=== PATIENT | female | born 1960 | race African-American/Black ===

== ENCOUNTER → 2017-02-21 | Outpatient (CLI) | payer MEDICARE, OTHER ==
[~2017-02-21] MED LIST: AMITRIPTYLINE H75 MG ORAL; AMLODIPINE BESY10 MG ORAL; ATORVASTATIN CA20 MG ORAL; CARVEDILOL3.125 MG ORAL; CREON DR 36,001 EACH PO; DEXILANT60 MG ORAL; DIGOXIN125 MCG ORAL; HYDROCHLOROTHIA25 MG ORAL; LEVOFLOXACIN500 MG ORAL; LISINOPRIL40 MG ORAL; METOPROLOL SUCC50 MG ORAL; OMEPRAZOLE20 M3 ORAL; OXYCODONE HCL15 M1 ORAL; POTASSIUM CHLO20 ME2 ORAL; PROAIR HFA8.5 GM INH
--- NOTE | 2017-02-21 11:44 | Diagnostic Imaging Report ---
Indications: Osteoporosis Technique: Utilizing a Siemens sensation [address] scanner, axial images were generated through the L1-L3 vertebral bodies and bone mineral density measured at each level via CT algorithm. Mean bone mineral density was calculated and mathematically compared to published standards for various age cohorts. CTDI volume(s): 4x2, 5 mGy Total DLP: 34 mGy-cm Findings: Comparison: None The patient's mean bone mineral density measures 119.1 mg calcium hydroxy apatite per milliliter bone. This generates a T score of -1.46, indicating that the patient's bone mineral density is deviation below the mean for an average healthy 20-year-old female. This generates a Z score of 0.48, indicating that the patient's bone mineral density is possibly one half of one standard deviation above the mean for his/her age cohort. IMPRESSION: Decreased bone mineral density compatible with osteopenia. This portends moderate risk of continued bone mineral loss and development of insufficiency fracture. Recommend institution of bone mineral replacement therapy if not are ready begun and followup exam in one to 2 years to assess rate of bone turnover
== END | disposition home or self-care (01) ==
LOC: CAT 10:37
DX: M81.0 Age-related osteoporosis without current pathological fracture (principal)
CPT/HCPCS: 77078

== ENCOUNTER 2017-02-22 12:49 | Outpatient (CLI) | payer MEDICARE, OTHER ==
--- NOTE | 2017-02-22 15:53 | Diagnostic Imaging Report ---
Indication: SCREEN Technique: Bilateral Craniocaudal and mediolateral oblique views, both conventional and implant displaced, were obtained. Comparison: 01/01/2015 screening mammogram, 01/20/2015 diagnostic mammogram and ultrasound Findings: There are bilateral breast implants which appear intact. The breasts demonstrate scattered fibroglandular densities. No parenchymal asymmetry nor architectural distortion. There are benign calcifications on the left. Again demonstrated is a 78 mm mass in the left breast 3:00 position, which appears unchanged, previously worked up and found to be an apocrine cyst. In the medial right breast, seen only on the craniocaudal implant displaced view, there is a 3 mm asymmetry, not evident previously. No skin thickening nor nipple retraction. No axillary adenopathy. . Impression: 3 mm medial right breast asymmetry, not evident previously, seen only on the implant displaced craniocaudal view. Further evaluation with spot compression mammography and ultrasound Stable benign left breast 3:00 nodule, previously worked up and thought to represent a benign apocrine cyst. BI-RADS category zero-needs additional imaging evaluation. Breast density BI-RADS type B.
== END 2017-02-22 14:49 | disposition home or self-care (01) ==
LOC: MAMMO 12:49
DX: Z12.31 Encounter for screening mammogram for malignant neoplasm of breast (principal); N64.89 Other specified disorders of breast; N63 Unspecified lump in breast
CPT/HCPCS: 77067

== ENCOUNTER 2017-03-17 10:46 | Outpatient (CLI) | payer MEDICARE, OTHER ==
--- NOTE | 2017-03-17 15:42 | Diagnostic Imaging Report ---
Indication: Abnormal screening mammogram. Nodule demonstrated in the right breast. Technique: Right breast mammography performed with implant displaced craniocaudal, true lateral and mediolateral oblique projections of the left impression. Ultrasound right breast also performed Prior examinations: 02/22/17 Findings: Breast composition type B: There are scattered areas of fibroglandular density. Small, fairly well-defined nodular focus is confirmed within the medial aspect of the right breast seen on the craniocaudal view in several projections. The nodule is about 4 mm in size. Ultrasound performed in this region does not show corresponding cyst or mass. There is no interval change. Impression: Small mammographically benign-appearing nodule, sonographically occult confirmed within the medial right breast. BI-RADS 3. Recommend 6 month followup ultrasound and diagnostic mammogram
--- NOTE | 2017-03-17 15:42 | Diagnostic Imaging Report ---
Refer to the diagnostic mammogram report 03/17/70
== END 2017-03-17 12:46 | disposition home or self-care (01) ==
LOC: MAMMO 10:46
DX: N63 Unspecified lump in breast (principal)
CPT/HCPCS: 76641; G0206

== ENCOUNTER 2019-04-09 12:43 | Emergency (ER) | payer MEDICARE, OTHER ==
[~2019-04-09] VITALS: Ht 167.6 cm; Wt 98.4 kg
--- NOTE | 2019-04-09 12:50 | NUR ---
ED Nurse Note: pt walked in to ED due to headache for 4-5 days. no recent injury. pt ambulatory with steady gait using walker. AAO x4. respirations even and non-labored noted. will wait for the further order.
[2019-04-09 13:02] VITALS: BP 128/76
--- NOTE | 2019-04-09 13:46 | Emergency Room Report ---
History of Present Illness General Chief Complaint: Headache Source: Patient (Monika Rene) Present Illness HPI 59 YO Female presents to the ED c/o SOB x 2 days. Reports exposure to mold in her house and when she stayed at motel last night had complete resolution of her symptoms until returning home again today. Pt. 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 Pt. denies fevers, chills or night sweats. Pt. with hx of tummy tuck. Pt. reports GRIGSBY, fatigue and productive cough. Denies recent travel or ill contacts. denies CP, Dizziness or palpitations. Denies sudden onset of her GRIGSBY. Denies imbalance, N/V, visual changes, neck pain/stiffness. She reports some sinus congestion, denies facial pain/sinus pain. Pt. reports sneezing. Denies having environmental allergies. pt. on Oxycodone for chronic pain. Recently at [facility] for UTI where she left AMA. (Monika Rene) Allergies: Coded Allergies: METRONIDAZOLE (Verified Allergy, Mild, 02/25/15) PENICILLIN G (Verified Allergy, Mild, 02/25/15) Patient History Past Medical History: see triage record Past Surgical History: none Pertinent Family History: none Now: No Reviewed Nursing Documentation: PMH: Agreed; PSxH: Agreed (Monika Rene) Nursing Documentation-PMH Past Medical History: No History, Except For Hx Cardiac Problems: Yes - Right shoulder rotator cuff, Arthritis Hx Hypertension: Yes Hx COPD: Yes Hx Diabetes: Yes Hx Cancer: No Hx Gastrointestinal Problems: Yes Hx Neurological Problems: No Hx Seizures: No - GERD (Monika Rene) Review of Systems All Other Systems: negative except mentioned in HPI (Monika Rene) Physical Exam Vital Signs Date Time Temp Pulse Resp B/P (MAP) Pulse Ox O2 Delivery O2 Flow Rate FiO2 04/09/19 12:54 98.2 82 15 128/76 (93) 92 Room Air Sp02 EP Interpretation: reviewed, normal General Appearance: no apparent distress, alert, GCS 15, non-toxic Head: normocephalic, atraumatic Eyes: bilateral eye normal inspection, bilateral eye PERRL ENT: hearing grossly normal, normal voice Neck: full range of motion Respiratory: chest non-tender, lungs clear, normal breath sounds, no rhonchi, no respiratory distress, no accessory muscle use, no wheezing, speaking full sentences Cardiovascular #1: regular rate, rhythm, no edema, normal capillary refill Gastrointestinal: normal bowel sounds, non tender, soft Genitourinary: normal inspection, no CVA tenderness Musculoskeletal: back normal, gait/station normal - with walker assistance, normal range of motion, non-tender Neurologic: alert, oriented x3, responsive, motor strength/tone normal, sensory intact, normal gait, speech normal, grossly normal Psychiatric: judgement/insight normal Lymphatic: no adenopathy (Monika Rene) Medical Decision Making PA Attestation Dr. Arriaga Is my supervising Physician whom patient management has been discussed with. (Monika Rene) Diagnostic Impression: Primary Impression: UTI (urinary tract infection) Qualified Codes: N30.01 - Acute cystitis with hematuria Additional Impressions: Cough Allergic rhinitis Qualified Codes: J30.9 - Allergic rhinitis, unspecified Atypical pneumonia ER Course 59 YO Female presents to the ED c/o SOB x 2 days. Reports exposure to mold in her house and when she stayed at motel last night had complete resolution of her symptoms until returning home again today. Pt. 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 Pt. denies fevers, chills or night sweats. Pt. with hx of tummy tuck. Pt. reports GRIGSBY, fatigue and productive cough. Denies recent travel or ill contacts. denies CP, Dizziness or palpitations. Denies sudden onset of her GRIGSBY. Denies imbalance, N/V, visual changes, neck pain/stiffness. She reports some sinus congestion, denies facial pain/sinus pain. Pt. reports sneezing. Denies having environmental allergies. pt. on Oxycodone for chronic pain. Recently at [facility] for UTI where she left AMA. Ddx considered but are not limited to FL, PE, atelectasis, CHF, asthma, anxiety , hyper-ventilation syndrome, pneumonia, costochondritis, chest wall pain, -- No acute pulmonary or cardiac causes at this time. The patient is NAD, her oxygen saturation is within normal limits, patient is not in respiratory distress at this time. Vital signs: are WNL, pt. is afebrile H&PE are most consistent with-- Bronchitis ORDERS: -EKG: NSR 89 beats per minute, no acute ST changes -CBC & CMP: unremarkable/ WNL -Troponin: WNL -BNP: WNL -UA: Nitrite positive, leuks, wbc's ---infection -CXR: cardiomegaly ED INTERVENTIONS: -1G Rocephin IV -I do not identify an emergent condition at this time. With current presentation , pt. is stable for close outpatient follow up and conservative treatment. D/ w pt. to return promptly to ED with worsening or new symptoms.- Pt. verbalizes' understanding and agreement with proposed treatment plan.proposed treatment plan. Official radiology report cites atelectasis -basilar which could represent an PNA if pt. correlates clinically. Due to pt. being here for c/o cough, and URI symptoms will treat with Levaquin abx. as pt. with hx. of COPD. Rx sent to [facility] and pt. was contacted by phone who wants her pharmacy updated from [place] to [facility] pharmacy. DISCHARGE: At this time pt. is stable for d/c to home. s. Will provide printed patient care instructions, and any necessary prescriptions. Care plan and follow up instructions have been discussed with the patient prior to discharge. Labs Test 04/09/19 14:10 White Blood Count 7.4 K/UL (4.8-10.8) Red Blood Count 5.28 M/UL (4.20-5.40) Hemoglobin 14.6 G/DL (12.0-16.0) Hematocrit 45.4 % (37.0-47.0) Mean Corpuscular Volume 86 FL (80-99) Mean Corpuscular Hemoglobin 27.6 PG (27.0-31.0) Mean Corpuscular Hemoglobin Concent 32.0 G/DL (32.0-36.0) Red Cell Distribution Width 12.8 % (11.6-14.8) Platelet Count 291 K/UL (150-450) Mean Platelet Volume 6.8 FL (6.5-10.1) Neutrophils (%) (Auto) 57.8 % (45.0-75.0) Lymphocytes (%) (Auto) 31.4 % (20.0-45.0) Monocytes (%) (Auto) 7.3 % (1.0-10.0) Eosinophils (%) (Auto) 2.4 % (0.0-3.0) Basophils (%) (Auto) 1.1 % (0.0-2.0) Urine Color Brown Urine Appearance Slightly cloudy Urine pH 5 (4.5-8.0) Urine Specific [place] 1.020 (1.005-1.035) Urine Protein 2+ (NEGATIVE) Urine Glucose (UA) Negative (NEGATIVE) Urine Ketones 2+ (NEGATIVE) Urine Blood 4+ (NEGATIVE) Urine Nitrite Positive (NEGATIVE) Urine Bilirubin Negative (NEGATIVE) Urine Urobilinogen 1 MG/DL (0.0-1.0) Urine Leukocyte Esterase 2+ (NEGATIVE) Urine RBC 5-10 /HPF (0 - 2) Urine WBC 20-30 /HPF (0 - 2) Urine Squamous Epithelial Cells Moderate /LPF (NONE/OCC) Urine Bacteria Many /HPF (NONE) Sodium Level 139 MMOL/L (136-145) Potassium Level 3.7 MMOL/L (3.5-5.1) Chloride Level 100 MMOL/L (98-107) Carbon Dioxide Level 34 MMOL/L (21-32) Anion Gap 5 mmol/L (5-15) Blood Urea Nitrogen 11 mg/dL (7-18) Creatinine 1.0 MG/DL (0.55-1.30) Estimat Glomerular Filtration Rate > 60 mL/min (>60) Glucose Level 94 MG/DL (74-106) Calcium Level 9.5 MG/DL (8.5-10.1) Total Bilirubin 0.5 MG/DL (0.2-1.0) Aspartate Amino Transf (AST/SGOT) 16 U/L (15-37) Alanine Aminotransferase (ALT/SGPT) 20 U/L (12-78) Alkaline Phosphatase 152 U/L (46-116) Troponin I 0.000 ng/mL (0.000-0.056) Pro-B-Type Natriuretic Peptide 32 pg/mL (0-125) Total Protein 8.7 G/DL (6.4-8.2) Albumin 3.9 G/DL (3.4-5.0) Globulin 4.8 g/dL Albumin/Globulin Ratio 0.8 (1.0-2.7) (Monika Rene) EKG Diagnostic Results EP Interpretation: Dr. Arriaga Rate: normal - 89 Rhythm: NSR ST Segments: no acute changes ASA given to the pt in ED: No PA Scribe Text This Interpretation was scribed by MARLY Rene. (Monika Rene) Chest X-Ray Diagnostic Results Chest X-Ray Diagnostic Results : Chest X-Ray Ordered: Yes # of Views/Limited/Complete: 1 View Indication: Shortness of Breath EP Interpretation: Yes PA Xray: Interpretation reviewed, by supervising MD - Dr. Michael, and agrees with findings. Interpretation: no consolidation, no effusion, no pneumothorax, no acute cardiopulmonary disease, other - Cardiomegaly Impression: No acute disease Electronically Signed by: Monkia Rene PA-C (Monika Rene) Chest X-Ray Diagnostic Results : Electronically Signed by: MARLY xray documentation reviewed by me and is accurate, Matthew Arriaga MD. (Matthew Arriaga MD) Last Vital Signs Date Time Temp Pulse Resp B/P (MAP) Pulse Ox O2 Delivery O2 Flow Rate FiO2 04/09/19 13:02 98.2 82 15 128/76 92 Room Air Status: improved (Monika Rene) Disposition: HOME, SELF-CARE Condition: Stable Scripts Levofloxacin* (LEVAQUIN*) 750 Mg Tablet 750 MG ORAL DAILY for 5 Days, #5 TAB Prov: Monika Rene 04/11/19 Cetirizine Hcl* (ZYRTEC*) 10 Mg Tablet 10 MG ORAL DAILY, #30 TAB 0 Refills Prov: Monika Rene 04/09/19 Nitrofurantoin Monohyd/M-Cryst* (MACROBID 100 MG*) 100 Mg Capsule 100 MG ORAL EVERY 12 HOURS for 5 Days, #10 CAP Prov: Monika Rene 04/09/19 Patient Instructions: Allergic Rhinitis, Urinary Tract Infection, [id number] Additional Instructions: Take medications as directed. Follow up with a Primary Care Provider in 3-5 days, even if your symptoms have resolved. -- DRAWBENCH OPERATOR HELPER EVALUATION REFERRAL --- please obtain from your PCP Dr. Alexander Return sooner to ED if new symptoms occur, or current symptoms become worse. - Please note that this Emergency Department Report was dictated using Dragon electrical prospecting operator technology software, occasionally this can lead to erroneous entry secondary to interpretation by the dictation equipment. Monika Rene Apr 09, 2019 13:46 Matthew Arriaga MD Apr 12, 2019 00:49
[2019-04-09 14:16] LABS: APPEARANCE,URINE SLIGHTLY CLOUDY; BILIRUBIN, URINE NEGATIVE (NEGATIVE); COLOR,URINE BROWN; GLUCOSE, URINE (UA) NEGATIVE (NEGATIVE); KETONES,URINE 2+ (NEGATIVE); LEUKOCYTE ESTERASE ,URINE 2+ (NEGATIVE); NITRITE,URINE POSITIVE (NEGATIVE); PH,URINE 5 (4.5-8.0); PROTEIN,URINE 2+ (NEGATIVE); UROBILINOGEN,URINE 1 MG/DL (0.0-1.0)
[2019-04-09 14:17] LABS: BASOPHILS % (AUTO) 1.1 % (0.0-2.0); EOSINOPHILS % (AUTO) 2.4 % (0.0-3.0); HEMATOCRIT 45.4 % (37.0-47.0); HEMOGLOBIN 14.6 G/DL (12.0-16.0); LYMPHOCYTES % (AUTO) 31.4 % (20.0-45.0); MEAN CORPUSCULAR VOLUME 86 FL (80-99); MONOCYTES % (AUTO) 7.3 % (1.0-10.0); NEUTROPHILS % (AUTO) 57.8 % (45.0-75.0); PLATELET COUNT 291 K/UL (150-450); RED BLOOD COUNT 5.28 M/UL (4.20-5.40); RED CELL DISTRIBUTION WIDTH 12.8 % (11.6-14.8); WHITE BLOOD COUNT 7.4 K/UL (4.8-10.8)
[2019-04-09 14:46] LABS: ANION GAP 5 mmol/L (5-15); BLOOD UREA NITROGEN 11 mg/dL (7-18); CALCIUM 9.5 MG/DL (8.5-10.1); CARBON DIOXIDE 34 MMOL/L (21-32); CHLORIDE 100 MMOL/L (98-107); POTASSIUM 3.7 MMOL/L (3.5-5.1); SODIUM 139 MMOL/L (136-145)
[2019-04-09 14:59] LABS: ALANINE AMINOTRANSFERASE 20 U/L (12-78); ALBUMIN 3.9 G/DL (3.4-5.0); ALBUMIN/GLOBULIN RATIO 0.8 (1.0-2.7); ALKALINE PHOSPHATASE 152 U/L (46-116); ASPARTATE AMINO TRANSFERASE 16 U/L (15-37); BILIRUBIN,TOTAL 0.5 MG/DL (0.2-1.0)
[2019-04-09] MEDS ORDERED: cefTRIAXone 1 GM in NS 55 ML IVPB ONE (15:15)
[2019-04-09] MEDS ORDERED: NITROFURANTOIN100 M2 ORAL (15:42)
[2019-04-09] MEDS ORDERED: ZYRTEC10 MG ORAL (15:42)
[2019-04-09] MEDS ORDERED: Phenazopyridine 200mg tab ORAL ONE (16:00)
[2019-04-09 16:18] VITALS: BP 122/71
--- NOTE | 2019-04-09 16:19 | NUR ---
ER DISCHARGE NOTE: Patient is cleared to be discharged per ERMD, pt is aox4, on room air, with stable vital signs. pt was given dc and prescription instructions, pt was able to verbalize understanding, pt id band and iv site removed without complications. pt is able to ambulate with steady gait. pt took all belongings.
--- NOTE | 2019-04-09 16:35 | Diagnostic Imaging Report ---
Indication: Reason For Exam: PAIN Technique: Single AP view of the chest. Comparison: Chest radiograph dated 06/20/2015 Findings: The cardiomediastinal silhouette is unchanged, with persistent cardiomegaly. Streaky right basilar subsegmental atelectasis. Left basilar/retrocardiac airspace opacity. No pneumothorax. Question trace left pleural effusion. No acute osseous and amounted. IMPRESSION: 1. Retrocardiac/left basilar airspace opacity which may be combination of atelectasis and cardiac shadow, however pneumonia should be excluded clinically. 2. Cardiomegaly.
[2019-04-11] MEDS ORDERED: LEVAQUIN750 MG ORAL ×2 (12:30→12:37)
== END 2019-04-09 16:19 | disposition home or self-care (01) ==
LOC: EMR 15:02
DX: N30.01 Acute cystitis with hematuria (principal); R05 Cough; J30.9 Allergic rhinitis, unspecified; I10 Essential (primary) hypertension; Z86.711 Personal history of pulmonary embolism; Z88.0 Allergy status to penicillin; Z88.8 Allergy status to other drugs, medicaments and biological substances; J44.9 Chronic obstructive pulmonary disease, unspecified; K21.9 Gastro-esophageal reflux disease without esophagitis; E11.9 Type 2 diabetes mellitus without complications; I51.7 Cardiomegaly
CPT/HCPCS: 36415; 71045; 80053; 81003; 83880; 84484; 85025; 87086; 87181; 93005; 96365; 99284; J0696

== ENCOUNTER 2019-07-10 15:19 | Inpatient (IN) | payer MEDICARE, OTHER ==
[~2019-07-10] VITALS: Ht 167.6 cm; Wt 102.3 kg
[~2019-07-10 15:19] MED LIST changes: +CALAN SR180 MG ORAL; +COZAAR50 MG ORAL; +FUROSEMIDE20 M1 ORAL; +LEVAQUIN750 MG ORAL; +NITROFURANTOIN100 M2 ORAL; +ZYRTEC10 MG ORAL
[2019-07-10 15:40] VITALS: BP 153/94
--- NOTE | 2019-07-10 15:40 | NUR ---
ED Nurse Note: Patient walked in to ER due to lower back pain x2 weeks. As per patient she is taking prescribed [place] for pain but doesnt alleviate the symptoms. Has history of lumbar spinal stenosis. No SOB. VSS.
--- NOTE | 2019-07-10 16:16 | NUR ---
ED Nurse Note: Per SHAUNA Frank, Hold NS 500. Noted and carried out.
--- NOTE | 2019-07-10 16:35 | Emergency Room Report ---
History of Present Illness General Chief Complaint: Back Pain-No Injury Source: Patient (Monika Rene) Present Illness HPI 59-year-old female presents to the emergency department complaining of multiple symptoms such as wheezing, sore throat, orthostatic dizziness, 8/10 in severity low back pain x2 weeks. Patient reports history of chronic right-sided low back pain however over the course of 2 weeks her pain has progressed across her back. Patient with history of spinal stenosis and L3-4 and 5. Patient denies trauma or fall. Patient denies chest pain she does report abdominal burning sensation and metallic taste in her mouth. Reports hx of COPD with nebulizer at home. Patient reports history of GERD and takes omeprazole. Patient is also stating that her voice is frequently hoarse. Patient states that she is being seen by infectious disease regarding mold exposure and is currently awaiting for microorganism identification. She denies fevers but reports chills. She denies nausea, vomiting, constipation or diarrhea. She denies saddle anesthesia , motor weakness, or urinary incontinence or retention. She denies sciatica symptoms. She denies recent spinal procedures/injections or hx of cancer. (Monika Rene) Allergies: Coded Allergies: METRONIDAZOLE (Verified Allergy, Mild, 02/25/15) PENICILLIN G (Verified Allergy, Mild, 02/25/15) Patient History Past Medical History: see triage record Past Surgical History: none Pertinent Family History: none Now: No Reviewed Nursing Documentation: PMH: Agreed; PSxH: Agreed (Monika Rene) Nursing Documentation-PMH Past Medical History Deferred: Pt Cognitively Impaired Hx Cardiac Problems: Yes - Right shoulder rotator cuff, Arthritis Hx Hypertension: Yes Hx COPD: Yes Hx Diabetes: Yes Hx Cancer: No Hx Gastrointestinal Problems: Yes Hx Neurological Problems: No - SPINAL STENOSIS Hx Seizures: No - GERD (Monika Rene) Review of Systems All Other Systems: negative except mentioned in HPI (Monika Rene) Physical Exam Vital Signs Date Time Temp Pulse Resp B/P (MAP) Pulse Ox O2 Delivery O2 Flow Rate FiO2 07/10/19 15:36 98.1 100 16 153/94 (113) 96 Room Air Sp02 EP Interpretation: reviewed, normal General Appearance: no apparent distress, alert, GCS 15, non-toxic Head: normocephalic, atraumatic Eyes: bilateral eye normal inspection, bilateral eye PERRL ENT: hearing grossly normal, normal voice Neck: full range of motion Respiratory: chest non-tender, lungs clear, normal breath sounds, no respiratory distress, no accessory muscle use, speaking full sentences, wheezing - expiratory, other - hoarsness of voice Cardiovascular #1: regular rate, rhythm, no edema, normal capillary refill Gastrointestinal: normal bowel sounds, non tender, soft Genitourinary: normal inspection, no CVA tenderness Musculoskeletal: gait/station normal, normal range of motion, tender - TTP across the low back. no specific midline spinous process tenderness to palpation or step-off. Patient primarily has tenderness in the paraspinal musculature. Neurologic: alert, oriented x3, responsive, motor strength/tone normal, sensory intact, speech normal, grossly normal Psychiatric: judgement/insight normal Skin: normal color Lymphatic: no adenopathy (Monika Rene) Medical Decision Making PA Attestation Dr. Geronimo Is my supervising Physician whom patient management has been discussed with. (Monika Rene) Medicare Attestation The history of Anibal Kaur has been reviewed and management options for her have been examined and discussed by Ne Geronimo. I have personally examined and interviewed the patient. (Ne Geronimo DO) Diagnostic Impression: Primary Impression: COPD exacerbation Additional Impression: Dyspnea Qualified Codes: R06.00 - Dyspnea, unspecified ER Course 59-year-old female presents to the emergency department complaining of multiple symptoms such as wheezing, sore throat, orthostatic dizziness, 8/10 in severity low back pain x2 weeks. Patient reports history of chronic right-sided low back pain however over the course of 2 weeks her pain has progressed across her back. Patient with history of spinal stenosis and L3-4 and 5. Patient denies trauma or fall. Patient denies chest pain she does report abdominal burning sensation and metallic taste in her mouth. Reports hx of COPD with nebulizer at home. Patient reports history of GERD and takes omeprazole. Patient is also stating that her voice is frequently hoarse. Patient states that she is being seen by infectious disease regarding mold exposure and is currently awaiting for microorganism identification. She denies fevers but reports chills. She denies nausea, vomiting, constipation or diarrhea. She denies saddle anesthesia , motor weakness, or urinary incontinence or retention. She denies sciatica symptoms. She denies recent spinal procedures/injections or hx of cancer. Ddx considered but are not limited to IA, pneumonia, contusion, costochondritis , PE, ACS, Shoulder strain, Chest wall contusion. aortic dissection. Vital signs: are WNL, pt. is afebrile H&PE are most consistent with COPD exacerbation vs. GERD/ PNA. ORDERS: - EK bpm -CBC: wbc's 13.4 -CMP: WNL -BNP:40 -Troponin:0.014 -Lipase: WNL -CXR: -Orthostatic VS: WNL ED INTERVENTIONS: -Albuterol HHN - PT. placed on cardiac monitoring. DISPOSITION: at this time pt. will be admitted to Dr. Ibarra for COPD exacerbation/ persistent dyspnea. agreed to admit the pt. and to continue pt. care management. Labs Test 07/10/19 16:14 White Blood Count 13.8 K/UL (4.8-10.8) Red Blood Count 4.79 M/UL (4.20-5.40) Hemoglobin 13.5 G/DL (12.0-16.0) Hematocrit 39.1 % (37.0-47.0) Mean Corpuscular Volume 81 FL (80-99) Mean Corpuscular Hemoglobin 28.1 PG (27.0-31.0) Mean Corpuscular Hemoglobin Concent 34.5 G/DL (32.0-36.0) Red Cell Distribution Width 11.2 % (11.6-14.8) Platelet Count 261 K/UL (150-450) Mean Platelet Volume 7.4 FL (6.5-10.1) Neutrophils (%) (Auto) 63.8 % (45.0-75.0) Lymphocytes (%) (Auto) 26.7 % (20.0-45.0) Monocytes (%) (Auto) 7.4 % (1.0-10.0) Eosinophils (%) (Auto) 1.1 % (0.0-3.0) Basophils (%) (Auto) 1.0 % (0.0-2.0) Sodium Level 138 MMOL/L (136-145) Potassium Level 3.3 MMOL/L (3.5-5.1) Chloride Level 99 MMOL/L (98-107) Carbon Dioxide Level 32 MMOL/L (21-32) Anion Gap 7 mmol/L (5-15) Blood Urea Nitrogen 11 mg/dL (7-18) Creatinine 1.0 MG/DL (0.55-1.30) Estimat Glomerular Filtration Rate > 60 mL/min (>60) Glucose Level 125 MG/DL (74-106) Calcium Level 8.4 MG/DL (8.5-10.1) Total Bilirubin 0.2 MG/DL (0.2-1.0) Aspartate Amino Transf (AST/SGOT) 13 U/L (15-37) Alanine Aminotransferase (ALT/SGPT) 21 U/L (12-78) Alkaline Phosphatase 118 U/L (46-116) Troponin I 0.014 ng/mL (0.000-0.056) Pro-B-Type Natriuretic Peptide 40 pg/mL (0-125) Total Protein 7.9 G/DL (6.4-8.2) Albumin 3.8 G/DL (3.4-5.0) Globulin 4.1 g/dL Albumin/Globulin Ratio 0.9 (1.0-2.7) Lipase 105 U/L (73-393) (Monika Rene) EKG Diagnostic Results EP Interpretation: Dr. Geronimo Rate: normal - [address] Segments: no acute changes ASA given to the pt in ED: No PA Scribe Text This Interpretation was scribed by MARLY Rene. (Monika Rene) Chest X-Ray Diagnostic Results Chest X-Ray Diagnostic Results : Chest X-Ray Ordered: Yes # of Views/Limited/Complete: 1 View Indication: Shortness of Breath EP Interpretation: Yes MARLY Xray: Interpretation reviewed, by supervising MD, and agrees with findings. Interpretation: no consolidation, no effusion, no pneumothorax, other - Cardiomegaly Impression: Other - abnormal Electronically Signed by: Monika Rene PA-C (Monika Rene) Last Vital Signs Date Time Temp Pulse Resp B/P (MAP) Pulse Ox O2 Delivery O2 Flow Rate FiO2 07/10/19 15:40 98.1 100 16 153/94 96 Room Air (Monika Rene) Disposition: ADMITTED INPATIENT Condition: Serious Monika Rene Jul 10, 2019 16:35 Ne Geronimo 13, 2019 17:53
--- NOTE | 2019-07-10 16:39 | NUR ---
ED Nurse Note: Xray at bedside.
[2019-07-10 16:50] VITALS: BP_SYST 130; BP_SYST 138; BP_SYST 140; BP_DIAS 51; BP_DIAS 79; BP_DIAS 89
[2019-07-10 17:05] LABS: EOSINOPHILS % (AUTO) 1.1 % (0.0-3.0); HEMATOCRIT 39.1 % (37.0-47.0); HEMOGLOBIN 13.5 G/DL (12.0-16.0); LYMPHOCYTES % (AUTO) 26.7 % (20.0-45.0); MEAN CORPUSCULAR VOLUME 81 FL (80-99); MONOCYTES % (AUTO) 7.4 % (1.0-10.0); NEUTROPHILS % (AUTO) 63.8 % (45.0-75.0); PLATELET COUNT 261 K/UL (150-450); RED BLOOD COUNT 4.79 M/UL (4.20-5.40); RED CELL DISTRIBUTION WIDTH 11.2 % (11.6-14.8); WHITE BLOOD COUNT 13.8 K/UL (4.8-10.8)
[2019-07-10 17:10] LABS: ANION GAP 7 mmol/L (5-15); BLOOD UREA NITROGEN 11 mg/dL (7-18); CALCIUM 8.4 MG/DL (8.5-10.1); CARBON DIOXIDE 32 MMOL/L (21-32); CHLORIDE 99 MMOL/L (98-107); POTASSIUM 3.3 MMOL/L (3.5-5.1); SODIUM 138 MMOL/L (136-145)
--- NOTE | 2019-07-10 17:11 | Diagnostic Imaging Report ---
Indication: Chest pain Comparison: 05/06/2019 A single view chest radiograph was obtained. Findings: Cardiomegaly is present. The lungs are clear. Pulmonary vascularity is appropriate. The diaphragmatic contour is smooth and costophrenic angles are sharp. No pleural effusions are identified. The bones are unremarkable. Impression: No acute findings
[2019-07-10 17:14] LABS: ALANINE AMINOTRANSFERASE 21 U/L (12-78); ALBUMIN 3.8 G/DL (3.4-5.0); ALBUMIN/GLOBULIN RATIO 0.9 (1.0-2.7); ALKALINE PHOSPHATASE 118 U/L (46-116); ASPARTATE AMINO TRANSFERASE 13 U/L (15-37); BILIRUBIN,TOTAL 0.2 MG/DL (0.2-1.0)
[2019-07-10] MEDS ORDERED: Albuterol ud Inhalation HHN ONE (17:45)
--- NOTE | 2019-07-10 17:58 | NUR ---
ED Nurse Note: RT at bedside for breathing tx.
[2019-07-10] MEDS ORDERED: Lidocaine 2% Visc 15ml soln ORAL ONE (18:00)
[2019-07-10 19:46] VITALS: BP 105/73
--- NOTE | 2019-07-10 20:00 | NUR ---
ED Nurse Note: RECEIVING PATIENT FROM KARLENE RN. PATIENT RESTING INBED COMFORTABLY WITH NO ACUTE DISTRESS. DENIES PAIN AT THIS TIME. IV FLUSHED AND PATENT. ATTACHED TO MONITOR; VSS. PT AWARE OF PENDING ADMISSION
[2019-07-10 21:00] VITALS: BP 118/73
--- NOTE | 2019-07-10 21:45 | NUR ---
TRANSFER TO FLOOR: Patient transferred to [facility] 220-2 as ordered, per ROMAIN MOJICA. Report given to MAKEDA WAGONER. PATIENT IN STABLE CONDITION. TRANSFERRED TO UNIT VIA [facility]. PT AMBULATED FROM [facility] TO HOSPITAL BED WITH SUPERVISION. BELONGINGS SENT WITH PATIENT. BELONGINGS LIST COMPLETED WITH RECEIVING RN.
--- NOTE | 2019-07-10 21:51 | NUR ---
NURSE NOTES: Received report from Harry Cristobal LABORATORY ENGINEER. Patient was transferred to Telemetry unit from ER via [facility] without incident. No signs of acute distress noted; complains of pain. AOx4; able to make needs known. Ambulates with cane. Checked IV site; patent and flushed. No erythema, bleeding, or infiltration noted. Belongings list checked with patient and transferring RN. 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 Patient put on Tele box; sinus rhythm on the monitor (90s). Bed at lowest position, brakes on, siderails up x2. Call light within reach. Will continue to monitor.
[2019-07-10] MEDS ORDERED: COREG CR80 MG ORAL (23:20)
[2019-07-10] MEDS ORDERED: FLUCONAZOLE100 MG ORAL (23:20)
[2019-07-10] MEDS ORDERED: COLCHICINE0.6 M1 PO (23:20)
[2019-07-10] MEDS ORDERED: SPIRONOLACTONE25 MG ORAL (23:20)
[2019-07-10] MEDS ORDERED: BENICAR HCT 201 EACH ORAL (23:20)
[2019-07-10] MEDS ORDERED: AMITRIPTYLINE100 MG ORAL (23:20)
[2019-07-10] MEDS ORDERED: VENTOLIN HFA18 GM INH (23:20)
[2019-07-10] MEDS ORDERED: OMEPRAZOLE40 M1 ORAL (23:20)
[2019-07-10] MEDS ORDERED: MELOXICAM15 MG PO (23:20)
[2019-07-10] MEDS ORDERED: CYCLOBENZAPRINE5 MG ORAL (23:20)
[2019-07-10] MEDS ORDERED: ZITHROMAX250 MG ORAL (23:20)
[2019-07-10] MEDS ORDERED: MECLIZINE HCL25 MG ORAL (23:20)
[2019-07-10] MEDS ORDERED: VERAPAMIL ER120 M1 PO (23:20)
[2019-07-10] MEDS ORDERED: FUROSEMIDE20 M1 ORAL (23:20)
[2019-07-10] MEDS ORDERED: BREO ELLIPTA 21 EACH IH (23:20)
[2019-07-10] MEDS ORDERED: PREDNISONE10 MG ORAL (23:20)
[2019-07-10] MEDS ORDERED: TUDORZA PRESS400 MCG IH (23:20)
[2019-07-10] MEDS ORDERED: Cyclobenzaprine 10mg Tab ORAL PRN (23:45)
[2019-07-10] MEDS ORDERED: oxyCODONE 15mg IR tab ORAL PRN (23:45)
[2019-07-10] MEDS ORDERED: Breo Ellipta 200/25mcg-14 dose INH PRN (23:45)
[2019-07-11] VITALS: BP 110/59
[2019-07-11] MEDS ORDERED: oxyCODONE 15mg IR tab ORAL PRN (00:15)
[2019-07-11] MEDS: Morphine Sulfate 2mg/ml Inj(IV/IM USE ONLY) IVP PRN (03:29)
[2019-07-11 04:00] VITALS: BP 140/92
[2019-07-11] MEDS: Albuterol/Ipratropium 3ml neb HHN PRN ×2 (06:04→09:34)
[2019-07-11 06:40] LABS: BASOPHILS % (AUTO) 0.8 % (0.0-2.0); EOSINOPHILS % (AUTO) 2.4 % (0.0-3.0); HEMATOCRIT 39.4 % (37.0-47.0); HEMOGLOBIN 13.1 G/DL (12.0-16.0); LYMPHOCYTES % (AUTO) 37.8 % (20.0-45.0); MEAN CORPUSCULAR VOLUME 84 FL (80-99); MONOCYTES % (AUTO) 7.2 % (1.0-10.0); NEUTROPHILS % (AUTO) 51.8 % (45.0-75.0); PLATELET COUNT 270 K/UL (150-450); RED BLOOD COUNT 4.69 M/UL (4.20-5.40); RED CELL DISTRIBUTION WIDTH 12.8 % (11.6-14.8); WHITE BLOOD COUNT 10.7 K/UL (4.8-10.8)
[2019-07-11] MEDS ORDERED: Albuterol 90mcg Inhaler 8gm INH SCH ×2 (07:00)
[2019-07-11 07:16] LABS: ALANINE AMINOTRANSFERASE 25 U/L (12-78); ALBUMIN 3.7 G/DL (3.4-5.0); ALBUMIN/GLOBULIN RATIO 0.9 (1.0-2.7); ALKALINE PHOSPHATASE 120 U/L (46-116); ANION GAP 8 mmol/L (5-15); ASPARTATE AMINO TRANSFERASE 13 U/L (15-37); BILIRUBIN,TOTAL 0.3 MG/DL (0.2-1.0); BLOOD UREA NITROGEN 13 mg/dL (7-18); CALCIUM 8.4 MG/DL (8.5-10.1); CARBON DIOXIDE 32 MMOL/L (21-32); CHLORIDE 102 MMOL/L (98-107); CHOLESTEROL 164 MG/DL (< 200); HDL CHOLESTEROL 65 MG/DL (40-60); POTASSIUM 3.4 MMOL/L (3.5-5.1); SODIUM 142 MMOL/L (136-145); TRIGLYCERIDES 89 MG/DL (30-150)
--- NOTE | 2019-07-11 07:31 | NUR ---
HAND-OFF: Report given to RIZWANA Alcantara. Patient is awake sitting on the edge of the bed; resting comfortably. In stable condition.
--- NOTE | 2019-07-11 07:35 | NUR ---
NURSE NOTES: Received report from RIZWANA Mas. Patient is awake and responsive sitting at the edge of the bed, A/O x4. Breathing regular and unlabored at this time. Patient denies any pain or discomfort at this time. IV is intact and saline locked. Bed is in lowest position, breaks engaged for safety. Call light within reach at all times. Will continue with the plan of care.
[2019-07-11 08:00] VITALS: BP 131/85
[2019-07-11] MEDS: Irbesartan 150mg tablet ORAL SCH (09:19)
[2019-07-11] MEDS: hydroCHLOROthiazide 12.5mg TAB ORAL SCH (09:19)
[2019-07-11] MEDS: Spironolactone 25mg tab ORAL SCH (09:20)
[2019-07-11] MEDS: Enoxaparin 40mg Inj SUBQ SCH (09:21)
[2019-07-11] MEDS: Breo Ellipta 200/25mcg-14 dose INH SCH (09:32)
[2019-07-11] MEDS: Meclizine 25mg tab ORAL SCH (09:42)
--- NOTE | 2019-07-11 09:43 | NUR ---
NURSE NOTES: Verapamil not available in the pyxis. Pharmacy aware.
[2019-07-11 12:00] VITALS: BP 143/90
[2019-07-11] MEDS: Albuterol 90mcg Inhaler 8gm INH SCH ×2 (13:10→19:29)
--- NOTE | 2019-07-11 14:26 | General Progress Note ---
Assessment/Plan Assessment/Plan: seen and examined. Full dictation in progress A/P 1- Acute Exertional SOB 2- B/L lower paresis Plan: Rehab, Cardio and pulmonary are consulted Subjective Allergies: Coded Allergies: METRONIDAZOLE (Verified Allergy, Mild, 02/25/15) PENICILLIN G (Verified Allergy, Mild, 02/25/15) Objective Last 24 Hour Vital Signs Date Time Temp Pulse Resp B/P (MAP) Pulse Ox O2 Delivery O2 Flow Rate FiO2 07/11/19 12:00 98.6 86 19 143/90 (107) 95 07/11/19 12:00 86 07/11/19 11:39 84 131/80 07/11/19 09:34 84 20 99 Nasal Cannula 2.0 28 07/11/19 09:19 131/80 07/11/19 09:00 Nasal Cannula 2.0 07/11/19 08:00 97.0 78 19 131/85 (100) 95 07/11/19 08:00 78 07/11/19 06:05 80 18 98 Nasal Cannula 2.0 28 76 18 95 07/11/19 04:00 82 07/11/19 04:00 98.6 87 18 140/92 (108) 95 07/11/19 01:11 Room Air 07/11/19 00:00 98.5 88 18 110/59 (76) 96 07/11/19 00:00 101 07/10/19 21:58 100 07/10/19 21:45 98.1 88 22 118/73 98 Room Air 21 07/10/19 21:00 98.1 88 22 118/73 98 Room Air 21 07/10/19 19:46 98.1 87 22 105/73 98 Room Air 21 07/10/19 18:04 88 22 98 Room Air 21 85 20 97 07/10/19 16:50 98.1 99 19 140/51 100 Room Air 86 130/79 98 138/89 07/10/19 15:40 98.1 100 16 153/94 96 Room Air 07/10/19 15:36 98.1 100 16 153/94 (113) 96 Room Air Intake and Output 07/10/19 07/11/19 19:00 07:00 Intake Total 240 ml Balance 240 ml Intake Oral 240 ml # Voids 1 1 Laboratory Tests 07/10/19 16:14: White Blood Count 13.8H, Red Blood Count 4.79, Hemoglobin 13.5, Hematocrit 39.1 , Mean Corpuscular Volume 81, Mean Corpuscular Hemoglobin 28.1, Mean Corpuscular Hemoglobin Concent 34.5, Red Cell Distribution Width 11.2L, Platelet Count 261, Mean Platelet Volume 7.4, Neutrophils (%) (Auto) 63.8, Lymphocytes (%) (Auto) 26.7, Monocytes (%) (Auto) 7.4, Eosinophils (%) (Auto) 1.1, Basophils (%) (Auto) 1.0, Sodium Level 138, Potassium Level 3.3L, Chloride Level 99, Carbon Dioxide Level 32, Anion Gap 7, Blood Urea Nitrogen 11, Creatinine 1.0, Estimat Glomerular Filtration Rate > 60, Glucose Level 125H, Calcium Level 8.4L, Total Bilirubin 0.2, Aspartate Amino Transf (AST/SGOT) 13L, Alanine Aminotransferase (ALT/SGPT) 21, Alkaline Phosphatase 118H, Troponin I 0.014, Pro-B-Type Natriuretic Peptide 40, Total Protein 7.9, Albumin 3.8, Globulin 4.1, Albumin/Globulin Ratio 0.9L, Lipase 105 07/11/19 05:25: White Blood Count 10.7, Red Blood Count 4.69, Hemoglobin 13.1, Hematocrit 39.4, Mean Corpuscular Volume 84, Mean Corpuscular Hemoglobin 28.0, Mean Corpuscular Hemoglobin Concent 33.3, Red Cell Distribution Width 12.8, Platelet Count 270, Mean Platelet Volume 6.6, Neutrophils (%) (Auto) 51.8, Lymphocytes (%) (Auto) 37.8, Monocytes (%) (Auto) 7.2, Eosinophils (%) (Auto) 2.4, Basophils (%) (Auto ) 0.8, Sodium Level 142, Potassium Level 3.4L, Chloride Level 102, Carbon Dioxide Level 32, Anion Gap 8, Blood Urea Nitrogen 13, Creatinine 1.0, Estimat Glomerular Filtration Rate > 60, Glucose Level 127H, Calcium Level 8.4L, Total Bilirubin 0.3, Aspartate Amino Transf (AST/SGOT) 13L, Alanine Aminotransferase ( ALT/SGPT) 25, Alkaline Phosphatase 120H, Troponin I 0.003, Total Protein 7.7, Albumin 3.7, Globulin 4.0, Albumin/Globulin Ratio 0.9L, Hemoglobin A1c 6.2H, Triglycerides Level 89, Cholesterol Level 164, LDL Cholesterol 82, HDL Cholesterol 65H, Cholesterol/HDL Ratio 2.5L, Thyroid Stimulating Hormone (TSH) 6.589H Height (Feet): 5 Height (Inches): 6.00 Weight (Pounds): 226 Yue Ibarra MD Jul 11, 2019 14:26
--- NOTE | 2019-07-11 14:31 | History & Physical ---
History and Physical History & Physicial HISTORY OF PRESENT ILLNESS: The patient is a 59-year-old female with the history of nonspecific heart disease. The patient presented with worsening of shortness of breath and chest pain for the last one week. The patient also complain of worsening of pain and weakness in lower extremities. The patient denies nausea or vomiting. Denies any productive cough. Denies any hematemesis or hemoptysis. REVIEW OF SYSTEMS: All 14 elements of review of systems reviewed. Pertinent positive and negative as above. PAST MEDICAL HISTORY: Including psychiatric disorder, hyperlipidemia, hypertension, chronic pain, lumbar spondylosis PAST SURGICAL HISTORY: Cholecystectomy. CURRENT HOSPITAL MEDICATIONS: Including, but not limited to Lasix, clonidine, amlodipine, ALLERGIES: To metronidazole and penicillin. FAMILY HISTORY: Reviewed and noncontributory. SOCIAL HISTORY: The patient reported that she lives alone and has regular visits by caregiver. PHYSICAL EXAMINATION: VITAL SIGNS: Blood pressure 170/80, temperature 98.2, pulse oximetry 98% on room air, pulse rate 100, respiratory rate 18. HEAD AND NECK: Atraumatic and normocephalic. CHEST: Bronchial breathing sounds. HEART: S1, S2. Regular rate and rhythm. ABDOMEN: Morbidly obese, soft. MUSCULOSKELETAL: No gross lateralized motor deficits. IMAGING: Chest x-ray dated 07/09/2019 shows cardiomegaly, otherwise unremarkable. LABORATORY DATA: Labs dated 07/09/2019 shows WBC 13 ASSESSMENT AND PLAN: 1. Acute exertional sob, secondary to likely upper respiratory tract infection/ ACS 2. Leukocytosis, likely reactive to steroids. 3. Sub acute weakness of lower extremities 4. Dysmetabolic syndrome. 5. Morbid obesity. 6. Hyperlipidemia. 7. Hypertensive emergency. 8. GI and DVT prophylaxis. PLAN OF CARE: I will obtain CT of lumbar spine PT-OT eval Cardio, Pulmonary consulted Yue Ibarra MD Jul 11, 2019 14:31
[2019-07-11 16:00] VITALS: BP 129/82
--- NOTE | 2019-07-11 16:30 | Consultation ---
DATE OF CONSULTATION: 07/11/2019 PULMONARY CONSULTATION CONSULTING PHYSICIAN: Axel Mcfarlane M.D. REASON FOR CONSULTATION: Shortness of breath, respiratory insufficiency. HISTORY OF PRESENT ILLNESS: This is a 59-year-old female who was recently seen in my office. The patient presents with wheezing, shortness of breath, sore throat, dizziness. The patient reports burning sensation. The patient has a reported history of COPD. The patient has had what she describes mold exposure and need for antifungal. The patient had testing done recently with negative Aspergillus IgE, but definitely with significant allergic predisposition. The patient also had a CT of the chest recently done, which was fairly negative. Denies any nausea, vomiting. The patient presents for evaluation and intervention. The patient's care was discussed and reviewed. PAST MEDICAL HISTORY: Notable for the above-noted complaints. The patient has right shoulder cuff tear, questionable history of COPD, hypertension, diabetes, history of spinal stenosis, chronic low back pain. MEDICATIONS: Reviewed. ALLERGIES: Reviewed. SOCIAL HISTORY: The patient is currently a nonsmoker, nondrinker. The patient's living condition is noted. The patient is disabled. PHYSICAL EXAMINATION: GENERAL: A well-developed female, comfortable at present. No significant distress. VITAL SIGNS: Blood pressure 140/92, heart rate 82, respirations 18, sats 95% on 2 liters, temperature 98.6. HEENT: Negative. Extraocular movements are grossly intact. NECK: Supple. LUNGS: With scattered wheezes, moderate air entry. CARDIAC: S1, S2. Regular rhythm without murmurs, rubs, or gallops. ABDOMEN: Overall soft, nontender, nondistended. EXTREMITIES: No cyanosis or clubbing. There is trace edema. NEUROLOGIC: Grossly nonfocal. LABORATORY DATA: Reviewed. Chest x-ray essentially negative. The patient's potassium is 3.4, the glucose is 127. The albumins are normal. TSH 6.58. CBC essentially negative. The patient has minimal eosinophilia. IMPRESSION: 1. Questionable COPD. 2. Respiratory insufficiency. 3. Wheezing. 4. Possible mold exposure. 5. Shortness of breath. 6. Respiratory distress. 7. Chronic back pain. 8. Possible congestive heart failure. RECOMMENDATIONS: Supportive care. Nebulized therapy as outlined. The patient is on diuretics. DVT prophylaxis as outlined. The patient is on an inhaler Breo to continue for now. Pain control and monitor need for aggressive steroid prescription. We will follow up clinically and await further outpatient results as to mold concerns and infection. Axel Mcfarlane M.D. DR: RONNIE JOB#: [id number] CC: TIARRA
--- NOTE | 2019-07-11 16:46 | Diagnostic Imaging Report ---
Indication: Back pain and bilateral lower extremity weakness Technique: Continuous helical transaxial imaging of the lumbar spine was obtained. Coronal 2-D reformats were also obtained. Study obtained in a Siemens sensation [address] Total Dose length Product (DLP): [address] Dose Index Volume (CTDIvol): 30 7. mGy Comparison: None Findings: There may be some congenital narrowing of the central canal which appears diffusely hypoplastic within the lumbar spine. In addition at L4-5 there is suggestion of a concentric disc bulge resulting in narrowing of the central canal even further. There is narrowing of the neural foramen bilaterally. Facet arthropathy also demonstrated with hypertrophied facets present at this level as well as multiple levels. Findings may be further and better evaluated with MRI which is suggested for evaluation. L5-S1 probably shows bilateral foraminal stenosis as well due to facet arthropathy. There is no fracture or malalignment identified. The aorta is moderately calcified. Cholecystectomy noted. Within the visualized part of the pelvis there is a fat-containing mass measuring at least 6 cm. The mass is only partially visualized and may be an ovarian dermoid. 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 Suggestion of the L4-5 disc bulge. Stenosis of the central canal, lateral recesses and neural foramen suspected. Further evaluation with MRI is recommended. Multilevel degenerative disease mainly involving the facet joints with hypertrophy vacuum phenomena. Atherosclerotic vascular disease. Status post cholecystectomy. Partially imaged fat-containing mass within the pelvis possibly dermoid tumor. Further evaluation recommended with CT of the pelvis which should be confirmatory. The CT scanner at [facility] is accredited by the [employer] and the scans are performed using dose optimization techniques as appropriate to a performed exam including Automatic Exposure control.
[2019-07-11] MEDS: Carvedilol 25mg Tab ORAL SCH ×2 (16:55→20:21)
--- NOTE | 2019-07-11 18:46 | Cardiology Progress Note ---
Assessment/Plan Assessment/Plan The patient is seen and examined, full consult note will be dictated shortly. Objective Last 24 Hour Vital Signs Date Time Temp Pulse Resp B/P (MAP) Pulse Ox O2 Delivery O2 Flow Rate FiO2 07/11/19 16:55 81 129/82 07/11/19 16:00 81 07/11/19 16:00 97.9 81 18 129/82 (98) 95 07/11/19 12:00 98.6 86 19 143/90 (107) 95 07/11/19 12:00 86 07/11/19 11:39 84 131/80 07/11/19 09:34 84 20 99 Nasal Cannula 2.0 28 07/11/19 09:19 131/80 07/11/19 09:00 Nasal Cannula 2.0 07/11/19 08:00 97.0 78 19 131/85 (100) 95 07/11/19 08:00 78 07/11/19 06:05 80 18 98 Nasal Cannula 2.0 28 76 18 95 07/11/19 04:00 82 07/11/19 04:00 98.6 87 18 140/92 (108) 95 07/11/19 01:11 Room Air 07/11/19 00:00 98.5 88 18 110/59 (76) 96 07/11/19 00:00 101 07/10/19 21:58 100 07/10/19 21:45 98.1 88 22 118/73 98 Room Air 21 07/10/19 21:00 98.1 88 22 118/73 98 Room Air 21 07/10/19 19:46 98.1 87 22 105/73 98 Room Air 21 Intake and Output 07/10/19 07/11/19 19:00 07:00 Intake Total 240 ml Balance 240 ml Intake Oral 240 ml # Voids 1 1 Laboratory Tests Test 07/11/19 05:25 White Blood Count 10.7 K/UL (4.8-10.8) Red Blood Count 4.69 M/UL (4.20-5.40) Hemoglobin 13.1 G/DL (12.0-16.0) Hematocrit 39.4 % (37.0-47.0) Mean Corpuscular Volume 84 FL (80-99) Mean Corpuscular Hemoglobin 28.0 PG (27.0-31.0) Mean Corpuscular Hemoglobin Concent 33.3 G/DL (32.0-36.0) Red Cell Distribution Width 12.8 % (11.6-14.8) Platelet Count 270 K/UL (150-450) Mean Platelet Volume 6.6 FL (6.5-10.1) Neutrophils (%) (Auto) 51.8 % (45.0-75.0) Lymphocytes (%) (Auto) 37.8 % (20.0-45.0) Monocytes (%) (Auto) 7.2 % (1.0-10.0) Eosinophils (%) (Auto) 2.4 % (0.0-3.0) Basophils (%) (Auto) 0.8 % (0.0-2.0) Sodium Level 142 MMOL/L (136-145) Potassium Level 3.4 MMOL/L (3.5-5.1) L Chloride Level 102 MMOL/L (98-107) Carbon Dioxide Level 32 MMOL/L (21-32) Anion Gap 8 mmol/L (5-15) Blood Urea Nitrogen 13 mg/dL (7-18) Creatinine 1.0 MG/DL (0.55-1.30) Estimat Glomerular Filtration Rate > 60 mL/min (>60) Glucose Level 127 MG/DL (74-106) H Hemoglobin A1c 6.2 % (4.3-6.0) H Calcium Level 8.4 MG/DL (8.5-10.1) L Total Bilirubin 0.3 MG/DL (0.2-1.0) Aspartate Amino Transf (AST/SGOT) 13 U/L (15-37) L Alanine Aminotransferase (ALT/SGPT) 25 U/L (12-78) Alkaline Phosphatase 120 U/L (46-116) H Troponin I 0.003 ng/mL (0.000-0.056) Total Protein 7.7 G/DL (6.4-8.2) Albumin 3.7 G/DL (3.4-5.0) Globulin 4.0 g/dL Albumin/Globulin Ratio 0.9 (1.0-2.7) L Triglycerides Level 89 MG/DL (30-150) Cholesterol Level 164 MG/DL (< 200) LDL Cholesterol 82 mg/dL (<100) HDL Cholesterol 65 MG/DL (40-60) H Cholesterol/HDL Ratio 2.5 (3.3-4.4) L Thyroid Stimulating Hormone (TSH) 6.589 uiU/mL (0.358-3.740) Bc Daniels MD Jul 11, 2019 18:46
--- NOTE | 2019-07-11 19:47 | NUR ---
HAND-OFF: Report given to RIZWANA Langston. Patient is in stable condition.
[2019-07-11 20:00] VITALS: BP 124/78
--- NOTE | 2019-07-11 20:10 | NUR ---
NURSE NOTES: Received patient from RIZWANA Alcantara, in stable condition, AOx4, denies pain at this time, resting in bed, IV site on L FA g22, asymptomatic, patent, intact, bed low&locked, side rails upx3, call light within reach, will continue to monitor and reassess
[2019-07-11] MEDS: Atorvastatin 20mg tab ORAL SCH (20:21)
--- NOTE | 2019-07-11 23:15 | Consultation ---
DATE OF CONSULTATION: 07/11/2019 PHYSICAL MEDICINE AND REHABILITATION CONSULTATION CONSULTING PHYSICIAN: Jose Alejandro Millard M.D. REQUESTING PHYSICIAN: Yue Ibarra M.D. GOLF CLUB MANAGER: Axel Mcfarlane M.D. IRRIGATION FLUME LAYER: Bc Daniels M.D. CHIEF COMPLAINT: Difficulty with ambulation, activities of daily living in a patient with acute exacerbation of chronic obstructive pulmonary disease and low back pain with spinal stenosis. Acute on chronic low back pain. HISTORY OF PRESENT ILLNESS: The patient is a 59-year-old female with history of chronic pain disease under the care of Dr. Phillips, chronic pain management on narcotic medication and history of smoking, which she quit about 2017. Apparently was brought to the emergency room at [facility] with shortness of breath and chest pain, which lasted about few days, however, got severely worse with difficulty with her functionality and respiratory status. The patient was admitted to the hospital and underwent further workup, seen by rn ed and manager orange. Chest x-ray reported with no acute disease. CT scan of the spine showed lumbar spinal stenosis of the L4-L5 disc bulge, multilevel degenerative disease. The patient had elevated TSH level of 6.59 and elevated glucose level running over 120 with hemoglobin A1c of 6.2. The patient had leukocytosis of over 13,000 on admission. The patient was given diuretic and steroid. I was asked today to evaluate the patient for rehabilitation. She has back pain, bilateral lower limb pain, numbness, tingling chronically. She has shortness of breath and has significant difficulty with gait and activities of daily living. She has a body mass index over 36 with obesity. PAST MEDICAL AND SURGICAL HISTORY: 1. History of psychiatric disorder. 2. Hyperlipidemia. 3. Hypertension. 4. Chronic pain syndrome. 5. Lumbar spinal stenosis and chronic pain syndrome, narcotic dependency under care of care film painter, Dr. Phillips. 6. Cholecystectomy. ALLERGIES: Metronidazole and penicillin. MEDICATIONS: Elavil 50 mg at bedtime, Lipitor 20 mg at bedtime, Coreg 25 mg b.i.d., albuterol inhaler every 6 hours, Lasix 20 mg daily, Antivert 25 mg daily, prednisone 10 mg daily, spironolactone 25 mg daily, Calan SR 120 mg daily, Lovenox 40 mg subcutaneous daily, Avapro 150 mg daily, hydrochlorothiazide 12.5 mg daily, fluticasone one puff daily inhaler, Protonix 40 mg daily, Zofran IV q. 4 hours p.r.n., oxycodone 30 mg q.6 hours p.r.n., albuterol and Flexeril p.r.n., morphine p.r.n, and Tylenol p.r.n. SOCIAL HISTORY: The patient is single. She is mother of two. She has a twin son, She has history of tobacco, which she quit in 2018. She was heavy smoker, but no history of alcohol or illicit drugs. 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 She usually ambulates either with a quad cane or walker in a modified independent level of function. Currently not being evaluated by physical therapy yet. However, she does have generalized weakness and difficulty with gait and activities of daily living. FAMILY HISTORY: Positive for hypertension. She rents a room and has caregiver basically all to 24 hours whenever she needs a caregiver is available. REVIEW OF SYSTEMS: CONSTITUTIONAL: No chills and fever. EYES: Denies diplopia. ENT: Denies dysphagia. She has hoarseness. CARDIOVASCULAR: No chest pain. PULMONARY: Shortness of breath with activities. GASTROINTESTINAL: No abdominal pain. GENITOURINARY: No dysuria. MUSCULOSKELETAL: Chronic pain syndrome, chronic low back pain, lumbar spinal stenosis. INTEGUMENTARY: No cancerous lesion. NEUROLOGIC: The patient has chronic numbness of the lower limb and tingling and evidence of radiculopathy. PHYSICAL EXAMINATION: VITAL SIGNS: Blood pressure 120/80, respiratory rate 18 per minute, heart rate 81 per minute, temperature 98 degrees Fahrenheit, O2 saturation 95%. Height is 167 cm, weight is 102 kg, body mass index 36.5. GENERAL: No acute distress. HEENT: Extraocular movement intact. No facial droop. NECK: Supple with no lymphadenopathy. PULSE: Bilateral carotid, femoral, and dorsalis pedis palpable. HEART: Regular rhythm and rate. LUNGS: Diminished breath sounds of bilateral lung wharton. ABDOMEN: Obese, soft, nontender, nondistended. Normal bowel sounds with no palpable abnormal mass. EXTREMITIES: No pitting edema. No calf tenderness. No clubbing or cyanosis. SKIN: No rashes. MUSCULOSKELETAL: Tender spots over the bilateral lumbar paraspinals. Straight leg raising is negative bilaterally. NEUROLOGIC: Alert, awake, and oriented. Movement of bilateral upper and lower limb antigravity. Sensation subjective numbness, tingling of both legs chronically. Deep tendon reflexes +1 bilateral biceps and patella. LABORATORY DATA: WBC 10.7, hemoglobin 13.1, platelet 270. Sodium 142, potassium 3.4, BUN 13, creatinine 1, glucose 127. ASSESSMENT: A 59-year-old female with, 1. Acute exacerbation of chronic obstructive pulmonary disease. 2. Debility and functional decline. 3. Gait abnormality. 4. Low back pain, chronic. 5. Acute on chronic low back pain. 6. Multilevel lumbar spinal stenosis and congenital spinal stenosis and degenerative disc disease and disc herniation. 7. Morbid obesity. Body mass index over 36. 8. Hyperglycemia with hemoglobin A1c of 6.2. 9. Elevated TSH level. 10. Hypertension. 11. Hypercholesterolemia. 12. Psychiatric disorder and depression. 13. Chronic pain syndrome. 14. Acute on chronic pain syndrome. RECOMMENDATION: 1. Continue medical management per Medicine. 2. Cardiology and Pulmonology workup and management per specialist. 3. Rehabilitation with physical therapy, occupational therapy, and 24 hours nursing care. 4. Physical therapy for range of motion, transfer training, endurance, balance, and ambulation training, fall prevention with appropriate assistive device. 5. Occupational therapy for activities of daily living, equipment, function and transfer evaluation and training, and upper extremity range of motion and strengthening exercise. 6. Nursing for evaluation of her bowel and bladder, medication regimen, skin care, prevention of pressure ulcer, and the patient and family education. 7. Fall precaution, pressure ulcer precaution, cardiac precaution. 8. Pain management. The patient is on oxycodone to be followed by her primary film painter as an outpatient. 9. Consider ARU her functional levels meet the criteria. Thank you for your consultation. Jose Alejandro Millard M.D. DR: MADISON JOB#: [id number] CC: TIARRA
[2019-07-12] VITALS: BP 126/69
[2019-07-12] MEDS: Albuterol 90mcg Inhaler 8gm INH SCH ×4 (01:43→18:45)
--- NOTE | 2019-07-12 06:56 | NUR ---
HAND-OFF: Report given to RIZWANA Parekh, patient in stable condition, plan of care endorsed.
--- NOTE | 2019-07-12 07:10 | NUR ---
NURSE NOTES: Received report from Moraima/RN, Patient is asleep, lying semi-hernandez's, resting comfortably. On 2L nasal canula, no acute distress/SOB noted. Denies pain at this time. Able to make needs known. IV on left FA patent, no bleeding or infiltration noted. Bed in low position and locked, Bed alarm engaged, Side-rails up x3. Encouraged to use call light when needed. Call light within reach. will continue plan of care.
[2019-07-12 08:00] VITALS: BP 139/87
[2019-07-12] MEDS: Breo Ellipta 200/25mcg-14 dose INH SCH (08:40)
[2019-07-12] MEDS: Irbesartan 150mg tablet ORAL SCH (08:40)
[2019-07-12] MEDS: Carvedilol 25mg Tab ORAL SCH ×2 (08:41→20:39)
[2019-07-12] MEDS: hydroCHLOROthiazide 12.5mg TAB ORAL SCH (08:41)
[2019-07-12] MEDS: Meclizine 25mg tab ORAL SCH (08:41)
[2019-07-12] MEDS: Spironolactone 25mg tab ORAL SCH (08:41)
[2019-07-12] MEDS: Enoxaparin 40mg Inj SUBQ SCH (08:55)
--- NOTE | 2019-07-12 09:00 | NUR ---
PT INITIAL EVALUATION Patient seen for initial evaluation, see complete evaluation for details. Patient presents with generalized weakness and low back pain which impairs patient's ability to perform mobility tasks safely. Patient requires supervision for transfers and ambulation with FWW. Antalgic gait with ambulation and distance limited to 70 ft with FWW due to c/o increased LBP, LLE weakness and fatigue. Patient will benefit from skilled inpatient PT intervention to address overall strength, endurance, balance and safety for improved level of functional mobility and to decrease fall risk. Stair training to be included as patient has 3-4 stairs to negotiate to access her home. Recommend discharge to ARU/SNF for further rehab vs home with home PT once medically cleared by MD. Addendum: 07/12/19 at 1238 by MARISA VARGAS PT Amended: Links added.
--- NOTE | 2019-07-12 10:17 | NUR ---
CASE MANAGEMENT: INITIAL REVIEW 59YR OLD FEMALE FROM HOME CC: BACK PAIN- NO INJURY PMH: POSSIBLE MOLD EXPOSURE SI: ACUTE EXACERBATION OF COPD COPD/ CHF EXACERBATION/ DYSPNEA 98.1 100 16 153/94 96% ON RA WBC 13.8 IS: IVF NS BOLUS X1 ALBUTEROL HHN X1 PLAN: CT [id number] MRI- L-SPINE PT/OT EVAL- PENDING CARDIO/PULMO CONSULTS GI and DVT prophylaxis. ALLERGIES: To metronidazole and penicillin
--- NOTE | 2019-07-12 10:52 | General Progress Note ---
Assessment/Plan Assessment/Plan: S: My lower back hurts O: complainig of weakness in both legs, causing sign limitation in her movements. PHYSICAL EXAMINATION:HEAD AND NECK: Atraumatic and normocephalic. CHEST: Bronchial breathing sounds.HEART: S1, S2. Regular rate and rhythm. ABDOMEN: Morbidly obese, soft.MUSCULOSKELETAL: No gross lateralized motor deficits. IMAGING: L/s CT from 07/11, reviewed. Chest x-ray dated 07/09/2019 shows cardiomegaly, otherwise unremarkable. LABORATORY DATA: Labs dated 07/11/2019 shows WBC 13 ASSESSMENT AND PLAN: 1. Acute exertional sob, secondary to likely upper respiratory tract infection/ ACS 2. Leukocytosis, likely reactive to steroids. 3. Sub acute weakness of lower extremities, likely Lumbar spondylosis with myelopathy 4. Dysmetabolic syndrome. 5. Morbid obesity. 6. Hyperlipidemia. 7. Hypertensive emergency. 8. GI and DVT prophylaxis. PLAN OF CARE: Notes from Rehab reviewed Pending PT eval Will proceed with L/S MRI Subjective Allergies: Coded Allergies: METRONIDAZOLE (Verified Allergy, Mild, 02/25/15) PENICILLIN G (Verified Allergy, Mild, 02/25/15) Objective Last 24 Hour Vital Signs Date Time Temp Pulse Resp B/P (MAP) Pulse Ox O2 Delivery O2 Flow Rate FiO2 07/12/19 08:54 89 139/87 07/12/19 08:41 89 139/87 07/12/19 08:40 139/87 07/12/19 08:00 97.5 89 18 139/87 (104) 97 07/12/19 06:50 90 16 97 Room Air 21 07/12/19 06:49 89 16 97 Room Air 21 07/12/19 04:00 77 07/12/19 00:00 97.3 73 19 126/69 (88) 96 07/12/19 00:00 71 07/11/19 21:00 Nasal Cannula 2.0 07/11/19 20:21 79 124/78 07/11/19 20:00 90 07/11/19 20:00 97.0 79 19 124/78 (93) 96 07/11/19 16:55 81 129/82 07/11/19 16:00 81 07/11/19 16:00 97.9 81 18 129/82 (98) 95 07/11/19 12:00 98.6 86 19 143/90 (107) 95 07/11/19 12:00 86 07/11/19 11:39 84 131/80 Intake and Output 07/11/19 07/12/19 19:00 07:00 Intake Total 500 ml 250 ml Balance 500 ml 250 ml Other 500 ml 250 ml # Voids 1 # Bowel Movements 2 2 Laboratory Tests 07/11/19 20:00: Troponin I 0.000 Height (Feet): 5 Height (Inches): 6.00 Weight (Pounds): 225 Yue Ibarra MD Jul 12, 2019 10:52
--- NOTE | 2019-07-12 11:06 | NUR ---
CASE MANAGEMENT: REVIEW 07/11/19 PMH: POSSIBLE MOLD EXPOSURE SI: ACUTE EXACERBATION OF COPD COPD/ CHF EXACERBATION/ DYSPNEA 97.5 89 18 139/87 97% ON RA K+ 3.4 BG 127 CA+ 8.4 IS: PROVENTIL MDI HHN Q6HR ALBUTEROL HHN Q4/PRN LASIX PO QD MECLIZINE PO QD PREDNISONE PO QD ALDACTONE PO QD LOVENOX SQ QD HYDRODIURIL PO QD PROTONIX PO QD CALAN PO QD PLAN: CT [id number] MRI- L-SPINE PT/OT EVAL- PENDING CARDIO/PULMO CONSULTS GI and DVT prophylaxis. ALLERGIES: To metronidazole and penicillin Addendum: 07/12/19 at 1123 by CHAPARRO BALBUENA LVN CASE MANAGEMENT: REVIEW 07/12/19 PMH: POSSIBLE MOLD EXPOSURE SI: ACUTE EXACERBATION OF COPD COPD/ CHF EXACERBATION/ DYSPNEA 97.5 89 18 139/87 97% ON RA K+ 3.4 BG 127 CA+ 8.4 IS: PROVENTIL MDI HHN Q6HR ALBUTEROL HHN Q4/PRN LASIX PO QD MECLIZINE PO QD PREDNISONE PO QD ALDACTONE PO QD LOVENOX SQ QD HYDRODIURIL PO QD PROTONIX PO QD CALAN PO QD PLAN: CT [id number] MRI- L-SPINE PT/OT EVAL- PENDING CARDIO/PULMO CONSULTS GI and DVT prophylaxis. ALLERGIES: To metronidazole and penicillin
[2019-07-12 12:00] VITALS: BP 108/60
[2019-07-12] MEDS ORDERED: LORazepam Inj 2mg/ml 1ml IV SCH (12:45)
--- NOTE | 2019-07-12 12:49 | Cardiology Report ---
APPROVED REPORT EXAM: Two-dimensional and M-mode echocardiogram with Doppler and color Doppler. INDICATION Congestive Heart Failure M-Mode DIMENSIONS IVSd0.9 (0.7-1.1cm)Left Atrium (MM)5.5 (1.6-4.0cm) LVDd5.1 (3.5-5.6cm)Aortic Root1.7 (2.0-3.7cm) PWd0.8 (0.7-1.1cm)Aortic Cusp Exc.1.9 (1.5-2.0cm) IVSs1.3 cm LVDs3.4 (2.5-4.0cm) PWs0.9 cm Technically difficult study due to poor acoustical windows. Study quality precludes accurate assessment of regional wall motion. Normal left ventricular chamber size,. Mild septal hypokinesis. Left ventricular ejection fraction estimated to be 50%. No evidence of left ventricular hypertrophy. Small to moderate circumferential pericardial effusion . All other cardiac chamber sizes are within normal limits. Focal aortic valve sclerosis with adequate cusp excursion. Thickened mitral valve leaflets with normal excursion. Mitral annulus and aortic root calcification. Normal pulmonic valve structure. Normal tricuspid valve structure. IVC at 1.9 cm without physiologic collapse. A color flow and spectral Doppler study was performed and revealed: Mild to moderate aortic insufficiency. Mild to moderate mitral regurgitation. Mitral diastolic velocities suggest reduced left ventricular relaxation c/w mild LV diastolic dysfunction (Grade I ) Mild tricuspid regurgitation. Tricuspid systolic velocities suggests peak right ventricular systolic pressure of 39 mmHg,consistent with mild pulmonary hypertension.
--- NOTE | 2019-07-12 14:20 | Pulmonology Progress Note ---
Assessment/Plan Assessment/Plan Pulmonary Progress Note A HPI: Patient is a 59-year-old female admitted with wheezing, shortness of breath, sore throat, dizziness. The patient has a history of COPD. She has had what she describes mold exposure and need for antifungal therapy. The patient had testing done recently with negative Aspergillus IgE, significant allergic predisposition. CT of the chest recently done, which was fairly negative. Denies any nausea, vomiting. The patient presents for evaluation and intervention. The patient's care was discussed and reviewed. PMH: Notable for the above-noted complaints. The patient has right shoulder cuff tear, questionable history of COPD, hypertension, diabetes, history of spinal stenosis, chronic low back pain. MEDICATIONS: Reviewed. PHYSICAL EXAMINATION: GENERAL: A well-developed female, comfortable at present. No significant distress. VITAL SIGNS NOTED: HEENT: Negative. Extraocular movements are grossly intact. NECK: Supple. LUNGS: With occasional wheezes, moderate air entry. CARDIAC: S1, S2. Regular rhythm without murmurs, rubs, or gallops. ABDOMEN: Overall soft, nontender, nondistended. EXTREMITIES: No cyanosis or clubbing. There is trace edema. NEUROLOGIC: Grossly nonfocal. LABORATORY DATA: Reviewed. Chest x-ray essentially negative. The patient's potassium is 3.4, the glucose is 127. The albumins are normal. TSH 6.58. CBC essentially negative. The patient has minimal eosinophilia. IMPRESSION: 1. Questionable COPD. 2. Respiratory insufficiency. 3. Wheezing. 4. Possible mold exposure. 5. Shortness of breath. 6. Respiratory distress. 7. Chronic back pain. 8. Possible congestive heart failure. PLAN: Supportive care. Nebulized therapy. Continue Breo PRN diuretics. DVT prophylaxis as outlined. Pain control Monitor need for aggressive steroid prescription. We will follow up clinically and await further outpatient results as to mold concerns and infection. Subjective ROS Limited/Unobtainable: No Allergies: Coded Allergies: METRONIDAZOLE (Verified Allergy, Mild, 02/25/15) PENICILLIN G (Verified Allergy, Mild, 02/25/15) Objective Last 24 Hour Vital Signs Date Time Temp Pulse Resp B/P (MAP) Pulse Ox O2 Delivery O2 Flow Rate FiO2 07/12/19 12:39 87 17 98 Room Air 21 07/12/19 12:38 86 18 97 Room Air 21 07/12/19 12:00 75 07/12/19 12:00 97.9 71 18 108/60 (76) 96 07/12/19 09:00 Nasal Cannula 2.0 07/12/19 08:54 89 139/87 07/12/19 08:41 89 139/87 07/12/19 08:40 139/87 07/12/19 08:00 98 07/12/19 08:00 97.5 89 18 139/87 (104) 97 07/12/19 06:50 90 16 97 Room Air 21 07/12/19 06:49 89 16 97 Room Air 21 07/12/19 04:00 77 07/12/19 00:00 97.3 73 19 126/69 (88) 96 07/12/19 00:00 71 07/11/19 21:00 Nasal Cannula 2.0 07/11/19 20:21 79 124/78 07/11/19 20:00 90 07/11/19 20:00 97.0 79 19 124/78 (93) 96 07/11/19 16:55 81 129/82 07/11/19 16:00 81 07/11/19 16:00 97.9 81 18 129/82 (98) 95 Intake and Output 07/11/19 07/12/19 19:00 07:00 Intake Total 500 ml 250 ml Balance 500 ml 250 ml Other 500 ml 250 ml # Voids 1 # Bowel Movements 2 2 Laboratory Tests 07/11/19 20:00: Troponin I 0.000 Current Medications Medications (Trade) Dose Ordered Sig/Alethea Route PRN Reason Start Time Stop Time Status Last Admin Dose Admin Acetaminophen (Tylenol) 650 mg Q4H PRN ORAL Mild Pain/Temp > 100.5 07/10/19 23:45 08/09/19 23:44 Albuterol Sulfate (Proventil MDI) 1 puff Q6HRT INH 07/11/19 13:00 08/10/19 12:59 07/12/19 12:38 Albuterol/ Ipratropium (Albuterol/ Ipratropium) 3 ml Q4H PRN HHN Shortness of Breath 07/10/19 23:45 07/15/19 23:44 07/11/19 09:34 Amitriptyline HCl (Elavil) 50 mg BEDTIME ORAL 07/11/19 21:00 08/10/19 20:59 07/11/19 20:20 Atorvastatin Calcium (Lipitor) 20 mg BEDTIME ORAL 07/11/19 21:00 08/10/19 20:59 07/11/19 20:21 Carvedilol (Coreg) 25 mg EVERY 12 HOURS ORAL 07/11/19 16:00 08/10/19 15:59 07/12/19 08:41 Cyclobenzaprine HCl (Flexeril) 15 mg THREE TIMES A DAY PRN ORAL Muscle Spasm 07/10/19 23:45 08/09/19 23:44 Enoxaparin Sodium (Lovenox) 40 mg DAILY SUBQ 07/11/19 09:00 08/10/19 08:59 07/11/19 09:21 Fluticasone/ Vilanterol (Breo Ellipta 200/25) 1 puffs DAILY INH 07/11/19 09:00 08/10/19 08:59 07/12/19 08:40 Furosemide (Lasix) 20 mg DAILY ORAL 07/11/19 09:00 08/10/19 08:59 07/12/19 08:41 Hydrochlorothiazide (Hydrodiuril) 12.5 mg DAILY ORAL 07/11/19 09:00 08/10/19 08:59 07/12/19 08:41 Irbesartan (Avapro) 150 mg DAILY ORAL 07/11/19 09:00 08/10/19 08:59 07/12/19 08:40 Meclizine HCl (Antivert) 25 mg DAILY ORAL 07/11/19 09:00 08/10/19 08:59 07/12/19 08:41 Morphine Sulfate (Morphine Sulfate) 2 mg Q6H PRN IVP Severe Pain (Pain Scale 7-10) 07/10/19 23:45 07/17/19 23:44 07/11/19 03:29 Ondansetron HCl (Zofran) 4 mg Q4H PRN IVP Nausea & Vomiting 07/11/19 03:15 08/10/19 03:14 07/11/19 03:23 Oxycodone HCl (Roxicodone) 30 mg Q6H PRN ORAL Severe Pain (Pain Scale 7-10) 07/11/19 00:15 07/18/19 00:14 07/11/19 00:30 Pantoprazole (Protonix) 40 mg DAILY ORAL 07/12/19 09:00 08/11/19 08:59 07/12/19 08:54 Prednisone (predniSONE) 10 mg DAILY ORAL 07/11/19 09:00 08/10/19 08:59 07/12/19 08:41 Spironolactone (Aldactone) 25 mg DAILY ORAL 07/11/19 09:00 08/10/19 08:59 07/12/19 08:41 Verapamil HCl (Calan ER) 120 mg DAILY ORAL 07/12/19 09:00 08/11/19 08:59 07/12/19 08:54 Matthew Joyner MD Jul 12, 2019 14:20
--- NOTE | 2019-07-12 14:31 | Diagnostic Imaging Report ---
Indication: Back pain Technique: MRI examination of the lumbar spine was performed in a 1.5 Kate magnet. Sequences obtained include sagittal and axial T1 and T2 fast spin echo, and sagittal STIR. Comparison: none Findings: Alignment and bone marrow signal are normal. Conus medullaris in the visualized part of the distal spinal cord appears normal with the conus seen at about T12. No paravertebral or paraspinous edema, abnormal fluid collections or mass identified. T12-L1: Hypertrophied facets demonstrated. There is no narrowing of the central canal or neural foramen. The disc is unremarkable. L1-2: The disc is unremarkable. There is no evidence of disc herniation, central canal stenosis or foraminal stenosis. Hypertrophied facets noted. L2-3: The disc height is normal. Mild concentric disc bulge is present. There is moderate hypertrophy of the facets and ligamentum flavum. There is evidence of mild to moderate bilateral foraminal stenosis and mild central stenosis. L3-4: There is a mild concentric disc bulge. There is no disc herniation. Moderate facet arthropathy noted. Mild to moderate bilateral foraminal stenosis is present. There is no definite central stenosis. L4-5: There is a minimal concentric disc bulge with normal height of the disc. There is mild narrowing of the central canal. There is some mild to moderate foraminal stenosis in part due to hypertrophied facets. L5-S1: The disc demonstrates a mild concentric disc bulge. There is slight abutting of the right traversing S1 nerve root. Hypertrophied facets demonstrated. There is mild to moderate neural foraminal stenosis. There is no narrowing of the central canal. . IMPRESSION: Mild central stenosis L2-3. Mild concentric disc bulge. Facet arthropathy. Mild to moderate bilateral foraminal stenosis. L3-4: Facet arthropathy. Mild concentric disc bulge. Mild to moderate foraminal stenosis. L4-5: Mild concentric disc bulge. Mild central stenosis. Mild to moderate foraminal stenosis. Facet arthropathy. L5-S1: Mild concentric disc bulge. Slight abutting of the right S1 nerve root. Facet arthropathy. Mild to moderate foraminal stenosis.
[2019-07-12 16:00] VITALS: BP 132/67
[2019-07-12] MEDS: Morphine Sulfate 2mg/ml Inj(IV/IM USE ONLY) IVP PRN (16:10)
--- NOTE | 2019-07-12 17:37 | General Progress Note ---
Progress Note Progress Note REHAB F/U PROGRESS NOTE: SITTING UP ON BED GOOD PO INTAKE LBP +BM VOIDING VOLITIONAL PER PT >> Sit to Stand * Stand By Assistance * Supervision Transfer assistive devices * Front wheel walker Therapeutic Activities Comment * Sit to stand with supervision/SBA and FWW, verbal cues for proper hand placement to increase ease of mobility and for proper body mechanics. Patient complains of pain * Yes Pain Comment (Include location & description) * low back Distance * 70 ft CHART AND MEDS REVIEWED. REVIEW OF SYSTEMS: EYES: Denies Diplopia. ENT: Denies dysphagia. CARDIOVASCULAR: No chest pain. PULMONARY: Shortness of breath with activities. GASTROINTESTINAL: No abdominal pain. GENITOURINARY: No dysuria. MUSCULOSKELETAL: Chronic pain syndrome, chronic low back pain, lumbar spinal stenosis. NEUROLOGIC: The patient has chronic numbness of the lower limb and tingling and evidence of radiculopathy. PHYSICAL EXAMINATION: VITAL SIGNS: PER CHART, NOTED. HEENT: No facial droop. NECK: Supple HEART: Regular rhythm and rate. LUNGS: Diminished breath sounds of bilateral lung wharton. ABDOMEN: Obese, soft, nontender, nondistended. Normal bowel sounds EXTREMITIES: No pitting edema. No calf tenderness. No clubbing or cyanosis. MUSCULOSKELETAL: Tender spots over the bilateral lumbar paraspinals. Straight leg raising is negative bilaterally. NEUROLOGIC: Alert, awake, and oriented. Movement of bilateral upper and lower limb antigravity. Sensation subjective numbness, tingling of both legs chronically. LABORATORY DATA: PER CHART, NOTED. MRI L SPINE >>> IMPRESSION: Mild central stenosis L2-3. Mild concentric disc bulge. Facet arthropathy. Mild to moderate bilateral foraminal stenosis. L3-4: Facet arthropathy. Mild concentric disc bulge. Mild to moderate foraminal stenosis. L4-5: Mild concentric disc bulge. Mild central stenosis. Mild to moderate foraminal stenosis. Facet arthropathy. L5-S1: Mild concentric disc bulge. Slight abutting of the right S1 nerve root. Facet arthropathy. Mild to moderate foraminal stenosis. ASSESSMENT: A 59-year-old female with, 1. Acute exacerbation of chronic obstructive pulmonary disease. 2. Debility and functional decline. 3. Gait abnormality. 4. Low back pain, chronic. 5. Acute on chronic low back pain. 6. Multilevel lumbar spinal stenosis and congenital spinal stenosis and degenerative disc disease and disc herniation. 7. Morbid obesity. Body mass index over 36. 8. Hyperglycemia with hemoglobin A1c of 6.2. 9. Elevated TSH level. 10. Hypertension. 11. Hypercholesterolemia. 12. Psychiatric disorder and depression. 13. Chronic pain syndrome. 14. Acute on chronic pain syndrome. RECOMMENDATION: 1. Continue medical management per Medicine. 2. Cardiology and Pulmonology workup and management >> F/U 3. 24 hours nursing care. 4. Physical therapy for range of motion, transfer training, endurance, balance, and ambulation training, fall prevention with appropriate assistive device. 5. Occupational therapy for activities of daily living, equipment, function and transfer training, and upper extremity range of motion and strengthening exercise. 6. Nursing for her bowel and bladder, medication regimen, skin care, prevention of pressure ulcer, and the patient and family education. 7. Fall precaution, pressure ulcer precaution, cardiac precaution. 8. Pain management. on oxycodone. PATIENT AMBULATING SUP-SBA WITH FWW, SHE PREFERS GOING HOME WITH HOME HEALTH. D/C PLAN PER CM. Jose Alejandro Millard MD Jul 12, 2019 17:37
--- NOTE | 2019-07-12 19:52 | NUR ---
HAND-OFF: Report given to Moraima/RIZWANA, Patient in stable condition. Endorsed plan of care.
[2019-07-12 20:00] VITALS: BP 136/75
[2019-07-12] MEDS: Atorvastatin 20mg tab ORAL SCH (20:38)
[2019-07-13] VITALS: BP 132/67
[2019-07-13] MEDS: Albuterol 90mcg Inhaler 8gm INH SCH ×3 (01:01→13:52)
[2019-07-13 04:00] VITALS: BP 139/73
--- NOTE | 2019-07-13 07:17 | NUR ---
NURSE NOTES: I received the patient awake and resting in bed. Patient alert and oriented x4. Bed in the lowest position and call light within reach. Patient does not display any signs of distress or SOB. I will continue to monitor the patient and implement care.
--- NOTE | 2019-07-13 07:18 | NUR ---
HAND-OFF: Report given to RIZWANA Fields, patient in stable condition, plan of care endorsed.
[2019-07-13 08:00] VITALS: BP 156/78
[2019-07-13] MEDS: Carvedilol 25mg Tab ORAL SCH (08:52)
[2019-07-13] MEDS: Spironolactone 25mg tab ORAL SCH (08:52)
[2019-07-13] MEDS: hydroCHLOROthiazide 12.5mg TAB ORAL SCH (08:52)
[2019-07-13] MEDS: Meclizine 25mg tab ORAL SCH (08:52)
[2019-07-13] MEDS: Irbesartan 150mg tablet ORAL SCH (08:53)
[2019-07-13] MEDS: Breo Ellipta 200/25mcg-14 dose INH SCH (08:55)
[2019-07-13] MEDS: Enoxaparin 40mg Inj SUBQ SCH (08:59)
[2019-07-13] MEDS: Morphine Sulfate 2mg/ml Inj(IV/IM USE ONLY) IVP PRN (09:42)
[2019-07-13 12:00] VITALS: BP 149/68
--- NOTE | 2019-07-13 14:16 | General Progress Note ---
Progress Note Progress Note REHAB F/U PROGRESS NOTE: RESTING COMFORTABLE AT BED GOOD PO INTAKE LBP +BM VOIDING VOLITIONAL WALKING TO BATHROOM WITH SPC MOD I CHART AND MEDS REVIEWED. REVIEW OF SYSTEMS: EYES: Denies Diplopia. ENT: Denies dysphagia. CARDIOVASCULAR: No chest pain. PULMONARY: Shortness of breath with activities. GASTROINTESTINAL: No abdominal pain. GENITOURINARY: No dysuria. MUSCULOSKELETAL: Chronic pain syndrome, chronic low back pain, lumbar spinal stenosis. NEUROLOGIC: The patient has chronic numbness of the lower limb and tingling and evidence of radiculopathy. PHYSICAL EXAMINATION: VITAL SIGNS: PER CHART, NOTED. HEENT: No facial droop. NECK: Supple HEART: Regular rhythm and rate. LUNGS: Diminished breath sounds of bilateral lung wharton. ABDOMEN: Obese, soft, nontender, nondistended. Normal bowel sounds EXTREMITIES: No pitting edema. No calf tenderness. No clubbing or cyanosis. MUSCULOSKELETAL: Tender spots over the bilateral lumbar paraspinals. Straight leg raising is negative bilaterally. NEUROLOGIC: Alert, awake, and oriented. Movement of bilateral upper and lower limb antigravity. Sensation subjective numbness, tingling of both legs chronically. LABORATORY DATA: PER CHART, NOTED. NO NEW LABS MRI L SPINE >>> IMPRESSION: Mild central stenosis L2-3. Mild concentric disc bulge. Facet arthropathy. Mild to moderate bilateral foraminal stenosis. L3-4: Facet arthropathy. Mild concentric disc bulge. Mild to moderate foraminal stenosis. L4-5: Mild concentric disc bulge. Mild central stenosis. Mild to moderate foraminal stenosis. Facet arthropathy. L5-S1: Mild concentric disc bulge. Slight abutting of the right S1 nerve root. Facet arthropathy. Mild to moderate foraminal stenosis. ASSESSMENT: A 59-year-old female with, 1. Acute exacerbation of chronic obstructive pulmonary disease. 2. Debility and functional decline. 3. Gait abnormality. 4. Low back pain, chronic. 5. Acute on chronic low back pain. 6. Multilevel lumbar spinal stenosis and congenital spinal stenosis and degenerative disc disease and disc herniation. 7. Morbid obesity. Body mass index over 36. 8. Hyperglycemia with hemoglobin A1c of 6.2. 9. Elevated TSH level. 10. Hypertension. 11. Hypercholesterolemia. 12. Psychiatric disorder and depression. 13. Chronic pain syndrome. 14. Acute on chronic pain syndrome. RECOMMENDATION: 1. Continue medical management per Medicine. 2. Cardiology and Pulmonology workup and management >> F/U 3. 24 hours nursing care. 4. Physical therapy for range of motion, transfer training, endurance, balance, and ambulation training, fall prevention with appropriate assistive device. 5. Occupational therapy for activities of daily living, equipment, function and transfer training, and upper extremity range of motion and strengthening exercise. 6. Nursing for her bowel and bladder, medication regimen, skin care, prevention of pressure ulcer, and the patient and family education. 7. Fall precaution, pressure ulcer precaution, cardiac precaution. 8. Pain management. on oxycodone. PATIENT AMBULATING SUP-SBA WITH FWW, SHE PREFERS GOING HOME WITH HOME HEALTH. D/C PLAN PER CM. SHOWER CHAIR, FWW (IF D/C HOME) Jose Alejandro Millard MD Jul 13, 2019 14:16
--- NOTE | 2019-07-13 14:58 | Cardiology Report ---
APPROVED REPORT EKG Measurement Heart [id number] Normal sinus rhythm Right atrial enlargement Low voltage QRS Borderline ECG
--- NOTE | 2019-07-13 15:17 | Pulmonology Progress Note ---
Assessment/Plan Assessment/Plan Pulmonary Progress Note HPI: Patient is a 59-year-old female admitted with wheezing, shortness of breath, sore throat, dizziness. The patient has a history of COPD. She has had what she describes mold exposure and need for antifungal therapy. The patient had testing done recently with negative Aspergillus IgE, significant allergic predisposition. CT of the chest recently done, which was fairly negative. Denies any nausea, vomiting. No new complaints PMH: Notable for the above-noted complaints. The patient has right shoulder cuff tear, questionable history of COPD, hypertension, diabetes, history of spinal stenosis, chronic low back pain. MEDICATIONS: Reviewed. PHYSICAL EXAMINATION: GENERAL: A well-developed female, comfortable at present. No significant distress. VITAL SIGNS NOTED: HEENT: Negative. Extraocular movements are grossly intact. NECK: Supple. LUNGS: With occasional wheezes, moderate air entry. CARDIAC: S1, S2. Regular rhythm without murmurs, rubs, or gallops. ABDOMEN: Overall soft, nontender, nondistended. EXTREMITIES: No cyanosis or clubbing. There is trace edema. NEUROLOGIC: Grossly nonfocal. LABORATORY DATA: Reviewed. Chest x-ray essentially negative. The patient's potassium is 3.4, the glucose is 127. The albumins are normal. TSH 6.58. CBC essentially negative. The patient has minimal eosinophilia. IMPRESSION: 1. Questionable COPD. 2. Respiratory insufficiency. 3. Wheezing. 4. Possible mold exposure. 5. Shortness of breath. 6. Respiratory distress. 7. Chronic back pain. 8. Possible congestive heart failure. PLAN: Supportive care. Nebulized therapy. Continue Breo PRN diuretics. DVT prophylaxis as outlined. Pain control Monitor need for aggressive steroid prescription. We will follow up clinically and await further outpatient results as to mold concerns and infection. Subjective ROS Limited/Unobtainable: No Allergies: Coded Allergies: METRONIDAZOLE (Verified Allergy, Mild, 02/25/15) PENICILLIN G (Verified Allergy, Mild, 02/25/15) Objective Last 24 Hour Vital Signs Date Time Temp Pulse Resp B/P (MAP) Pulse Ox O2 Delivery O2 Flow Rate FiO2 07/13/19 13:49 78 20 97 Room Air 21 07/13/19 13:48 78 20 96 Room Air 21 07/13/19 12:00 98.4 85 20 149/68 (95) 97 07/13/19 11:34 87 07/13/19 10:12 97.2 07/13/19 09:00 Nasal Cannula 2.0 07/13/19 08:53 75 156/78 07/13/19 08:53 156/78 07/13/19 08:52 75 20 98 Room Air 21 07/13/19 08:52 88 156/78 07/13/19 08:50 75 20 97 Room Air 21 07/13/19 08:00 97.2 88 18 156/78 (104) 95 07/13/19 07:34 84 07/13/19 04:00 76 07/13/19 04:00 96.9 80 19 139/73 (95) 99 07/13/19 01:01 70 16 98 Room Air 21 07/13/19 01:01 70 16 98 Room Air 21 07/13/19 00:00 87 07/13/19 00:00 97.7 87 19 132/67 (88) 98 07/12/19 21:00 Nasal Cannula 2.0 07/12/19 20:39 86 136/75 07/12/19 20:00 97.7 86 19 136/75 (95) 99 07/12/19 20:00 84 07/12/19 18:46 80 18 99 Room Air 21 07/12/19 18:46 80 18 98 Room Air 21 07/12/19 16:00 84 07/12/19 16:00 97.9 78 16 132/67 (88) 97 Intake and Output 07/12/19 07/13/19 19:00 07:00 Intake Total 350 ml 100 ml Balance 350 ml 100 ml Intake Oral 350 ml 100 ml # Voids 4 1 # Bowel Movements 1 Current Medications Medications (Trade) Dose Ordered Sig/Alethea Route PRN Reason Start Time Stop Time Status Last Admin Dose Admin Acetaminophen (Tylenol) 650 mg Q4H PRN ORAL Mild Pain/Temp > 100.5 07/10/19 23:45 08/09/19 23:44 Albuterol Sulfate (Proventil MDI) 1 puff Q6HRT INH 07/11/19 13:00 08/10/19 12:59 07/13/19 13:52 Albuterol/ Ipratropium (Albuterol/ Ipratropium) 3 ml Q4H PRN HHN Shortness of Breath 07/10/19 23:45 07/15/19 23:44 07/11/19 09:34 Amitriptyline HCl (Elavil) 50 mg BEDTIME ORAL 07/11/19 21:00 08/10/19 20:59 07/12/19 20:38 Atorvastatin Calcium (Lipitor) 20 mg BEDTIME ORAL 07/11/19 21:00 08/10/19 20:59 07/12/19 20:38 Carvedilol (Coreg) 25 mg EVERY 12 HOURS ORAL 07/11/19 16:00 08/10/19 15:59 07/13/19 08:52 Cyclobenzaprine HCl (Flexeril) 15 mg THREE TIMES A DAY PRN ORAL Muscle Spasm 07/10/19 23:45 08/09/19 23:44 Enoxaparin Sodium (Lovenox) 40 mg DAILY SUBQ 07/11/19 09:00 08/10/19 08:59 07/11/19 09:21 Fluticasone/ Vilanterol (Breo Ellipta 200/25) 1 puffs DAILY INH 07/11/19 09:00 08/10/19 08:59 07/13/19 08:55 Furosemide (Lasix) 20 mg DAILY ORAL 07/11/19 09:00 08/10/19 08:59 07/13/19 08:52 Hydrochlorothiazide (Hydrodiuril) 12.5 mg DAILY ORAL 07/11/19 09:00 08/10/19 08:59 07/13/19 08:52 Irbesartan (Avapro) 150 mg DAILY ORAL 07/11/19 09:00 08/10/19 08:59 07/13/19 08:53 Meclizine HCl (Antivert) 25 mg DAILY ORAL 07/11/19 09:00 08/10/19 08:59 07/13/19 08:52 Morphine Sulfate (Morphine Sulfate) 2 mg Q6H PRN IVP Severe Pain (Pain Scale 7-10) 07/10/19 23:45 07/17/19 23:44 07/13/19 09:42 Ondansetron HCl (Zofran) 4 mg Q4H PRN IVP Nausea & Vomiting 07/11/19 03:15 08/10/19 03:14 07/11/19 03:23 Oxycodone HCl (Roxicodone) 30 mg Q6H PRN ORAL Severe Pain (Pain Scale 7-10) 07/11/19 00:15 07/18/19 00:14 07/11/19 00:30 Pantoprazole (Protonix) 40 mg DAILY ORAL 07/12/19 09:00 08/11/19 08:59 07/13/19 08:53 Prednisone (predniSONE) 10 mg DAILY ORAL 07/11/19 09:00 08/10/19 08:59 07/13/19 08:53 Spironolactone (Aldactone) 25 mg DAILY ORAL 07/11/19 09:00 08/10/19 08:59 07/13/19 08:52 Verapamil HCl (Calan SR) 120 mg DAILY ORAL 07/12/19 09:00 08/11/19 08:59 07/13/19 08:53 Matthew Joyner MD Jul 13, 2019 15:17
[2019-07-13 16:00] VITALS: BP 124/74
--- NOTE | 2019-07-13 18:22 | NUR ---
NURSE NOTES: Patient discharged in stable condition. Patient confirmed she was in possession of all her belongings. Patient's IV was removed and the IV site did not display any signs of bleeding or swelling. Patient's telemetry box was removed. Patient was provided with discharge education and she verbalized understanding that her front wheel walker and shower chair will be delivered to her home on 07/14. Patient confirmed the address and phone number listed on her face sheet is correct for the DME company to deliver her DME items. Patient was transported to the [facility] via wheelchair and was transported home by a friend in a private vehicle. Patient did not display any signs of distress or SOB on discharge.
--- NOTE | 2019-07-13 23:53 | Cardiology Progress Note ---
Assessment/Plan Assessment/Plan 1. Shortness of breath likely secondary to acute exacerbation of COPD and ? mold exposure, normal BNP essentially rules out CHF. 2. Medium sized pericardial effusion with no signs of pericardial tamponade. 3. Hypertension, stage II, might be caused by steroid too, increase ARB, carvedilol and verapamil. 4. History of diabetes mellitus, continue aspirin and atorvastatin. Subjective Subjective Sinus rhythm at rate of 77. Objective Last 24 Hour Vital Signs Date Time Temp Pulse Resp B/P (MAP) Pulse Ox O2 Delivery O2 Flow Rate FiO2 07/13/19 16:00 98.4 77 18 124/74 (91) 98 07/13/19 15:08 82 07/13/19 13:49 78 20 97 Room Air 21 07/13/19 13:48 78 20 96 Room Air 21 07/13/19 12:00 98.4 85 20 149/68 (95) 97 07/13/19 11:34 87 07/13/19 10:12 97.2 07/13/19 09:00 Nasal Cannula 2.0 07/13/19 08:53 75 156/78 07/13/19 08:53 156/78 07/13/19 08:52 75 20 98 Room Air 21 07/13/19 08:52 88 156/78 07/13/19 08:50 75 20 97 Room Air 21 07/13/19 08:00 97.2 88 18 156/78 (104) 95 07/13/19 07:34 84 07/13/19 04:00 76 07/13/19 04:00 96.9 80 19 139/73 (95) 99 07/13/19 01:01 70 16 98 Room Air 21 07/13/19 01:01 70 16 98 Room Air 21 07/13/19 00:00 87 07/13/19 00:00 97.7 87 19 132/67 (88) 98 Intake and Output 07/12/19 07/13/19 19:00 07:00 Intake Total 350 ml 100 ml Balance 350 ml 100 ml Intake Oral 350 ml 100 ml # Voids 4 1 # Bowel Movements 1 2D Echo: EF 50%,Septal wall HK,Mild AR/MR, RVSP 39,Med.Peric.eff.RAP 10,Grade I LVDD Objective HEENT: Atraumatic and normocephalic. Anicteric. Pupils are equal, round, and reactive to light and accommodation. Extraocular muscles intact. NECK: JVP less than 5 cm. No carotid bruit. Carotid upstrokes 2+ bilaterally. CARDIOVASCULAR: Normal S1, S2. Regular rate and rhythm. No murmurs, gallops, or rubs. No pulsus paradoxus. LUNGS: Diminished bilaterally with expiratory rhonchi. ABDOMEN: Soft, nontender, and nondistended. No hepatosplenomegaly. Positive bowel sounds. EXTREMITIES: No evidence of edema, clubbing, or cyanosis. Bc Daniels MD Jul 13, 2019 23:53
--- NOTE | 2019-07-14 02:45 | Consultation ---
DATE OF CONSULTATION: 07/11/2019 CARDIOLOGY CONSULTATION CONSULTING PHYSICIAN: Bc Daniels M.D. REFERRING PHYSICIAN: Yue Ibarra M.D. REASON FOR CONSULTATION: Management of shortness of breath and pericardial effusion. HISTORY OF PRESENT ILLNESS: The patient is a very pleasant 59-year-old female, known to me who presented to the emergency department with complaints of dizziness, wheezing, shortness of breath, and sore throat. The patient also has been complaining of lower back pain for the past two weeks. She has a history of chronic obstructive pulmonary disease and using nebulizer at home. Her cardiovascular history is significant for history of medium-sized pericardial effusion, which is chronic and hemodynamically tolerable. She recently had an admission to [facility] with shortness of breath and she was found to have acute exacerbation of chronic obstructive pulmonary disease. In that facility, 2D echocardiography was done, which revealed small- to medium-sized pericardial effusion with no evidence of pericardial tamponade. She also has mild LV systolic dysfunction with LVEF approximately 40% to 45%. In the past, she has had normal coronary arteries per invasive cardiac catheterization. At the time of arrival to this facility, blood pressure was 153/94 mmHg and heart rate was 100. Initial white blood cell count was 13.8, potassium 3.3, troponin I level 0.014, and proBNP of 40. A 12-lead electrocardiogram was significant for sinus rhythm at a rate of 76 with right atrial enlargement and low voltage QRS. The patient was admitted to telemetry for further evaluation and management. Cardiology consultation was made at the request of Dr. Ibarra. PAST MEDICAL HISTORY: 1. COPD. 2. Medium-sized pericardial effusion with no tamponade. 3. Nonischemic cardiomyopathy with LVEF approximately 45%. 4. History of hypertension. 5. History of diabetes mellitus. 6. History of GERD. 7. History of right shoulder rotator cuff tear/tendinitis. 8. History of arthritis. 9. History of lumbar spine stenosis. 10. History of mold exposure. PAST SURGICAL HISTORY: Bariatric surgery and lumbar spine surgery. REVIEW OF SYSTEMS: HEENT: Denies any headache, diplopia, or blurred vision. CONSTITUTIONAL: Denies any fever, chills, night sweats, or weight loss. CARDIOVASCULAR: Complains of shortness of breath, but denies any chest pain, PND, or orthopnea. She also complains of bilateral lower extremity swelling. Denies any syncope or palpitation. PULMONARY: Complains of shortness of breath, cough, and wheezing. GASTROINTESTINAL: Denies any nausea, vomiting, diarrhea, constipation, abdominal pain, or GI bleed. GENITOURINARY: Denies any hematuria, dysuria, or incontinence. NEUROLOGY: Denies any motor dysfunction, sensory deficit, or altered speech. ALLERGIES: Metronidazole and penicillin G. FAMILY HISTORY: No premature coronary artery disease in first-degree relatives. MEDICATIONS: List of medications at home includes: 1. Tudorza Pressair inhaler. 2. Ventolin one puff inhaler every six hours. 3. Amitriptyline 50 mg at bedtime. 4. Atorvastatin 20 mg at bedtime. 5. Coreg CR 80 mg daily. 6. Cyclobenzaprine 15 mg three times a day. 7. Breo inhaler daily. 8. Lasix 20 mg daily. 9. Meclizine 25 mg daily. 10. Benicar hydrochlorothiazide 20/12.5 one tablet daily. 11. Omeprazole 40 mg daily. 12. Oxycodone 30 mg q.6 h. p.r.n. pain. 13. Prednisone 10 mg p.o. daily. 14. Spironolactone 25 mg daily. 15. Verapamil 120 mg daily. HABITS: Denies any tobacco, alcohol, or illicit drug use. PHYSICAL EXAMINATION: VITAL SIGNS: Blood pressure at the time of arrival to the hospital 153/94 mmHg, pulse was 100 respirations 16, temperature 98.1 degrees Fahrenheit, and saturation 96% on room air. GENERAL: The patient is a very unfortunate 59-year-old female, in no apparent respiratory distress. Alert and oriented x4. HEENT: Atraumatic and normocephalic. Anicteric. Pupils are equal, round, and reactive to light and accommodation. Extraocular muscles intact. NECK: JVP less than 5 cm. No carotid bruit. Carotid upstroke is 2+ bilaterally. CARDIOVASCULAR: Normal S1 and S2. Tachycardic. No murmurs, gallops, or rubs. PMI is at fourth intercostal space in the midclavicular line. LUNGS: With some expiratory rhonchi, scattered in both lungs. ABDOMEN: Soft, nontender, and nondistended. No hepatosplenomegaly. Positive bowel sounds. EXTREMITIES: No evidence of edema, clubbing, or cyanosis. LABORATORY AND DIAGNOSTIC FINDINGS: WBC was 13.8, hemoglobin of 13.5, hematocrit of 39.1, and platelet count is 261,000. Chemistry shows sodium of 138, potassium of 3.3, chloride of 99, bicarbonate of 32, BUN of 11, creatinine 1.0, glucose 125, and calcium is 8.4. Troponin I was 0.014. ProBNP was 40. Hemoglobin A1c 6.2. Triglycerides 89, LDL is 82, and HDL is 65. TSH was 6.58. A chest x-ray showed no acute cardiopulmonary disease. A 2D echocardiography showed mild septal hypokinesia with LVEF approximately 50%. Small- to medium-sized pericardial effusion with no signs of tamponade. Dilated IVC at 1.9 with no physiologic collapse suggestive of left atrial pressure approximately 10 mmHg. There is mild to moderate aortic regurgitation as well as mitral regurgitation with grade 1 LV diastolic dysfunction and RVSP of 339 mmHg consistent with mild pulmonary hypertension. ASSESSMENT AND PLAN: The patient is a very unfortunate 59-year-old female who is seen in Cardiology consultation. 1. Dyspnea, most likely due to acute exacerbation of COPD. Pulmonary examination shows diminished breath sounds presence of expiratory rhonchi. The patient requires to be on nebulizer steroids. A 2D echocardiography shows borderline left ventricular systolic function with LVEF of approximately 50 and no evidence of elevated intracardiac filling pressures. In fact, normal brain natriuretic peptide essentially rules out congestive heart failure. 2. Medium-sized pericardial effusion. No signs of pericardial tamponade, chronic. No change in the past four to five years. We will continue to monitor pericardial effusion. 2.1. We will continue with Lasix 20 mg p.o. daily 3. History of hypertension. Continue with the current ARBs as well as carvedilol. 4. History of COPD. Long history of tobacco use in the past. Questionable mold exposure. 5. Lumbar spine stenosis. 6. Morbid obesity, status post bariatric surgery. 7. Hypokalemia. Potassium supplements to be given. 8. History of diabetes mellitus with hemoglobin A1c of 6.2. 9. History of GERD. I would like to thank, Dr. Ibarra, for allowing me to participate in care of this patient. Bc Daniels M.D. DR: RUBEN JOB#: [id number] CC:
--- NOTE | 2019-07-14 11:55 | Discharge Summary ---
Discharge Summary Discharge Summary _ DATE OF ADMISSION: 07/10/2019 DATE OF DISCHARGE: 07/13/2019 DISCHARGED BY: Dr. Ibarra REASON FOR ADMISSION: 59 years old female with past medical history of COPD, diabetes mellitus, spinal stenosis, hypertension, GERD, presented to emergency department complaining of multiply symptoms , including wheezing, sore throat, dizziness , low back pain , 8 out of 10 for the past two weeks. Patient reported history of chronic right-sided low back pain , however over the last 2 weeks the pain progressed across her back. Patient reported history of spinal stenosis. Patient denied any recent trauma or fall. Patient denies chest pain. Patient reported abdominal burning sensation and metallic taste in her mouth. Patient was using nebulizer at home. Patietn reported history of possible mold exposure. Patient reported hoarse voice. Upon evaluation vital signs were stable. Patient was afebrile. Laboratory work-up revealed mild leukocytosis WBC 13.4. Stable hemoglobin and hematocrit. Stable electrolytes and renal parameters. Troponin 0.014. Pro BNP 40. EKG revealed sinus rhythm, no acute ischemic changes. LFT and lipase within normal limits. Chest x-ray revealed no acute cardiopulmonary pathology. Patient received nebulizing treatment with albuterol and admitted for further management. CONSULTANTS: funding coordinator Dr. Daniels pulmonary Dr. Joyner physical medicine [facility] rehabilitation [facility]: Patient admitted to telemetry floor. Contact Agent closely followed. Echocardiogram demonstrated ejection fraction of 50% with mild septal hypokinesia. Small to moderate circumferential pericardial effusion . Mild to moderate mitral regurgitation, mild to moderate aortic insufficiency. Right ventricular systolic pressure of 39 consistent with a mild pulmonary hypertension. Serial troponin were negative. EKG revealed no acute ischemic changes. Patient was ruled out for acute myocardial infarction. General Production Worker., shortness of breath was most likely due to COPD exacerbation. Medium sized pericardial effusion was not of hemodynamic significance. Blood pressure was managed with angiotensin receptor maria luz, carvedilol and verapamil. Contact Agent recommended to continue aspirin and statin given history of diabetes. General Production Worker followed. Supplemental oxygen was on board as needed. Pulse oximetry was stable on room air. Bronchodilator therapy via handheld nebulizer provided. Patient was continued on Breo. DVT prophylaxis provided. Patient clinically stabilized. No need for aggressive steroid prescription at this time as per dress designer. Pain management was addressed. GI prophylaxis provided. Potassium was replaced. Blood sugar was closely monitored, remained stable Hemoglobin A1c 6.2. Diabetic diet provided CT of the lumbar spine with no contrast revealed multilevel degenerative disease , mainly involving the facet joints with hypertrophy vacuum phenomena. Suspected congenital spinal stenosis and diffuse hypoplasia or narrowing of the central canal. Suggestion of the L4-L5 disc bulge. Stenosis of the central canal, lateral recess and neural foramen suspected. Patient subsequently undergone lumbar spine MRI which revealed mild central stenosis L2-3. Mild concentric disc bulge. Facet arthropathy. Mild to moderate bilateral foraminal stenosis. L3-4: Facet arthropathy. Mild concentric disc bulge. Mild to moderate foraminal stenosis. L4-5: Mild concentric disc bulge. Mild central stenosis. Mild to moderate foraminal stenosis. Facet arthropathy. L5-S1: Mild concentric disc bulge. Slight abutting of the right S1 nerve root. Facet arthropathy. Mild to moderate foraminal stenosis. Patient was working with physical therapist. Fall precaution maintained. Pain management was addressed as needed. DVT and GI prophylaxis provided. Leukocytosis initially was likely reactive , secondary to steroid ; leukocytosis resolv Physical medicine and ingredient specialist seen and evaluated patient, and closely followed. Patient was proffered to go home instead of the acute rehabilitation center. Front wheel walker was arranged along with a shower chair for delivery at home the next day. Patient clinically stabilized and was ready for discharge. 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 Medium sized pericardial effusion DISCHARGE MEDICATIONS: See Medication Reconciliation list. DISCHARGE INSTRUCTIONS: Patient was discharged home. Shower chair and front wheeled walker will be delivered on 07/14 by [employer]. I have been assigned to dictate discharge summary for this account. I was not involved in the patient's management. Odalys Landon NP Jul 14, 2019 11:55
== END 2019-07-13 18:27 | disposition home or self-care (01) | DRG 191 ==
LOC: EMR 15:56 → 2E 18:08 → EDBEDREQ 20:30 → 2E 07-11 04:00
DX: J44.1 Chronic obstructive pulmonary disease with (acute) exacerbation (principal); I16.1 Hypertensive emergency; I31.3 Pericardial effusion (noninflammatory); F99 Mental disorder, not otherwise specified; E78.5 Hyperlipidemia, unspecified; Z88.0 Allergy status to penicillin; Z88.8 Allergy status to other drugs, medicaments and biological substances; M47.896 Other spondylosis, lumbar region; E11.9 Type 2 diabetes mellitus without complications; M48.061 Spinal stenosis, lumbar region without neurogenic claudication; E66.01 Morbid (severe) obesity due to excess calories; Z68.36 Body mass index [BMI] 36.0-36.9, adult; E88.81 Metabolic syndrome and other insulin resistance; Z77.120 Contact with and (suspected) exposure to mold (toxic); G89.4 Chronic pain syndrome; I34.0 Nonrheumatic mitral (valve) insufficiency; I35.1 Nonrheumatic aortic (valve) insufficiency; Z98.84 Bariatric surgery status; D72.829 Elevated white blood cell count, unspecified; T38.0X5A Adverse effect of glucocorticoids and synthetic analogues, initial encounter; I11.0 Hypertensive heart disease with heart failure; I50.9 Heart failure, unspecified
CPT/HCPCS: 36415; 71045; 72131; 72148; 80053; 80061; 83036; 83690; 83880; 84443; 84484; 85025; 93005; 93306; 94640; 99285; J2405; J7620; J8499

== ENCOUNTER 2019-07-20 11:13 | Inpatient (IN) | payer MEDICARE, OTHER ==
[~2019-07-20] VITALS: Ht 167.6 cm; Wt 107.5 kg
[~2019-07-20 11:13] MED LIST changes: +AMITRIPTYLINE100 MG ORAL; +BENICAR HCT 201 EACH ORAL; +BREO ELLIPTA 21 EACH INH; +COLCHICINE0.6 M1 PO; +COREG CR80 MG ORAL; +CYCLOBENZAPRINE5 MG ORAL; +FLUCONAZOLE100 MG ORAL; +MECLIZINE HCL25 MG ORAL; +MELOXICAM15 MG PO; +OMEPRAZOLE40 M1 ORAL; +PREDNISONE10 MG ORAL; +SPIRONOLACTONE25 MG ORAL; +TUDORZA PRESS400 MCG IH; +VENTOLIN HFA18 GM INH; +VERAPAMIL ER120 M1 PO; +ZITHROMAX250 MG ORAL
[2019-07-20] MEDS ORDERED: Albuterol/Ipratropium 3ml neb HHN ONE (11:45)
--- NOTE | 2019-07-20 11:49 | Emergency Room Report ---
History of Present Illness General Chief Complaint: Flu Like Symptoms Source: Patient Present Illness HPI Patient is a 59-year-old female who presented after increased cough sore throat and nasal congestion. She reports having increased epigastric abdominal discomfort. She describes as a burning sensation. She had recently been having increased cough with bloody sputum. She states that she been having nasal bleeding last night started from the left side of her nose. This had resolved. She had some episodes of bleeding in the past. She denies any anticoagulant use. She had previous hospitalization at this facility where she was noted to have a pericardial effusion in the past. She previous history of thyroid disease. Allergies: Coded Allergies: METRONIDAZOLE (Verified Allergy, Mild, 02/25/15) PENICILLIN G (Verified Allergy, Mild, 02/25/15) Patient History Past Medical History: see triage record Last Menstrual Period: no period Reviewed Nursing Documentation: PMH: Agreed; PSxH: Agreed Nursing Documentation-PMH Past Medical History: No History, Except For Hx Cardiac Problems: Yes Hx Hypertension: Yes Hx COPD: Yes Hx Diabetes: Yes Hx Cancer: No Hx Gastrointestinal Problems: Yes Hx Neurological Problems: No Hx Seizures: No - GERD Review of Systems All Other Systems: negative except mentioned in HPI Physical Exam Vital Signs Date Time Temp Pulse Resp B/P (MAP) Pulse Ox O2 Delivery O2 Flow Rate FiO2 07/20/19 11:18 98.8 87 17 169/103 (125) 100 Room Air Sp02 EP Interpretation: reviewed, normal General Appearance: normal inspection, alert, GCS 15, Chronically Ill Head: atraumatic Eyes: bilateral eye PERRL ENT: normal ENT inspection, hearing grossly normal, normal voice Neck: normal inspection, full range of motion, supple, no bony tend Respiratory: no respiratory distress, no retraction, decreased breath sounds, wheezing Cardiovascular #1: regular rate, rhythm, no edema Gastrointestinal: normal inspection, normal bowel sounds, non tender, soft, no guarding, no hernia Genitourinary: no CVA tenderness Musculoskeletal: normal inspection, back normal, normal range of motion Neurologic: alert, motor strength/tone normal, log marker III-XII nml as tested, responsive, speech normal, normal inspection Psychiatric: normal inspection, judgement/insight normal, mood/affect normal Skin: no rash Medical Decision Making Diagnostic Impression: Primary Impression: Congestive cardiac failure Additional Impressions: Pericardial effusion COPD exacerbation ER Course Patient presented for shortness of breath. Differential diagnosis include was not limited to pericardial effusion, myocardial infarction, COPD exacerbation, CHF among others. Because of complexity of patient's case laboratory tests and imaging studies were ordered. Patient was noted to have increased difficulty breathing worse with supine position. Patient was noted to have multiple imaging studies performed recently. 2D echo was ordered due to patient's recent visit with significant pericardial effusion. Echocardiogram showed continued effusion without evidence of tamponade. Patient was given breathing treatments. Laboratory testing did not show any evidence of acute myocardial injury. Dr. Ibarra was contacted for inpatient management due to need for inpatient monitoring and treatment. Labs Test 07/20/19 12:00 White Blood Count 8.0 K/UL (4.8-10.8) Red Blood Count 4.85 M/UL (4.20-5.40) Hemoglobin 13.5 G/DL (12.0-16.0) Hematocrit 40.8 % (37.0-47.0) Mean Corpuscular Volume 84 FL (80-99) Mean Corpuscular Hemoglobin 27.8 PG (27.0-31.0) Mean Corpuscular Hemoglobin Concent 33.0 G/DL (32.0-36.0) Red Cell Distribution Width 12.5 % (11.6-14.8) Platelet Count 293 K/UL (150-450) Mean Platelet Volume 6.8 FL (6.5-10.1) Neutrophils (%) (Auto) 52.2 % (45.0-75.0) Lymphocytes (%) (Auto) 34.2 % (20.0-45.0) Monocytes (%) (Auto) 8.7 % (1.0-10.0) Eosinophils (%) (Auto) 3.8 % (0.0-3.0) Basophils (%) (Auto) 1.2 % (0.0-2.0) Erythrocyte Sedimentation Rate 18 MM/HR (0-30) Prothrombin Time 9.8 SEC (9.30-11.50) Prothromb Time International Ratio 0.9 (0.9-1.1) Activated Partial Thromboplast Time 24 SEC (23-33) Troponin I 0.012 ng/mL (0.000-0.056) Free Thyroxine 0.87 NG/DL (0.76-1.46) Urine Color Pale yellow Urine Appearance Clear Urine pH 7 (4.5-8.0) Urine Specific [place] 1.010 (1.005-1.035) Urine Protein Negative (NEGATIVE) Urine Glucose (UA) Negative (NEGATIVE) Urine Ketones Negative (NEGATIVE) Urine Blood Negative (NEGATIVE) Urine Nitrite Negative (NEGATIVE) Urine Bilirubin Negative (NEGATIVE) Urine Urobilinogen Normal MG/DL (0.0-1.0) Urine Leukocyte Esterase Negative (NEGATIVE) Urine Opiates Screen Negative (NEGATIVE) Urine Barbiturates Screen Negative (NEGATIVE) Phencyclidine (PCP) Screen Negative (NEGATIVE) Urine Amphetamines Screen Negative (NEGATIVE) Urine Benzodiazepines Screen Negative (NEGATIVE) Urine Cocaine Screen Negative (NEGATIVE) Urine Marijuana (THC) Screen Negative (NEGATIVE) Sodium Level Potassium Level Chloride Level Carbon Dioxide Level Anion Gap Blood Urea Nitrogen Creatinine Estimat Glomerular Filtration Rate Glucose Level Calcium Level Total Bilirubin Aspartate Amino Transf (AST/SGOT) Alanine Aminotransferase (ALT/SGPT) Alkaline Phosphatase Pro-B-Type Natriuretic Peptide Total Protein Albumin Globulin Albumin/Globulin Ratio Thyroid Stimulating Hormone (TSH) Test 07/21/19 06:05 White Blood Count 6.5 K/UL (4.8-10.8) Red Blood Count 4.38 M/UL (4.20-5.40) Hemoglobin 12.4 G/DL (12.0-16.0) Hematocrit 36.6 % (37.0-47.0) Mean Corpuscular Volume 83 FL (80-99) Mean Corpuscular Hemoglobin 28.3 PG (27.0-31.0) Mean Corpuscular Hemoglobin Concent 33.9 G/DL (32.0-36.0) Red Cell Distribution Width 12.6 % (11.6-14.8) Platelet Count 282 K/UL (150-450) Mean Platelet Volume 7.0 FL (6.5-10.1) Neutrophils (%) (Auto) 47.6 % (45.0-75.0) Lymphocytes (%) (Auto) 36.4 % (20.0-45.0) Monocytes (%) (Auto) 10.8 % (1.0-10.0) Eosinophils (%) (Auto) 4.2 % (0.0-3.0) Basophils (%) (Auto) 1.1 % (0.0-2.0) Sodium Level 143 MMOL/L (136-145) Potassium Level 4.2 MMOL/L (3.5-5.1) Chloride Level 104 MMOL/L (98-107) Carbon Dioxide Level 32 MMOL/L (21-32) Anion Gap 8 mmol/L (5-15) Blood Urea Nitrogen 12 mg/dL (7-18) Creatinine 1.0 MG/DL (0.55-1.30) Estimat Glomerular Filtration Rate > 60 mL/min (>60) Glucose Level 93 MG/DL (74-106) Calcium Level 8.4 MG/DL (8.5-10.1) Total Bilirubin 0.2 MG/DL (0.2-1.0) Aspartate Amino Transf (AST/SGOT) 13 U/L (15-37) Alanine Aminotransferase (ALT/SGPT) 23 U/L (12-78) Alkaline Phosphatase 112 U/L (46-116) Troponin I 0.015 ng/mL (0.000-0.056) Total Protein 6.6 G/DL (6.4-8.2) Albumin 3.4 G/DL (3.4-5.0) Globulin 3.2 g/dL Albumin/Globulin Ratio 1.1 (1.0-2.7) EKG Diagnostic Results Rate: normal Rhythm: NSR ST Segments: no acute changes Last Vital Signs Date Time Temp Pulse Resp B/P (MAP) Pulse Ox O2 Delivery O2 Flow Rate FiO2 07/20/19 11:18 98.8 87 17 169/103 (125) 100 Room Air Status: unchanged Disposition: ADMITTED INPATIENT Condition: Stable Referrals: NON PHYSICIAN (PCP) Darrel Skinner MD Jul 20, 2019 11:49
[2019-07-20 12:00] VITALS: BP 159/88
[2019-07-20] MEDS ORDERED: Omnipaue 350mg/ml 100ml vial INJ PRN (12:00)
[2019-07-20 12:38] LABS: BASOPHILS % (AUTO) 1.2 % (0.0-2.0); EOSINOPHILS % (AUTO) 3.8 % (0.0-3.0); HEMATOCRIT 40.8 % (37.0-47.0); HEMOGLOBIN 13.5 G/DL (12.0-16.0); LYMPHOCYTES % (AUTO) 34.2 % (20.0-45.0); MEAN CORPUSCULAR VOLUME 84 FL (80-99); MONOCYTES % (AUTO) 8.7 % (1.0-10.0); NEUTROPHILS % (AUTO) 52.2 % (45.0-75.0); PLATELET COUNT 293 K/UL (150-450); RED BLOOD COUNT 4.85 M/UL (4.20-5.40); RED CELL DISTRIBUTION WIDTH 12.5 % (11.6-14.8)
[2019-07-20 12:47] LABS: INR 0.9 (0.9-1.1)
[2019-07-20] MEDS ORDERED: Morphine Sulfate 2mg/ml Inj(IV/IM USE ONLY) IVP ONE (13:30)
[2019-07-20 14:11] LABS: APPEARANCE,URINE CLEAR; BILIRUBIN, URINE NEGATIVE (NEGATIVE); COLOR,URINE PALE YELLOW; GLUCOSE, URINE (UA) NEGATIVE (NEGATIVE); KETONES,URINE NEGATIVE (NEGATIVE); LEUKOCYTE ESTERASE ,URINE NEGATIVE (NEGATIVE); NITRITE,URINE NEGATIVE (NEGATIVE); PH,URINE 7 (4.5-8.0); PROTEIN,URINE NEGATIVE (NEGATIVE); UROBILINOGEN,URINE NORMAL MG/DL (0.0-1.0)
[2019-07-20 14:27] LABS: ANION GAP 3 mmol/L (5-15); BLOOD UREA NITROGEN 12 mg/dL (7-18); CALCIUM 8.4 MG/DL (8.5-10.1); CARBON DIOXIDE 33 MMOL/L (21-32); CHLORIDE 103 MMOL/L (98-107); CREATININE 1.1 MG/DL (0.55-1.30); POTASSIUM 3.7 MMOL/L (3.5-5.1); SODIUM 139 MMOL/L (136-145)
[2019-07-20 14:41] LABS: ALANINE AMINOTRANSFERASE 23 U/L (12-78); ALBUMIN 3.6 G/DL (3.4-5.0); ALBUMIN/GLOBULIN RATIO 0.9 (1.0-2.7); ALKALINE PHOSPHATASE 115 U/L (46-116); ASPARTATE AMINO TRANSFERASE 14 U/L (15-37); BILIRUBIN,TOTAL 0.3 MG/DL (0.2-1.0)
[2019-07-20 16:00] VITALS: BP 153/84
--- NOTE | 2019-07-20 16:24 | Diagnostic Imaging Report ---
EXAM: CT Chest With Intravenous Contrast CLINICAL HISTORY: SOB TECHNIQUE: Axial computed tomography images of the chest with intravenous contrast. CTDI is 83.9 mGy and DLP is 892.2 mGy-cm. One or more of the following dose reduction techniques were used: automated exposure control, adjustment of the mA and/or kV according to patient size, use of iterative reconstruction technique. MIP reconstructed images were created and reviewed. COMPARISON: No relevant prior studies available. FINDINGS: Lungs: No pulmonary embolus. Mild atelectatic changes at the lung bases. Pleural space: Unremarkable. No pneumothorax. No effusion. Heart: Cardiomegaly. Pericardial effusion, measures approximately 2- 2.4 cm along the right heart border and inferiorly. Bones/joints: No acute fracture. Soft tissues: Bilateral breast implants. Vasculature: Unremarkable. No thoracic aortic aneurysm. Lymph nodes: No enlarged lymph nodes. Liver: Mild fatty liver. Gallbladder and bile ducts: Cholecystectomy. IMPRESSION: 1. Cardiomegaly. Pericardial effusion, measures approximately 2- 2.4 cm along the right heart border and inferiorly. 2. No pulmonary embolus.
--- NOTE | 2019-07-20 16:29 | Diagnostic Imaging Report ---
EXAM: US Abdomen Complete CLINICAL HISTORY: ABD PAIN TECHNIQUE: Real-time ultrasound of the abdomen (complete) with image documentation. COMPARISON: No relevant prior studies available. FINDINGS: Liver: Liver measures 16.6 cm. Gallbladder: Cholecystectomy. No biliary ductal dilatation. Common bile duct: Unremarkable as visualized. Pancreas: Limited visualization of the pancreas and aorta. Kidneys: No hydronephrosis. Spleen: No splenomegaly. Aorta: See above. Inferior vena cava: Unremarkable. IMPRESSION: Cholecystectomy. No biliary ductal dilatation.
[2019-07-20] MEDS ORDERED: Albuterol 90mcg Inhaler 8gm INH SCH (18:00)
--- NOTE | 2019-07-20 18:43 | History & Physical ---
History and Physical History & Physicial seen and examined. Dictation completed. Yue Ibarra MD Jul 20, 2019 18:43
[2019-07-20] MEDS ORDERED: Breo Ellipta 200/25mcg-14 dose INH SCH (19:00)
[2019-07-20] MEDS: Cyclobenzaprine 10mg Tab ORAL SCH (19:01)
[2019-07-20 20:00] VITALS: BP 155/83
[2019-07-20] MEDS: Atorvastatin 20mg tab ORAL SCH (20:43)
[2019-07-20] MEDS ORDERED: Albuterol 90mcg Inhaler 8gm INH PRN (21:20)
--- NOTE | 2019-07-20 22:45 | History and Physical Report ---
DATE OF ADMISSION: 07/20/2019 SOURCE OF INFORMATION: The patient and EMR. HISTORY OF PRESENT ILLNESS: The patient is a pleasant 59-year-old female with a history of COPD and CHF, who presented with the soreness of the upper respiratory tract, soreness of the upper abdomen. Denies nausea. Positive for the hemoptysis one or two episodes (questionable). At the time of evaluation, the patient denies any chest pain or shortness of breath. No nausea. No vomitus. No diarrhea. ALLERGIES: Metronidazole, penicillin. PAST SURGICAL AND MEDICAL HISTORY: Cholecystitis, CHF, COPD, hyperlipidemia, hypertension, and chronic low back pain. FAMILY HISTORY: Reviewed and noncontributory. MEDICATIONS: Current hospital medications including, but not limited to amitriptyline, Lovenox subcutaneous, Lasix, and prednisone. SOCIAL HISTORY: The patient denies history of illicit drug abuse, smoking, or alcohol abuse. The patient lives at home. Dependent for the ADLs. PHYSICAL EXAMINATION: VITAL SIGNS: Blood pressure 170/100, respiratory rate 17, temperature 98.2. HEAD AND NECK: Atraumatic and normocephalic. CHEST: Diffuse bronchial breathing sounds. HEART: S1, S2. Regular rate and rhythm. ABDOMEN: Soft. No organomegaly. Morbidly obese. MUSCULOSKELETAL: Decreased range of motion in the lower extremity at baseline. No gross lateralized asymmetric motor deficit. NEUROLOGIC: The patient is awake, alert, and oriented x3. LABORATORY AND DIAGNOSTIC DATA: Dated July 20, 2019, WBC 8, hemoglobin 13.5, platelets 293. Sodium 139, potassium of 3.7, BUN of 12, creatinine 1.1. TSH normal. ALT and AST are normal. BNP 235. The 2D echo, dated July 11, 2019 reviewed shows medium size pericardial effusion with no signs of tamponade. ASSESSMENT AND PLAN: 1. Hemoptysis. 2. Atypical chest pain. 3. GERD, chronic. 4. Hypertension. 5. Prediabetes. 6. Chronic lumbar spondylosis and stenosis. PLAN OF CARE: I will continue with the home medications. I will recheck remeasure troponin levels. I will do the 2D echo. I agree with telemetry admission and tele monitoring. I will consider GI, Cardiology, and Pulmonary. Kerryammaclement Ibarra M.D. DR: ERI JOB#: [id number] CC:
[2019-07-21] VITALS: BP 133/76
[2019-07-21] MEDS: Morphine Sulfate 2mg/ml Inj(IV/IM USE ONLY) IVP PRN ×3 (00:39→19:54)
[2019-07-21] MEDS ORDERED: Albuterol 90mcg Inhaler 8gm INH SCH (01:00)
[2019-07-21 04:00] VITALS: BP 148/92
[2019-07-21 07:18] LABS: BASOPHILS % (AUTO) 1.1 % (0.0-2.0); EOSINOPHILS % (AUTO) 4.2 % (0.0-3.0); HEMATOCRIT 36.6 % (37.0-47.0); HEMOGLOBIN 12.4 G/DL (12.0-16.0); LYMPHOCYTES % (AUTO) 36.4 % (20.0-45.0); MEAN CORPUSCULAR VOLUME 83 FL (80-99); MONOCYTES % (AUTO) 10.8 % (1.0-10.0); NEUTROPHILS % (AUTO) 47.6 % (45.0-75.0); PLATELET COUNT 282 K/UL (150-450); RED BLOOD COUNT 4.38 M/UL (4.20-5.40); RED CELL DISTRIBUTION WIDTH 12.6 % (11.6-14.8); WHITE BLOOD COUNT 6.5 K/UL (4.8-10.8)
[2019-07-21] MEDS: Breo Ellipta 200/25mcg-14 dose INH SCH (07:45)
[2019-07-21 08:00] VITALS: BP 152/92
[2019-07-21 08:02] LABS: ALANINE AMINOTRANSFERASE 23 U/L (12-78); ALBUMIN 3.4 G/DL (3.4-5.0); ALBUMIN/GLOBULIN RATIO 1.1 (1.0-2.7); ALKALINE PHOSPHATASE 112 U/L (46-116); ANION GAP 8 mmol/L (5-15); ASPARTATE AMINO TRANSFERASE 13 U/L (15-37); BILIRUBIN,TOTAL 0.2 MG/DL (0.2-1.0); BLOOD UREA NITROGEN 12 mg/dL (7-18); CALCIUM 8.4 MG/DL (8.5-10.1); CARBON DIOXIDE 32 MMOL/L (21-32); CHLORIDE 104 MMOL/L (98-107); POTASSIUM 4.2 MMOL/L (3.5-5.1); SODIUM 143 MMOL/L (136-145)
[2019-07-21] MEDS: Spironolactone 25mg tab ORAL SCH (08:30)
[2019-07-21] MEDS: Cyclobenzaprine 10mg Tab ORAL SCH ×3 (08:30→18:05)
[2019-07-21] MEDS: Meclizine 25mg tab ORAL SCH (08:31)
[2019-07-21] MEDS: Enoxaparin 40mg Inj SUBQ SCH (08:43)
[2019-07-21] MEDS ORDERED: Breo Ellipta 200/25mcg-14 dose INH SCH (09:00)
--- NOTE | 2019-07-21 10:06 | Pulmonology Progress Note ---
Assessment/Plan Assessment/Plan COPD CHF pericardial effusion hemoptysis ho mold exposure shortness of breath obesity PLAN care as is steroids respiratory care oxygen therapy cardiac management keep negative defer echo to cards impression, plan, and exam edited and reviewed in detail care discussed with RN Subjective Allergies: Coded Allergies: METRONIDAZOLE (Verified Allergy, Mild, 02/25/15) PENICILLIN G (Verified Allergy, Mild, 02/25/15) Subjective care noted CT chest reviewed pericardial effusion and atelectasis only some sob Objective Last 24 Hour Vital Signs Date Time Temp Pulse Resp B/P (MAP) Pulse Ox O2 Delivery O2 Flow Rate FiO2 07/21/19 08:30 96 152/92 07/21/19 08:12 96 18 97 Room Air 21 07/21/19 08:12 92 18 97 Room Air 21 07/21/19 08:00 98.1 97 15 152/92 (112) 97 07/21/19 04:00 97 07/21/19 04:00 97.7 97 20 148/92 (110) 94 07/21/19 01:09 98.4 07/21/19 00:00 98.4 87 20 133/76 (95) 96 07/21/19 00:00 87 07/20/19 21:19 Room Air 07/20/19 21:15 108 07/20/19 20:00 98.7 108 20 155/83 (107) 98 07/20/19 19:24 98.3 65 18 123/76 97 Room Air 07/20/19 16:03 Room Air 07/20/19 16:00 97.2 90 19 153/84 (107) 97 07/20/19 14:06 98.7 07/20/19 12:12 90 18 100 Room Air 21 88 14 100 07/20/19 12:10 134 15 Room Air 100 07/20/19 12:01 88 14 100 Room Air 21 07/20/19 12:00 98.7 134 15 159/88 07/20/19 11:18 98.8 87 17 169/103 (125) 100 Room Air Intake and Output 07/20/19 07/21/19 18:59 06:59 Intake Total 480 ml 480 ml Balance 480 ml 480 ml Intake Oral 480 ml 480 ml # Voids 1 2 # Bowel Movements 1 Objective WDWN NAD clear breath sounds bilaterally with some wheeze [id number] without MRG NABS nontender no HSM no CC mild edema nonfocal Microbiology Date/Time Source Procedure Growth Status 07/20/19 00:00 Nasal Nares - Final Complete 07/20/19 00:00 Nasal Nares - Final Complete 07/20/19 14:00 Rectum Received Laboratory Tests 07/20/19 12:00: White Blood Count 8.0, Red Blood Count 4.85, Hemoglobin 13.5, Hematocrit 40.8, Mean Corpuscular Volume 84, Mean Corpuscular Hemoglobin 27.8, Mean Corpuscular Hemoglobin Concent 33.0, Red Cell Distribution Width 12.5, Platelet Count 293, Mean Platelet Volume 6.8, Neutrophils (%) (Auto) 52.2, Lymphocytes (%) (Auto) 34.2, Monocytes (%) (Auto) 8.7, Eosinophils (%) (Auto) 3.8H, Basophils (%) (Auto ) 1.2, Erythrocyte Sedimentation Rate 18, Prothrombin Time 9.8, Prothromb Time International Ratio 0.9, Activated Partial Thromboplast Time 24, Troponin I 0.012, Free Thyroxine 0.87 07/20/19 13:35: Urine Color Pale yellow, Urine Appearance Clear, Urine pH 7, Urine Specific [place] 1.010, Urine Protein Negative, Urine Glucose (UA) Negative, Urine Ketones Negative, Urine Blood Negative, Urine Nitrite Negative, Urine Bilirubin Negative, Urine Urobilinogen Normal, Urine Leukocyte Esterase Negative, Urine Opiates Screen Negative, Urine Barbiturates Screen Negative, Phencyclidine (PCP ) Screen Negative, Urine Amphetamines Screen Negative, Urine Benzodiazepines Screen Negative, Urine Cocaine Screen Negative, Urine Marijuana (THC) Screen Negative 07/20/19 13:50: Sodium Level 139, Potassium Level 3.7, Chloride Level 103, Carbon Dioxide Level 33H, Anion Gap 3L, Blood Urea Nitrogen 12, Creatinine 1.1, Estimat Glomerular Filtration Rate > 60, Glucose Level 94, Calcium Level 8.4L, Total Bilirubin 0.3 , Aspartate Amino Transf (AST/SGOT) 14L, Alanine Aminotransferase (ALT/SGPT) 23 , Alkaline Phosphatase 115, Pro-B-Type Natriuretic Peptide 235H, Total Protein 7.5, Albumin 3.6, Globulin 3.9, Albumin/Globulin Ratio 0.9L, Thyroid Stimulating Hormone (TSH) 0.583 07/20/19 19:50: Troponin I 0.004 07/21/19 06:05: White Blood Count 6.5, Red Blood Count 4.38, Hemoglobin 12.4, Hematocrit 36.6L, Mean Corpuscular Volume 83, Mean Corpuscular Hemoglobin 28.3, Mean Corpuscular Hemoglobin Concent 33.9, Red Cell Distribution Width 12.6, Platelet Count 282, Mean Platelet Volume 7.0, Neutrophils (%) (Auto) 47.6, Lymphocytes (%) (Auto) 36.4, Monocytes (%) (Auto) 10.8H, Eosinophils (%) (Auto) 4.2H, Basophils (%) ( Auto) 1.1, Sodium Level 143, Potassium Level 4.2, Chloride Level 104, Carbon Dioxide Level 32, Anion Gap 8, Blood Urea Nitrogen 12, Creatinine 1.0, Estimat Glomerular Filtration Rate > 60, Glucose Level 93, Calcium Level 8.4L, Total Bilirubin 0.2, Aspartate Amino Transf (AST/SGOT) 13L, Alanine Aminotransferase ( ALT/SGPT) 23, Alkaline Phosphatase 112, Troponin I 0.015, Total Protein 6.6, Albumin 3.4, Globulin 3.2, Albumin/Globulin Ratio 1.1 Current Medications Medications (Trade) Dose Ordered Sig/Alethea Route PRN Reason Start Time Stop Time Status Last Admin Dose Admin Acetaminophen (Tylenol) 650 mg Q6H PRN ORAL Mild Pain/Temp > 100.5 07/20/19 17:45 08/19/19 17:44 Al Hydroxide/Mg Hydroxide (Mylanta) 30 ml Q6H PRN ORAL GI DISCOMFORT 07/21/19 00:15 08/20/19 00:14 Albuterol Sulfate (Proventil MDI) 1 puff Q4H PRN INH Shortness of Breath 07/20/19 21:20 08/19/19 21:19 Amitriptyline HCl (Elavil) 50 mg BEDTIME ORAL 07/20/19 21:00 08/19/19 20:59 07/20/19 20:43 Atorvastatin Calcium (Lipitor) 20 mg BEDTIME ORAL 07/20/19 21:00 08/19/19 20:59 07/20/19 20:43 Baclofen (Lioresal) 10 mg BEDTIME ORAL 07/21/19 21:00 08/20/19 20:59 UNV Cetylpyridinium Chloride (Cepacol) 1 lozg Q6H PRN DEYA SORE THROAT 07/21/19 00:15 08/20/19 00:14 07/21/19 08:29 Cyclobenzaprine HCl (Flexeril) 15 mg THREE TIMES A DAY ORAL 07/20/19 18:00 08/19/19 17:59 07/21/19 08:30 Enoxaparin Sodium (Lovenox) 40 mg DAILY SUBQ 07/21/19 09:00 08/20/19 08:59 Fluticasone/ Vilanterol (Breo Ellipta 200/25) 1 puffs DAILY INH 07/21/19 09:00 08/19/19 18:59 07/21/19 07:45 Furosemide (Lasix) 20 mg DAILY ORAL 07/21/19 09:00 08/20/19 08:59 07/21/19 08:30 Meclizine HCl (Antivert) 25 mg DAILY ORAL 07/21/19 09:00 08/20/19 08:59 07/21/19 08:31 Morphine Sulfate (Morphine Sulfate) 2 mg Q4H PRN IVP For Pain 07/20/19 17:45 07/27/19 17:44 07/21/19 08:33 Ondansetron HCl (Zofran) 4 mg Q6H PRN IVP Nausea & Vomiting 07/20/19 17:45 08/19/19 17:44 07/21/19 00:39 Pantoprazole (Protonix) 40 mg BID ORAL 07/21/19 18:00 08/20/19 08:59 UNV Prednisone (predniSONE) 10 mg DAILY ORAL 07/21/19 09:00 08/20/19 08:59 07/21/19 08:30 Spironolactone (Aldactone) 25 mg DAILY ORAL 07/21/19 09:00 08/20/19 08:59 07/21/19 08:30 Verapamil HCl (Calan SR) 120 mg DAILY ORAL 07/21/19 09:00 08/19/19 17:59 07/21/19 08:30 Axel Mcfarlane MD Jul 21, 2019 10:06
[2019-07-21 12:00] VITALS: BP 133/75
--- NOTE | 2019-07-21 14:30 | Consultation ---
DATE OF CONSULTATION: 07/21/2019 CHIEF COMPLAINT: Abdominal pain. HISTORY OF PRESENT ILLNESS: This is a very pleasant 59-year-old patient admitted to hospital with complaint of chest pain plus also complaining of abdominal pain. GI consult requested for evaluation of abdominal pain. According to the patient, the patient has severe reflux symptoms, burning sensation. She thinks that she has increased abdominal distention. She has had a cholecystectomy few years ago and she was doing fine but recently she was still having symptoms again. Denies any constipation. Denies any melena. Denies hematochezia, dysphagia. No odynophagia. PAST MEDICAL HISTORY: 1. COPD. 2. CHF. 3. Gallstones status post cholecystectomy. 4. Hypertension. 5. Hyperlipidemia. 6. Chronic back pain. ALLERGIES: To metronidazole and penicillin. MEDICATIONS: Please see medication reconciliation list. PAST SURGICAL HISTORY: Cholecystectomy. SOCIAL HISTORY: The patient denies any alcohol or IV drug abuse. FAMILY HISTORY: Noncontributory. REVIEW OF SYSTEMS: A 10-point review of systems was performed and pertinent positives in HPI. PHYSICAL EXAMINATION: VITAL SIGNS: Temperature is 98.1, pulse is 96, respirations 18, blood pressure is 152/92. HEENT: Normocephalic and atraumatic. Sclerae . NECK: Supple. No evidence of obvious lymphadenopathy. CARDIOVASCULAR: Regular rate and rhythm. Plus S1 and S2. No obvious murmur. LUNGS: Clear to auscultation bilaterally. ABDOMEN: Positive bowel sounds. Soft and nontender. No rebound. No guarding. No peritoneal sign. EXTREMITIES: No cyanosis. No clubbing. No edema. LABORATORY AND DIAGNOSTIC DATA: White count 6.5, hemoglobin 12, hematocrit 36, platelet count is 282. Chem-7 grossly normal. Liver function grossly normal. Abdominal ultrasound shows cholecystectomy otherwise normal. CT angio showed no evidence of any obvious pulmonary embolism but the patient had evidence of pericardial effusion about 2.4 centimeter. ASSESSMENT AND PLAN: The patient is a 59-year-old female with a nonspecific abdominal pain, GERD symptoms, also pericardial effusion seen on the CT. RECOMMENDATIONS: Hold off GI procedures given the pericardial infusion, follow Cardiology for that. We are going to increase her Protonix to twice a day. Add baclofen at bedtime for better reflux symptoms management. Abdominal ultrasound reviewed with the patient. No evidence of any fluid to be tapped. We will follow on daily basis and make further recommendation as we go along. I want to thank, Dr. Ibarra, for this kind referral. Niranjan Good M.D. DR: Hayde JOB#: [id number] CC: Yue Ibarra M.D.; Fax#: [phone]
[2019-07-21 16:00] VITALS: BP 138/71
--- NOTE | 2019-07-21 19:50 | General Progress Note ---
Assessment/Plan Assessment/Plan: S : My stomach hurts O; Denies any diahrrea, or sever abd pain PHYSICAL EXAMINATION:HEAD AND NECK: Atraumatic and normocephalic. CHEST: Diffuse bronchial breathing sounds.HEART: S1, S2. Regular rate and rhythm. ABDOMEN: Soft. No organomegaly. Morbidly obese. MUSCULOSKELETAL: Decreased range of motion in the lower extremity at baseline. No gross lateralized asymmetric motor deficit. NEUROLOGIC: The patient is awake, alert, and oriented x3. LABORATORY AND DIAGNOSTIC DATA: Dated July 21, reveiwed The 2D echo, dated July 11, 2019 reviewed shows medium size pericardial effusion with no signs of tamponade. ASSESSMENT AND PLAN: 1. Hemoptysis. 2. Atypical chest pain. 3. GERD, chronic. 4. Hypertension. 5. Prediabetes. 6. Chronic lumbar spondylosis and stenosis. PLAN OF CARE: Pending cardiology eval and 2D echo. Notes from pulmonary reviewed Subjective Allergies: Coded Allergies: METRONIDAZOLE (Verified Allergy, Mild, 02/25/15) PENICILLIN G (Verified Allergy, Mild, 02/25/15) Objective Last 24 Hour Vital Signs Date Time Temp Pulse Resp B/P (MAP) Pulse Ox O2 Delivery O2 Flow Rate FiO2 07/21/19 16:00 85 07/21/19 16:00 98.0 95 16 138/71 (93) 98 07/21/19 12:00 97 07/21/19 12:00 98.7 93 16 133/75 (94) 98 07/21/19 09:00 Room Air 07/21/19 08:30 96 152/92 07/21/19 08:12 96 18 97 Room Air 21 07/21/19 08:12 92 18 97 Room Air 21 07/21/19 08:00 97 07/21/19 08:00 98.1 97 15 152/92 (112) 97 07/21/19 04:00 97 07/21/19 04:00 97.7 97 20 148/92 (110) 94 07/21/19 01:09 98.4 07/21/19 00:00 98.4 87 20 133/76 (95) 96 07/21/19 00:00 87 07/20/19 21:19 Room Air 07/20/19 21:15 108 07/20/19 20:00 98.7 108 20 155/83 (107) 98 Intake and Output 07/20/19 07/21/19 19:00 07:00 Intake Total 480 ml 480 ml Balance 480 ml 480 ml Intake Oral 480 ml 480 ml # Voids 1 2 # Bowel Movements 1 Laboratory Tests 07/20/19 19:50: Troponin I 0.004 07/21/19 06:05: Troponin I 0.015, White Blood Count 6.5, Red Blood Count 4.38, Hemoglobin 12.4, Hematocrit 36.6L, Mean Corpuscular Volume 83, Mean Corpuscular Hemoglobin 28.3, Mean Corpuscular Hemoglobin Concent 33.9, Red Cell Distribution Width 12.6, Platelet Count 282, Mean Platelet Volume 7.0, Neutrophils (%) (Auto) 47.6, Lymphocytes (%) (Auto) 36.4, Monocytes (%) (Auto) 10.8H, Eosinophils (%) (Auto) 4.2H, Basophils (%) (Auto) 1.1, Sodium Level 143, Potassium Level 4.2, Chloride Level 104, Carbon Dioxide Level 32, Anion Gap 8, Blood Urea Nitrogen 12, Creatinine 1.0, Estimat Glomerular Filtration Rate > 60, Glucose Level 93, Calcium Level 8.4L, Total Bilirubin 0.2, Aspartate Amino Transf (AST/SGOT) 13L, Alanine Aminotransferase (ALT/SGPT) 23, Alkaline Phosphatase 112, Total Protein 6.6, Albumin 3.4, Globulin 3.2, Albumin/Globulin Ratio 1.1 Height (Feet): 5 Height (Inches): 6.00 Weight (Pounds): 237 Yue Ibarra MD Jul 21, 2019 19:50
[2019-07-21 20:00] VITALS: BP 131/72
[2019-07-21] MEDS: Atorvastatin 20mg tab ORAL SCH (20:11)
[2019-07-22] VITALS: BP 109/69
[2019-07-22] MEDS: Morphine Sulfate 2mg/ml Inj(IV/IM USE ONLY) IVP PRN ×4 (03:29→21:45)
[2019-07-22 04:00] VITALS: BP_SYST 140; BP_SYST 146; BP_DIAS 89; BP_DIAS 97
[2019-07-22] MEDS: Breo Ellipta 200/25mcg-14 dose INH SCH (06:48)
[2019-07-22 08:00] VITALS: BP 153/95
[2019-07-22] MEDS: Cyclobenzaprine 10mg Tab ORAL SCH ×3 (08:40→17:19)
[2019-07-22] MEDS: Spironolactone 25mg tab ORAL SCH (08:41)
[2019-07-22] MEDS: Meclizine 25mg tab ORAL SCH (08:41)
--- NOTE | 2019-07-22 08:50 | General Progress Note ---
Assessment/Plan Assessment/Plan: S : I am short of breath O; Denies any chest pain , or sever abd pain PHYSICAL EXAMINATION:HEAD AND NECK: Atraumatic and normocephalic. CHEST: Diffuse bronchial breathing sounds.HEART: S1, S2. Regular rate and rhythm. ABDOMEN: Soft. No organomegaly. Morbidly obese. MUSCULOSKELETAL: Decreased range of motion in the lower extremity at baseline. No gross lateralized asymmetric motor deficit. NEUROLOGIC: The patient is awake, alert, and oriented x3. LABORATORY AND DIAGNOSTIC DATA: Dated July 21, reveiwed The 2D echo, dated July 11, 2019 reviewed shows medium size pericardial effusion with no signs of tamponade. ASSESSMENT AND PLAN: 1. Hemoptysis. 2. Atypical chest pain secondary to COPD exacerbation 3. COPD exacerbation 3. GERD, chronic. 4. Hypertension. 5. Prediabetes. 6. Small Pericardial effusion 0- history of 6. Chronic lumbar spondylosis and stenosis. PLAN OF CARE: Pending cardiology eval and 2D echo. Notes from GI reviewed Subjective Allergies: Coded Allergies: METRONIDAZOLE (Verified Allergy, Mild, 02/25/15) PENICILLIN G (Verified Allergy, Mild, 02/25/15) Objective Last 24 Hour Vital Signs Date Time Temp Pulse Resp B/P (MAP) Pulse Ox O2 Delivery O2 Flow Rate FiO2 07/22/19 08:39 99 153/95 07/22/19 08:00 97.7 99 20 153/95 (114) 99 07/22/19 06:49 68 16 96 Room Air 21 07/22/19 06:49 72 16 97 Room Air 21 07/22/19 04:00 103 07/22/19 04:00 97.9 103 18 140/97 (111) 98 07/22/19 00:00 97.5 94 18 109/69 (82) 96 07/22/19 00:00 94 07/21/19 21:00 Room Air 07/21/19 20:24 97.4 07/21/19 20:00 93 07/21/19 20:00 97.4 93 18 131/72 (91) 97 07/21/19 16:00 85 07/21/19 16:00 98.0 95 16 138/71 (93) 98 07/21/19 12:00 97 07/21/19 12:00 98.7 93 16 133/75 (94) 98 07/21/19 09:00 Room Air Intake and Output 07/21/19 07/22/19 19:00 07:00 Intake Total 800 ml 720 ml Balance 800 ml 720 ml Intake Oral 800 ml 720 ml # Voids 2 Height (Feet): 5 Height (Inches): 6.00 Weight (Pounds): 237 Yue Ibarra MD Jul 22, 2019 08:50
[2019-07-22] MEDS: Enoxaparin 40mg Inj SUBQ SCH (08:54)
--- NOTE | 2019-07-22 09:35 | General Progress Note ---
Assessment/Plan Assessment/Plan: 1. COPD. 2. CHF. 3. Gallstones status post cholecystectomy. 4. Hypertension. 5. Hyperlipidemia. 6. Chronic back pain. 7. GERD 8. Abd pain 9. pericardial effusion ppi baclofen may benefit from EGD but needs cardiology clearance given above Subjective ROS Limited/Unobtainable: Yes Allergies: Coded Allergies: METRONIDAZOLE (Verified Allergy, Mild, 02/25/15) PENICILLIN G (Verified Allergy, Mild, 02/25/15) Objective Last 24 Hour Vital Signs Date Time Temp Pulse Resp B/P (MAP) Pulse Ox O2 Delivery O2 Flow Rate FiO2 07/22/19 08:39 99 153/95 07/22/19 08:00 97.7 99 20 153/95 (114) 99 07/22/19 06:49 68 16 96 Room Air 21 07/22/19 06:49 72 16 97 Room Air 21 07/22/19 04:00 103 07/22/19 04:00 97.9 103 18 140/97 (111) 98 07/22/19 00:00 97.5 94 18 109/69 (82) 96 07/22/19 00:00 94 07/21/19 21:00 Room Air 07/21/19 20:24 97.4 07/21/19 20:00 93 07/21/19 20:00 97.4 93 18 131/72 (91) 97 07/21/19 16:00 85 07/21/19 16:00 98.0 95 16 138/71 (93) 98 07/21/19 12:00 97 07/21/19 12:00 98.7 93 16 133/75 (94) 98 Intake and Output 07/21/19 07/22/19 18:59 06:59 Intake Total 800 ml 720 ml Balance 800 ml 720 ml Intake Oral 800 ml 720 ml # Voids 2 Height (Feet): 5 Height (Inches): 6.00 Weight (Pounds): 237 General Appearance: alert EENT: normal ENT inspection Neck: supple Cardiovascular: normal rate Respiratory/Chest: decreased breath sounds Abdomen: normal bowel sounds, non tender, soft Extremities: non-tender Niranjan Good MD Jul 22, 2019 09:35
[2019-07-22 12:00] VITALS: BP 158/97
--- NOTE | 2019-07-22 12:29 | Pulmonology Progress Note ---
Assessment/Plan Assessment/Plan COPD CHF pericardial effusion hemoptysis ho mold exposure shortness of breath obesity PLAN care as is steroids respiratory care oxygen therapy cardiac management keep negative defer echo to cards recommend video swallow impression, plan, and exam edited and reviewed in detail care discussed with RN Subjective Allergies: Coded Allergies: METRONIDAZOLE (Verified Allergy, Mild, 02/25/15) PENICILLIN G (Verified Allergy, Mild, 02/25/15) Subjective care noted CT chest reviewed notes she has ongoing edema Objective Last 24 Hour Vital Signs Date Time Temp Pulse Resp B/P (MAP) Pulse Ox O2 Delivery O2 Flow Rate FiO2 07/22/19 12:00 97.9 98 20 158/97 (117) 97 07/22/19 09:23 97.7 07/22/19 09:00 Room Air 07/22/19 09:00 98 07/22/19 08:39 99 153/95 07/22/19 08:00 97.7 99 20 153/95 (114) 99 07/22/19 06:49 68 16 96 Room Air 21 07/22/19 06:49 72 16 97 Room Air 21 07/22/19 04:00 103 07/22/19 04:00 97.9 103 18 140/97 (111) 98 07/22/19 00:00 97.5 94 18 109/69 (82) 96 07/22/19 00:00 94 07/21/19 21:00 Room Air 07/21/19 20:00 93 07/21/19 20:00 97.4 93 18 131/72 (91) 97 07/21/19 16:00 85 07/21/19 16:00 98.0 95 16 138/71 (93) 98 Intake and Output 07/21/19 07/22/19 18:59 06:59 Intake Total 800 ml 720 ml Balance 800 ml 720 ml Intake Oral 800 ml 720 ml # Voids 2 Objective WDWN NAD clear breath sounds bilaterally with some wheeze [id number] without MRG NABS nontender no HSM no CC mild edema nonfocal Microbiology Date/Time Source Procedure Growth Status 07/20/19 14:00 Nasal Nares Left MRSA Culture - Final NO METHICILLIN RESISTANT STAPH AUREUS... Complete 07/20/19 00:00 Nasal Nares - Final Complete 07/20/19 00:00 Nasal Nares - Final Complete 07/20/19 14:00 Rectum VRE Culture - Final NO VANCOMYCIN RESISTANT ENTEROCOCCUS ... Complete 07/20/19 14:00 Rectum - Final NO CARBAPENEM-RESISTANT ENTEROBACTERI... Complete Current Medications Medications (Trade) Dose Ordered Sig/Alethea Route PRN Reason Start Time Stop Time Status Last Admin Dose Admin Acetaminophen (Tylenol) 650 mg Q6H PRN ORAL Mild Pain/Temp > 100.5 07/20/19 17:45 08/19/19 17:44 Al Hydroxide/Mg Hydroxide (Mylanta) 30 ml Q6H PRN ORAL GI DISCOMFORT 07/21/19 00:15 08/20/19 00:14 Albuterol Sulfate (Proventil MDI) 1 puff Q4H PRN INH Shortness of Breath 07/20/19 21:20 08/19/19 21:19 Amitriptyline HCl (Elavil) 50 mg BEDTIME ORAL 07/20/19 21:00 08/19/19 20:59 07/21/19 20:11 Atorvastatin Calcium (Lipitor) 20 mg BEDTIME ORAL 07/20/19 21:00 08/19/19 20:59 07/21/19 20:11 Baclofen (Lioresal) 10 mg BEDTIME ORAL 07/21/19 21:00 08/20/19 20:59 07/21/19 20:11 Cetylpyridinium Chloride (Cepacol) 1 lozg Q6H PRN DEYA SORE THROAT 07/21/19 00:15 08/20/19 00:14 07/21/19 08:29 Cyclobenzaprine HCl (Flexeril) 15 mg THREE TIMES A DAY ORAL 07/20/19 18:00 08/19/19 17:59 07/22/19 08:40 Enoxaparin Sodium (Lovenox) 40 mg DAILY SUBQ 07/21/19 09:00 08/20/19 08:59 Fluticasone/ Vilanterol (Breo Ellipta 200/25) 1 puffs DAILY INH 07/21/19 09:00 08/19/19 18:59 07/22/19 06:48 Furosemide (Lasix) 20 mg DAILY ORAL 07/21/19 09:00 08/20/19 08:59 07/22/19 08:40 Meclizine HCl (Antivert) 25 mg DAILY ORAL 07/21/19 09:00 08/20/19 08:59 07/22/19 08:41 Morphine Sulfate (Morphine Sulfate) 2 mg Q4H PRN IVP For Pain 07/20/19 17:45 07/27/19 17:44 07/22/19 08:53 Ondansetron HCl (Zofran) 4 mg Q6H PRN IVP Nausea & Vomiting 07/20/19 17:45 08/19/19 17:44 07/22/19 03:59 Pantoprazole (Protonix) 40 mg BID ORAL 07/21/19 18:00 08/20/19 08:59 07/22/19 08:39 Prednisone (predniSONE) 10 mg DAILY ORAL 07/21/19 09:00 08/20/19 08:59 07/22/19 08:40 Spironolactone (Aldactone) 25 mg DAILY ORAL 07/21/19 09:00 08/20/19 08:59 07/22/19 08:41 Verapamil HCl (Calan SR) 120 mg DAILY ORAL 07/21/19 09:00 08/19/19 17:59 07/22/19 08:39 Axel Mcfarlane MD Jul 22, 2019 12:28
[2019-07-22] MEDS ORDERED: 1/2 NS 1000ml IV ONE (14:53)
[2019-07-22 16:00] VITALS: BP 151/90
--- NOTE | 2019-07-22 18:36 | Cardiology Progress Note ---
Assessment/Plan Assessment/Plan The patient is seen and examined, Full consult note will be dictated shortly. Objective Last 24 Hour Vital Signs Date Time Temp Pulse Resp B/P (MAP) Pulse Ox O2 Delivery O2 Flow Rate FiO2 07/22/19 16:15 97.9 07/22/19 16:00 97 07/22/19 16:00 97.7 93 20 151/90 (110) 97 07/22/19 12:00 97.9 98 20 158/97 (117) 97 07/22/19 12:00 98 07/22/19 09:00 Room Air 07/22/19 09:00 98 07/22/19 08:39 99 153/95 07/22/19 08:00 97.7 99 20 153/95 (114) 99 07/22/19 06:49 68 16 96 Room Air 21 07/22/19 06:49 72 16 97 Room Air 21 07/22/19 04:00 103 07/22/19 04:00 97.9 103 18 140/97 (111) 98 07/22/19 00:00 97.5 94 18 109/69 (82) 96 07/22/19 00:00 94 07/21/19 21:00 Room Air 07/21/19 20:00 93 07/21/19 20:00 97.4 93 18 131/72 (91) 97 Intake and Output 07/21/19 07/22/19 19:00 07:00 Intake Total 800 ml 720 ml Balance 800 ml 720 ml Intake Oral 800 ml 720 ml # Voids 2 Microbiology Date/Time Source Procedure Growth Status 07/20/19 14:00 Nasal Nares Left MRSA Culture - Final NO METHICILLIN RESISTANT STAPH AUREUS... Complete 07/20/19 00:00 Nasal Nares - Final Complete 07/20/19 00:00 Nasal Nares - Final Complete 07/20/19 14:00 Rectum VRE Culture - Final NO VANCOMYCIN RESISTANT ENTEROCOCCUS ... Complete 07/20/19 14:00 Rectum - Final NO CARBAPENEM-RESISTANT ENTEROBACTERI... Complete Bc Daniels MD Jul 22, 2019 18:36
[2019-07-22] MEDS ORDERED: AMITRIPTYLINE H50 MG ORAL (20:28)
[2019-07-22] MEDS ORDERED: AMLODIPINE BESY10 MG ORAL (20:33)
[2019-07-22] MEDS ORDERED: HYDROCHLOROTH12.5 MG ORAL (20:33)
[2019-07-22] MEDS ORDERED: CYCLOBENZAPRINE15 M1 PO (20:33)
[2019-07-22] MEDS ORDERED: COLCHICINE0.6 M1 PO (20:33)
[2019-07-22] MEDS ORDERED: KLOR-CON M2020 MEQ ORAL (20:33)
[2019-07-22] MEDS ORDERED: LEXAPRO20 MG ORAL (20:33)
[2019-07-22] MEDS ORDERED: MELOXICAM15 MG PO (20:33)
[2019-07-22] MEDS: Atorvastatin 20mg tab ORAL SCH (21:34)
--- NOTE | 2019-07-22 23:45 | Consultation ---
DATE OF CONSULTATION: 07/22/2019 CARDIOLOGY CONSULTATION CONSULTING PHYSICIAN: Bc Daniels M.D. REFERRING PHYSICIAN: Yue Ibarra M.D. REASON FOR CONSULTATION: Management of hypertension crisis and pericardial effusion. HISTORY OF PRESENT ILLNESS: The patient is a very delightful 59-year-old black [place] lady known to me, who presents to the hospital with epistaxis as well as spitting bloody sputum with increased cough and sore throat and nasal congestion. The patient also had some epigastric discomfort. All the above symptoms have been recently worse. At the time of arrival to the hospital, blood pressure was 169/103 mmHg and heart rate was 87. She claims that she has been compliant with her blood pressure medication at home. Her cardiovascular history is significant for history of nonischemic cardiomyopathy with left ventricular ejection fraction approximately 40 to 45%, history of small to medium size pericardial effusion that has been going on for the past approximately 5 years. Currently, initial workup in the emergency department included CT of chest with contrast, which ruled out pulmonary embolism and confirmed localized pericardial effusion. Chemistry was significant for normal troponin I level and proBNP level of 235. Cardiology consultation was made at request of Dr. Ibarra to manage hypertension emergency as well as continuation of recommendation regarding pericardial effusion. PAST MEDICAL HISTORY: 1. Small to medium-sized pericardial effusion, unchanged with multiple 2D echocardiographies done in the past 5 years. 2. History of hypertension. 3. Nonischemic cardiomyopathy with LVEF approximately 40 to 45%. 4. History of COPD due to long-standing tobacco use. 5. History of diabetes mellitus. 6. GERD. 7. Right shoulder rotator cuff tear tendinitis. 8. Arthritis. 9. Lumbar spine stenosis. 10. History of mold exposure. PAST SURGICAL HISTORY: Bariatric surgery, bilateral breast reconstruction surgery, and lumbar spine surgery. ALLERGIES: Metronidazole and penicillin G. FAMILY HISTORY: No premature coronary artery disease in first-degree relatives. REVIEW OF SYSTEMS: HEENT: Had epistaxis from the left nostril leading to spitting blood from mouth. No hematemesis. No headache, diplopia, or blurred vision. CONSTITUTIONAL: Denies any fever, chills, night sweats, or weight loss. CARDIOVASCULAR: Denies any chest pain. No new-onset shortness of breath. Denies any PND, orthopnea, leg swelling, or syncope. PULMONARY: Some cough and nasal congestion. Spitting blood that appeared to be from the left nostril. GASTROINTESTINAL: Abdominal and epigastric pain, but no nausea, vomiting, diarrhea, or constipation. GENITOURINARY: Denies any hematuria, dysuria, or incontinence. NEUROLOGY: Denies any motor dysfunction, sensory deficit, or altered speech. LIST OF MEDICATIONS: 1. Tudorza Pressair 400 mcg inhaler daily. 2. Ventolin HFA 1 puff every 6 hours. 3. Amitriptyline 50 mg at bedtime. 4. Atorvastatin 20 mg p.o. at bedtime. 5. Carvedilol 80 mg p.o. daily. 6. Cyclobenzaprine 15 mg 2 times a day. 7. Breo 200/25 inhaler 1 inhaler daily. 8. Lasix 20 mg p.o. daily. 9. Meclizine 25 mg p.o. daily. 10. Benicar HCT 20/12.5 mg 1 tablet daily. 11. Omeprazole 40 mg p.o. daily. 12. Oxycodone 30 mL q.6 hours p.r.n. pain. 13. Prednisone 10 mg p.o. daily. 14. Spironolactone 25 mg daily. 15. Verapamil ER 120 mg daily. SOCIAL HISTORY: Ex-smoker. Currently not using tobacco, alcohol, or illicit drug use. PHYSICAL EXAMINATION: VITAL SIGNS: Blood pressure at time of arrival to the hospital was 169/103, heart rate of 87, respirations 17, temperature 98.8 degrees Fahrenheit, and O2 saturation 100% on room air. GENERAL: This is a very unfortunate 59-year-old female, in no apparent respiratory distress. Alert and oriented x4. HEENT: Atraumatic, normocephalic. Anicteric. Pupils are equal, round, and reactive to light and accommodation. Extraocular muscles intact. NECK: JVP is less than 5 cm. No carotid bruit. Carotid upstrokes 2+ bilaterally. CARDIOVASCULAR: Normal S1, S2. Regular rate and rhythm. No murmurs, gallops, or rubs. PMI is at fourth intercostal space in the midclavicular line. LUNGS: Diminished breath sounds with no rhonchi or rales. ABDOMEN: Soft, nontender, and nondistended. No hepatosplenomegaly. Positive bowel sounds. EXTREMITIES: Trace bilateral lower extremity edema. LABORATORY FINDINGS: WBC 8.0, hemoglobin 13.5, hematocrit of 40.8, and platelet count is 293. Sodium is 139, potassium is 3.7, chloride 103, bicarbonate 33, BUN 12, creatinine 1.1, glucose is 94, calcium is 8.4. TSH is 0.58. ProBNP is 235. INR is 0.9. Toxicology was negative. ASSESSMENT AND PLAN: The patient is a very unfortunate 59-year-old lady seen in Cardiology consultation. 1. Hypertension crisis. I would like to continue the patient on verapamil and spironolactone. This could be somewhat due to her prednisone therapy. The patient will be also continued on furosemide and I would consider continuation of angiotensin receptor maria luz. In the outpatient setting, the patient was on olmesartan/hydrochlorothiazide. Last 2D echocardiography on 07/10/2019 on her previous admission was significant for normal LV systolic function with LVEF approximately 45% to 50%. 2. Small to medium size localized pericardial effusion mostly in the inferior aspect of the myocardium with no evidence of pericardial tamponade, unchanged from previous 2D echocardiography done in the past 5 years. No intervention is necessary at this time. 3. Mild to moderate aortic regurgitation. Clinically well tolerated. 4. Chronic diastolic congestive heart failure. Continue Lasix. 5. COPD. 6. Epistaxis. I would like to thank Dr. Ibarra for allowing me to participate in the care of this patient. Bc Daniels M.D. DR: [place] JOB#: [id number] CC:
[2019-07-23] VITALS: BP_SYST 124; BP_SYST 133; BP_DIAS 73; BP_DIAS 75
[2019-07-23] MEDS: Morphine Sulfate 2mg/ml Inj(IV/IM USE ONLY) IVP PRN (01:50)
[2019-07-23 04:00] VITALS: BP 169/104
[2019-07-23] MEDS ORDERED: Oxymetazoline 0.05% Na Spray 30ml NASAL ONE (07:45)
[2019-07-23] MEDS ORDERED: Lidocaine 4% Top Soln 50ml TOPIC ONE (07:45)
[2019-07-23 08:00] VITALS: BP 141/75
--- NOTE | 2019-07-23 08:20 | Pulmonology Progress Note ---
Assessment/Plan Assessment/Plan COPD CHF pericardial effusion hemoptysis ho mold exposure shortness of breath obesity PLAN care as is steroids without change respiratory care oxygen therapy cardiac management keep negative ENT follow up recommend video swallow impression, plan, and exam edited and reviewed in detail care discussed with RN Subjective Allergies: Coded Allergies: METRONIDAZOLE (Verified Allergy, Mild, 02/25/15) PENICILLIN G (Verified Allergy, Mild, 02/25/15) Subjective care noted swallow eval reviewed notes she has ongoing edema Objective Last 24 Hour Vital Signs Date Time Temp Pulse Resp B/P (MAP) Pulse Ox O2 Delivery O2 Flow Rate FiO2 07/23/19 07:34 84 21 98 Room Air 21 07/23/19 07:32 82 20 96 Room Air 21 07/23/19 04:00 97.3 95 20 169/104 (125) 98 07/23/19 04:00 95 07/23/19 00:00 90 07/23/19 00:00 97.5 90 20 133/75 (94) 98 07/22/19 23:57 88 20 98 Room Air 21 07/22/19 21:00 Room Air 07/22/19 20:00 94 07/22/19 20:00 94 07/22/19 16:15 97.9 07/22/19 16:00 97 07/22/19 16:00 97.7 93 20 151/90 (110) 97 07/22/19 12:00 97.9 98 20 158/97 (117) 97 07/22/19 12:00 98 07/22/19 09:00 Room Air 07/22/19 09:00 98 07/22/19 08:39 99 153/95 Intake and Output 07/22/19 07/23/19 19:00 07:00 Intake Total 1200 ml 360 ml Output Total 1 ml Balance 1200 ml 359 ml Intake Oral 1200 ml 360 ml Output Stool Total 1 ml # Voids 5 6 Objective WDWN NAD clear breath sounds bilaterally with some wheeze [id number] without MRG NABS nontender no HSM no CC mild edema nonfocal Microbiology Date/Time Source Procedure Growth Status 07/20/19 14:00 Nasal Nares Left MRSA Culture - Final NO METHICILLIN RESISTANT STAPH AUREUS... Complete 07/20/19 14:00 Rectum VRE Culture - Final NO VANCOMYCIN RESISTANT ENTEROCOCCUS ... Complete 07/20/19 14:00 Rectum - Final NO CARBAPENEM-RESISTANT ENTEROBACTERI... Complete Current Medications Medications (Trade) Dose Ordered Sig/Alethea Route PRN Reason Start Time Stop Time Status Last Admin Dose Admin Acetaminophen (Tylenol) 650 mg Q6H PRN ORAL Mild Pain/Temp > 100.5 07/20/19 17:45 08/19/19 17:44 Al Hydroxide/Mg Hydroxide (Mylanta) 30 ml Q6H PRN ORAL GI DISCOMFORT 07/21/19 00:15 08/20/19 00:14 Albuterol Sulfate (Proventil MDI) 1 puff Q4H PRN INH Shortness of Breath 07/20/19 21:20 08/19/19 21:19 07/23/19 07:32 Amitriptyline HCl (Elavil) 50 mg BEDTIME ORAL 07/20/19 21:00 08/19/19 20:59 07/22/19 21:34 Atorvastatin Calcium (Lipitor) 20 mg BEDTIME ORAL 07/20/19 21:00 08/19/19 20:59 07/22/19 21:34 Baclofen (Lioresal) 10 mg BEDTIME ORAL 07/21/19 21:00 08/20/19 20:59 07/22/19 21:34 Cetylpyridinium Chloride (Cepacol) 1 lozg Q6H PRN DEYA SORE THROAT 07/21/19 00:15 08/20/19 00:14 07/21/19 08:29 Cyclobenzaprine HCl (Flexeril) 15 mg THREE TIMES A DAY ORAL 07/20/19 18:00 08/19/19 17:59 07/22/19 17:19 Enoxaparin Sodium (Lovenox) 40 mg DAILY SUBQ 07/21/19 09:00 08/20/19 08:59 Fluticasone/ Vilanterol (Breo Ellipta 200/25) 1 puffs DAILY INH 07/21/19 09:00 08/19/19 18:59 07/22/19 06:48 Furosemide (Lasix) 20 mg DAILY ORAL 07/21/19 09:00 08/20/19 08:59 07/22/19 08:40 Meclizine HCl (Antivert) 25 mg DAILY ORAL 07/21/19 09:00 08/20/19 08:59 07/22/19 08:41 Morphine Sulfate (Morphine Sulfate) 2 mg Q4H PRN IVP For Pain 07/20/19 17:45 07/27/19 17:44 07/23/19 01:50 Ondansetron HCl (Zofran) 4 mg Q6H PRN IVP Nausea & Vomiting 07/20/19 17:45 08/19/19 17:44 07/23/19 05:14 Pantoprazole (Protonix) 40 mg BID ORAL 07/21/19 18:00 08/20/19 08:59 07/22/19 17:19 Prednisone (predniSONE) 10 mg DAILY ORAL 07/21/19 09:00 08/20/19 08:59 07/22/19 08:40 Spironolactone (Aldactone) 25 mg DAILY ORAL 07/21/19 09:00 08/20/19 08:59 07/22/19 08:41 Verapamil HCl (Calan SR) 120 mg DAILY ORAL 07/21/19 09:00 08/19/19 17:59 07/22/19 08:39 Axel Mcfarlane MD Jul 23, 2019 08:20
[2019-07-23] MEDS: Breo Ellipta 200/25mcg-14 dose INH SCH (08:42)
--- NOTE | 2019-07-23 09:23 | General Progress Note ---
Assessment/Plan Assessment/Plan: S : I am feeling better O; Denies any chest pain , or sever abd pain PHYSICAL EXAMINATION:HEAD AND NECK: Atraumatic and normocephalic. CHEST: Diffuse bronchial breathing sounds.HEART: S1, S2. Regular rate and rhythm. ABDOMEN: Soft. No organomegaly. Morbidly obese. MUSCULOSKELETAL: Decreased range of motion in the lower extremity at baseline. No gross lateralized asymmetric motor deficit. NEUROLOGIC: The patient is awake, alert, and oriented x3. LABORATORY AND DIAGNOSTIC DATA: Dated July 23, reveiwed The 2D echo, dated July 11, 2019 reviewed shows medium size pericardial effusion with no signs of tamponade. ASSESSMENT AND PLAN: 1. Hemoptysis. 2. Atypical chest pain secondary to COPD exacerbation 3. COPD exacerbation 3. GERD, chronic. 4. Hypertension. 5. Prediabetes. 6. Small Pericardial effusion 0- history of 6. Chronic lumbar spondylosis and stenosis. 7. Dysphagia with abn ST eval PLAN OF CARE: Pending cardiology eval and 2D echo. Notes from pulmonary reviewed ENT, Dr Velazco, consulted proceed with Video Swallow Subjective Allergies: Coded Allergies: METRONIDAZOLE (Verified Allergy, Mild, 02/25/15) PENICILLIN G (Verified Allergy, Mild, 02/25/15) Objective Last 24 Hour Vital Signs Date Time Temp Pulse Resp B/P (MAP) Pulse Ox O2 Delivery O2 Flow Rate FiO2 07/23/19 08:43 Room Air 07/23/19 08:43 100 20 97 Room Air 07/23/19 08:42 101 20 97 Room Air 07/23/19 08:00 97.9 93 18 141/75 (97) 100 07/23/19 07:34 84 21 98 Room Air 07/23/19 07:32 82 20 96 Room Air 07/23/19 04:00 97.3 95 20 169/104 (125) 98 07/23/19 04:00 95 07/23/19 00:00 90 07/23/19 00:00 97.5 90 20 133/75 (94) 98 07/22/19 23:57 88 20 98 Room Air 21 07/22/19 21:00 Room Air 07/22/19 20:00 94 07/22/19 20:00 94 07/22/19 16:15 97.9 07/22/19 16:00 97 07/22/19 16:00 97.7 93 20 151/90 (110) 97 07/22/19 12:00 97.9 98 20 158/97 (117) 97 07/22/19 12:00 98 Intake and Output 07/22/19 07/23/19 19:00 07:00 Intake Total 1200 ml 360 ml Output Total 1 ml Balance 1200 ml 359 ml Intake Oral 1200 ml 360 ml Output Stool Total 1 ml # Voids 5 6 Height (Feet): 5 Height (Inches): 6.00 Weight (Pounds): 237 Yue Ibarra MD Jul 23, 2019 09:23
[2019-07-23] MEDS: Enoxaparin 40mg Inj SUBQ SCH (09:55)
[2019-07-23] MEDS: Spironolactone 25mg tab ORAL SCH (09:57)
[2019-07-23] MEDS: Cyclobenzaprine 10mg Tab ORAL SCH ×3 (09:57→18:22)
[2019-07-23] MEDS: Meclizine 25mg tab ORAL SCH (09:58)
--- NOTE | 2019-07-23 10:27 | GI Progress Note ---
Assessment/Plan Problems: (1) GERD (gastroesophageal reflux disease) ICD Codes: K21.9 - Gastro-esophageal reflux disease without esophagitis SNOMED: 546715022 Status: unchanged Status Narrative Discussed with Dr. Good. Assessment/Plan 1. COPD. 2. CHF. 3. Gallstones status post cholecystectomy. 4. Hypertension. 5. Hyperlipidemia. 6. Chronic back pain. 7. GERD 8. Abd pain 9. pericardial effusion s/p laryngoscopy today EGD tomorrow to evaluate abdominal pain and symptomatic GERD NPO @ [facility]. ppi baclofen pain management will follow with additional recommendations post procedure The patient was seen and examined at bedside and all new and available data was reviewed in the patients chart. I agree with the above findings, impression and plan. (Patient seen earlier today. Signature stamp does not reflect patient encounter time.). - Niranjan Good MD Subjective Subjective stomach pain symptomatic GERD Objective Last 24 Hour Vital Signs Date Time Temp Pulse Resp B/P (MAP) Pulse Ox O2 Delivery O2 Flow Rate FiO2 07/23/19 09:58 100 141/75 07/23/19 08:43 Room Air 07/23/19 08:43 100 20 97 Room Air 21 07/23/19 08:42 101 20 97 Room Air 21 07/23/19 08:00 97.9 93 18 141/75 (97) 100 07/23/19 07:34 84 21 98 Room Air 21 07/23/19 07:32 82 20 96 Room Air 21 07/23/19 04:00 97.3 95 20 169/104 (125) 98 07/23/19 04:00 95 07/23/19 00:00 90 07/23/19 00:00 97.5 90 20 133/75 (94) 98 07/22/19 23:57 88 20 98 Room Air 21 07/22/19 21:00 Room Air 07/22/19 20:00 94 07/22/19 20:00 94 07/22/19 16:15 97.9 07/22/19 16:00 97 07/22/19 16:00 97.7 93 20 151/90 (110) 97 07/22/19 12:00 97.9 98 20 158/97 (117) 97 07/22/19 12:00 98 Intake and Output 07/22/19 07/23/19 19:00 07:00 Intake Total 1200 ml 360 ml Output Total 1 ml Balance 1200 ml 359 ml Intake Oral 1200 ml 360 ml Output Stool Total 1 ml # Voids 5 6 Height (Feet): 5 Height (Inches): 6.00 Weight (Pounds): 237 General Appearance: WD/WN, no apparent distress, alert Cardiovascular: normal rate Respiratory/Chest: normal breath sounds, no respiratory distress Abdominal Exam: normal bowel sounds, non tender, soft Extremities: normal range of motion, non-tender Noe Davila NP Jul 23, 2019 10:27
--- NOTE | 2019-07-23 10:43 | Consultation ---
History of Present Illness General Date patient seen: Jul 23, 2019 Time patient seen: 09:30 Chief Complaint: Hoarseness Reason for Consultation: dysphonia Present Illness HPI Patient is a 59 year old female who presents witha 3 week history of haorseness. She states she has some pain with swallowing and dysphagia to liquids. She has a h/o CHF and mod COPD but is only on nebulizers. 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 She is a long time former smoker and quit about 1 year ago. She has a recent weigth gain from water retention. She has some baseline dyspnea. She states her hoarseness gets worse throughout the day. She states she has some ear pain. She has some mild hemopytisis. Allergies: Coded Allergies: METRONIDAZOLE (Verified Allergy, Mild, 02/25/15) PENICILLIN G (Verified Allergy, Mild, 02/25/15) Medication History Scheduled Albuterol Sulfate (Ventolin Hfa), 1 PUFF INH EVERY 6 HOURS, (Reported) Amitriptyline Hcl (Amitriptyline Hcl), 50 MG ORAL BEDTIME, (Reported) Amlodipine Besylate* (Amlodipine Besylate*), 10 MG ORAL DAILY, (Reported) Atorvastatin Calcium* (Atorvastatin Calcium*), 20 MG ORAL DAILY AT BEDTIME, ( Reported) Carvedilol Phosphate (Coreg Cr), 80 MG ORAL DAILY, (Reported) Colchicine (Colchicine), 0.6 MG PO DAILY, (Reported) Cyclobenzaprine HCl (Cyclobenzaprine HCl ER), 15 MG PO TID, (Reported) Escitalopram Oxalate* (Lexapro*), 20 MG ORAL DAILY, (Reported) Fluticasone/Vilanterol (Breo Ellipta 200-25 Mcg INH), 1 PUFF INH DAILY, ( Reported) Furosemide* (Lasix*), 20 MG ORAL DAILY, (Reported) Hydrochlorothiazide* (Hydrochlorothiazide*), 12.5 MG ORAL DAILY, (Reported) Meclizine Hcl* (Meclizine*), 25 MG ORAL DAILY, (Reported) Meloxicam* (Meloxicam*), 15 MG PO DAILY, (Reported) Olmesartan/Hydrochlorothiazide 20-12.5 (Benicar Hct 20-12.5 Mg Tablet), 1 TAB ORAL DAILY, (Reported) Omeprazole (Omeprazole), 40 MG ORAL DAILY, (Reported) Potassium Chloride (Klor-Con M20), 20 MEQ ORAL DAILY, (Reported) Prednisone* (Prednisone*), 10 MG ORAL DAILY, (Reported) Spironolactone* (Aldactone*), 25 MG ORAL DAILY, (Reported) Verapamil Hcl (Verapamil Er), 120 MG PO BID, (Reported) Scheduled PRN Oxycodone Hcl* (Oxycodone Hcl*), 30 MG ORAL Q6H PRN for For Pain, (Reported) Miscellaneous Medications Aclidinium [place] (Tudorza Pressair), 400 MCG IH, (Reported) Discontinued Medications Amitriptyline HCl (Amitriptyline HCl), 50 MG ORAL BEDTIME, (Reported) Discontinued Reason: Prescription changed Cyclobenzaprine Hcl (Cyclobenzaprine Hcl), 15 MG ORAL THREE TIMES A DAY, ( Reported) Discontinued Reason: Prescription changed Patient History History Provided By: Patient Healthcare decision maker Resuscitation status Full Code Advanced Directive on File Past Medical/Surgical History Past Medical/Surgical History: (1) Cholecystitis (2) Leukocytosis (3) UTI (urinary tract infection) (4) Hemoptysis (5) Pericardial effusion (6) Congestive cardiac failure (7) COPD exacerbation (8) Cough (9) Allergic rhinitis (10) Atypical pneumonia (11) CHF exacerbation (12) GERD (gastroesophageal reflux disease) Review of Systems All Other Systems: negative except mentioned in HPI Physical Exam General Appearance: WD/WN, no apparent distress, alert Lines, tubes and drains: peripheral HEENT: normocephalic, atraumatic, anicteric, mucous membranes moist, PERRL, EOMI, pharynx normal, supple, no JVD Neck: non-tender, supple, normal inspection Respiratory/Chest: chest wall non-tender Physical Exam Narrative CPT 11975 diagnostic laryngoscopy Dx: hoarseness I attempted to pass the flexible scope through both nares but she could not tolerate it at all despite decongestion with Afrin and anesthetic 4% topical lidocaine. I passed in trnaorally but this was limited by gag. I was able to see severe IA and artenoid edema and moderate VC edema with no sunita mass. I also noted both cords were mobile. ST was with me during scope. Last 24 Hour Vital Signs Date Time Temp Pulse Resp B/P (MAP) Pulse Ox O2 Delivery O2 Flow Rate FiO2 11/26/19 09:58 100 141/75 07/23/19 08:43 Room Air 07/23/19 08:43 100 20 97 Room Air 21 07/23/19 08:42 101 20 97 Room Air 21 07/23/19 08:00 97.9 93 18 141/75 (97) 100 07/23/19 07:34 84 21 98 Room Air 21 07/23/19 07:32 82 20 96 Room Air 21 07/23/19 04:00 97.3 95 20 169/104 (125) 98 07/23/19 04:00 95 07/23/19 00:00 90 07/23/19 00:00 97.5 90 20 133/75 (94) 98 07/22/19 23:57 88 20 98 Room Air 21 07/22/19 21:00 Room Air 07/22/19 20:00 94 07/22/19 20:00 94 07/22/19 16:15 97.9 07/22/19 16:00 97 07/22/19 16:00 97.7 93 20 151/90 (110) 97 07/22/19 12:00 97.9 98 20 158/97 (117) 97 07/22/19 12:00 98 Intake and Output 07/22/19 07/23/19 19:00 07:00 Intake Total 1200 ml 360 ml Output Total 1 ml Balance 1200 ml 359 ml Intake Oral 1200 ml 360 ml Output Stool Total 1 ml # Voids 5 6 Height (Feet): 5 Height (Inches): 6.00 Weight (Pounds): 237 Medications Current Medications Medications (Trade) Dose Ordered Sig/Alethea Route PRN Reason Start Time Stop Time Status Last Admin Dose Admin Acetaminophen (Tylenol) 650 mg Q6H PRN ORAL Mild Pain/Temp > 100.5 07/20/19 17:45 08/19/19 17:44 Al Hydroxide/Mg Hydroxide (Mylanta) 30 ml Q6H PRN ORAL GI DISCOMFORT 07/21/19 00:15 08/20/19 00:14 Albuterol Sulfate (Proventil MDI) 1 puff Q4H PRN INH Shortness of Breath 07/20/19 21:20 08/19/19 21:19 07/23/19 07:32 Amitriptyline HCl (Elavil) 50 mg BEDTIME ORAL 07/20/19 21:00 08/19/19 20:59 07/22/19 21:34 Atorvastatin Calcium (Lipitor) 20 mg BEDTIME ORAL 07/20/19 21:00 08/19/19 20:59 07/22/19 21:34 Baclofen (Lioresal) 10 mg BEDTIME ORAL 07/21/19 21:00 08/20/19 20:59 07/22/19 21:34 Cetylpyridinium Chloride (Cepacol) 1 lozg Q6H PRN DEYA SORE THROAT 07/21/19 00:15 08/20/19 00:14 07/21/19 08:29 Cyclobenzaprine HCl (Flexeril) 15 mg THREE TIMES A DAY ORAL 07/20/19 18:00 08/19/19 17:59 07/23/19 09:57 Enoxaparin Sodium (Lovenox) 40 mg DAILY SUBQ 07/21/19 09:00 08/20/19 08:59 Fluticasone/ Vilanterol (Breo Ellipta 200/25) 1 puffs DAILY INH 07/21/19 09:00 08/19/19 18:59 07/23/19 08:42 Furosemide (Lasix) 20 mg DAILY ORAL 07/21/19 09:00 08/20/19 08:59 07/23/19 09:57 Meclizine HCl (Antivert) 25 mg DAILY ORAL 07/21/19 09:00 08/20/19 08:59 07/23/19 09:58 Morphine Sulfate (Morphine Sulfate) 2 mg Q4H PRN IVP For Pain 07/20/19 17:45 07/27/19 17:44 07/23/19 01:50 Ondansetron HCl (Zofran) 4 mg Q6H PRN IVP Nausea & Vomiting 07/20/19 17:45 08/19/19 17:44 07/23/19 05:14 Pantoprazole (Protonix) 40 mg BID ORAL 07/21/19 18:00 08/20/19 08:59 07/23/19 09:57 Prednisone (predniSONE) 10 mg DAILY ORAL 07/21/19 09:00 08/20/19 08:59 07/23/19 09:57 Spironolactone (Aldactone) 25 mg DAILY ORAL 07/21/19 09:00 08/20/19 08:59 07/23/19 09:57 Verapamil HCl (Calan SR) 120 mg DAILY ORAL 07/21/19 09:00 08/19/19 17:59 07/23/19 09:58 Assessment/Plan Status: doing well Assessment/Plan: Chronic cough Likely related to mold and fungal infection and baseline COPD. Continue management per primary. If using O2 make sure it is humidified. Sleep with humidifier in room GERD On protonix. Can increase to BID and on discharge should get dietary and behavioural mods and be on BID therapy Hoarseness Needs repeat exam in clinic in 3-4 weeks if hoarseness is present. Recc continued outpatient speech therapy. Dysphagia Ok for diet. Will f/u on video swallow. Karin Velazco MD Jul 23, 2019 10:43
[2019-07-23 12:09] VITALS: BP 148/90
[2019-07-23] MEDS ORDERED: Albuterol/Ipratropium 3ml neb HHN PRN (13:30)
[2019-07-23] MEDS ORDERED: Varibar Pudding 230ml MC PRN (13:30)
[2019-07-23] MEDS ORDERED: Varibar Nectar 240ml MC PRN (13:30)
[2019-07-23] MEDS ORDERED: Varibar Honey 250ml MC PRN (13:30)
--- NOTE | 2019-07-23 15:16 | Cardiology Report ---
APPROVED REPORT EXAM: Two-dimensional and M-mode echocardiogram with Doppler and color Doppler. INDICATION Congestive Heart Failure M-Mode DIMENSIONS IVSd1.2 (0.7-1.1cm)Left Atrium (MM)4.1 (1.6-4.0cm) LVDd5.4 (3.5-5.6cm)Aortic Root2.7 (2.0-3.7cm) PWd0.9 (0.7-1.1cm)Aortic Cusp Exc.1.7 (1.5-2.0cm) LVDs4.7 (2.5-4.0cm) PWs1.1 cm Technically difficult study due to poor acoustic windows. Study quality precludes accurate assessment of regional wall motion. Normal left ventricular chamber size. Mid septal hypokinesis. Left ventricular ejection fraction estimated to be 45-50 %. Mild left ventricular hypertrophy. Mild to moderate pericardial effusion. Mild left atrial enlargement. Right cardiac chamber sizes are within normal limits. Focal aortic valve sclerosis with adequate cusp excursion. Mitral valve leaflet are thickened and probabley calcified with some decreased in excursion, likely reverberation artifact but a vegatation cannot be entirely excluded . Mild mitral annulus and aortic root calcification. Pulmonic valve not well visualized. Normal tricuspid valve structure. IVC dilated at 2.4 cm with physiological collapse. A color flow and spectral Doppler study was performed and revealed: Mild aortic regurgitation. Moderate eccentric mitral regurgitation. Peak gradient across the mv 22 mmgh and a mean gradient of 8 mmhg suggestive of moderate mitral stenosis Mitral diastolic velocities suggest mild left ventricular diastolic dysfunction (Grade I). Mild tricuspid regurgitation. Tricuspid systolic velocities suggests peak right ventricular systolic pressure of 28 mmHg.
[2019-07-23 16:00] VITALS: BP 134/74
--- NOTE | 2019-07-23 19:40 | Cardiology Progress Note ---
Assessment/Plan Assessment/Plan 1. Shortness of breath likely secondary to acute exacerbation of COPD, normal BNP essentially rules out CHF. 2. Medium sized localized pericardial effusion with no signs of pericardial tamponade. 3. Hypertension, stage II, might be caused by steroid too, continue aldactone, carvedilol and verapamil. 4. History of diabetes mellitus, continue aspirin and atorvastatin. Subjective Subjective Sinus rhythm at rate of 91. Objective Last 24 Hour Vital Signs Date Time Temp Pulse Resp B/P (MAP) Pulse Ox O2 Delivery O2 Flow Rate FiO2 07/23/19 16:00 98.1 91 20 134/74 (94) 96 07/23/19 12:09 97.2 104 20 148/90 (109) 94 07/23/19 12:00 102 07/23/19 09:58 100 141/75 07/23/19 08:43 Room Air 07/23/19 08:43 100 20 97 Room Air 21 07/23/19 08:42 101 20 97 Room Air 21 07/23/19 08:00 105 07/23/19 08:00 97.9 93 18 141/75 (97) 100 07/23/19 07:34 84 21 98 Room Air 21 07/23/19 07:32 82 20 96 Room Air 21 07/23/19 04:00 97.3 95 20 169/104 (125) 98 07/23/19 04:00 95 07/23/19 00:00 90 07/23/19 00:00 97.5 90 20 133/75 (94) 98 07/22/19 23:57 88 20 98 Room Air 21 07/22/19 21:00 Room Air 07/22/19 20:00 94 07/22/19 20:00 94 Intake and Output 07/22/19 07/23/19 18:59 06:59 Intake Total 1200 ml 360 ml Output Total 1 ml Balance 1200 ml 359 ml Intake Oral 1200 ml 360 ml Output Stool Total 1 ml # Voids 5 6 2D Echo: EF 50%,Septal wall HK,Mild AR/MR, RVSP 39,Med.localized Peric.eff, RAP 10 Objective HEENT: Atraumatic and normocephalic. Anicteric. Pupils are equal, round, and reactive to light and accommodation. Extraocular muscles intact. NECK: JVP less than 5 cm. No carotid bruit. Carotid upstrokes 2+ bilaterally. CARDIOVASCULAR: Normal S1, S2. Regular rate and rhythm. No murmurs, gallops, or rubs. No pulsus paradoxus. LUNGS: Diminished bilaterally. ABDOMEN: Soft, nontender, and nondistended. No hepatosplenomegaly. Positive bowel sounds. EXTREMITIES: No evidence of edema, clubbing, or cyanosis. Bc Daniels MD Jul 23, 2019 19:40
[2019-07-23] MEDS ORDERED: Carvedilol 6.25mg Tab ORAL SCH (21:00)
--- NOTE | 2019-07-24 08:03 | Discharge Summary ---
Discharge Summary Discharge Summary _ DATE OF ADMISSION: 07/20/2019 DATE OF DISCHARGE: 07/23/2019 DISCHARGED BY: Dr. Ibarra REASON FOR ADMISSION: 59 years old female with past medical history of hypertension, COPD, diabetes mellitus, GERD, presented to emergency department wit cough , sore throat and nasal congestion. Patient also reported epigastric abdominal discomfort, described as burning sensation. Patient recently had increased cough with some bloody sputum. She had nasal bleeding the night prior to presentation on the left side of her nose , which resolved. She also reported episode of nasal bleeding in the past. She denied current anticoagulation use. She reported history of mold exposure. Upon evaluation vital signs revealed elevated blood pressure 169/103 , otherwise pulse oximetry was stable on room air. Laboratory work-up revealed no leukocytosis, stable hemoglobin , hematocrit and platelet count. Sedimentation rate 18 . INR 0.9. Troponin 0.012. Pro BNP 235. EKG revealed sinus rhythm, no acute ischemic changes. TSH within normal limits. Urinalysis revealed no evidence of urinary tract infection. Chemistry demonstrated stable electrolytes and renal parameters. Urine toxicology screen was negative. Prior echo showed pericardial effusion. New echo was ordered to evaluate for pericardial effusion . Patient subsequently admitted to telemetry floor for further management CONSULTANTS: cash sales audit clerk Dr. Daniels pulmonary Dr. Mcfarlane ENT specialist Dr. Velazco GI specialist Dr. Good [facility] COURSE: Patient admitted to telemetry floor. Echocardiogram demonstrated ejection fraction of 45 to 50% with mild septal hypokinesis. Normal left ventricular chamber size. Mild to moderate pericardial effusion . Mild aortic regurgitation. Moderate mitral stenosis. Right ventricular systolic pressure of 28. CT angiogram of the chest revealed cardiomegaly. Pericardial effusion measuring approximately 2 to 2.4 cm along the right heart border and inferiorly. No pulmonary emboli. Television Parts Tester closely followed. Serial troponinx3 negative. EKG revealed no acute ischemic changes. Patient was ruled out for acute myocardial infarction. Television Parts Tester reviewed imaging and concluded that patient had moderate medium- sized localized pericardial effusion , with no signs of pericardial tamponade. Blood pressure was managed with Aldactone , carvedilol , verapamil and Lasix. Per cash sales audit clerk patient had hypertension stage II. Shortness of breath was most likely secondary to acute exacerbation of COPD. Normal BNP was essentially ruled out CHF. Court Recording Monitor followed. Supplemental oxygen provided and titrated to keep pulse oximetry above 92%. Patient started on the IV steroids, which tapered to oral. Nebulizing treatment with bronchodilator provided [id number] and as needed. Pulse oximetry was stable on room air prior to discharge. DVT and GI prophylaxis provided. Volumes were closely monitored. Cepacol provided for comfort . Ellipta continued . Patient reported history of mold exposure ENT specialist seen and evaluated patient. Chronic cough , per ENT, was likely related to mold and fungal infection along with baseline COPD. Recommended to use humidified oxygen and sleep with humidifier in the room. ENT recommended continue PPI , dosing was increased to twice daily. Dietary and behavioral modification were explained. Patient will need to repeat ENT exam in the clinic in 3 to 4 weeks , if hoarseness persists. ENT recommended continue outpatient speech therapy. Bedside and video swallow evaluations were done . Patient with a high risk for silent aspiration. Regular texture diet with thin liquids was provided, since patient was unwilling to downgrade to any diet. Strict reflux and aspiration precautions maintained along with bland antireflux diet . Patient clinically stabilized and was ready for discharge. FINAL DIAGNOSES: Atypical chest pain likely secondary to COPD exacerbation COPD exacerbation GERD , chronic Prediabetes Chronic lumbar spondylosis and stenosis CHF History of mold exposure Obesity Shortness of breath, likely secondary to acute COPD exacerbation Medium-sized localized pericardial effusion/no signs of pericardial tamponade Hypertension stage II Diabetes mellitus Hoarseness Dysphagia DISCHARGE MEDICATIONS: See Medication Reconciliation list. DISCHARGE INSTRUCTIONS: Patient was discharged home. Follow-up with a primary care provider in 1 week. I have been assigned to dictate discharge summary for this account. I was not involved in the patient's management. Odalys Landon NP Jul 24, 2019 08:02
--- NOTE | 2019-07-24 16:31 | Diagnostic Imaging Report ---
Indications: Dysphagia Technique: Patient ingested multiple substances under the supervision of speech pathology. Video fluoroscopic recording performed. Total fluoroscopy time 298 seconds. Total dose area product [id number] mGycm2 Total number of images-16 Comparison: none Findings: There is delay in initiation of degradation. No aspiration or penetration. No significant early or delayed pooling demonstrated. There is dilatation of the esophagus Impression: Negative for evidence of aspiration Please refer to speech pathology report for more detailed analysis
== END 2019-07-23 17:30 | disposition home or self-care (01) | DRG 191 ==
LOC: EMR 11:44 → 2E 12:51 → OBSVTOIN 12:51 → EDBEDREQ 13:51
DX: J44.1 Chronic obstructive pulmonary disease with (acute) exacerbation (principal); I31.3 Pericardial effusion (noninflammatory); R04.2 Hemoptysis; I50.32 Chronic diastolic (congestive) heart failure; I16.9 Hypertensive crisis, unspecified; K21.9 Gastro-esophageal reflux disease without esophagitis; I11.0 Hypertensive heart disease with heart failure; I35.1 Nonrheumatic aortic (valve) insufficiency; Z88.0 Allergy status to penicillin; Z88.8 Allergy status to other drugs, medicaments and biological substances; M47.896 Other spondylosis, lumbar region; M48.061 Spinal stenosis, lumbar region without neurogenic claudication; R07.89 Other chest pain; Z77.120 Contact with and (suspected) exposure to mold (toxic); E66.9 Obesity, unspecified; E11.9 Type 2 diabetes mellitus without complications; R13.10 Dysphagia, unspecified; Z90.49 Acquired absence of other specified parts of digestive tract; R49.0 Dysphonia
CPT/HCPCS: 36415; 71275; 74230; 76700; 80053; 80307; 81003; 83880; 84439; 84443; 84484; 85025; 85610; 85651; 85730; 86710; 87081; 93005; 93306; 94640; 94664; J2405; J7620

== ENCOUNTER 2019-08-16 13:06 | Inpatient (IN) | payer MEDICARE, OTHER ==
[~2019-08-16] VITALS: Ht 167.6 cm; Wt 111.7 kg
[~2019-08-16 13:06] MED LIST changes: +AMITRIPTYLINE H50 MG ORAL; +CYCLOBENZAPRINE15 M1 PO; +HYDROCHLOROTH12.5 MG ORAL; +KLOR-CON M2020 MEQ ORAL; +LEXAPRO20 MG ORAL
[2019-08-16] MEDS ORDERED: AMITRIPTYLINE100 MG ORAL (13:11)
--- NOTE | 2019-08-16 13:30 | NUR ---
ED Nurse Note: Pt walked into ED from home. Pt c/o SOB and coughing since last night. Pt als has GRIGSBY 8/10 pain. Pt states she has wheezing. Pt 97% RA. Pt set up on monitor.
--- NOTE | 2019-08-16 13:34 | NUR ---
ED Nurse Note: RT at bedside. Aware of SOB. aware.
--- NOTE | 2019-08-16 13:40 | NUR ---
RESPIRATORY NOTE: Attempted to draw Aterial Blood Gas but unsuccess. Pt is in pain, really tense up, and refuses to try again, stated that we can try later when she is feeling better. RN Savanna and PA aware. Pt is awake, alert and able to follow commands. Noted SOB, expiratory wheezing breath sounds. Will give breathing tx to pt and continue to monitor.
[2019-08-16] MEDS: Albuterol/Ipratropium 3ml neb HHN SCH ×3 (13:44→14:08)
[2019-08-16] MEDS ORDERED: Dexamethasone 4mg/ml vial IVP ONE (13:45)
[2019-08-16 13:47] VITALS: BP 148/97
[2019-08-16 14:38] LABS: BASOPHILS % (AUTO) 1.9 % (0.0-2.0); EOSINOPHILS % (AUTO) 1.5 % (0.0-3.0); HEMOGLOBIN 13.8 G/DL (12.0-16.0); LYMPHOCYTES % (AUTO) 15.4 % (20.0-45.0); MEAN CORPUSCULAR VOLUME 82 FL (80-99); NEUTROPHILS % (AUTO) 72.3 % (45.0-75.0); PLATELET COUNT 263 K/UL (150-450); RED BLOOD COUNT 4.99 M/UL (4.20-5.40); RED CELL DISTRIBUTION WIDTH 11.8 % (11.6-14.8); WHITE BLOOD COUNT 7.9 K/UL (4.8-10.8)
[2019-08-16 14:49] LABS: ANION GAP 9 mmol/L (5-15); BLOOD UREA NITROGEN 9 mg/dL (7-18); CALCIUM 9.2 MG/DL (8.5-10.1); CARBON DIOXIDE 29 MMOL/L (21-32); CHLORIDE 99 MMOL/L (98-107); CREATININE 1.1 MG/DL (0.55-1.30); POTASSIUM 3.1 MMOL/L (3.5-5.1); SODIUM 137 MMOL/L (136-145)
[2019-08-16 15:00] LABS: ALANINE AMINOTRANSFERASE 31 U/L (12-78); ALKALINE PHOSPHATASE 155 U/L (46-116); ASPARTATE AMINO TRANSFERASE 21 U/L (15-37); BILIRUBIN,TOTAL 0.4 MG/DL (0.2-1.0)
[2019-08-16] MEDS ORDERED: Morphine Sulfate 2mg/ml Inj(IV/IM USE ONLY) IVP ONE (15:00)
[2019-08-16] MEDS ORDERED: Adenosine 6mg/2ml Inj ONE (15:05)
[2019-08-16] MEDS ORDERED: dilTIAZem HCl 25mg/5ml Inj IVP ONE (15:15)
[2019-08-16] MEDS ORDERED: Adenosine 6mg/2ml Inj IVP ONE ×3 (15:15→15:45)
[2019-08-16] MEDS ORDERED: dilTIAZem HCl 60mg tab ORAL ONE (15:15)
--- NOTE | 2019-08-16 15:15 | NUR ---
ED Nurse Note: Pt HR at 1510 195. MD Mcpherson notified. ordered Adenosine 6mg. Adenosine given with Emilee WAGONER MD at bedside. Pt HR 130 after 6mg. then ordered 12 mg, then told us not to administer. 12 mg adenosine wasted w Emilee WAGONER.
[2019-08-16 15:17] LABS: APPEARANCE,URINE CLEAR; BILIRUBIN, URINE NEGATIVE (NEGATIVE); GLUCOSE, URINE (UA) NEGATIVE (NEGATIVE); KETONES,URINE 2+ (NEGATIVE); LEUKOCYTE ESTERASE ,URINE NEGATIVE (NEGATIVE); NITRITE,URINE NEGATIVE (NEGATIVE); PH,URINE 6.5 (4.5-8.0); PROTEIN,URINE 1+ (NEGATIVE); UROBILINOGEN,URINE 1 MG/DL (0.0-1.0)
--- NOTE | 2019-08-16 15:17 | Emergency Room Report ---
History of Present Illness General Chief Complaint: Upper Respiratory Illness Source: EMS (Arnel Magana) Present Illness HPI 59-year-old female with history of COPD, CHF, pericardial effusion, diabetes, here brought in by paramedics being picked up from doctor's office due to shortness of breath and chest pain. Patient reports that she believes that her symptoms are secondary to mold exposure. Patient rating her pain 10 out of 10 without radiation. Has been to [facility] multiple times recently for similar complaint and has been admitted as inpatient. Patient had a CTA done in June 2019 and small pericardial effusion was visualized. Denies abdominal pain, nausea vomiting, headache and dizziness at this time. After giving 10 of Decadron and 3 albuterol ipratropium breathing treatments patient reports that still does not feel any better. Bedside echo was done by my supervising physician Dr. Mcpherson, and a small pericardial effusion was confirmed. After being at [facility] today for 1 hour patient started having elevated heart rate of 195, EKG showed SVT, adenosine was administered, patient was then presented with A. fib, IV bolus of Cardizem and 60 mg of Cardizem p.o. was given. Patient heart rate went down from 195 211. It started to fluctuate in the range of 100 1140. Patient appears to be stable at this time. 2 mg of morphine and 4 of Zofran was administered. Unable to do ABGs as patient has hard arterial access. (Arnel Magana) Allergies: Coded Allergies: METRONIDAZOLE (Verified Allergy, Mild, 02/25/15) PENICILLIN G (Verified Allergy, Mild, 02/25/15) Patient History Past Medical History: see triage record Past Surgical History: unable to obtain Pertinent Family History: unable to obtain Social History: Reports: smoking Now: No Immunizations: UTD Reviewed Nursing Documentation: PMH: Agreed; PSxH: Agreed (Arnel Magana) Nursing Documentation-PMH Hx Cardiac Problems: Yes Hx Hypertension: Yes Hx COPD: Yes Hx Diabetes: Yes Hx Cancer: No Hx Gastrointestinal Problems: Yes Hx Neurological Problems: No Hx Seizures: No - GERD (Arnel Magana) Review of Systems All Other Systems: negative except mentioned in HPI (Arnel Magana) Physical Exam Vital Signs Date Time Temp Pulse Resp B/P (MAP) Pulse Ox O2 Delivery O2 Flow Rate FiO2 08/16/19 13:04 98.4 98 19 150/100 (117) 98 Room Air 08/16/19 13:45 21 Sp02 EP Interpretation: reviewed, abnormal - elevated HR General Appearance: no apparent distress, alert, GCS 15, non-toxic Head: normocephalic, atraumatic Eyes: bilateral eye normal inspection, bilateral eye PERRL ENT: hearing grossly normal, normal pharynx, no angioedema, normal voice Neck: full range of motion, supple/symm/no masses Respiratory: chest non-tender, lungs clear, normal breath sounds, no rhonchi, no retraction, no wheezing, speaking full sentences Cardiovascular #1: no edema, no murmur, normal capillary refill, tachycardia, irregularly irregular Cardiovascular #2: 2+ carotid (R), 2+ carotid (L); 3+ radial (R), 3+ radial (L) Gastrointestinal: normal bowel sounds, non tender, soft, non-distended, no guarding, no rebound Rectal: deferred Musculoskeletal: back normal, no calf tenderness Neurologic: alert, motor strength/tone normal, expressive therapist III-XII nml as tested, EOM palsy, oriented, oriented x3, sensory intact, responsive, speech normal Psychiatric: judgement/insight normal, memory normal, mood/affect normal, no suicidal/homicidal ideation Skin: no rash Lymphatic: no adenopathy (PatriciaeligrettahavaArnel durant) Procedures Critical Care Time Critical Care Time Total critical care time: Approximately 31 minutes Due to a high probability of clinically significant, life threatening deterioration, the patient required the highest level of preparedness to intervene emergently and I personally spent this critical care time directly and personally managing the patient. This critical care time included obtaining a history, examining the patient, pulse oximetry, ordering and reviewing studies , ordering treatments, evaluating response to treatment and updating management plan as needed, frequent reassessment and discussion with other providers as well as arranging for ultimate disposition. This critical to care time was performed to assess and manage the high probability of life-threatening deterioration that could result in multiorgan failure. This critical care time is separate from the separately billable procedures and treating other patients. (Juan David Mcpherson MD) Ultrasound Ultrasound : Consent: Verbal Patient Tolerated: Well Complications: None Progress Trace pericardial effusion, not hemodynamically significant, no RV collapse. (Juan David Mcpherson MD) Medical Decision Making PA Attestation All diagnoses and treatment plans were reviewed and discussed with my supervising physician Dr. Mcpherson (Arnel Magana) PA Attestation I supervised and participated in the care of of this patient along with MARLY Saldivar and agree with this treatment plan. Briefly, this is a 59-year-old female with a history of obesity, diabetes, COPD , CHF presenting for cough and shortness of breath from her PMD office. Her last admission showed a pericardial effusion. I performed a bedside ultrasound which did not show any hemodynamically significant effusion though there was trace pericardial fluid. During her emergency department stay the patient went into an episode of SVT with a heart rate in the 190s. Converted to rapid atrial fibrillation after 6 mg of adenosine. Patient was given diltiazem for rate control. Blood pressures remained stable during the entire visit. BN peptide and troponin are within normal limits. No evidence of ischemia at this time. Patient will be admitted to SDU for rapid atrial fibrillation and COPD exacerbation. She was treated with steroids and breathing treatments. (Juan David Mcpherson MD) Diagnostic Impression: Primary Impression: Afib Additional Impressions: SVT (supraventricular tachycardia) CHF exacerbation COPD exacerbation ER Course 59-year-old female with history of COPD, CHF, pericardial effusion, diabetes, here brought in by paramedics being picked up from doctor's office due to shortness of breath and chest pain. Patient reports that she believes that her symptoms are secondary to mold exposure. Patient rating her pain 10 out of 10 without radiation. Has been to [facility] multiple times recently for similar complaint and has been admitted as inpatient. Patient had a CTA done in June 2019 and small pericardial effusion was visualized. Denies abdominal pain, nausea vomiting, headache and dizziness at this time. After giving 10 of Decadron and 3 albuterol ipratropium breathing treatments patient reports that still does not feel any better. Bedside echo was done by my supervising physician Dr. Mcpherson, and a small pericardial effusion was confirmed. After being at [facility] today for 1 hour patient started having elevated heart rate of 195, EKG showed SVT, adenosine was administered, patient was then presented with A. fib, IV bolus of Cardizem and 60 mg of Cardizem p.o. was given. Patient heart rate went down from 195 211. It started to fluctuate in the range of 100 1140. Patient appears to be stable at this time. 2 mg of morphine and 4 of Zofran was administered. Unable to do ABGs as patient has hard arterial access. Ddx considered but are not limited to: TN, Angina, COPD exacerbation, CHF exacerbation, PE, atrial fibrillation, SVT Vital signs: are WNL, pt. is afebrile H&PE are most consistent with atrial fibrillation, SVT, CHF and COPD exacerbation ORDERS: EKG, Chest XR, cardiac labs(troponin, CBC, CMP, BNP), ED INTERVENTIONS: NS bolus, morphine, Zofran, Decadron, albuterol ipratropium, Cardizem, adenosine Patient was admitted with diagnosis of A. fib, SVT, CHF and COPD exacerbation to Dr. Ibarra under supervision of .: Vida pt stable at time of admission (Arnel Magana) EKG Diagnostic Results Rate: tachycardiac ST Segments: other - afib, svt (Arnel Magana) Chest X-Ray Diagnostic Results Chest X-Ray Diagnostic Results : Chest X-Ray Ordered: Yes # of Views/Limited/Complete: 1 View Indication: Chest Pain EP Interpretation: Yes PA Xray: Interpretation reviewed, by supervising MD, and agrees with findings. Interpretation: no consolidation, no effusion, no pneumothorax, other - cardiomegaly Impression: Other - cardiomegaly Electronically Signed by: Arnel Mckeon PA-C (Arnel Magana) Last Vital Signs Date Time Temp Pulse Resp B/P (MAP) Pulse Ox O2 Delivery O2 Flow Rate FiO2 08/16/19 15:14 195 08/16/19 14:18 24 95 Room Air 21 26 95 08/16/19 13:47 98.0 148/97 (Arnel Magana) Disposition: ADMITTED INPATIENT Condition: Serious Referrals: NOT CHOSEN IPA/,REFERRING (PCP) Arnel Magana Aug 16, 2019 15:17 Juan David Mcpherson MD Aug 16, 2019 15:22
[2019-08-16 15:20] LABS: COLOR,URINE YELLOW
[2019-08-16 15:30] VITALS: BP 127/74
--- NOTE | 2019-08-16 15:46 | NUR ---
ED Nurse Note: MD Davis said to give adenosine 12mg when HR goes above 130.
[2019-08-16 16:30] VITALS: BP 118/76
--- NOTE | 2019-08-16 16:44 | Diagnostic Imaging Report ---
Indication: Shortness of breath Technique: One view of the chest Comparison: 07/10/2019 Findings: The heart is markedly enlarged. No definite infiltrates, effusions, or congestion or significant interim change Impression: Cardiomegaly. No acute process
[2019-08-16 17:30] VITALS: BP 116/78
--- NOTE | 2019-08-16 18:30 | NUR ---
ED Nurse Note: Report given to Chanda WAGONER SDU.
--- NOTE | 2019-08-16 18:45 | NUR ---
NURSE NOTES: Report received from Savanna Brice nurse patient awake alert and oriented times 4. oriented to staff and unit. Connected to monitor sinus tach on monitor. Denies pain and discomfort. Endorsed given to Peng.
[2019-08-16 18:50] VITALS: BP 113/58
--- NOTE | 2019-08-16 20:05 | NUR ---
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 Pt admits to SDU from ER for complaints of chest pain and SOB, admission diagnosis: CHF, SVT, pericardial effusion. Pt is A&O x 4, sinus tachycardia at 109 BPM per monitoring tech. PIV at LFA 18g saline locked, flushed with 10ml NS, IV is patent, intact, and asymptomatic. Pt is on low NA diet. Pt complains of 6/10 back, given morphine as ordered (see eMAR). Pt c/o N/V, given zofran (see eMAR). Pt oriented to call light, TV, bed, rounding policy, pt has bathroom privileges. Pt informed to use call light to get out of bed after admin of morphine, verbalized understanding. Will start plan of care and close monitoring.
--- NOTE | 2019-08-16 21:30 | NUR ---
NURSE NOTES: Pt refused to put $28 in safe. Neil Harper given $28 by pt, confirmed by nurse.
[2019-08-16] MEDS ORDERED: LORazepam 1mg tab ORAL PRN (22:00)
[2019-08-16] MEDS ORDERED: dilTIAZem HCl 30mg tab ORAL SCH (22:15)
[2019-08-16] MEDS: Morphine Sulfate 2mg/ml Inj(IV/IM USE ONLY) IVP PRN (22:24)
[2019-08-16] MEDS: Enoxaparin 40mg Inj SUBQ SCH (23:00)
[2019-08-16] MEDS: dilTIAZem HCl 30mg tab ORAL SCH (23:35)
[2019-08-17] MEDS: Ipratropium 0.02% Inh Soln 2.5ml UD HHN PRN ×2 (02:55→09:41)
[2019-08-17 05:55] LABS: HEMATOCRIT 36.8 % (37.0-47.0); HEMOGLOBIN 12.1 G/DL (12.0-16.0); LYMPHOCYTES % (AUTO) 9.5 % (20.0-45.0); MEAN CORPUSCULAR VOLUME 84 FL (80-99); MONOCYTES % (AUTO) 5.8 % (1.0-10.0); NEUTROPHILS % (AUTO) 83.7 % (45.0-75.0); PLATELET COUNT 254 K/UL (150-450); RED CELL DISTRIBUTION WIDTH 12.2 % (11.6-14.8); WHITE BLOOD COUNT 7.1 K/UL (4.8-10.8)
--- NOTE | 2019-08-17 06:00 | NUR ---
Called and left detailed voicemail for Dr. Ibarra r/t potassium level 3.1. No call back, will endorse to next shift.
[2019-08-17] MEDS: dilTIAZem HCl 30mg tab ORAL SCH ×2 (06:42→14:04)
[2019-08-17 07:19] LABS: CHOLESTEROL 152 MG/DL (< 200); HDL CHOLESTEROL 53 MG/DL (40-60)
--- NOTE | 2019-08-17 07:26 | NUR ---
HAND-OFF: Report given to Precious Dominique RN. Pt stable condition.
--- NOTE | 2019-08-17 07:27 | NUR ---
NURSE NOTES: Received patient in bed. Awake, verbal, able to make needs known. In no apparent distress. On room. Will continue plan of care.
[2019-08-17] MEDS: Albuterol/Ipratropium 3ml neb HHN SCH (07:31)
[2019-08-17 08:00] VITALS: BP 135/82
[2019-08-17 09:59] LABS: TRIGLYCERIDES 55 MG/DL (30-150)
[2019-08-17] MEDS ORDERED: Levalbuterol Inh UD 1.25mg/0.5ml HHN PRN (10:00)
[2019-08-17] MEDS: Morphine Sulfate 2mg/ml Inj(IV/IM USE ONLY) IVP PRN (10:00)
[2019-08-17] MEDS: Aspirin Baby 81mg ORAL SCH (10:01)
--- NOTE | 2019-08-17 10:27 | History & Physical ---
History and Physical History & Physicial SOURCE OF INFORMATION: The patient and EMR. HISTORY OF PRESENT ILLNESS: The patient is a pleasant 59-year-old female with a history of COPD and CHF, who presented with the soreness of the upper respiratory tract, soreness of the upper abdomen. Denies nausea. Positive for the hemoptysis one or two episodes (questionable). At the time of evaluation, the patient denies any chest pain or shortness of breath. No nausea. No vomitus. No diarrhea. ALLERGIES: Metronidazole, penicillin. PAST SURGICAL AND MEDICAL HISTORY: Cholecystitis, CHF, COPD, hyperlipidemia, hypertension, and chronic low back pain. FAMILY HISTORY: Reviewed and noncontributory. MEDICATIONS: Current hospital medications including, but not limited to Lovenox subcutaneous, prednisone. SOCIAL HISTORY: The patient denies history of illicit drug abuse, smoking, or alcohol abuse. The patient lives at home. Dependent for the ADLs. PHYSICAL EXAMINATION:HEAD AND NECK: BANDAR 150/85, RR: 18, T: 98.2, OR: 95, Atraumatic and normocephalic. CHEST: Diffuse bronchial breathing sounds.HEART: S1, S2. Regular rate and rhythm. ABDOMEN: Soft. No organomegaly. Morbidly obese.MUSCULOSKELETAL: Decreased range of motion in the lower extremity at baseline. No gross lateralized asymmetric motor deficit.NEUROLOGIC: The patient is awake, alert, and oriented x3. LABORATORY AND DIAGNOSTIC DATA: Dated Aug 16 , reveiwed ASSESSMENT AND PLAN: 1. Acute COPD exacerbation 2. Atypical chest pain secondary to COPD exacerbation 3. GERD, chronic. 4. Hypertension. 5. Prediabetes. 6. Small Pericardial effusion 0- history of 6. Chronic lumbar spondylosis and stenosis. 7. Dysphagia with abn ST eval PLAN OF CARE: I Start levaquin Breathing Tx Pulmonary, cardiology consulted Yue Ibarra MD Aug 17, 2019 10:27
--- NOTE | 2019-08-17 10:31 | General Progress Note ---
Assessment/Plan Assessment/Plan: S: I am feeling sorethroat and Stomach ache O : no chest pain, mild sob, ,PHYSICAL EXAMINATION:HEAD AND NECK: Atraumatic and normocephalic. CHEST: Diffuse bronchial breathing sounds.HEART: S1, S2. Regular rate and rhythm. ABDOMEN: Soft. No organomegaly. Morbidly obese.MUSCULOSKELETAL: Decreased range of motion in the lower extremity at baseline. No gross lateralized asymmetric motor deficit.NEUROLOGIC: The patient is awake, alert, and oriented x3. LABORATORY AND DIAGNOSTIC DATA: Dated Aug 17, reveiwed ASSESSMENT AND PLAN: 1. Acute COPD exacerbation 2. COPD exacerbation 3. GERD, chronic. 4. Hypertension. 5. Prediabetes. 6. Small Pericardial effusion 0- history of 6. Chronic lumbar spondylosis and stenosis. 7. Dysphagia with abn ST eval Plan: GI Cardiology Pulmonary are consulted Pulmicort Steriod Subjective Allergies: Coded Allergies: METRONIDAZOLE (Verified Allergy, Mild, 02/25/15) PENICILLIN G (Verified Allergy, Mild, 02/25/15) Objective Last 24 Hour Vital Signs Date Time Temp Pulse Resp B/P (MAP) Pulse Ox O2 Delivery O2 Flow Rate FiO2 08/17/19 09:41 111 20 99 Room Air 21 113 20 99 08/17/19 08:00 Room Air 08/17/19 08:00 98.1 116 21 135/82 (99) 96 08/17/19 07:47 112 08/17/19 06:42 114 126/56 08/17/19 04:00 113 08/17/19 04:00 Room Air 08/17/19 02:56 118 20 100 Room Air 21 117 20 98 08/17/19 00:00 111 08/17/19 00:00 Room Air 08/16/19 23:35 109 134/85 08/16/19 20:00 104 08/16/19 20:00 Room Air 08/16/19 19:34 Room Air 08/16/19 18:50 99.8 94 19 113/58 (76) 94 08/16/19 18:42 98.0 111 18 123/74 99 Room Air 08/16/19 17:30 98.2 114 17 116/78 95 Room Air 08/16/19 16:30 108 21 118/76 96 Room Air 08/16/19 15:45 115 08/16/19 15:36 150 120/78 12/20/19 15:30 98.0 140 21 127/74 95 Room Air 08/16/19 15:26 140 148/97 08/16/19 15:18 130 08/16/19 15:14 195 08/16/19 14:18 121 24 95 Room Air 21 120 26 95 08/16/19 14:08 120 26 95 Room Air 21 125 25 93 08/16/19 13:54 124 27 93 Room Air 21 122 28 90 08/16/19 13:47 98.0 68 18 148/97 98 Room Air 08/16/19 13:47 99 20 Room Air 97 08/16/19 13:46 122 28 Room Air 21 08/16/19 13:45 122 28 Room Air 21 08/16/19 13:04 98.4 98 19 150/100 (117) 98 Room Air Intake and Output 08/16/19 08/17/19 19:00 07:00 Intake Total 500 ml 500 ml Balance 500 ml 500 ml Intake Oral 500 ml IV Total 500 ml # Voids 3 Laboratory Tests 08/16/19 13:35: Urine HCG, Qualitative Negative 08/16/19 14:25: White Blood Count 7.9, Red Blood Count 4.99, Hemoglobin 13.8, Hematocrit 41.0, Mean Corpuscular Volume 82, Mean Corpuscular Hemoglobin 27.6, Mean Corpuscular Hemoglobin Concent 33.6, Red Cell Distribution Width 11.8, Platelet Count 263, Mean Platelet Volume 6.9, Neutrophils (%) (Auto) 72.3, Lymphocytes (%) (Auto) 15.4L, Monocytes (%) (Auto) 9.0, Eosinophils (%) (Auto) 1.5, Basophils (%) (Auto ) 1.9, Prothrombin Time 10.3, Prothromb Time International Ratio 1.0, Activated Partial Thromboplast Time 26, Sodium Level 137, Potassium Level 3.1L, Chloride Level 99, Carbon Dioxide Level 29, Anion Gap 9, Blood Urea Nitrogen 9, Creatinine 1.1, Estimat Glomerular Filtration Rate > 60, Glucose Level 129H, Calcium Level 9.2, Total Bilirubin 0.4, Aspartate Amino Transf (AST/SGOT) 21, Alanine Aminotransferase (ALT/SGPT) 31, Alkaline Phosphatase 155H, Troponin I 0.011, Pro-B-Type Natriuretic Peptide 51, Total Protein 8.1, Albumin 4.0, Globulin 4.1, Albumin/Globulin Ratio 1.0 08/16/19 14:50: Urine Color Yellow, Urine Appearance Clear, Urine pH 6.5, Urine Specific [place] 1.010, Urine Protein 1+H, Urine Glucose (UA) Negative, Urine Ketones 2+H , Urine Blood 2+H, Urine Nitrite Negative, Urine Bilirubin Negative, Urine Urobilinogen 1H, Urine Leukocyte Esterase Negative, Urine RBC 2-4H, Urine WBC 0- 2, Urine Squamous Epithelial Cells ModerateH, Urine Bacteria Few, Urine Opiates Screen Negative, Urine Barbiturates Screen Negative, Phencyclidine (PCP) Screen Negative, Urine Amphetamines Screen Negative, Urine Benzodiazepines Screen Negative, Urine Cocaine Screen Negative, Urine Marijuana (THC) Screen Negative 08/16/19 22:40: Troponin I 0.003 08/17/19 03:00: White Blood Count 7.1, Red Blood Count 4.40, Hemoglobin 12.1, Hematocrit 36.8L, Mean Corpuscular Volume 84, Mean Corpuscular Hemoglobin 27.5, Mean Corpuscular Hemoglobin Concent 32.8, Red Cell Distribution Width 12.2, Platelet Count 254, Mean Platelet Volume 6.2L, Neutrophils (%) (Auto) 83.7H, Lymphocytes (%) (Auto) 9.5L, Monocytes (%) (Auto) 5.8, Eosinophils (%) (Auto) 0.0, Basophils (%) (Auto ) 1.0, Hemoglobin A1c 6.2H, Magnesium Level 1.4L, Pro-B-Type Natriuretic Peptide 104, Triglycerides Level 55, Cholesterol Level 152, LDL Cholesterol 85, HDL Cholesterol 53, Cholesterol/HDL Ratio 2.9L, Thyroid Stimulating Hormone (TSH ) 0.159L Height (Feet): 5 Height (Inches): 6.00 Weight (Pounds): 241 Yue Ibarra MD Aug 17, 2019 10:31
[2019-08-17] MEDS: Budesonide HHN 0.25mg/2ml ud HHN SCH ×2 (10:36→21:50)
[2019-08-17] MEDS ORDERED: Solu-MEDROL 40mg Inj IVP SCH (11:00)
[2019-08-17 12:00] VITALS: BP 132/77
--- NOTE | 2019-08-17 14:26 | Consultation ---
Consult Note Assessment/Plan DICT # [id number] Pan Toro MD Aug 17, 2019 14:26
[2019-08-17] MEDS ORDERED: dilTIAZem HCl 30mg tab ORAL SCH (15:30)
[2019-08-17 16:00] VITALS: BP 134/72
--- NOTE | 2019-08-17 17:27 | General Progress Note ---
Assessment/Plan Assessment/Plan: Assessment - N/V, Recent onset - GERD - Vitamin D deficiency - HTN Recommendations - PPI - Reflux precautions - possible EGD Monday Subjective Allergies: Coded Allergies: METRONIDAZOLE (Verified Allergy, Mild, 02/25/15) PENICILLIN G (Verified Allergy, Mild, 02/25/15) Objective Last 24 Hour Vital Signs Date Time Temp Pulse Resp B/P (MAP) Pulse Ox O2 Delivery O2 Flow Rate FiO2 08/17/19 16:15 113 20 99 Room Air 21 115 20 98 08/17/19 16:03 108 132/77 08/17/19 16:00 Room Air 08/17/19 16:00 99.5 117 22 134/72 (92) 96 08/17/19 15:24 124 08/17/19 14:04 108 132/77 08/17/19 12:00 Room Air 08/17/19 12:00 98.1 108 23 132/77 (95) 96 08/17/19 11:40 120 08/17/19 10:36 108 22 99 Room Air 21 103 22 99 08/17/19 09:41 111 20 99 Room Air 21 113 20 99 08/17/19 08:00 Room Air 08/17/19 08:00 98.1 116 21 135/82 (99) 96 08/17/19 07:47 112 08/17/19 06:42 114 126/56 08/17/19 04:00 113 08/17/19 04:00 Room Air 08/17/19 02:56 118 20 100 Room Air 21 117 20 98 08/17/19 00:00 111 08/17/19 00:00 Room Air 08/16/19 23:35 109 134/85 08/16/19 20:00 104 08/16/19 20:00 Room Air 08/16/19 19:34 Room Air 08/16/19 18:50 99.8 94 19 113/58 (76) 94 08/16/19 18:42 98.0 111 18 123/74 99 Room Air 08/16/19 17:30 98.2 114 17 116/78 95 Room Air Intake and Output 08/16/19 08/17/19 19:00 07:00 Intake Total 500 ml 500 ml Balance 500 ml 500 ml Intake Oral 500 ml IV Total 500 ml # Voids 3 Laboratory Tests 12/20/19 22:40: Troponin I 0.003 08/17/19 03:00: White Blood Count 7.1, Red Blood Count 4.40, Hemoglobin 12.1, Hematocrit 36.8L, Mean Corpuscular Volume 84, Mean Corpuscular Hemoglobin 27.5, Mean Corpuscular Hemoglobin Concent 32.8, Red Cell Distribution Width 12.2, Platelet Count 254, Mean Platelet Volume 6.2L, Neutrophils (%) (Auto) 83.7H, Lymphocytes (%) (Auto) 9.5L, Monocytes (%) (Auto) 5.8, Eosinophils (%) (Auto) 0.0, Basophils (%) (Auto ) 1.0, Hemoglobin A1c 6.2H, Magnesium Level 1.4L, Pro-B-Type Natriuretic Peptide 104, Triglycerides Level 55, Cholesterol Level 152, LDL Cholesterol 85, HDL Cholesterol 53, Cholesterol/HDL Ratio 2.9L, Thyroid Stimulating Hormone (TSH ) 0.159L 08/17/19 16:26: D-Dimer [Pending] Height (Feet): 5 Height (Inches): 6.00 Weight (Pounds): 241 Valerie Buchanan MD Aug 17, 2019 17:27
--- NOTE | 2019-08-17 18:45 | Consultation ---
DATE OF CONSULTATION: 08/17/2019 PULMONARY CONSULTATION CONSULTING PHYSICIAN: Pan Toro M.D. REFERRING PHYSICIAN: Yue Ibarra M.D. HISTORY OF PRESENT ILLNESS: The patient is a 59-year-old female with history of COPD, CHF, some sort of mold exposure, and multiple other medical problems, who is usually under the care of Dr. Axel Mcfarlane. Dr. Mcfarlane is unavailable and I was told to see the patient. The patient presented to the ER overnight with shortness of breath and chest pain. She has a history of pericardial effusion and thus bedside echo in the ER demonstrated a small pericardial effusion. She is on room air with sinus tachycardia. D-dimer was not sent. U-tox was negative. Laboratory workup was essentially unremarkable. Chest x-ray in the ER was done and unremarkable. Reviewing Dr. Mcfarlane's prior records, the patient had allergy testing done and mold testing done, which was negative in his office. An IgE was normal. CT angio July 20 of this year showed cardiomegaly and a pericardial effusion, but no PE. Echo June of this year showed an ejection fraction of 45% to 50% and evidence of valvular disease. PA systolic pressure at that time was 28. PAST MEDICAL HISTORY: 1. CHF. 2. Pericardial effusion. 3. Hemoptysis in the past. 4. GERD. 5. Hypertension. 6. COPD. ALLERGIES: Flagyl and penicillin. MEDICATIONS: Prior to admission medications reviewed. Current medications reviewed. SOCIAL HISTORY: She has quit smoking four months ago. No drug or alcohol use. FAMILY HISTORY: Noncontributory. REVIEW OF SYSTEMS: Negative other than the history of present illness. PHYSICAL EXAMINATION: VITAL SIGNS: Temperature 98.1, pulse 108, blood pressure 132/77, and respiratory rate 23. Saturating 96% on room air. GENERAL: She is a well-developed and well-nourished female, in no acute distress. Awake, alert, and oriented x3. HEENT: Normocephalic and atraumatic. Oropharynx is clear with moist mucous membranes. NECK: Supple without lymphadenopathy or jugular venous distention. CHEST: Scattered coarse breath sounds. HEART: Regular rate and rhythm. ABDOMEN: Soft, nontender, nondistended. EXTREMITIES: No cyanosis, clubbing or edema. ANCILLARY DATA: Labs reviewed. Imaging reviewed including prior CT angio and echo. ASSESSMENT: The patient is a 59-year-old female with a history of small pericardial effusion in the past, chronic obstructive pulmonary disease, former smoker, questionable history of mold and hemoptysis, presenting with shortness of breath likely secondary to an exacerbation of her underlying heart disease, also underlying lung disease. She did have SVT, which converted. I will get a D-dimer and a duplex to rule out venous thromboembolism. PROBLEM LIST: 1. COPD with acute exacerbation. 2. Questionable history of mold exposure and hemoptysis in the past. 3. SVT, converted. 4. CHF without evidence of decompensated heart failure. 5. History of pericardial effusion. 6. Hypertension. 7. Former smoker. TREATMENT PLAN: 1. Optimize pulmonary hygiene/mobilize as tolerated. 2. P.r.n. O2 to keep saturations greater than 90%. 3. Continue Pulmicort for now. 4. Fkcjs-plh-krxna and p.r.n. Atrovent and Xopenex hand-held nebulized treatments. 5. Discontinue IV Solu-Medrol, start prednisone 60 mg p.o. daily and taper. 6. Monitor volumes and renal function. 7. Cardiology has been consulted as well, awaiting their recommendations. 8. Follow up D-dimer and duplex. 9. Aspiration precautions. 10. DVT prophylaxis, Lovenox. 11. Continue to abstain from smoking. 12. The patient is a Full Code. 13. Post-discharge, the patient will follow up with Dr. Mcfarlaen. Dr. Ibarra, thank you for allowing me to assist in the care of your patient. If I may be of any assistance, please do not hesitate to ask. Pan Toro M.D. DR: MARJORIE JOB#: [id number] CC:
--- NOTE | 2019-08-17 19:10 | NUR ---
HAND-OFF: Report given to Emma Smith RN.
--- NOTE | 2019-08-17 19:10 | NUR ---
NURSE NOTES: Received report from Precious Dominique RN. Pt is A&O x4, ST, on room air sating at 96%, in stable condition. Pt denies any pain or distress at this time. at bedside. PIV in LFA patent, intact, and asymptomatic. Will contiue plan of care and close monitoring.
[2019-08-17] MEDS: Ipratropium 0.02% Inh Soln 2.5ml UD HHN SCH (19:23)
[2019-08-17] MEDS: Levalbuterol Inh UD 1.25mg/0.5ml HHN SCH (19:23)
[2019-08-17 20:00] VITALS: BP 157/90
--- NOTE | 2019-08-17 20:23 | Cardiology Progress Note ---
Assessment/Plan Assessment/Plan The patient is seen and examined, full consult note is dictated. Objective Last 24 Hour Vital Signs Date Time Temp Pulse Resp B/P (MAP) Pulse Ox O2 Delivery O2 Flow Rate FiO2 08/17/19 19:23 111 20 99 Room Air 21 107 20 96 08/17/19 16:15 113 20 99 Room Air 21 115 20 98 08/17/19 16:03 108 132/77 08/17/19 16:00 Room Air 08/17/19 16:00 99.5 117 22 134/72 (92) 96 08/17/19 15:24 124 08/17/19 14:04 108 132/77 08/17/19 12:00 Room Air 08/17/19 12:00 98.1 108 23 132/77 (95) 96 08/17/19 11:40 120 08/17/19 10:36 108 22 99 Room Air 21 103 22 99 08/17/19 09:41 111 20 99 Room Air 21 113 20 99 08/17/19 08:00 Room Air 08/17/19 08:00 98.1 116 21 135/82 (99) 96 08/17/19 07:47 112 08/17/19 06:42 114 126/56 08/17/19 04:00 113 08/17/19 04:00 Room Air 08/17/19 02:56 118 20 100 Room Air 21 117 20 98 08/17/19 00:00 111 08/17/19 00:00 Room Air 08/16/19 23:35 109 134/85 Intake and Output 08/16/19 08/17/19 19:00 07:00 Intake Total 500 ml 500 ml Balance 500 ml 500 ml Intake Oral 500 ml IV Total 500 ml # Voids 3 Laboratory Tests Test 08/16/19 22:40 08/17/19 03:00 08/17/19 16:26 Troponin I 0.003 ng/mL (0.000-0.056) White Blood Count 7.1 K/UL (4.8-10.8) Red Blood Count 4.40 M/UL (4.20-5.40) Hemoglobin 12.1 G/DL (12.0-16.0) Hematocrit 36.8 % (37.0-47.0) L Mean Corpuscular Volume 84 FL (80-99) Mean Corpuscular Hemoglobin 27.5 PG (27.0-31.0) Mean Corpuscular Hemoglobin Concent 32.8 G/DL (32.0-36.0) Red Cell Distribution Width 12.2 % (11.6-14.8) Platelet Count 254 K/UL (150-450) Mean Platelet Volume 6.2 FL (6.5-10.1) L Neutrophils (%) (Auto) 83.7 % (45.0-75.0) H Lymphocytes (%) (Auto) 9.5 % (20.0-45.0) L Monocytes (%) (Auto) 5.8 % (1.0-10.0) Eosinophils (%) (Auto) 0.0 % (0.0-3.0) Basophils (%) (Auto) 1.0 % (0.0-2.0) Hemoglobin A1c 6.2 % (4.3-6.0) H Magnesium Level 1.4 MG/DL (1.8-2.4) L Pro-B-Type Natriuretic Peptide 104 pg/mL (0-125) Triglycerides Level 55 MG/DL (30-150) Cholesterol Level 152 MG/DL (< 200) LDL Cholesterol 85 mg/dL (<100) HDL Cholesterol 53 MG/DL (40-60) Cholesterol/HDL Ratio 2.9 (3.3-4.4) L Thyroid Stimulating Hormone (TSH) 0.159 uiU/mL (0.358-3.740) D-Dimer 0.55 mg/L FEU (0.00-0.49) H Microbiology Date/Time Source Procedure Growth Status 08/16/19 16:40 Rectum Received Bc Daniels MD Aug 17, 2019 20:23
--- NOTE | 2019-08-17 20:50 | NUR ---
NURSE NOTES: Informed Dr. Daniels about pt's labs for potassium, magnesium; new orders given, see eMAR. Also informed about pt's continued refusal of lovenox; no new orders
[2019-08-17] MEDS ORDERED: Digoxin 0.5mg/2ml Inj IVP SCH (21:00)
[2019-08-17] MEDS: Morphine Sulfate 4mg/ml Inj (IV USE ONLY) IVP PRN (21:36)
[2019-08-17] MEDS: Enoxaparin 40mg Inj SUBQ SCH (23:00)
[2019-08-17] MEDS: dilTIAZem HCl 60mg tab ORAL SCH (23:53)
[2019-08-18] VITALS: BP 126/92
[2019-08-18 04:00] VITALS: BP 112/60
[2019-08-18 05:47] LABS: HEMATOCRIT 37.8 % (37.0-47.0); HEMOGLOBIN 12.4 G/DL (12.0-16.0); MEAN CORPUSCULAR VOLUME 84 FL (80-99); PLATELET COUNT 250 K/UL (150-450); RED CELL DISTRIBUTION WIDTH 12.6 % (11.6-14.8); WHITE BLOOD COUNT 7.1 K/UL (4.8-10.8)
[2019-08-18 06:00] LABS: ANION GAP 10 mmol/L (5-15); BLOOD UREA NITROGEN 13 mg/dL (7-18); CALCIUM 8.9 MG/DL (8.5-10.1); CARBON DIOXIDE 29 MMOL/L (21-32); CHLORIDE 99 MMOL/L (98-107); CREATININE 1.1 MG/DL (0.55-1.30); POTASSIUM 4.5 MMOL/L (3.5-5.1); SODIUM 138 MMOL/L (136-145)
[2019-08-18] MEDS: dilTIAZem HCl 60mg tab ORAL SCH ×3 (06:38→22:40)
--- NOTE | 2019-08-18 07:17 | NUR ---
NURSE NOTES: received patient report from sharon queen. patient is on bed awake. not in acute distress. comfortable, talkative. no arrythmias reported last night. skin is intact. will follow plan of care.
--- NOTE | 2019-08-18 07:26 | NUR ---
HAND-OFF: Report given to Luis Simmons RN. Pt in stable condition.
[2019-08-18] MEDS: Levalbuterol Inh UD 1.25mg/0.5ml HHN SCH ×3 (07:47→20:14)
[2019-08-18] MEDS: Ipratropium 0.02% Inh Soln 2.5ml UD HHN SCH ×3 (07:47→20:13)
[2019-08-18 08:00] VITALS: BP 101/66
[2019-08-18] MEDS: Aspirin Baby 81mg ORAL SCH (08:14)
[2019-08-18] MEDS: Digoxin 0.125mg tab ORAL SCH (08:14)
[2019-08-18] MEDS: Morphine Sulfate 4mg/ml Inj (IV USE ONLY) IVP PRN ×2 (08:19→18:30)
--- NOTE | 2019-08-18 08:34 | General Progress Note ---
Assessment/Plan Assessment/Plan: S: I am feeling sorethroat and Stomach ache O : no chest pain, mild sob, complains of exertional sob with walking in her room ,PHYSICAL EXAMINATION:HEAD AND NECK: Atraumatic and normocephalic. CHEST: Diffuse bronchial breathing sounds.HEART: S1, S2. Regular rate and rhythm. ABDOMEN: Soft. No organomegaly. Morbidly obese.MUSCULOSKELETAL: Decreased range of motion in the lower extremity at baseline. No gross lateralized asymmetric motor deficit.NEUROLOGIC: The patient is awake, alert, and oriented x3. LABORATORY AND DIAGNOSTIC DATA: Dated Aug 18, reveiwed ASSESSMENT AND PLAN: 1. Acute COPD exacerbation 2. PAF, rate controlled today 3. GERD, chronic. 4. Hypertension. 5. Prediabetes. 6. Small Pericardial effusion 0- history of , 6. Chronic lumbar spondylosis and stenosis. 7. Dysphagia with abn ST eval Plan: GI Cardiology Pulmonary notes are reviewed Subjective Allergies: Coded Allergies: METRONIDAZOLE (Verified Allergy, Mild, 02/25/15) PENICILLIN G (Verified Allergy, Mild, 02/25/15) Objective Last 24 Hour Vital Signs Date Time Temp Pulse Resp B/P (MAP) Pulse Ox O2 Delivery O2 Flow Rate FiO2 08/18/19 08:14 93 08/18/19 08:00 98.2 93 23 101/66 (78) 93 08/18/19 07:47 87 08/18/19 07:39 Room Air 08/18/19 06:38 83 111/70 08/18/19 05:24 128/86 08/18/19 04:00 98.4 92 18 112/60 (77) 95 08/18/19 04:00 Room Air 08/18/19 03:34 87 08/18/19 00:00 Room Air 08/18/19 00:00 106 08/18/19 00:00 98.2 106 20 126/92 (103) 96 08/17/19 23:53 104 135/85 08/17/19 22:37 137/84 08/17/19 21:45 104 20 99 Room Air 21 101 20 96 08/17/19 21:22 114 08/17/19 20:00 143 08/17/19 20:00 98.9 111 20 157/90 (112) 95 08/17/19 20:00 Room Air 08/17/19 19:26 105 20 100 Room Air 21 107 20 96 08/17/19 16:15 113 20 99 Room Air 21 115 20 98 08/17/19 16:03 108 132/77 08/17/19 16:00 Room Air 08/17/19 16:00 99.5 117 22 134/72 (92) 96 08/17/19 15:24 124 08/17/19 14:04 108 132/77 08/17/19 12:00 Room Air 08/17/19 12:00 98.1 108 23 132/77 (95) 96 08/17/19 11:40 120 08/17/19 10:36 108 22 99 Room Air 21 103 22 99 08/17/19 09:41 111 20 99 Room Air 21 113 20 99 Intake and Output 08/17/19 08/18/19 19:00 07:00 Intake Total 600 ml 2500 ml Balance 600 ml 2500 ml Intake Oral 600 ml 2400 ml IV Total 100 ml # Voids 5 5 Laboratory Tests 08/17/19 16:26: D-Dimer 0.55H 08/17/19 22:17: Troponin I 0.027 08/18/19 03:00: White Blood Count 7.1, Red Blood Count 4.50, Hemoglobin 12.4, Hematocrit 37.8, Mean Corpuscular Volume 84, Mean Corpuscular Hemoglobin 27.5, Mean Corpuscular Hemoglobin Concent 32.7, Red Cell Distribution Width 12.6, Platelet Count 250, Mean Platelet Volume 6.2L, Neutrophils (%) (Auto) , Lymphocytes (%) (Auto) , Monocytes (%) (Auto) , Eosinophils (%) (Auto) , Basophils (%) (Auto) , Neutrophils % (Manual) [Pending], Lymphocytes % (Manual) [Pending], Platelet Estimate [Pending], Platelet Morphology [Pending], Sodium Level 138, Potassium Level 4.5, Chloride Level 99, Carbon Dioxide Level 29, Anion Gap 10, Blood Urea Nitrogen 13, Creatinine 1.1, Estimat Glomerular Filtration Rate > 60, Glucose Level 226H, Calcium Level 8.9, Magnesium Level 1.5L Height (Feet): 5 Height (Inches): 6.00 Weight (Pounds): 241 Yue Ibarra MD Aug 18, 2019 08:34
[2019-08-18] MEDS: Budesonide HHN 0.25mg/2ml ud HHN SCH ×2 (09:20→21:00)
[2019-08-18 12:00] VITALS: BP 108/62
[2019-08-18] MEDS ORDERED: Tubing IV Secondary IV ONE (13:49)
--- NOTE | 2019-08-18 14:05 | Pulmonology Progress Note ---
Assessment/Plan Problems: (1) COPD exacerbation (2) CHF exacerbation (3) SVT (supraventricular tachycardia) (4) GERD (gastroesophageal reflux disease) Assessment/Plan ASSESSMENT: The patient is a 59-year-old female with a history of small pericardial effusion in the past, chronic obstructive pulmonary disease, former smoker, questionable history of mold and hemoptysis, presenting with shortness of breath likely secondary to an exacerbation of her underlying heart disease, also underlying lung disease. She did have SVT, which converted. I will get a D-dimer and a duplex to rule out venous thromboembolism. PROBLEM LIST: 1. COPD with acute exacerbation. 2. Questionable history of mold exposure and hemoptysis in the past. 3. SVT, converted. 4. CHF without evidence of decompensated heart failure. 5. History of pericardial effusion. 6. Hypertension. 7. Former smoker. TREATMENT PLAN: 1. Optimize pulmonary hygiene/mobilize as tolerated. 2. P.r.n. O2 to keep saturations greater than 90%. 3. Continue Pulmicort for now. 4. Fyzix-ojp-amxvi and p.r.n. Atrovent and Xopenex hand-held nebulized treatments. 5. Continue prednisone 60 mg p.o. daily (D2) and taper. 6. Monitor volumes and renal function. 7. Cardiology has been consulted as well, awaiting their recommendations. 8. Follow up GI recs, PPI, possible EGD tommorrow 9. Aspiration precautions. 10. DVT prophylaxis, Lovenox. 11. Continue to abstain from smoking. 12. The patient is a Full Code. 13. Post-discharge, the patient will follow up with Dr. Mcfarlane. Subjective Allergies: Coded Allergies: METRONIDAZOLE (Verified Allergy, Mild, 02/25/15) PENICILLIN G (Verified Allergy, Mild, 02/25/15) Subjective AFVSS on RA C/O sore throat, cough, SOB, N no V, no FC Objective Last 24 Hour Vital Signs Date Time Temp Pulse Resp B/P (MAP) Pulse Ox O2 Delivery O2 Flow Rate FiO2 08/18/19 14:00 108/62 08/18/19 12:00 Room Air 08/18/19 12:00 98.0 78 21 108/62 (77) 93 08/18/19 11:40 85 08/18/19 09:30 99 18 100 Room Air 21 98 18 95 08/18/19 08:14 93 08/18/19 08:00 98.2 93 23 101/66 (78) 93 08/18/19 07:57 98 18 100 Room Air 21 99 18 96 08/18/19 07:47 87 08/18/19 07:39 Room Air 08/18/19 06:38 83 111/70 08/18/19 05:24 128/86 08/18/19 04:00 98.4 92 18 112/60 (77) 95 08/18/19 04:00 Room Air 08/18/19 03:34 87 08/18/19 00:00 Room Air 08/18/19 00:00 106 08/18/19 00:00 98.2 106 20 126/92 (103) 96 08/17/19 23:53 104 135/85 08/17/19 22:37 137/84 08/17/19 21:45 104 20 99 Room Air 21 101 20 96 08/17/19 21:22 114 08/17/19 20:00 143 08/17/19 20:00 98.9 111 20 157/90 (112) 95 08/17/19 20:00 Room Air 08/17/19 19:26 105 20 100 Room Air 21 107 20 96 08/17/19 16:15 113 20 99 Room Air 21 115 20 98 08/17/19 16:03 108 132/77 08/17/19 16:00 Room Air 08/17/19 16:00 99.5 117 22 134/72 (92) 96 08/17/19 15:24 124 08/17/19 14:04 108 132/77 Intake and Output 08/17/19 08/18/19 19:00 07:00 Intake Total 600 ml 2500 ml Balance 600 ml 2500 ml Intake Oral 600 ml 2400 ml IV Total 100 ml # Voids 5 5 General Appearance: WD/WN, no acute distress - ob female HEENT: normocephalic, atraumatic Respiratory/Chest: chest wall non-tender, lungs clear, normal breath sounds, no respiratory distress, no accessory muscle use Cardiovascular: normal peripheral pulses, normal rate, regular rhythm Abdomen: normal bowel sounds, soft, non tender, no organomegaly, non distended , no mass Extremities: no cyanosis, no clubbing, no edema Microbiology Date/Time Source Procedure Growth Status 08/16/19 16:40 Nasal Nares MRSA Culture - Final NO METHICILLIN RESISTANT STAPH AUREUS... Complete 08/16/19 16:40 Rectum - Final NO CARBAPENEM-RESISTANT ENTEROBACTERI... Complete 08/16/19 16:40 Rectum VRE Culture - Final NO VANCOMYCIN RESISTANT ENTEROCOCCUS ... Complete Laboratory Tests 08/17/19 16:26: D-Dimer 0.55H 08/17/19 22:17: Troponin I 0.027 08/18/19 03:00: White Blood Count 7.1, Red Blood Count 4.50, Hemoglobin 12.4, Hematocrit 37.8, Mean Corpuscular Volume 84, Mean Corpuscular Hemoglobin 27.5, Mean Corpuscular Hemoglobin Concent 32.7, Red Cell Distribution Width 12.6, Platelet Count 250, Mean Platelet Volume 6.2L, Neutrophils (%) (Auto) , Lymphocytes (%) (Auto) , Monocytes (%) (Auto) , Eosinophils (%) (Auto) , Basophils (%) (Auto) , Differential Total Cells Counted 100, Neutrophils % (Manual) 91H, Lymphocytes % (Manual) 7L, Monocytes % (Manual) 2, Eosinophils % (Manual) 0, Basophils % ( Manual) 0, Band Neutrophils 0, Platelet Estimate Adequate, Platelet Morphology Normal, Red Blood Cell Morphology Normal, Sodium Level 138, Potassium Level 4.5 , Chloride Level 99, Carbon Dioxide Level 29, Anion Gap 10, Blood Urea Nitrogen 13, Creatinine 1.1, Estimat Glomerular Filtration Rate > 60, Glucose Level 226H , Calcium Level 8.9, Magnesium Level 1.5L Current Medications Medications (Trade) Dose Ordered Sig/Alethea Route PRN Reason Start Time Stop Time Status Last Admin Dose Admin Acetaminophen (Tylenol) 650 mg Q4H PRN ORAL fever 08/16/19 22:00 09/15/19 21:59 08/18/19 03:57 Aspirin (ASA) 81 mg DAILY ORAL 08/17/19 09:00 09/16/19 08:59 08/18/19 08:14 Budesonide (Pulmicort) 0.25 mg EVERY 12 HOURS HHN 08/17/19 10:00 09/16/19 09:59 08/18/19 09:20 Clonidine HCl (Catapres Tab) 0.1 mg EVERY 8 HOURS ORAL 08/17/19 22:00 09/16/19 21:59 08/18/19 05:24 Dextrose (Dextrose 50%) 25 ml Q30M PRN IV Hypoglycemia 08/16/19 22:00 09/15/19 21:59 Dextrose (Dextrose 50%) 50 ml Q30M PRN IV Hypoglycemia 08/16/19 22:00 09/15/19 21:59 Digoxin (Lanoxin) 0.125 mg Q24HRS ORAL 08/18/19 09:00 09/17/19 08:59 08/18/19 08:14 Diltiazem HCl (Cardizem) 60 mg Q8H ORAL 08/17/19 23:00 09/15/19 22:59 08/18/19 06:38 Enoxaparin Sodium (Lovenox) 40 mg Q24H SUBQ 08/16/19 23:00 09/15/19 22:59 Ipratropium [place] (Atrovent) 500 mcg TIDRT HHN 08/17/19 19:00 08/22/19 18:59 08/18/19 13:40 Levalbuterol HCl (Xopenex) 0.625 mg TIDRT HHN 08/17/19 19:00 08/22/19 18:59 08/18/19 13:41 Levalbuterol HCl (Xopenex) 1.25 mg Q6H PRN HHN Shortness of Breath 08/17/19 10:00 08/22/19 09:59 08/17/19 16:15 Lorazepam (Ativan) 1 mg Q4H PRN ORAL For Anxiety 08/16/19 22:00 08/23/19 21:59 Magnesium Sulfate 100 ml @ 100 mls/hr Q1H IVPB 08/18/19 12:00 08/18/19 14:59 08/18/19 13:36 Morphine Sulfate (Morphine Sulfate) 4 mg Q8H PRN IVP PAIN 4-10 08/17/19 20:00 08/23/19 19:59 08/18/19 08:19 Ondansetron HCl (Zofran) 4 mg Q4H PRN IVP Nausea & Vomiting 08/17/19 00:45 09/16/19 00:44 08/18/19 03:56 Pantoprazole (Protonix) 40 mg EVERY 12 HOURS ORAL 08/17/19 21:00 09/16/19 08:59 08/18/19 08:13 Prednisone (predniSONE) 60 mg DAILY ORAL 08/18/19 09:00 09/17/19 08:59 08/18/19 08:13 Pan Toro MD Aug 18, 2019 14:05
[2019-08-18 16:00] VITALS: BP 114/63
--- NOTE | 2019-08-18 17:35 | General Progress Note ---
Assessment/Plan Assessment/Plan: Assessment - N/V, improved - GERD - Vitamin D deficiency - HTN Recommendations - PPI - Reflux precautions - EGD Monday, if ok from Pulm standpoint Subjective Allergies: Coded Allergies: METRONIDAZOLE (Verified Allergy, Mild, 02/25/15) PENICILLIN G (Verified Allergy, Mild, 02/25/15) Subjective Feels OK no change in GERD symptoms Objective Last 24 Hour Vital Signs Date Time Temp Pulse Resp B/P (MAP) Pulse Ox O2 Delivery O2 Flow Rate FiO2 08/18/19 16:00 Room Air 08/18/19 14:43 78 108/62 08/18/19 14:00 108/62 08/18/19 13:50 99 18 100 Room Air 21 96 18 95 08/18/19 12:00 Room Air 08/18/19 12:00 98.0 78 21 108/62 (77) 93 08/18/19 11:40 85 08/18/19 09:30 99 18 100 Room Air 21 98 18 95 08/18/19 08:14 93 08/18/19 08:00 98.2 93 23 101/66 (78) 93 08/18/19 07:57 98 18 100 Room Air 21 99 18 96 08/18/19 07:47 87 08/18/19 07:39 Room Air 08/18/19 06:38 83 111/70 08/18/19 05:24 128/86 08/18/19 04:00 98.4 92 18 112/60 (77) 95 08/18/19 04:00 Room Air 08/18/19 03:34 87 08/18/19 00:00 Room Air 08/18/19 00:00 106 08/18/19 00:00 98.2 106 20 126/92 (103) 96 08/17/19 23:53 104 135/85 08/17/19 22:37 137/84 08/17/19 21:45 104 20 99 Room Air 21 101 20 96 08/17/19 21:22 114 08/17/19 20:00 143 08/17/19 20:00 98.9 111 20 157/90 (112) 95 08/17/19 20:00 Room Air 08/17/19 19:26 105 20 100 Room Air 21 107 20 96 Intake and Output 08/17/19 08/18/19 19:00 07:00 Intake Total 600 ml 2500 ml Balance 600 ml 2500 ml Intake Oral 600 ml 2400 ml IV Total 100 ml # Voids 5 5 Laboratory Tests 08/17/19 22:17: Troponin I 0.027 08/18/19 03:00: White Blood Count 7.1, Red Blood Count 4.50, Hemoglobin 12.4, Hematocrit 37.8, Mean Corpuscular Volume 84, Mean Corpuscular Hemoglobin 27.5, Mean Corpuscular Hemoglobin Concent 32.7, Red Cell Distribution Width 12.6, Platelet Count 250, Mean Platelet Volume 6.2L, Neutrophils (%) (Auto) , Lymphocytes (%) (Auto) , Monocytes (%) (Auto) , Eosinophils (%) (Auto) , Basophils (%) (Auto) , Differential Total Cells Counted 100, Neutrophils % (Manual) 91H, Lymphocytes % (Manual) 7L, Monocytes % (Manual) 2, Eosinophils % (Manual) 0, Basophils % ( Manual) 0, Band Neutrophils 0, Platelet Estimate Adequate, Platelet Morphology Normal, Red Blood Cell Morphology Normal, Sodium Level 138, Potassium Level 4.5 , Chloride Level 99, Carbon Dioxide Level 29, Anion Gap 10, Blood Urea Nitrogen 13, Creatinine 1.1, Estimat Glomerular Filtration Rate > 60, Glucose Level 226H , Calcium Level 8.9, Magnesium Level 1.5L Height (Feet): 5 Height (Inches): 6.00 Weight (Pounds): 241 Objective Obese AA woman NCAT supple CTA RRR abd soft ND, mild epig TTP no edema Valerie Buchanan MD Aug 18, 2019 17:35
--- NOTE | 2019-08-18 18:45 | Consultation ---
DATE OF CONSULTATION: 08/17/2019 GASTROENTEROLOGY CONSULTATION CONSULTING PHYSICIAN: Valerie Buchanan M.D. REFERRING PHYSICIAN: Yue Ibarra M.D. CHIEF COMPLAINT: I was asked to see this patient by Dr. Yue Ibarra for evaluation of her upper gastrointestinal symptoms. HISTORY OF PRESENT ILLNESS: The patient is a 59-year-old woman who comes into the hospital due to shortness of breath. She has a history of COPD and congestive heart failure and other multiple medical problems. The patient also complains of some epigastric abdominal pain with features of reflux. She has nausea. She had an attempted endoscopy on the previous admission though apparently this was not successful. She has never had a colonoscopy. She has symptoms of gastroesophageal reflux and this is despite being on omeprazole for a long time. PAST MEDICAL HISTORY: History of hypertension, history of COPD, history of low vitamin D, congestive heart failure, gastroesophageal reflux. ALLERGIES: Flagyl and penicillin. FAMILY HISTORY: Noncontributory. SOCIAL HISTORY: The patient has had a past history of smoking, but stopped this a few months ago. She does not drink alcohol. REVIEW OF SYSTEMS: Otherwise negative. PHYSICAL EXAMINATION: GENERAL: Obese woman, seen in her room, in no distress. HEENT: Normocephalic and atraumatic. Sclerae anicteric. Oropharynx clear. NECK: Supple. CHEST: Clear to auscultation. CARDIOVASCULAR: Regular rate. ABDOMEN: Soft with good bowel sounds. There is some epigastric tenderness to palpation, which is mild. EXTREMITIES: Revealed no edema. LABORATORY DATA: Noted. ASSESSMENT: The patient presents with epigastric abdominal discomfort and long-standing gastroesophageal reflux symptoms despite treatment with proton pump inhibitor. The patient to be evaluated for possible causes of pain including refractory reflux or ulcer disease. Endoscopy can be considered to confirm this evaluation. An abdominal ultrasound has been done already a month ago showing cholecystectomy. to evaluate the upper GI areas. In the meantime, the patient should be placed on proton pump inhibitor and her symptoms will be followed closely. RECOMMENDATIONS: Per above discussion and per orders written in the chart. Thank you for asking me to participate in the care of this patient. Valerie Buchanan M.D. DR: HAILEE JOB#: [id number] CC:
--- NOTE | 2019-08-18 19:23 | NUR ---
NURSE NOTES: REPORT GIVEN TO BRII WAGONER
--- NOTE | 2019-08-18 19:30 | NUR ---
NURSE NOTES: Received report from Luis Simmons RN. Pt is in stable conditon, asymptomatic sinus tachycardia, denies any pain or distress at this time. Pt A&O x 4, on room air sating at 96%. Pt informed of NPO statusat midnight, verbalized understanding. Bed in lowest position, call light within reach. Pt has bathroom privileges. Will continue plan of care and close monitoring.
[2019-08-18 20:00] VITALS: BP 129/61
[2019-08-18] MEDS: Enoxaparin 40mg Inj SUBQ SCH (22:41)
[2019-08-19] VITALS (9 sets, daily range): BP systolic 113–137; BP diastolic 52–76
[2019-08-19] MEDS: dilTIAZem HCl 60mg tab ORAL SCH ×3 (07:00→22:51)
[2019-08-19] MEDS: Ipratropium 0.02% Inh Soln 2.5ml UD HHN SCH ×3 (07:00→20:08)
[2019-08-19] MEDS: Levalbuterol Inh UD 1.25mg/0.5ml HHN SCH ×3 (07:00→20:08)
--- NOTE | 2019-08-19 07:34 | NUR ---
HAND-OFF: Pt in stable condition, report given to Tanisha Almodovar RN.
--- NOTE | 2019-08-19 07:52 | NUR ---
NURSE NOTES: RECEIVED REPORT FROM PADILLA Gleason PT IN BED, AWAKENS TO NAME. A/O X4. REMAINS NPO, NO C/O PAIN OR N/V. VSS. HAS USED BEDSIDE COMMODE. ON R.A SATING WELL. BED ALARM ON, IN LOW POSITION. INFORMED PT OF PLAN OF CARE FOR TODAY. WILL CONTINUE TO MONITOR PT.
[2019-08-19] MEDS: Digoxin 0.125mg tab ORAL SCH (09:00)
[2019-08-19] MEDS: Aspirin Baby 81mg ORAL SCH (09:00)
[2019-08-19] MEDS: Budesonide HHN 0.25mg/2ml ud HHN SCH ×2 (09:23→21:00)
--- NOTE | 2019-08-19 09:39 | NUR ---
NURSE NOTES: pt npo prior to procedure. oral temp 102.4. cooling measures in place, ice packs and cool clothe. pt insist on light blanket coverage.
[2019-08-19] MEDS ORDERED: Alfentanil 2ml Inj ONE (09:46)
--- NOTE | 2019-08-19 09:48 | NUR ---
NURSE NOTES: called md shields regarding pt need for am labs, oral temp 102.4. hr 120's. received order to place cmp and cbc.
--- NOTE | 2019-08-19 09:49 | NUR ---
NURSE NOTES: tech here to take pt to [facility]. will return w/ olivia. consent signed by pt and in chart.
[2019-08-19] MEDS ORDERED: LR 1000ml ONE (10:00)
[2019-08-19] MEDS ORDERED: Lidocaine 1% Plain 30 ml INJ ONE (10:00)
[2019-08-19] MEDS ORDERED: Propofol 200mg/20ml IV ONE (10:00)
[2019-08-19] MEDS ORDERED: Flumazenil 0.1mg/ml 5ml Inj IV ONE (10:00)
[2019-08-19] MEDS ORDERED: NS 500ML IVPB ONE (10:05)
--- NOTE | 2019-08-19 10:05 | NUR ---
NURSE NOTES: PT OFF FLOOR, TO [facility] LAB. REPORT GIVEN, SBAR USED ALL QUESTIONS ANSWERED.
--- NOTE | 2019-08-19 10:11 | General Progress Note ---
Assessment/Plan Assessment/Plan: Assessment - N/V, improved - GERD - Low Mg - HTN Recommendations - PPI - Reflux precautions - EGD today - repeat Mg level Subjective Allergies: Coded Allergies: METRONIDAZOLE (Verified Allergy, Mild, 02/25/15) PENICILLIN G (Verified Allergy, Mild, 02/25/15) Subjective Feels OK no change in GERD symptoms seen in GI lab Objective Last 24 Hour Vital Signs Date Time Temp Pulse Resp B/P (MAP) Pulse Ox O2 Delivery O2 Flow Rate FiO2 08/19/19 09:18 118 20 99 Room Air 21 120 20 92 08/19/19 08:14 113 20 100 Room Air 21 114 20 100 08/19/19 07:41 113 08/19/19 05:13 137/76 08/19/19 04:00 98.7 97 22 137/76 (96) 96 08/19/19 04:00 Room Air 08/19/19 04:00 96 08/19/19 00:00 Room Air 08/19/19 00:00 97.9 77 18 113/52 (72) 95 08/19/19 00:00 76 08/18/19 22:40 96 130/69 08/18/19 21:11 129/61 08/18/19 20:14 91 18 100 Room Air 21 86 18 96 08/18/19 20:00 Room Air 08/18/19 20:00 98.1 93 22 129/61 (83) 99 08/18/19 20:00 102 08/18/19 16:00 97.9 93 22 114/63 (80) 99 08/18/19 16:00 Room Air 08/18/19 15:24 100 08/18/19 14:43 78 108/62 08/18/19 14:00 108/62 08/18/19 13:50 99 18 100 Room Air 21 96 18 95 08/18/19 12:00 Room Air 08/18/19 12:00 98.0 78 21 108/62 (77) 93 08/18/19 11:40 85 Intake and Output 08/18/19 08/19/19 19:00 07:00 Intake Total 1300 ml Balance 1300 ml Intake Oral 1000 ml IV Total 300 ml # Voids 3 # Bowel Movements 3 3 Laboratory Tests 08/18/19 21:23: Troponin I 0.020 Height (Feet): 5 Height (Inches): 6.00 Weight (Pounds): 241 Objective Obese AA woman NCAT supple CTA RRR abd soft ND, mild epig TTP no edema Valerie Buchanan MD Aug 19, 2019 10:11
--- NOTE | 2019-08-19 10:12 | Anethesia Preoperative Eval ---
Anesthesia Pre-op PMH/ROS General Date of Evaluation: Aug 19, 2019 Time of Evaluation: 09:56 Anesthesiologist: Shirin ASA Score: ASA 4 Mallampati Score Class I : Soft palate, uvula, fauces, pillars visible Class II: Soft palate, uvula, fauces visible Class III: Soft palate, base of uvula visible Class IV: Only hard plate visible Mallampati Classification: Class III Surgeon: Chanel Diagnosis: Abd Pain Surgical Procedure: EGD Anesthesia History: none Family History: no anesthesia problems Allergies: Coded Allergies: METRONIDAZOLE (Verified Allergy, Mild, 02/25/15) PENICILLIN G (Verified Allergy, Mild, 02/25/15) Medications: see eMAR Patient NPO?: Yes Past Medical History Cardiovascular: Reports: HTN, valve dz - MVR, other - HL, CHF, Cardiomegaly Pulmonary: Reports: COPD, other - Pneumothorax Neurologic/Psychiatric: Reports: depression/anxiety Other: obesity - Morbid BMI 40 Anesthesia Pre-op Phys. Exam Physician Exam Last Vital Signs Date Time Temp Pulse Resp B/P (MAP) Pulse Ox O2 Delivery O2 Flow Rate FiO2 08/19/19 09:18 118 20 99 Room Air 21 120 20 92 08/19/19 05:13 137/76 08/19/19 04:00 98.7 Constitutional: NAD Neurologic: CN 2-12 intact Cardiovascular: RRR Respiratory: CTA Gastrointestinal: S/NT/ND Airway Exam Mallampati Score: Class III MO: limited ROM: limited Teeth: intact Anesthesia Pre-op A/P Labs Chemistry Test 08/18/19 21:23 Troponin I 0.020 ng/mL (0.000-0.056) Risk Assessment & Plan Assessment: ASA 4 Plan: GA Status Change Before Surgery: Corwin Lomeli MD Aug 19, 2019 10:12
--- NOTE | 2019-08-19 10:12 | Pre-Procedure Note/Attestation ---
Pre-Procedure Note/Attestation Complete Prior to Procedure Planned Procedure: not applicable Procedure Narrative: egd Indications for Procedure Pre-Operative Diagnosis: abd pain Attestation I attest that I discussed the nature of the procedure; its benefits; risks and complications; and alternatives (and the risks and benefits of such alternatives ), prior to the procedure, with the patient (or the patient's legal product support representative). I attest that, if there was a reasonable possibility of needing a blood transfusion, the patient (or the patient's legal product support representative) was given the [facility] standardized written summary, pursuant to the [place]anne Blood Safety Act ([place] Health and Safety Code # 1645, as amended). I attest that I re-evaluated the patient just prior to the surgery and that there has been no change in the patient's H&P, except as documented below: Valerie Buchanan MD Aug 19, 2019 10:11
--- NOTE | 2019-08-19 10:15 | Immediate Post-Op Evaluation ---
Immediate Post-Op Evalulation Immediate Post-Op Evalulation Procedure: EGD Date of Evaluation: Aug 19, 2019 Time of Evaluation: 10:59 IV Fluids: 200 NS Blood Products: 0 Estimated Blood Loss: 2 Urinary Output: 0 Blood Pressure Systolic: 130 Blood Pressure Diastolic: 64 Pulse Rate: 111 Respiratory Rate: 22 O2 Sat by Pulse Oximetry: 100 Temperature (Fahrenheit): 99 Pain Score (1-10): 2 Nausea: No Vomiting: No Complications 0 Patient Status: awake, reacts, patent, none Hydration Status: adequate Corwin Carpio MD Aug 19, 2019 10:15
--- NOTE | 2019-08-19 10:15 | 48 Hour Post Anesthesia Eval ---
Post Anesthesia Evaluation Procedure: EGD Date of Evaluation: Aug 19, 2019 Time of Evaluation: 13:05 Blood Pressure Systolic: 154 0: 63 Pulse Rate: 112 Respiratory Rate: 22 Temperature (Fahrenheit): 99 O2 Sat by Pulse Oximetry: 96 Airway: patent Nausea: No Vomiting: No Pain Intensity: 2 Hydration Status: adequate Cardiopulmonary Status: Stable Mental Status/LOC: patient returned to baseline Follow-up Care/Observations: 0 Post-Anesthesia Complications: 0 Follow-up care needed: N/A Corwin Carpio MD Aug 19, 2019 10:15
--- NOTE | 2019-08-19 10:34 | General Progress Note ---
Assessment/Plan Status: stable Assessment/Plan: S: I am feeling sorethroat and Stomach ache O : no chest pain, mild sob, complains of exertional sob with walking in her room ,PHYSICAL EXAMINATION:HEAD AND NECK: Atraumatic and normocephalic. CHEST: Diffuse bronchial breathing sounds.HEART: S1, S2. Regular rate and rhythm. ABDOMEN: Soft. No organomegaly. Morbidly obese.MUSCULOSKELETAL: Decreased range of motion in the lower extremity at baseline. No gross lateralized asymmetric motor deficit.NEUROLOGIC: The patient is awake, alert, and oriented x3. LABORATORY AND DIAGNOSTIC DATA: Dated Aug 18, reveiwed ASSESSMENT AND PLAN: 1. Acute COPD exacerbation 2. PAF, rate controlled today 3. GERD, chronic. 4. Hypertension. 5. Prediabetes. 6. Small Pericardial effusion 0- history of , 6. Chronic lumbar spondylosis and stenosis. 7. Dysphagia with abn ST eval Plan: GI Cardiology Pulmonary notes are reviewed Proceed with EGD, per GI Ok to tylenol, PRN Temp Subjective Allergies: Coded Allergies: METRONIDAZOLE (Verified Allergy, Mild, 02/25/15) PENICILLIN G (Verified Allergy, Mild, 02/25/15) Objective Last 24 Hour Vital Signs Date Time Temp Pulse Resp B/P (MAP) Pulse Ox O2 Delivery O2 Flow Rate FiO2 08/19/19 09:18 118 20 99 Room Air 21 120 20 92 08/19/19 08:14 113 20 100 Room Air 21 114 20 100 08/19/19 07:41 113 08/19/19 05:13 137/76 08/19/19 04:00 98.7 97 22 137/76 (96) 96 08/19/19 04:00 Room Air 08/19/19 04:00 96 08/19/19 00:00 Room Air 08/19/19 00:00 97.9 77 18 113/52 (72) 95 08/19/19 00:00 76 08/18/19 22:40 96 130/69 08/18/19 21:11 129/61 08/18/19 20:14 91 18 100 Room Air 21 86 18 96 08/18/19 20:00 Room Air 08/18/19 20:00 98.1 93 22 129/61 (83) 99 08/18/19 20:00 102 08/18/19 16:00 97.9 93 22 114/63 (80) 99 08/18/19 16:00 Room Air 08/18/19 15:24 100 08/18/19 14:43 78 108/62 08/18/19 14:00 108/62 08/18/19 13:50 99 18 100 Room Air 21 96 18 95 08/18/19 12:00 Room Air 08/18/19 12:00 98.0 78 21 108/62 (77) 93 08/18/19 11:40 85 Intake and Output 08/18/19 08/19/19 19:00 07:00 Intake Total 1300 ml Balance 1300 ml Intake Oral 1000 ml IV Total 300 ml # Voids 3 # Bowel Movements 3 3 Laboratory Tests 08/18/19 21:23: Troponin I 0.020 Height (Feet): 5 Height (Inches): 6.00 Weight (Pounds): 241 Yue Ibarra MD Aug 19, 2019 10:34
--- NOTE | 2019-08-19 10:47 | Endoscopy Procedure Note ---
Endoscopy Procedure Note General Indication for Procedure: epig pain Procedures Performed: EGD Operative Findings/Diagnosis: 1 cm mobile submucosal nodule at 6 pm of mid antrum (bx),s/p lower Esoph bx Specimen: yes Pt Tolerated Procedure Well: Yes Estimated Blood Loss: none Anesthesia Anesthesiologist: Maycol Anesthesia: MAC Medications Medication Given: see anesthesia record Inserted Devices Implant(s) used?: No GI Core Measures 50 yrs or older w/o bx or poly: Not Applicable 10yrs. F/U recommended: Not Applicable If not recommended, why?: Valerie Buchanan MD Aug 19, 2019 10:46
--- NOTE | 2019-08-19 10:48 | Brief Operative Note ---
Immediate Post Operative Note Operative Note Chief Complaint: epig pain Pre-op Diagnosis: abd pain Procedure: esophagogastroduodenoscopy bx Post-op Diagnosis: 1 cm mobile submucosal nodule at 6 pm of mid antrum (bx),s/p lower Esoph bx Surgeon: chantell Anesthesiologist: To Anesthesia: MAC Specimen: yes Complications: none Condition: stable Fluids: per anesthesia Estimated Blood Loss: none Drains: none Implant(s) used?: No Valerie Buchanan MD Aug 19, 2019 10:48
[2019-08-19] MEDS ORDERED: LR 1000ml 1,000 ML IVLG SCH (10:55)
[2019-08-19] MEDS ORDERED: HYDROcodone/Acetamin 5/325 tab ORAL PRN (11:00)
[2019-08-19] MEDS ORDERED: DiphenhydrAMINE 50mg/ml Inj IVP PRN (11:00)
[2019-08-19] MEDS ORDERED: Meperidine 50mg/ml Inj(FOR RIGORS ONLY) IVP PRN (11:00)
[2019-08-19] MEDS ORDERED: Metoclopramide 10mg/2ml Inj IVP PRN (11:00)
[2019-08-19] MEDS ORDERED: fentaNYL 100 mcg/2 mL IV PRN (11:00)
[2019-08-19] MEDS ORDERED: oxyCODONE HCL/Acetaminophen 5/325mg ORAL PRN (11:00)
[2019-08-19] MEDS ORDERED: Atropine Sulfate 0.4mg/ml inj IVP PRN (11:00)
[2019-08-19] MEDS ORDERED: Hydromorphone 0.5mg/0.5ml inj IVP PRN (11:00)
[2019-08-19] MEDS ORDERED: HYDROcodone/Acetamin 7.5/325 tab ORAL PRN (11:00)
[2019-08-19] MEDS ORDERED: LORazepam Inj 2mg/ml 1ml IV PRN (11:00)
--- NOTE | 2019-08-19 11:10 | NUR ---
NURSE NOTES: LATE ENTRY: RECEIVED CALL FROM CHIARA IN G/I LAB. PROCEDURE WENT WELL, BIOPSY, BP 161/72, HR 110, SATING 98%. PT WILL BE UP SOON.
[2019-08-19 11:43] LABS: BASOPHILS % (AUTO) 0.7 % (0.0-2.0); HEMATOCRIT 40.8 % (37.0-47.0); HEMOGLOBIN 13.3 G/DL (12.0-16.0); LYMPHOCYTES % (AUTO) 13.8 % (20.0-45.0); MEAN CORPUSCULAR VOLUME 83 FL (80-99); MONOCYTES % (AUTO) 4.9 % (1.0-10.0); NEUTROPHILS % (AUTO) 80.6 % (45.0-75.0); PLATELET COUNT 245 K/UL (150-450); RED CELL DISTRIBUTION WIDTH 12.2 % (11.6-14.8); WHITE BLOOD COUNT 6.3 K/UL (4.8-10.8)
[2019-08-19 11:58] LABS: ALANINE AMINOTRANSFERASE 31 U/L (12-78); ALBUMIN 3.4 G/DL (3.4-5.0); ALBUMIN/GLOBULIN RATIO 0.7 (1.0-2.7); ALKALINE PHOSPHATASE 136 U/L (46-116); ANION GAP 8 mmol/L (5-15); ASPARTATE AMINO TRANSFERASE 28 U/L (15-37); BILIRUBIN,TOTAL 0.2 MG/DL (0.2-1.0); BLOOD UREA NITROGEN 10 mg/dL (7-18); CARBON DIOXIDE 29 MMOL/L (21-32); CHLORIDE 99 MMOL/L (98-107); CREATININE 1.4 MG/DL (0.55-1.30); POTASSIUM 3.6 MMOL/L (3.5-5.1); SODIUM 136 MMOL/L (136-145)
--- NOTE | 2019-08-19 12:30 | NUR ---
NURSE NOTES: LATE ENTRY: PT IN BED, AWAKENS TO NAME. A/O X4. DIET REGULAR. PT TOLERATING MEAL BUT NOT MUCH APPETITE FOR TYPE OF FOOD. NO C/O PAIN OR N/V. VSS. HAS USED BEDSIDE COMMODE. BED ALARM ON, IN LOW POSITION. WILL CONTINUE TO MONITOR PT.
--- NOTE | 2019-08-19 14:18 | NUR ---
CASE MANAGEMENT: INITIAL REVIEW 59 YR OLD FEMALE BIBA FROM DOCTOR'S APPOINTMENT CC: UPPER RESP ILLNESS IS: PERICARDIAL EFFUSION . CHF EXACERBATION . AFIB . SVT . COPD 98.5 98 19 150/100 98% ON RA K+3.1 BG 129 ALK PHOS 155 IS: ALBUTEROL HHN X3 IV DECADRON X1 IVF NS X1 IV CARDIZEM X1 CARDIZEM PO X1 IV ADENOCARD X1 \: 2W STEP DOWN UNIT PLAN: EVAL DYSPHAGA CASE MANAGEMENT: REVIEW 08/19/19 IS: PERICARDIAL EFFUSION . CHF EXACERBATION . TACHY. COPD 98.5 98 19 150/100 98% ON RA CREAT 1.4 CA+8 IS: IVF NS BOLUS X1 PULMICORT HHN BID XOPENEX HHN TID ATROVENT HHN TID IV MORPHINE SULFATE Q8HR \: 2W STEP DOWN UNIT PLAN: EDG TODAY
--- NOTE | 2019-08-19 15:00 | NUR ---
NURSE NOTES: LATE ENTRY: PT REMAINS DROWSY, BUT RESPONSIVE, NO C/O PAIN. VSS. [id number].
--- NOTE | 2019-08-19 16:42 | Diagnostic Imaging Report ---
Indication: Dyspnea Comparison: 08/16/2019 A single view chest radiograph was obtained. Findings: Pulmonary vascularity has become prominent. Heart is enlarged. No definite pleural effusion is identified. The retrocardiac part of the left lower lobe is not well seen. This is in part due to soft tissue attenuation. IMPRESSION: Development CHF
--- NOTE | 2019-08-19 18:31 | NUR ---
NURSE NOTES: PHOTOS OF SACRAL AREA TAKEN AND UPLAODED. Addendum: 08/19/19 at 1843 by Tanisha Mckeon RN NURSE NOTES: wrong pt.
--- NOTE | 2019-08-19 18:49 | Pulmonology Progress Note ---
Assessment/Plan Problems: (1) COPD exacerbation (2) CHF exacerbation (3) SVT (supraventricular tachycardia) (4) GERD (gastroesophageal reflux disease) Assessment/Plan ASSESSMENT: The patient is a 59-year-old female with a history of small pericardial effusion in the past, chronic obstructive pulmonary disease, former smoker, questionable history of mold and hemoptysis, presenting with shortness of breath likely secondary to an exacerbation of her underlying heart disease, also underlying lung disease. She did have SVT, which converted. I will get a D-dimer and a duplex to rule out venous thromboembolism. PROBLEM LIST: 1. COPD with acute exacerbation. 2. Questionable history of mold exposure and hemoptysis in the past. 3. SVT, converted. 4. CHF without evidence of decompensated heart failure. 5. History of pericardial effusion. 6. Hypertension. 7. Former smoker. TREATMENT PLAN: 1. Optimize pulmonary hygiene/mobilize as tolerated. 2. P.r.n. O2 to keep saturations greater than 90%. 3. Continue Pulmicort for now. 4. [id number] and p.r.n. Atrovent and Xopenex hand-held nebulized treatments. 5. Continue prednisone 60 mg p.o. daily (D3) and taper. 6. Monitor volumes and renal function. 7. Cardiology has been consulted as well, awaiting their recommendations. 8. Follow up GI recs, PPI, F/U EGD results 9. Aspiration precautions. 10. DVT prophylaxis, Lovenox. 11. Continue to abstain from smoking. 12. The patient is a Full Code. 13. Post-discharge, the patient will follow up with Dr. Mcfarlane. Subjective Allergies: Coded Allergies: METRONIDAZOLE (Verified Allergy, Mild, 02/25/15) PENICILLIN G (Verified Allergy, Mild, 02/25/15) Subjective AFVSS on RA-2L Had EGD C/O sore throat, cough, SOB, N no V, no FC Objective Last 24 Hour Vital Signs Date Time Temp Pulse Resp B/P (MAP) Pulse Ox O2 Delivery O2 Flow Rate FiO2 08/19/19 16:00 Room Air 08/19/19 16:00 99.7 108 20 126/68 (87) 94 08/19/19 15:27 111 08/19/19 15:06 108 126/68 08/19/19 15:06 126/68 08/19/19 13:09 109 20 99 Room Air 21 107 20 93 08/19/19 12:00 121 08/19/19 12:00 Nasal Cannula 2.0 08/19/19 11:29 98.9 108 20 134/74 99 Nasal Cannula 3 108 08/19/19 11:00 110 21 136/68 99 Nasal Cannula 3 110 08/19/19 10:50 109 22 135/66 98 Nasal Cannula 3 109 08/19/19 10:49 112 22 96 08/19/19 10:47 111 22 100 08/19/19 10:40 99.0 110 20 130/64 99 Nasal Cannula 3 110 08/19/19 09:18 118 20 99 Room Air 21 120 20 92 08/19/19 08:14 113 20 100 Room Air 21 114 20 100 08/19/19 08:00 102.4 121 20 123/76 (92) 91 08/19/19 08:00 Nasal Cannula 0.5 08/19/19 07:41 113 08/19/19 05:13 137/76 08/19/19 04:00 98.7 97 22 137/76 (96) 96 08/19/19 04:00 Room Air 08/19/19 04:00 96 08/19/19 00:00 Room Air 08/19/19 00:00 97.9 77 18 113/52 (72) 95 08/19/19 00:00 76 08/18/19 22:40 96 130/69 08/18/19 21:11 129/61 08/18/19 20:14 91 18 100 Room Air 21 86 18 96 08/18/19 20:00 Room Air 08/18/19 20:00 98.1 93 22 129/61 (83) 99 08/18/19 20:00 102 Intake and Output 08/18/19 08/19/19 19:00 07:00 Intake Total 1300 ml Balance 1300 ml Intake Oral 1000 ml IV Total 300 ml # Voids 3 # Bowel Movements 3 3 General Appearance: WD/WN, no acute distress HEENT: normocephalic, atraumatic, anicteric, mucous membranes moist Respiratory/Chest: chest wall non-tender, lungs clear, normal breath sounds, no respiratory distress, no accessory muscle use Cardiovascular: normal peripheral pulses, normal rate, regular rhythm Abdomen: normal bowel sounds, soft, non tender, no organomegaly, non distended , no mass Extremities: no cyanosis, no clubbing, no edema Laboratory Tests 08/18/19 21:23: Troponin I 0.020 08/19/19 11:30: White Blood Count 6.3, Red Blood Count 4.90, Hemoglobin 13.3, Hematocrit 40.8, Mean Corpuscular Volume 83, Mean Corpuscular Hemoglobin 27.0, Mean Corpuscular Hemoglobin Concent 32.5, Red Cell Distribution Width 12.2, Platelet Count 245, Mean Platelet Volume 6.9, Neutrophils (%) (Auto) 80.6H, Lymphocytes (%) (Auto) 13.8L, Monocytes (%) (Auto) 4.9, Eosinophils (%) (Auto) 0.0, Basophils (%) (Auto ) 0.7, Sodium Level 136, Potassium Level 3.6, Chloride Level 99, Carbon Dioxide Level 29, Anion Gap 8, Blood Urea Nitrogen 10, Creatinine 1.4H, Estimat Glomerular Filtration Rate 46.9, Glucose Level 100#, Calcium Level 8.0L, Total Bilirubin 0.2, Aspartate Amino Transf (AST/SGOT) 28, Alanine Aminotransferase ( ALT/SGPT) 31, Alkaline Phosphatase 136H, Total Protein 8.0, Albumin 3.4, Globulin 4.6, Albumin/Globulin Ratio 0.7L Current Medications Medications (Trade) Dose Ordered Sig/Alethea Route PRN Reason Start Time Stop Time Status Last Admin Dose Admin Acetaminophen (Tylenol) 650 mg Q4H PRN ORAL Mild Pain/Temp > 100.5 08/18/19 16:30 09/15/19 16:29 08/19/19 15:08 Aspirin (ASA) 81 mg DAILY ORAL 08/17/19 09:00 09/16/19 08:59 08/18/19 08:14 Budesonide (Pulmicort) 0.25 mg EVERY 12 HOURS HHN 08/17/19 10:00 09/16/19 09:59 08/19/19 09:23 Clonidine HCl (Catapres Tab) 0.1 mg EVERY 8 HOURS ORAL 08/17/19 22:00 09/16/19 21:59 08/19/19 15:06 Dextrose (Dextrose 50%) 25 ml Q30M PRN IV Hypoglycemia 08/16/19 22:00 09/15/19 21:59 Dextrose (Dextrose 50%) 50 ml Q30M PRN IV Hypoglycemia 08/16/19 22:00 09/15/19 21:59 Digoxin (Lanoxin) 0.125 mg Q24HRS ORAL 08/18/19 09:00 09/17/19 08:59 08/18/19 08:14 Diltiazem HCl (Cardizem) 60 mg Q8H ORAL 08/17/19 23:00 09/15/19 22:59 08/19/19 15:06 Enoxaparin Sodium (Lovenox) 40 mg Q24H SUBQ 08/16/19 23:00 09/15/19 22:59 Ipratropium [place] (Atrovent) 500 mcg TIDRT N 08/17/19 19:00 08/22/19 18:59 08/19/19 15:16 Levalbuterol HCl (Xopenex) 0.625 mg TIDRT HHN 08/17/19 19:00 08/22/19 18:59 08/19/19 15:16 Levalbuterol HCl (Xopenex) 1.25 mg Q6H PRN HHN Shortness of Breath 08/17/19 10:00 08/22/19 09:59 08/17/19 16:15 Lorazepam (Ativan) 1 mg Q4H PRN ORAL For Anxiety 08/16/19 22:00 08/23/19 21:59 Morphine Sulfate (Morphine Sulfate) 4 mg Q8H PRN IVP PAIN 4-10 08/17/19 20:00 08/23/19 19:59 08/18/19 18:30 Ondansetron HCl (Zofran) 4 mg Q4H PRN IVP Nausea & Vomiting 08/17/19 00:45 09/16/19 00:44 08/18/19 03:56 Pantoprazole (Protonix) 40 mg EVERY 12 HOURS ORAL 08/17/19 21:00 09/16/19 08:59 08/18/19 20:52 Prednisone (predniSONE) 60 mg DAILY ORAL 08/18/19 09:00 09/17/19 08:59 08/18/19 08:13 Pan Toro MD Aug 19, 2019 18:49
--- NOTE | 2019-08-19 19:00 | NUR ---
HAND-OFF: Report given to PT IN NO ACUTE DISTRESS.
--- NOTE | 2019-08-19 19:01 | NUR ---
NURSE NOTES: received pt from Tanisha WAGONER., pt is awake and resting on the bed. pt states no pain at this moment, pt is in RA and no SOB noted. Left FA 18G is clean, intact,and patent. bed at the lowest position, alarmed, and locked. call light within reach. will continue to monitor pt with plan of care.
[2019-08-19] MEDS: Enoxaparin 40mg Inj SUBQ SCH (22:53)
--- NOTE | 2019-08-19 23:15 | Operative Note - Dictated ---
DATE OF OPERATION: 08/19/2019 GASTROENTEROLOGY PROCEDURE REPORT PROCEDURE: Upper gastrointestinal endoscopy with biopsy. SURGEON: Valerie Buchanan M.D. ANESTHESIA: Please see the separate anesthesiologist notes for details. PRE-ENDOSCOPIC DIAGNOSIS: Epigastric abdominal pain. POST-ENDOSCOPIC DIAGNOSIS: Normal upper endoscopy, status post biopsy. DESCRIPTION OF PROCEDURE: The procedure, its risks, indications, alternatives, and possible complications were explained and informed consent was obtained. The patient was then sedated and a diagnostic upper endoscope was introduced through the oropharynx and advanced to the duodenum. The endoscope was then gradually withdrawn and the mucosa examined carefully. The retroflexed view of the stomach was also performed. Examination did not show any significant abnormalities. Biopsies were sent to pathology for review. The endoscope was removed. The patient was sent to recovery in good condition. COMPLICATIONS: None. RECOMMENDATIONS: 1. Follow up biopsy results. 2. Resume oral diet. Valerie Buchanan M.D. DR: LIDIA JOB#: [id number] CC:
--- NOTE | 2019-08-19 23:54 | Cardiology Progress Note ---
Assessment/Plan Assessment/Plan 1. Shortness of breath likely secondary to acute exacerbation of COPD, normal BNP essentially rules out CHF. 2. Medium sized localized pericardial effusion with no signs of pericardial tamponade. 3. Hypertension, well controlled, might be caused by steroid too, continue diltiazem. 4. History of diabetes mellitus, continue aspirin and atorvastatin. Subjective Subjective Sinus tachycardia at rate of 102. Objective Last 24 Hour Vital Signs Date Time Temp Pulse Resp B/P (MAP) Pulse Ox O2 Delivery O2 Flow Rate FiO2 08/19/19 22:00 96/64 08/19/19 20:10 102 21 95 Room Air 21 97 15 92 08/19/19 20:00 99.1 91 20 120/64 (82) 97 08/19/19 20:00 88 08/19/19 20:00 Room Air 08/19/19 16:00 Room Air 08/19/19 16:00 99.7 108 20 126/68 (87) 94 08/19/19 15:27 111 08/19/19 15:06 108 126/68 08/19/19 15:06 126/68 08/19/19 13:09 109 20 99 Room Air 21 107 20 93 08/19/19 12:00 121 08/19/19 12:00 Nasal Cannula 2.0 08/19/19 11:29 98.9 108 20 134/74 99 Nasal Cannula 3 108 08/19/19 11:00 110 21 136/68 99 Nasal Cannula 3 110 08/19/19 10:50 109 22 135/66 98 Nasal Cannula 3 109 08/19/19 10:49 112 22 96 08/19/19 10:47 111 22 100 08/19/19 10:40 99.0 110 20 130/64 99 Nasal Cannula 3 110 08/19/19 09:18 118 20 99 Room Air 21 120 20 92 08/19/19 08:14 113 20 100 Room Air 21 114 20 100 08/19/19 08:00 102.4 121 20 123/76 (92) 91 08/19/19 08:00 Nasal Cannula 0.5 08/19/19 07:41 113 08/19/19 05:13 137/76 08/19/19 04:00 98.7 97 22 137/76 (96) 96 08/19/19 04:00 Room Air 08/19/19 04:00 96 08/19/19 00:00 Room Air 08/19/19 00:00 97.9 77 18 113/52 (72) 95 08/19/19 00:00 76 Intake and Output 08/18/19 08/19/19 19:00 07:00 Intake Total 1300 ml Balance 1300 ml Intake Oral 1000 ml IV Total 300 ml # Voids 3 # Bowel Movements 3 3 2D Echo: EF 50%,Septal wall HK,Mild AR/MR, RVSP 39,Med.localized Peric.eff, RAP 10 Laboratory Tests Test 08/19/19 11:30 White Blood Count 6.3 K/UL (4.8-10.8) Red Blood Count 4.90 M/UL (4.20-5.40) Hemoglobin 13.3 G/DL (12.0-16.0) Hematocrit 40.8 % (37.0-47.0) Mean Corpuscular Volume 83 FL (80-99) Mean Corpuscular Hemoglobin 27.0 PG (27.0-31.0) Mean Corpuscular Hemoglobin Concent 32.5 G/DL (32.0-36.0) Red Cell Distribution Width 12.2 % (11.6-14.8) Platelet Count 245 K/UL (150-450) Mean Platelet Volume 6.9 FL (6.5-10.1) Neutrophils (%) (Auto) 80.6 % (45.0-75.0) H Lymphocytes (%) (Auto) 13.8 % (20.0-45.0) L Monocytes (%) (Auto) 4.9 % (1.0-10.0) Eosinophils (%) (Auto) 0.0 % (0.0-3.0) Basophils (%) (Auto) 0.7 % (0.0-2.0) Sodium Level 136 MMOL/L (136-145) Potassium Level 3.6 MMOL/L (3.5-5.1) Chloride Level 99 MMOL/L (98-107) Carbon Dioxide Level 29 MMOL/L (21-32) Anion Gap 8 mmol/L (5-15) Blood Urea Nitrogen 10 mg/dL (7-18) Creatinine 1.4 MG/DL (0.55-1.30) H Estimat Glomerular Filtration Rate 46.9 mL/min (>60) Glucose Level 100 MG/DL (74-106) # Calcium Level 8.0 MG/DL (8.5-10.1) L Total Bilirubin 0.2 MG/DL (0.2-1.0) Aspartate Amino Transf (AST/SGOT) 28 U/L (15-37) Alanine Aminotransferase (ALT/SGPT) 31 U/L (12-78) Alkaline Phosphatase 136 U/L (46-116) H Total Protein 8.0 G/DL (6.4-8.2) Albumin 3.4 G/DL (3.4-5.0) Globulin 4.6 g/dL Albumin/Globulin Ratio 0.7 (1.0-2.7) L Objective HEENT: Atraumatic and normocephalic. Anicteric. Pupils are equal, round, and reactive to light and accommodation. Extraocular muscles intact. NECK: JVP less than 5 cm. No carotid bruit. Carotid upstrokes 2+ bilaterally. CARDIOVASCULAR: Normal S1, S2. Tachycardic, Regular rate and rhythm. No murmurs, gallops, or rubs. LUNGS: Diminished bilaterally, + rhonchi and crackles. ABDOMEN: Soft, nontender, and nondistended. No hepatosplenomegaly. Positive bowel sounds. EXTREMITIES: No evidence of edema, clubbing, or cyanosis. Bc Daniels MD Aug 19, 2019 23:54
[2019-08-20] VITALS: BP 98/57
[2019-08-20 04:00] VITALS: BP 126/66
--- NOTE | 2019-08-20 05:45 | Consultation ---
DATE OF CONSULTATION: 08/17/2019 CARDIOLOGY CONSULTATION CONSULTING PHYSICIAN: Bc Daniels M.D. REFERRING PHYSICIAN: Yue Ibarra M.D. REASON FOR CONSULTATION: Management of shortness of breath. HISTORY OF PRESENT ILLNESS: The patient is a very unfortunate 59-year-old black [place]ian known to me, who was recently seen by Dr. Rocha at [facility] Infectious Disease office, who found that the patient has sinus tachycardia with heart rate as high as 150. This office visit was done just about a week ago. The patient decided to come to the hospital the day after for complaint of shortness of breath, palpitation, and chest pain. She has had many hospitalizations recently due to shortness of breath and acute exacerbation of COPD. Her cardiovascular history is also significant for history of diastolic congestive heart failure, medium-sized pericardial effusion with no signs of pericardial tamponade as well as hypertension. The patient also claims that she has been exposed to mold in her apartment. At the time of arrival to this hospital, the patient was wheezing, therefore Decadron was given in conjunction with breathing treatment with minimal relief. The patient in the emergency department had a bedside echocardiography, which confirmed small pericardial effusion. In the emergency department, heart rate was as high as 195. A 12-lead electrocardiogram confirmed supraventricular tachycardia. The patient received adenosine, which changed the rhythm to atrial fibrillation and then received Cardizem IV bolus and was placed on Cardizem 60 mg p.o. The patient's heart rate remained to be in range of 100 to 114. She was admitted to [facility] for further evaluation and management. Cardiology consultation was made at request of Dr. Ibarra to manage tachycardia with shortness of breath. PAST MEDICAL HISTORY: 1. Medium-sized pericardial effusion with no clinical evidence of pericardial tamponade. A 2D echocardiography both at [facility] and [facility] had shown stable pericardial effusion with no signs of pericardial tamponade. 2. History of COPD. 3. History of mold exposure. 4. History of diabetes mellitus. 5. History of hypertension. 6. History of chronic diastolic congestive heart failure with some wall motion abnormalities, LVEF fluctuates between 40% to 50%, we need to observe her very closely. 7. History of GERD. PAST SURGICAL HISTORY: Tummy tuck; breast reduction surgery, reconstruction; and spine surgery. ALLERGIES: Metronidazole and penicillin. SOCIAL HISTORY: Tobacco use. Denies any alcohol or illicit drug use. FAMILY HISTORY: No premature coronary artery disease in the first-degree relatives. REVIEW OF SYSTEMS: HEENT: Denies any headache, diplopia, or blurred vision. CONSTITUTIONAL: Denies any fever or chills. Complains of generalized weakness and fatigue. CARDIOVASCULAR: Complains of chest pain, progressive worsening shortness of breath, and lower extremity edema with no loss of consciousness. PULMONARY: Cough with shortness of breath and wheezing. No hemoptysis. GASTROINTESTINAL: Denies any nausea, vomiting, diarrhea, constipation, abdominal pain, or GI bleed, although she had a few episodes of vomiting and abdominal pain. GENITOURINARY: Denies any hematuria, dysuria, or incontinence. NEUROLOGIC: Denies any motor dysfunction, sensory deficit, or altered speech. MEDICATIONS: List of medications at home includes: 1. Albuterol inhaler. 2. Amitriptyline 100 mg nightly. 3. Furosemide 20 mg daily. In the outpatient setting, the patient was also on blood pressure medications, this was not recorded here, as well as inhalers/nebulizers. PHYSICAL EXAMINATION: VITAL SIGNS: Blood pressure at the time of arrival to the hospital was 150/100, pulse of 98, respirations of 19, temperature 98.4 degrees Fahrenheit, and O2 saturation 98% on room air on FiO2 of 21%. GENERAL: A very unfortunate 59-year-old female, in no apparent respiratory distress. Alert and oriented x4. HEENT: Atraumatic and normocephalic. Anicteric. Pupils are equal, round, and reactive to light and accommodation. Extraocular muscles intact. NECK: JVP less than 5 cm. No carotid bruit. Carotid upstroke is 2+ bilaterally. CARDIOVASCULAR: Normal S1 and S2. Tachycardic. No murmurs, gallops, or rubs. No evidence of pulsus paradoxus. LUNGS: Diminished breath sounds. Positive rhonchi as well as some minimal crackles in both bases. ABDOMEN: Soft, nontender, and nondistended. No hepatosplenomegaly. Positive bowel sounds. EXTREMITIES: No evidence of edema, clubbing, or cyanosis. LABORATORY AND DIAGNOSTIC FINDINGS: WBC 7.9, hemoglobin 13.8, hematocrit 41.0, and platelet count 263,000. Sodium 137, potassium 3.1, chloride 99, bicarbonate 29, BUN 9, and creatinine 1.1. Glucose 129. Calcium is 9.2. Hemoglobin A1c 6.2. Magnesium 1.4. Troponin I x2 negative. ProBNP 51. Triglycerides 55, total cholesterol 152, LDL of 85, and HDL of 53. Toxicology in urine was negative. INR is 1.0. D-dimer was elevated at 0.55. Chest x-ray at the time of arrival to the hospital showed cardiomegaly with no acute process. CT angiography of the chest on July 20 had shown cardiomegaly, pericardial effusion about 2 to 2.54 cm, and no pulmonary embolism. A 2D echocardiography on July 20 had shown normal LV chamber size, mild septal hypokinesia, LVEF of 45% to 50%, mild LVH, xgfbn-[id number] sized pericardial effusion, mild LA enlargement, dilated IVC at 2.4 with normal physiological collapse, eccentric mitral regurgitation suggestive of severe mitral regurgitation, moderate mitral stenosis with transmitral gradient of 8 mmHg, grade 1 LV diastolic dysfunction, and right ventricular systolic pressure measured at 28 mmHg. ASSESSMENT AND PLAN: 1. Dyspnea. This is most likely due to acute exacerbation of COPD, although tachycardia can contribute to this. We would like to continue Cardizem to control the patient's heart rate. 2. Most likely acute on diastolic congestive heart failure, although brain natriuretic peptide is within normal limit and essentially ruled out heart failure. We would like to consider gentle diuresis. 3. SVT, possible transient atrial fibrillation, mostly sinus tachycardia. We would like to optimize Cardizem and continue digoxin. 4. Nonischemic cardiomyopathy, mostly with wall motion abnormalities in the septal wall with LVEF approximately 45%. 5. Gtuqu-bd-[id number] sized pericardial effusion with no signs of pericardial tamponade either clinically or on echocardiography. 6. Multiple 2D echocardiographies have been done in the past few months, both at [facility] and [facility], have shown no progression of pericardial effusion and no echocardiographic evidence of pericardial tamponade. 7. History of hypertension. Continue with Cardizem. If needed, we will consider carvedilol. This could be because of prednisone use and noncompliance with medication. I would like to thank Dr. Ibarra for the courtesy of this consultation. Bc Daniels M.D. DR: RUBEN JOB#: [id number] CC:
[2019-08-20] MEDS: dilTIAZem HCl 60mg tab ORAL SCH ×3 (06:50→21:48)
--- NOTE | 2019-08-20 07:30 | NUR ---
NURSE NOTES: Received report from Niesha Myers RN. Patient asleep in bed, opens eyes spontaneously, oriented x 4, able to make needs known. On room air, respirations even and unlabored. Left forearm 18g saline lock patent and asymptomatic. Bed locked in lowest position with side rails up x 3. All needs attended to. Call light within reach. Will continue to monitor.
[2019-08-20] MEDS: Ipratropium 0.02% Inh Soln 2.5ml UD HHN SCH ×3 (07:32→19:52)
[2019-08-20] MEDS: Levalbuterol Inh UD 1.25mg/0.5ml HHN SCH ×3 (07:32→19:52)
--- NOTE | 2019-08-20 07:32 | NUR ---
HAND-OFF: Report given to Romy WAGONER. pt is in stable condition.
[2019-08-20 08:00] VITALS: BP 115/70
[2019-08-20] MEDS: Digoxin 0.125mg tab ORAL SCH (08:37)
[2019-08-20] MEDS: Aspirin Baby 81mg ORAL SCH (08:37)
[2019-08-20] MEDS: Budesonide HHN 0.25mg/2ml ud HHN SCH ×2 (08:55→21:48)
[2019-08-20] MEDS ORDERED: NS 275ml ONE (09:50)
--- NOTE | 2019-08-20 10:53 | NUR ---
RD ASSESSMENT & RECOMMENDATIONS SEE CARE ACTIVITY FOR COMPLETE ASSESSMENT DAILY ESTIMATED NEEDS: Needs based on Pulmonary, cardiac, obese 71.7kg 20-25 kcals/kg 8824-6848 total kcals 1-1.5 g protein/kg 72-108 g total protein 20-25ml/kcal mL/kg 2187-7407 total fluid mLs NUTRITION DIAGNOSIS: 1) Decreased fat and sodium needs r/t cardiac history and obesity as evidenced by pt w/ CHF, BMI obese class II per guidelines, pt is 185% of [place] Body Weight. 2) Altered nutrition related lab values r/t hyperglycemia as evidenced by elev BG on adm (226), A1C 6.2. CURRENT DIET: Cardiac PO DIET RECOMMENDATIONS--->>> DIET CHANGE TO CCHO LOW/ CARDIAC ADDITIONAL RECOMMENDATIONS: 1) Obtain a standing weight as able EMR wt: 241# vs Bed wt: 253# 2) Hypoglycemic agents prn-> elev A1C + pt on steroidal meds . . Addendum: 08/20/19 at [address] 3) With continued poor po intake, rec snacks in b/w meals
[2019-08-20 11:49] VITALS: BP 125/67
--- NOTE | 2019-08-20 13:22 | General Progress Note ---
Assessment/Plan Status: stable Assessment/Plan: Assessment - N/V, improved - GERD by Sx - Low Mg - HTN Recommendations - PPI - Reflux precautions - f/u GI biopsy results - repeat Mg level Subjective Allergies: Coded Allergies: METRONIDAZOLE (Verified Allergy, Mild, 02/25/15) PENICILLIN G (Verified Allergy, Mild, 02/25/15) Subjective Feels OK no new symptoms Objective Last 24 Hour Vital Signs Date Time Temp Pulse Resp B/P (MAP) Pulse Ox O2 Delivery O2 Flow Rate FiO2 08/20/19 13:17 99 20 98 Room Air 21 96 22 94 08/20/19 11:49 98.3 90 20 125/67 (86) 97 90 08/20/19 09:01 100 20 99 Room Air 21 99 20 97 08/20/19 08:37 107 08/20/19 08:00 Room Air 08/20/19 08:00 97.7 106 20 115/70 (85) 97 08/20/19 07:52 107 08/20/19 07:45 111 20 99 Room Air 21 102 20 95 08/20/19 06:50 118/71 08/20/19 04:00 97.7 9 19 126/66 (86) 100 08/20/19 04:00 Room Air 08/20/19 04:00 93 08/20/19 00:00 99.0 92 20 98/57 (71) 100 08/20/19 00:00 Room Air 08/19/19 23:27 93 08/19/19 22:00 96/64 08/19/19 20:10 102 21 95 Room Air 21 97 15 92 08/19/19 20:00 99.1 91 20 120/64 (82) 97 08/19/19 20:00 88 08/19/19 20:00 Room Air 08/19/19 16:00 Room Air 08/19/19 16:00 99.7 108 20 126/68 (87) 94 08/19/19 15:27 111 08/19/19 15:06 108 126/68 08/19/19 15:06 126/68 Intake and Output 08/19/19 08/20/19 18:59 06:59 Intake Total 270 ml 120 ml Output Total 750 ml Balance 270 ml -630 ml Intake Oral 270 ml 120 ml Output Urine Total 750 ml # Voids 5 Height (Feet): 5 Height (Inches): 6.00 Weight (Pounds): 241 Objective Obese AA woman NCAT supple CTA RRR abd soft ND, mild epig TTP no edema Valerie Buchanan MD Aug 20, 2019 13:22
--- NOTE | 2019-08-20 13:35 | Pulmonology Progress Note ---
Assessment/Plan Problems: (1) COPD exacerbation (2) CHF exacerbation (3) SVT (supraventricular tachycardia) (4) GERD (gastroesophageal reflux disease) Assessment/Plan ASSESSMENT: The patient is a 59-year-old female with a history of small pericardial effusion in the past, chronic obstructive pulmonary disease, former smoker, questionable history of mold and hemoptysis, presenting with shortness of breath likely secondary to an exacerbation of her underlying heart disease, also underlying lung disease. She did have SVT, which converted. I will get a D-dimer and a duplex to rule out venous thromboembolism. PROBLEM LIST: 1. COPD with acute exacerbation. 2. Questionable history of mold exposure and hemoptysis in the past. 3. SVT, converted. 4. CHF without evidence of decompensated heart failure. 5. History of pericardial effusion. 6. Hypertension. 7. Former smoker. TREATMENT PLAN: 1. Optimize pulmonary hygiene/mobilize as tolerated. 2. P.r.n. O2 to keep saturations greater than 90%. 3. Continue Pulmicort for now. 4. [id number] and p.r.n. Atrovent and Xopenex hand-held nebulized treatments. 5. Decrease prednisone to 40 mg p.o. daily (D4) and taper. 6. Monitor volumes and renal function. 7. Cardiology has been consulted as well, awaiting their recommendations. 8. Follow up GI recs, PPI, F/U EGD path 9. Aspiration precautions. 10. DVT prophylaxis, Lovenox. 11. Continue to abstain from smoking. 12. The patient is a Full Code. 13. Post-discharge, the patient will follow up with Dr. Mcfarlane. Subjective Allergies: Coded Allergies: METRONIDAZOLE (Verified Allergy, Mild, 02/25/15) PENICILLIN G (Verified Allergy, Mild, 02/25/15) Subjective AFVSS on RA S/P normal EGD C/O cough, SOB, N no V, no FC Objective Last 24 Hour Vital Signs Date Time Temp Pulse Resp B/P (MAP) Pulse Ox O2 Delivery O2 Flow Rate FiO2 08/20/19 13:17 99 20 98 Room Air 21 96 22 94 08/20/19 11:49 98.3 90 20 125/67 (86) 97 90 08/20/19 09:01 100 20 99 Room Air 21 99 20 97 08/20/19 08:37 107 08/20/19 08:00 Room Air 08/20/19 08:00 97.7 106 20 115/70 (85) 97 08/20/19 07:52 107 08/20/19 07:45 111 20 99 Room Air 21 102 20 95 08/20/19 06:50 118/71 08/20/19 04:00 97.7 9 19 126/66 (86) 100 08/20/19 04:00 Room Air 08/20/19 04:00 93 08/20/19 00:00 99.0 92 20 98/57 (71) 100 08/20/19 00:00 Room Air 08/19/19 23:27 93 08/19/19 22:00 96/64 08/19/19 20:10 102 21 95 Room Air 21 97 15 92 08/19/19 20:00 99.1 91 20 120/64 (82) 97 08/19/19 20:00 88 08/19/19 20:00 Room Air 08/19/19 16:00 Room Air 08/19/19 16:00 99.7 108 20 126/68 (87) 94 08/19/19 15:27 111 08/19/19 15:06 108 126/68 08/19/19 15:06 126/68 Intake and Output 08/19/19 08/20/19 19:00 07:00 Intake Total 270 ml 120 ml Output Total 750 ml Balance 270 ml -630 ml Intake Oral 270 ml 120 ml Output Urine Total 750 ml # Voids 5 General Appearance: WD/WN, no acute distress HEENT: normocephalic, atraumatic, anicteric, mucous membranes moist Respiratory/Chest: rhonchi Cardiovascular: normal peripheral pulses, normal rate, regular rhythm Abdomen: normal bowel sounds, soft, non tender, no organomegaly, non distended , no mass Extremities: no cyanosis, no clubbing, no edema Current Medications Medications (Trade) Dose Ordered Sig/Alethea Route PRN Reason Start Time Stop Time Status Last Admin Dose Admin Acetaminophen (Tylenol) 650 mg Q4H PRN ORAL Mild Pain/Temp > 100.5 08/18/19 16:30 09/15/19 16:29 08/19/19 15:08 Aspirin (ASA) 81 mg DAILY ORAL 08/17/19 09:00 09/16/19 08:59 08/20/19 08:37 Budesonide (Pulmicort) 0.25 mg EVERY 12 HOURS HHN 08/17/19 10:00 09/16/19 09:59 08/20/19 08:55 Clonidine HCl (Catapres Tab) 0.1 mg EVERY 8 HOURS ORAL 08/17/19 22:00 09/16/19 21:59 08/20/19 06:50 Dextrose (Dextrose 50%) 25 ml Q30M PRN IV Hypoglycemia 08/16/19 22:00 09/15/19 21:59 Dextrose (Dextrose 50%) 50 ml Q30M PRN IV Hypoglycemia 08/16/19 22:00 09/15/19 21:59 Digoxin (Lanoxin) 0.125 mg Q24HRS ORAL 08/18/19 09:00 09/17/19 08:59 08/20/19 08:37 Diltiazem HCl (Cardizem) 60 mg Q8H ORAL 08/17/19 23:00 09/15/19 22:59 08/19/19 15:06 Enoxaparin Sodium (Lovenox) 40 mg Q24H SUBQ 08/16/19 23:00 09/15/19 22:59 Ipratropium [place] (Atrovent) 500 mcg TIDRT HHN 08/17/19 19:00 08/22/19 18:59 08/20/19 13:17 Levalbuterol HCl (Xopenex) 0.625 mg TIDRT HHN 08/17/19 19:00 08/22/19 18:59 08/20/19 13:17 Levalbuterol HCl (Xopenex) 1.25 mg Q6H PRN HHN Shortness of Breath 08/17/19 10:00 08/22/19 09:59 08/17/19 16:15 Lorazepam (Ativan) 1 mg Q4H PRN ORAL For Anxiety 08/16/19 22:00 08/23/19 21:59 Morphine Sulfate (Morphine Sulfate) 4 mg Q8H PRN IVP PAIN 4-10 08/17/19 20:00 08/23/19 19:59 08/18/19 18:30 Ondansetron HCl (Zofran) 4 mg Q4H PRN IVP Nausea & Vomiting 08/17/19 00:45 09/16/19 00:44 08/18/19 03:56 Pantoprazole (Protonix) 40 mg EVERY 12 HOURS ORAL 08/17/19 21:00 09/16/19 08:59 08/20/19 08:37 Prednisone (predniSONE) 60 mg DAILY ORAL 08/18/19 09:00 09/17/19 08:59 08/20/19 08:37 Pan Toro MD Aug 20, 2019 13:35
[2019-08-20 16:00] VITALS: BP 123/72
--- NOTE | 2019-08-20 17:00 | NUR ---
TRANSFER TO FLOOR: Patient transferred to telemetry room 203-2, per Dr. Ibarra. Report and belongings given to Helen Bustillos RN. Patient in stable condition.
--- NOTE | 2019-08-20 17:01 | NUR ---
NURSE NOTES: Patient transferred from [facility], via hospital bed and received report from Romy/RIZWANA. Patient is alert and oriented. On room air, No acute distress/SOB noted. Breathing regular and unlabored. Able to make needs known. Denies pain at this time. Belonging check done with transferring nurse. Bed in low position and locked. Call light within reach, Encouraged to use call light when needed. Will continue plan of care.
--- NOTE | 2019-08-20 17:51 | General Progress Note ---
Assessment/Plan Status: stable Assessment/Plan: S: I am feeling better O : no chest pain, no sob, improvement of exertional sob with walking in her room ,PHYSICAL EXAMINATION:HEAD AND NECK: Atraumatic and normocephalic. CHEST: Diffuse bronchial breathing sounds.HEART: S1, S2. Regular rate and rhythm. ABDOMEN: Soft. No organomegaly. Morbidly obese.MUSCULOSKELETAL: Decreased range of motion in the lower extremity at baseline. No gross lateralized asymmetric motor deficit.NEUROLOGIC: The patient is awake, alert, and oriented x3. LABORATORY AND DIAGNOSTIC DATA: Dated Aug 18, reveiwed ASSESSMENT AND PLAN: 1. Acute COPD exacerbation 2. PAF, rate controlled today 3. GERD, chronic. 4. Hypertension. 5. ARF 5. Prediabetes. 6. Small Pericardial effusion 0- history of , 6. Chronic lumbar spondylosis and stenosis. 7. Dysphagia with abn ST eval Plan: GI Cardiology Pulmonary notes are reviewed Ok to tylenol, PRN Temp Will monitor RF Subjective Allergies: Coded Allergies: METRONIDAZOLE (Verified Allergy, Mild, 02/25/15) PENICILLIN G (Verified Allergy, Mild, 02/25/15) Objective Last 24 Hour Vital Signs Date Time Temp Pulse Resp B/P (MAP) Pulse Ox O2 Delivery O2 Flow Rate FiO2 08/20/19 16:00 98.3 93 21 123/72 (89) 97 93 08/20/19 16:00 Room Air 08/20/19 15:26 97 08/20/19 15:25 96 118/72 08/20/19 14:00 117/71 08/20/19 13:17 99 20 98 Room Air 21 96 22 94 08/20/19 12:00 Room Air 08/20/19 11:49 98.3 90 20 125/67 (86) 97 90 08/20/19 11:43 103 08/20/19 09:01 100 20 99 Room Air 21 99 20 97 08/20/19 08:37 107 08/20/19 08:00 Room Air 08/20/19 08:00 97.7 106 20 115/70 (85) 97 08/20/19 07:52 107 08/20/19 07:45 111 20 99 Room Air 21 102 20 95 08/20/19 06:50 118/71 08/20/19 04:00 97.7 9 19 126/66 (86) 100 08/20/19 04:00 Room Air 08/20/19 04:00 93 08/20/19 00:00 99.0 92 20 98/57 (71) 100 08/20/19 00:00 Room Air 08/19/19 23:27 93 08/19/19 22:00 96/64 08/19/19 20:10 102 21 95 Room Air 21 97 15 92 08/19/19 20:00 99.1 91 20 120/64 (82) 97 08/19/19 20:00 88 08/19/19 20:00 Room Air Intake and Output 08/19/19 08/20/19 19:00 07:00 Intake Total 270 ml 120 ml Output Total 750 ml Balance 270 ml -630 ml Intake Oral 270 ml 120 ml Output Urine Total 750 ml # Voids 5 Height (Feet): 5 Height (Inches): 6.00 Weight (Pounds): 241 Yue Ibarra MD Aug 20, 2019 17:51
[2019-08-20] MEDS ORDERED: LORazepam 1mg tab ORAL PRN (18:00)
[2019-08-20] MEDS ORDERED: Morphine Sulfate 4mg/ml Inj (IV USE ONLY) IVP PRN (18:00)
[2019-08-20] MEDS ORDERED: Levalbuterol Inh UD 1.25mg/0.5ml HHN PRN (18:00)
--- NOTE | 2019-08-20 19:22 | NUR ---
NURSE NOTES: RECEIVED PATIENT RESTING IN BED, NO COMPLAINTS OF PAIN AT THIS TIME. FALL PRECAUTIONS IN PLACE: CALL LIGHT AND BEDSIDE TABLE WITHIN REACH, BED IN LOW POSITION AND BED ALARM ON. PLAN OF CARE REVIEWED.
--- NOTE | 2019-08-20 19:22 | NUR ---
HAND-OFF: Report given to Melody/RN. Patient is in stable condition. endorsed plan of care.
--- NOTE | 2019-08-20 19:46 | Cardiology Progress Note ---
Assessment/Plan Assessment/Plan 1. Shortness of breath likely secondary to acute exacerbation of COPD, normal BNP essentially rules out CHF. 2. Medium sized localized pericardial effusion with no signs of pericardial tamponade. 3. Hypertension, well controlled, might be caused by steroid too, continue diltiazem. 4. History of diabetes mellitus, continue aspirin and atorvastatin. 5. Normal EGD. Subjective Subjective Sinus rhythm at rate of 93. Objective Last 24 Hour Vital Signs Date Time Temp Pulse Resp B/P (MAP) Pulse Ox O2 Delivery O2 Flow Rate FiO2 08/20/19 16:00 98.3 93 21 123/72 (89) 97 93 08/20/19 16:00 Room Air 08/20/19 15:26 97 08/20/19 15:25 96 118/72 08/20/19 14:00 117/71 08/20/19 13:17 99 20 98 Room Air 21 96 22 94 08/20/19 12:00 Room Air 08/20/19 11:49 98.3 90 20 125/67 (86) 97 90 08/20/19 11:43 103 08/20/19 09:01 100 20 99 Room Air 21 99 20 97 08/20/19 08:37 107 08/20/19 08:00 Room Air 08/20/19 08:00 97.7 106 20 115/70 (85) 97 08/20/19 07:52 107 08/20/19 07:45 111 20 99 Room Air 21 102 20 95 08/20/19 06:50 118/71 08/20/19 04:00 97.7 9 19 126/66 (86) 100 08/20/19 04:00 Room Air 08/20/19 04:00 93 08/20/19 00:00 99.0 92 20 98/57 (71) 100 08/20/19 00:00 Room Air 08/19/19 23:27 93 08/19/19 22:00 96/64 08/19/19 20:10 102 21 95 Room Air 21 97 15 92 08/19/19 20:00 99.1 91 20 120/64 (82) 97 08/19/19 20:00 88 08/19/19 20:00 Room Air Intake and Output 08/19/19 08/20/19 19:00 07:00 Intake Total 270 ml 120 ml Output Total 750 ml Balance 270 ml -630 ml Intake Oral 270 ml 120 ml Output Urine Total 750 ml # Voids 5 2D Echo: EF 50%,Septal wall HK,Mild AR/MR, RVSP 39,Med.localized Peric.eff, RAP 10 Objective HEENT: Atraumatic and normocephalic. Anicteric. Pupils are equal, round, and reactive to light and accommodation. Extraocular muscles intact. NECK: JVP less than 5 cm. No carotid bruit. Carotid upstrokes 2+ bilaterally. CARDIOVASCULAR: Normal S1, S2. Tachycardic, Regular rate and rhythm. No murmurs, gallops, or rubs. LUNGS: Diminished bilaterally, + rhonchi and crackles. ABDOMEN: Soft, nontender, and nondistended. No hepatosplenomegaly. Positive bowel sounds. EXTREMITIES: No evidence of edema, clubbing, or cyanosis. Bc Daniels MD Aug 20, 2019 19:46
[2019-08-20 20:00] VITALS: BP 111/61
[2019-08-20] MEDS ORDERED: Enoxaparin 40mg Inj SUBQ SCH (21:00)
--- NOTE | 2019-08-20 22:30 | NUR ---
NURSE NOTES: PATIENT LERT AND ORIENTED X 4. REQUESTED TO KEEP LEFT UPPER SIDE RAIL DOWN. EXPLAINED TO PATIENT SAFETY AND FALL PROTOCOL . PATIENT STILL INSISTING TO HAVE ONLY ONE SIDE RAIL UP, AND REFUSED TO HAVE BED ALARM. WILL CONTINUE TO MONITOR PATIENT.
[2019-08-21] VITALS: BP 99/62
[2019-08-21 04:00] VITALS: BP 117/59
[2019-08-21] MEDS: dilTIAZem HCl 60mg tab ORAL SCH (05:28)
[2019-08-21 07:28] LABS: ALANINE AMINOTRANSFERASE 31 U/L (12-78); ALBUMIN 2.9 G/DL (3.4-5.0); ALBUMIN/GLOBULIN RATIO 0.6 (1.0-2.7); ALKALINE PHOSPHATASE 131 U/L (46-116); ANION GAP 10 mmol/L (5-15); ASPARTATE AMINO TRANSFERASE 33 U/L (15-37); BILIRUBIN,TOTAL 0.2 MG/DL (0.2-1.0); BLOOD UREA NITROGEN 21 mg/dL (7-18); CALCIUM 8.3 MG/DL (8.5-10.1); CARBON DIOXIDE 27 MMOL/L (21-32); CHLORIDE 99 MMOL/L (98-107); CREATININE 1.4 MG/DL (0.55-1.30); POTASSIUM 3.6 MMOL/L (3.5-5.1); SODIUM 136 MMOL/L (136-145)
--- NOTE | 2019-08-21 07:32 | NUR ---
HAND-OFF: Report given to Miguel HOOK RN. PATIENT EATING BREAKFAST, NO SIGNS OF DISTRESS NOTED.
[2019-08-21 08:00] VITALS: BP 121/67
[2019-08-21] MEDS: Levalbuterol Inh UD 1.25mg/0.5ml HHN SCH (08:00)
[2019-08-21] MEDS: Ipratropium 0.02% Inh Soln 2.5ml UD HHN SCH (08:00)
--- NOTE | 2019-08-21 08:35 | General Progress Note ---
Assessment/Plan Status: stable Assessment/Plan: Assessment - Patient reported N/V, unremarkable EGD - GERD by Sx - HTN Recommendations - PPI - Reflux precautions - f/u GI biopsy results - check UGI/SBFT Subjective Allergies: Coded Allergies: METRONIDAZOLE (Verified Allergy, Mild, 02/25/15) PENICILLIN G (Verified Allergy, Mild, 02/25/15) Subjective multiple complaints notes SOB notes nausea notes pain notes N/V yesterday notes dislike of hospital food Objective Last 24 Hour Vital Signs Date Time Temp Pulse Resp B/P (MAP) Pulse Ox O2 Delivery O2 Flow Rate FiO2 08/21/19 08:16 80 08/21/19 07:59 85 20 99 Nasal Cannula 2.0 28 83 20 99 08/21/19 06:00 117/59 08/21/19 05:28 94 117/59 08/21/19 04:00 97.9 84 20 117/59 (78) 94 08/21/19 04:00 94 08/21/19 02:12 98 18 97 Nasal Cannula 2.0 28 96 18 97 08/21/19 00:00 96 08/21/19 00:00 98.2 94 22 99/62 (74) 95 08/20/19 22:00 111/61 08/20/19 21:58 105 20 99 Room Air 21 08/20/19 21:48 104 22 95 Room Air 21 08/20/19 21:48 99 111/61 08/20/19 20:14 Room Air 08/20/19 20:02 88 20 99 Room Air 21 08/20/19 20:00 98.4 99 20 111/61 (78) 95 08/20/19 20:00 79 08/20/19 19:52 90 20 93 Room Air 21 08/20/19 16:00 98.3 93 21 123/72 (89) 97 93 08/20/19 16:00 Room Air 08/20/19 15:26 97 08/20/19 15:25 96 118/72 08/20/19 14:00 117/71 08/20/19 13:17 99 20 98 Room Air 21 96 22 94 08/20/19 12:00 Room Air 08/20/19 11:49 98.3 90 20 125/67 (86) 97 90 08/20/19 11:43 103 08/20/19 09:01 100 20 99 Room Air 21 99 20 97 08/20/19 08:37 107 Intake and Output 08/20/19 08/21/19 19:00 07:00 Intake Total 240 ml 360 ml Balance 240 ml 360 ml Intake Oral 240 ml 360 ml # Voids 2 3 Laboratory Tests 08/21/19 05:38: Sodium Level 136, Potassium Level 3.6, Chloride Level 99, Carbon Dioxide Level 27, Anion Gap 10, Blood Urea Nitrogen 21H, Creatinine 1.4H, Estimat Glomerular Filtration Rate 46.9, Glucose Level 127H, Calcium Level 8.3L, Total Bilirubin 0.2, Aspartate Amino Transf (AST/SGOT) 33, Alanine Aminotransferase (ALT/SGPT) 31, Alkaline Phosphatase 131H, Total Protein 7.6, Albumin 2.9L, Globulin 4.7, Albumin/Globulin Ratio 0.6L Height (Feet): 5 Height (Inches): 6.00 Weight (Pounds): 246 Objective Obese AA woman NCAT supple CTA RRR abd soft ND no edema non focal Valerie Buchanan MD Aug 21, 2019 08:35
[2019-08-21] MEDS: Budesonide HHN 0.25mg/2ml ud HHN SCH (08:51)
[2019-08-21] MEDS ORDERED: Digoxin 0.125mg tab ORAL SCH (09:00)
[2019-08-21] MEDS ORDERED: Aspirin Baby 81mg ORAL SCH (09:00)
--- NOTE | 2019-08-21 09:07 | NUR ---
NURSE NOTES: patient awake alert, oriented , pt c/o mild generalized pain but refuses morphine. patient appears comfortable. patient did not want to state what pain medication she wanted. call light within reach. will monitor.
--- NOTE | 2019-08-21 10:00 | NUR ---
NURSE NOTES: left message to dr Ibarra patient requesting for omeprazole and oxycodone 30 mg Addendum: 08/21/19 at 1021 by YULIANA PHIPPS RN patient said no to oxycodone and to let patient know that she is going to go home today
--- NOTE | 2019-08-21 10:19 | NUR ---
NURSE NOTES: pt resting comfortably on room air.
[2019-08-21 13:41] VITALS: BP 122/74
--- NOTE | 2019-08-21 13:42 | NUR ---
NURSE NOTES: patient left in stable condition w all belongings, iv and arm band removed. rx given to patient.
--- NOTE | 2019-08-23 11:00 | Discharge Summary ---
Discharge Summary Discharge Summary _ DATE OF ADMISSION: 08/16/2019 DATE OF DISCHARGE: 08/21/2019 DISCHARGED BY: Dr. Ibarra REASON FOR ADMISSION: 59 years old female past medical history of COPD, congestive failure, hypertension, hyperlipidemia, chronic low back pain, sent from the doctor's office to [place] ED by paramedics due to shortness of breath and chest pain. Patient felt that her symptoms were related to mold exposure. Patient had multiply [place] ER visit for similar complaints and was admitted as inpatient. Patient had CTA in June 2019, which revealed small pericardial effusion , no evidence of pericardial tamponade. Patient also reported upper abdominal soreness , no nausea. Patient reported questionable hemoptysis for 1 or 2 episodes. No diarrhea. Laboratory work-up revealed no leukocytosis, stable hemoglobin and hematocrit. Potassium 3.1. Glucose 129. Stable renal parameters. Troponin 0 0.011. Urine toxicology screen was negative. Urinalysis revealed no evidence of urinary tract infection +1 protein +2 ketones. Chest x-ray demonstrated cardiomegaly , no acute process otherwise. EKG revealed supraventricular tachycardia with heart rate 195 . Patient received adenosine and IV bolus of Cardizem , then started on oral Cardizem. Heart rate improved. Patient also received analgesic and antiemetic. Patient received nebulizing treatment with bronchodilator x3 and Decadron 10 mg. Patient was admitted to monitored floor for further management. CONSULTANTS: branding machine tender pulmonary Dr. Toro GI specialist Dr Buchanan [facility] COURSE: Patient admitted to telemetry floor . Patient started on steroids with gradual tapering down. Bronchodilator therapy with Atrovent and Xopenex provided [id number] and as needed. Pulmicort continued. Supplemental oxygen provided and titrated to keep oximetry above 92%. Patient was mobilized as tolerated. Strict aspiration precaution maintained. DVT prophylaxis with Lovenox provided. Venous duplex revealed no evidence of acute DVT. Patient was counseled to continued abstinence from smoking. GI prophylaxis with PPI provided, Accounts Specialist followed. Serial troponin were negative. EKG revealed no acute ischemic changes . Patient was ruled out for acute myocardial infarction. Shortness of breath was likely secondary to acute COPD exacerbation as per cardiolgost. Normal pro BNP essentially ruled out CHF. Patient had on prior imaging small localized pericardial effusion with no signs of pericardial tamponade. No clinical significance. Blood pressure was well controlled with the current medication regimen. Diltiazem continued. Antiplatelet therapy continued. GI specialist followed. Hemoglobin and hematocrit were closely monitored and remained stable. Patient undergone upper endoscopy with biopsy, which was normal. Patient was continued on PPI. Biopsy results at the time of this dictation still pending. Patient was treated symptomatically for nausea , vomiting and GERD . GI specialist recommended continue PPI. Reflux precaution were maintained. GI specialist recommended upper GI and small bowel follow-through if the symptoms not resolve. Patient clinically stabilized and was ready for discharge home . FINAL DIAGNOSES: COPD with acute exacerbation Questionable history of mold exposure and hemoptysis in the past Supraventricular tachycardia - converted Congestive heart failure without evidence of decompensated heart failure Small pericardial effusion with no signs of pericardial tamponade Hypertension Former smoker GERD Atypical chest pain , possibly secondary to COPD exacerbation Prediabetes Chronic lumbar spondylosis and stenosis Dysphagia with abnormal ST evaluation in the past DISCHARGE MEDICATIONS: See Medication Reconciliation list. DISCHARGE INSTRUCTIONS: Patient was discharged home with a primary care provider in 1 week. Follow-up with a primary care provider in 1 week. I have been assigned to dictate discharge summary for this account. I was not involved in the patient's management. Odalys Landon NP Aug 23, 2019 11:00
== END 2019-08-21 13:42 | disposition home or self-care (01) | DRG 191 ==
LOC: EDBD 13:06 → EMR 13:35 → 2W 14:40 → EDBEDREQSVC 15:28 → EDBEDREQ 17:53 → 2W 22:55 → 2E 08-20 17:05
PROC: 0DB78ZX Excision of Stomach, Pylorus, Via Natural or Artificial Opening Endoscopic, Diagnostic (ICD-10-PCS; principal; 2019-08-19 10:22)
PROC: 0DB38ZX Excision of Lower Esophagus, Via Natural or Artificial Opening Endoscopic, Diagnostic (ICD-10-PCS; principal; 2019-08-19 10:22)
DX: J44.1 Chronic obstructive pulmonary disease with (acute) exacerbation (principal); I47.1 Supraventricular tachycardia; I31.3 Pericardial effusion (noninflammatory); I50.32 Chronic diastolic (congestive) heart failure; K21.9 Gastro-esophageal reflux disease without esophagitis; I10 Essential (primary) hypertension; M48.061 Spinal stenosis, lumbar region without neurogenic claudication; Z88.0 Allergy status to penicillin; Z88.8 Allergy status to other drugs, medicaments and biological substances; R73.03 Prediabetes; M47.896 Other spondylosis, lumbar region; R13.10 Dysphagia, unspecified; Z88.1 Allergy status to other antibiotic agents; Z87.891 Personal history of nicotine dependence; I11.0 Hypertensive heart disease with heart failure; I48.0 Paroxysmal atrial fibrillation
CPT/HCPCS: 36415; 71045; 80048; 80053; 80061; 80307; 81003; 81025; 83036; 83735; 83880; 84443; 84484; 85007; 85025; 85379; 85610; 85730; 86850; 86900; 86901; 87081; 93005; 93970; 94003; 94150; 94640; 96374; 96375; 99291; J2405; J3490; J7620; J8499

== ENCOUNTER 2019-10-14 05:27 | Inpatient (IN) | payer MEDICARE, OTHER ==
[~2019-10-14] VITALS: Ht 167.6 cm; Wt 103.9 kg
[~2019-10-14 05:27] MED LIST changes: +ASPIRIN81 MG ORAL; +CARAFATE1 G1 ORAL; +CARDIZEM60 MG ORAL; +COREG12.5 MG ORAL; +DOXAZOSIN MESYLA4 MG ORAL; +POTASSIUM CHLO20 ME1 ORAL; +PREDNISONE20 MG ORAL; +PULMICORT1 MG/2 ML IH
--- NOTE | 2019-10-14 05:34 | NUR ---
ED Nurse Note: Pt ambulated into ED from home CO chest pain in medial chest x 1 week. Pt reports pain radiates to left arm which has become swollen and difficult to move cx decreased ROM in affected arm. Pt reports pain 10/10. Pt states previous cardiac history and COPD; pt on 2L oxygen [place] at home. Awaiting ERMd at bedside. All blood work drawn and sent to lab; EKG performed for ERMD review.
[2019-10-14 05:35] VITALS: BP 151/100
--- NOTE | 2019-10-14 05:39 | NUR ---
ED Nurse Note: ERMD at bedside for initial assessment
[2019-10-14] MEDS ORDERED: TUDORZA PRESS400 MCG IH (05:43)
[2019-10-14] MEDS ORDERED: LEXAPRO10 MG ORAL (05:43)
[2019-10-14] MEDS ORDERED: DOXAZOSIN MESYLA1 MG ORAL (05:43)
[2019-10-14] MEDS ORDERED: BREO ELLIPTA 21 EACH IH (05:43)
[2019-10-14] MEDS ORDERED: ATORVASTATIN CA20 MG ORAL (05:43)
[2019-10-14] MEDS ORDERED: METFORMIN HCL500 M1 ORAL (05:43)
[2019-10-14] MEDS ORDERED: TRIAMCINOLONE A15 G1 TP (05:43)
[2019-10-14] MEDS ORDERED: ROXICODONE30 M1 ORAL (05:43)
[2019-10-14] MEDS ORDERED: COLCRYS0.6 M1 PO (05:43)
[2019-10-14] MEDS ORDERED: CARVEDILOL12.5 MG ORAL (05:43)
[2019-10-14] MEDS ORDERED: Morphine Sulfate 2mg/ml Inj(IV/IM USE ONLY) IVP ONE (05:45)
--- NOTE | 2019-10-14 05:49 | NUR ---
ED Nurse Note: all medications administered; pt tolerated well. no s/s of distress noted. VSS
[2019-10-14 05:50] LABS: BASOPHILS % (AUTO) 1.5 % (0.0-2.0); EOSINOPHILS % (AUTO) 4.5 % (0.0-3.0); HEMOGLOBIN 11.2 G/DL (12.0-16.0); LYMPHOCYTES % (AUTO) 24.1 % (20.0-45.0); MEAN CORPUSCULAR VOLUME 84 FL (80-99); MONOCYTES % (AUTO) 10.9 % (1.0-10.0); PLATELET COUNT 232 K/UL (150-450); RED BLOOD COUNT 4.05 M/UL (4.20-5.40); WHITE BLOOD COUNT 9.6 K/UL (4.8-10.8)
--- NOTE | 2019-10-14 06:00 | NUR ---
ED Nurse Note: xray at bedside
[2019-10-14 06:01] LABS: ANION GAP 7 mmol/L (5-15); BLOOD UREA NITROGEN 10 mg/dL (7-18); CALCIUM 9.6 MG/DL (8.5-10.1); CARBON DIOXIDE 32 MMOL/L (21-32); CHLORIDE 103 MMOL/L (98-107); CREATININE 1.1 MG/DL (0.55-1.30); POTASSIUM 3.9 MMOL/L (3.5-5.1); SODIUM 142 MMOL/L (136-145)
--- NOTE | 2019-10-14 06:02 | Emergency Room Report ---
History of Present Illness General Chief Complaint: Chest Pain Source: Patient Present Illness HPI 59-year-old female presents the ED complaining of chest pain. States that she has been having chest pain for 1 week now. Midsternal. Radiating to right side chest. Worse with movement. 8 out of 10, sharp. States the pain got worse tonight so she came to the ED. Also no shortness of breath. Patient has history of COPD and CHF. On home oxygen. Denies fevers or chills. Denies cough. No other aggravating relieving factors. Denies any other associated symptoms Allergies: Coded Allergies: METRONIDAZOLE (Verified Allergy, Mild, 02/25/15) PENICILLIN G (Verified Allergy, Mild, 02/25/15) Patient History Past Medical History: HTN, CHF, COPD Pertinent Family History: none Social History: Denies: smoking, alcohol use, drug use Now: No Immunizations: UTD Reviewed Nursing Documentation: PMH: Agreed; PSxH: Agreed Nursing Documentation-PMH Past Medical History: No History, Except For Hx Cardiac Problems: Yes - CHF. LUMBAR STENOSIS. Hx Hypertension: Yes Hx Asthma: Yes Hx COPD: Yes Hx Diabetes: No Hx Cancer: No Hx Gastrointestinal Problems: No Hx Dialysis: No Hx Neurological Problems: No Hx Cerebrovascular Accident: No Hx Seizures: No Review of Systems All Other Systems: negative except mentioned in HPI Physical Exam Vital Signs Date Time Temp Pulse Resp B/P (MAP) Pulse Ox O2 Delivery O2 Flow Rate FiO2 10/14/19 05:34 98.2 102 15 151/100 (117) 96 Nasal Cannula 2.0 Sp02 EP Interpretation: reviewed, normal General Appearance: no apparent distress, alert, GCS 15, non-toxic, obese Head: normocephalic, atraumatic Eyes: bilateral eye normal inspection, bilateral eye PERRL ENT: hearing grossly normal, normal pharynx, no angioedema, normal voice Neck: full range of motion, supple/symm/no masses Respiratory: lungs clear, normal breath sounds, speaking full sentences, other - reproducible midsternal chest wall pain Cardiovascular #1: regular rate, rhythm, no edema Cardiovascular #2: 2+ carotid (R), 2+ carotid (L), 2+ radial (R), 2+ radial (L) , 2+ dorsalis pedis (R), 2+ dorsalis pedis (L) Gastrointestinal: normal bowel sounds, non tender, soft, non-distended, no guarding, no rebound Rectal: deferred Genitourinary: normal inspection, no CVA tenderness Musculoskeletal: back normal, normal range of motion, gait/station normal, non- tender Neurologic: alert, motor strength/tone normal, oriented x3, sensory intact, responsive, speech normal Psychiatric: judgement/insight normal, memory normal, mood/affect normal, no suicidal/homicidal ideation Reflexes: 3+ bicep (R), 3+ bicep (L), 3+ tricep (R), 3+ tricep (L), 3+ knee (R) , 3+ knee (L) Skin: no rash Lymphatic: no adenopathy Medical Decision Making Diagnostic Impression: Primary Impression: ACS (acute coronary syndrome) Additional Impression: CHF exacerbation Qualified Codes: I50.9 - Heart failure, unspecified ER Course Hospital Course 59 yo F presents with chest pain, SOB Differential diagnoses include: CT/unstable angina, contusion, muscle strain, PTX, rib fracture Clinical course Patient placed on stretcher. on case monitor. After initial history and physical I ordered labs, EKG, chest x-ray, morphine labs reviewed- no leukocytosis, hb/hct stable, electrolytes ok, trop negative x 1. EKG - NSR, no acute ischemic changes interpreted by me Chest x-ray- cardiomegaly, interstitial congestion noted given presentation and comorbidities we believe patient would benefit from observation repeat troponins Case discussed with Dr. Bravo and he agreed to accept the patient to his service for further care and support I. I feel this is a highly complex case requiring extensive working including EKG/Rhythm strip, Xray/CT/US, Blood/urine lab work, repeat exams while in ED, and administration of strong opiates/narcotics for pain control, admission to hospital or close patient follow up. Diagnosis - ACS, CHF admitted to telemetry in serious condition Labs Test 10/14/19 05:34 10/14/19 20:05 White Blood Count 9.6 K/UL (4.8-10.8) Red Blood Count 4.05 M/UL (4.20-5.40) Hemoglobin 11.2 G/DL (12.0-16.0) Hematocrit 34.0 % (37.0-47.0) Mean Corpuscular Volume 84 FL (80-99) Mean Corpuscular Hemoglobin 27.7 PG (27.0-31.0) Mean Corpuscular Hemoglobin Concent 33.0 G/DL (32.0-36.0) Red Cell Distribution Width 14.0 % (11.6-14.8) Platelet Count 232 K/UL (150-450) Mean Platelet Volume 7.6 FL (6.5-10.1) Neutrophils (%) (Auto) 59.0 % (45.0-75.0) Lymphocytes (%) (Auto) 24.1 % (20.0-45.0) Monocytes (%) (Auto) 10.9 % (1.0-10.0) Eosinophils (%) (Auto) 4.5 % (0.0-3.0) Basophils (%) (Auto) 1.5 % (0.0-2.0) Sodium Level 142 MMOL/L (136-145) Potassium Level 3.9 MMOL/L (3.5-5.1) Chloride Level 103 MMOL/L (98-107) Carbon Dioxide Level 32 MMOL/L (21-32) Anion Gap 7 mmol/L (5-15) Blood Urea Nitrogen 10 mg/dL (7-18) Creatinine 1.1 MG/DL (0.55-1.30) Estimat Glomerular Filtration Rate > 60 mL/min (>60) Glucose Level 100 MG/DL (74-106) Calcium Level 9.6 MG/DL (8.5-10.1) Total Bilirubin 0.3 MG/DL (0.2-1.0) Aspartate Amino Transf (AST/SGOT) 29 U/L (15-37) Alanine Aminotransferase (ALT/SGPT) 55 U/L (12-78) Alkaline Phosphatase 99 U/L (46-116) Troponin I 0.014 ng/mL (0.000-0.056) 0.014 ng/mL (0.000-0.056) Pro-B-Type Natriuretic Peptide 117 pg/mL (0-125) Total Protein 7.7 G/DL (6.4-8.2) Albumin 3.9 G/DL (3.4-5.0) Globulin 3.8 g/dL Albumin/Globulin Ratio 1.0 (1.0-2.7) Digoxin Level < 0.2 NG/ML (0.9-2.0) D-Dimer 1.18 mg/L FEU (0.00-0.49) EKG Diagnostic Results Rate: normal Rhythm: NSR ST Segments: no acute changes ASA given to the pt in ED: No Rhythm Strip Diag. Results EP Interpretation: yes Rhythm: NSR, no PVC's, no ectopy Chest X-Ray Diagnostic Results Chest X-Ray Diagnostic Results : Chest X-Ray Ordered: Yes # of Views/Limited/Complete: 1 View Indication: Shortness of Breath EP Interpretation: Yes Interpretation: no effusion, other - cardiomegaly. interstitial congestion Impression: Other - CHF Electronically Signed by: Electronically signed by Shabbir Davis MD Last Vital Signs Date Time Temp Pulse Resp B/P (MAP) Pulse Ox O2 Delivery O2 Flow Rate FiO2 10/14/19 05:34 98.2 102 15 151/100 (117) 96 Nasal Cannula 2.0 Status: improved Disposition: ADMITTED INPATIENT Condition: Serious Shabbir Davis MD Oct 14, 2019 06:02
[2019-10-14 06:13] LABS: ALANINE AMINOTRANSFERASE 55 U/L (12-78); ALBUMIN 3.9 G/DL (3.4-5.0); ALKALINE PHOSPHATASE 99 U/L (46-116); ASPARTATE AMINO TRANSFERASE 29 U/L (15-37); BILIRUBIN,TOTAL 0.3 MG/DL (0.2-1.0)
--- NOTE | 2019-10-14 06:16 | NUR ---
ED Nurse Note: lab results - elevated troponin; ERMD notified
--- NOTE | 2019-10-14 07:03 | NUR ---
ED Nurse Note: report given to RIZWANA Galvin. pt VSS no s/s of distress noted
[2019-10-14 07:20] VITALS: BP 151/100
--- NOTE | 2019-10-14 09:38 | Diagnostic Imaging Report ---
Indication: Chest pain Technique: One view of the chest Comparison: 09/04/2019 Findings: Body habitus limits evaluation. The heart is enlarged. There is bilateral interstitial edema, mild, appearing similar to the prior study. There may be some patchy airspace opacities at the lung bases as well. Impression: Cardiomegaly Mild interstitial congestion Possible patchy basilar parenchymal opacities
[2019-10-14 10:25] VITALS: BP 140/95
[2019-10-14 12:05] VITALS: BP 148/99
[2019-10-14] MEDS ORDERED: YUPELRI175 MCG/3 IH (13:31)
[2019-10-14] MEDS ORDERED: PERFOROMIS20 MCG/2 M IH (13:33)
--- NOTE | 2019-10-14 14:15 | NUR ---
ED Nurse Note: Report given to Roberto WAGONER
--- NOTE | 2019-10-14 14:20 | NUR ---
NURSE NOTES: Received report from RIZWANA Galvin. Patient transferred from ED to tele. Patient AOX4, on 2L oxygen via [place]. Patient resting in bed no active s/s cardiac, respiratory distress noticed at this time. VS at the time of arrival 143/85, 96% HR 99, T 97.7. IV on left AC 20G, asymptomatic, patent, intact. Bed in lowest position, side rails upx3, call light within reach. Will continue to monitor.
--- NOTE | 2019-10-14 15:10 | NUR ---
NURSE NOTES: Paged Dr. Bravo. Awaiting for callback for admission order.
[2019-10-14] MEDS ORDERED: Zolpidem 5mg tab ORAL PRN (16:30)
--- NOTE | 2019-10-14 16:30 | NUR ---
NURSE NOTES: Received admission order from Dr. Bravo. Order noted, entered, carried out. Will continue to monitor.
--- NOTE | 2019-10-14 16:30 | History and Physical Report ---
DATE OF ADMISSION: 10/14/2019 CHIEF COMPLAINT: Chest pain. HISTORY OF PRESENT ILLNESS: The patient is a 59-year-old female, known to me with past medical history significant for history of COPD, history of CAD, history of hypertension, morbid obesity who was basically presented to [facility] and the patient found to have some chest pain and shortness of breath. Shortness of breath started about a week ago, but her chest pain started last night while she was sleeping and she was not doing any physical activity. The chest pain was midsternal, mostly on the right side radiated to right arm. The chest pain got worse with any movement and deep breath and cough. The patient also complained of some shortness of breath and palpitations. With these symptoms, the patient presented to emergency room, admitted to the hospital for acute coronary syndrome. I was called for admission. ALLERGIES: She has allergy to metronidazole and penicillin. PAST MEDICAL HISTORY: 1. COPD. 2. CHF. 3. Hypertension. 4. History of lumbar stenosis. 5. History of asthma. 6. History of CAD. FAMILY HISTORY: Noncontributory. REVIEW OF SYSTEMS: GENERAL: She complained of generalized weakness. Complained of chills. No fever. HEAD AND NECK: Denies any dysphagia, odynophagia, blurry vision, headache, or neck stiffness. PULMONARY: Complained of shortness of breath. No cough or sputum. CARDIOVASCULAR: Complained of chest pain as mentioned in HPI. GASTROINTESTINAL: Denies any nausea, vomiting, diarrhea, hematemesis, or hematochezia. GENITOURINARY: Denies any dysuria, frequency, or hematuria. MUSCULOSKELETAL: Denies any weakness or numbness. PAST SURGICAL HISTORY: None. FAMILY HISTORY: Noncontributory. MEDICATIONS: List reviewed. PHYSICAL EXAMINATION: VITAL SIGNS: Temperature 98, blood pressure of 161/100, pulse rate of 102. HEAD AND NECK: No JVP. No LAD. Extraocular movements intact. Pupils are reactive to light and accommodation. LUNGS: Clear to auscultation. CARDIAC: Regular rate and rhythm. S1 and S2 normal. No rub. ABDOMEN: Soft, nontender, and nondistended. EXTREMITIES: No edema, no clubbing, no cyanosis. NEUROLOGIC: Cranial nerves II through XII within normal limits. Upper and lower extremities are grossly intact. LABORATORY DATA: Laboratory values reveal WBC count of 9.6, hemoglobin 11.2, hematocrit 32, platelet count of 232. Chemistry reveals sodium 142, potassium of 3.9, chloride 103, bicarb 33, BUN 10, creatinine is 1. AST, ALT within normal limits. Liver function tests are normal. Digoxin is less than 0.2. ASSESSMENT: 1. Acute coronary syndrome, likely due to chest pain worsened with movement and deep breath, but needs to be ruled out for acute PR. 2. Hypertension, uncontrolled at this time. 3. COPD. 4. Morbid obesity. PLAN: We will admit the patient. Obtain a cardiology consultation. Three sets of cardiac enzymes. Restart home medications. Blood pressure control. May need an x-ray of the right shoulder since the patient's pain gets worse with any movement on her right shoulder. Gladys Bravo M.D. DR: NADEGE JOB#: [id number] CC:
[2019-10-14] MEDS: Docusate 100mg cap ORAL SCH ×2 (17:46→17:51)
[2019-10-14] MEDS: metFORMIN 500mg tab ORAL SCH (17:46)
[2019-10-14] MEDS: Sucralfate 1gm tab ORAL SCH ×2 (17:46→21:16)
[2019-10-14] MEDS: HYDROmorphone 1mg/ml Carpuject IVP PRN (17:46)
--- NOTE | 2019-10-14 19:18 | NUR ---
HAND-OFF: Report given to RIZWANA Carter. Endorsed plan of care.
--- NOTE | 2019-10-14 19:20 | NUR ---
NURSE NOTES: Received report from Anna Ledezma RN. Pt is in stable condition, SR, denies pain and distress at this time. Pt is A/Ox4, will continue to monitor closely and plan of care.
--- NOTE | 2019-10-14 19:40 | Cardiology Progress Note ---
Assessment/Plan Assessment/Plan The patient is seen and examined, full consult note will be dictated shortly. Objective Last 24 Hour Vital Signs Date Time Temp Pulse Resp B/P (MAP) Pulse Ox O2 Delivery O2 Flow Rate FiO2 10/14/19 16:00 92 10/14/19 16:00 2.0 10/14/19 15:20 Nasal Cannula 2.0 10/14/19 12:05 98.1 99 15 148/99 97 Nasal Cannula 2.0 10/14/19 10:25 98.3 97 17 140/95 97 Nasal Cannula 2.0 10/14/19 07:20 98.2 102 15 151/100 96 Nasal Cannula 2.0 10/14/19 06:20 98.2 10/14/19 05:35 98.2 102 15 151/100 96 Nasal Cannula 2.0 10/14/19 05:35 102 15 Nasal Cannula 2.0 10/14/19 05:34 98.2 102 15 151/100 (117) 96 Nasal Cannula 2.0 Intake and Output 10/13/19 10/14/19 19:00 07:00 Intake Total 0 ml Balance 0 ml Intake Oral 0 ml Laboratory Tests Test 10/14/19 05:34 White Blood Count 9.6 K/UL (4.8-10.8) Red Blood Count 4.05 M/UL (4.20-5.40) L Hemoglobin 11.2 G/DL (12.0-16.0) L Hematocrit 34.0 % (37.0-47.0) L Mean Corpuscular Volume 84 FL (80-99) Mean Corpuscular Hemoglobin 27.7 PG (27.0-31.0) Mean Corpuscular Hemoglobin Concent 33.0 G/DL (32.0-36.0) Red Cell Distribution Width 14.0 % (11.6-14.8) Platelet Count 232 K/UL (150-450) Mean Platelet Volume 7.6 FL (6.5-10.1) Neutrophils (%) (Auto) 59.0 % (45.0-75.0) Lymphocytes (%) (Auto) 24.1 % (20.0-45.0) Monocytes (%) (Auto) 10.9 % (1.0-10.0) H Eosinophils (%) (Auto) 4.5 % (0.0-3.0) H Basophils (%) (Auto) 1.5 % (0.0-2.0) Sodium Level 142 MMOL/L (136-145) Potassium Level 3.9 MMOL/L (3.5-5.1) Chloride Level 103 MMOL/L (98-107) Carbon Dioxide Level 32 MMOL/L (21-32) Anion Gap 7 mmol/L (5-15) Blood Urea Nitrogen 10 mg/dL (7-18) Creatinine 1.1 MG/DL (0.55-1.30) Estimat Glomerular Filtration Rate > 60 mL/min (>60) Glucose Level 100 MG/DL (74-106) Calcium Level 9.6 MG/DL (8.5-10.1) Total Bilirubin 0.3 MG/DL (0.2-1.0) Aspartate Amino Transf (AST/SGOT) 29 U/L (15-37) Alanine Aminotransferase (ALT/SGPT) 55 U/L (12-78) Alkaline Phosphatase 99 U/L (46-116) Troponin I 0.014 ng/mL (0.000-0.056) Pro-B-Type Natriuretic Peptide 117 pg/mL (0-125) Total Protein 7.7 G/DL (6.4-8.2) Albumin 3.9 G/DL (3.4-5.0) Globulin 3.8 g/dL Albumin/Globulin Ratio 1.0 (1.0-2.7) Digoxin Level < 0.2 NG/ML (0.9-2.0) Bc Pierson MD Oct 14, 2019 19:40
[2019-10-14] MEDS: hydroCHLOROthiazide 12.5mg TAB ORAL SCH (20:08)
[2019-10-14] MEDS: Albuterol/Ipratropium 3ml neb HHN PRN (20:18)
[2019-10-14] MEDS ORDERED: Carvedilol 12.5mg tab ORAL SCH (21:00)
[2019-10-14] MEDS: Atorvastatin 20mg tab ORAL SCH (21:16)
[2019-10-14] MEDS: Carvedilol 25mg Tab ORAL SCH (21:17)
[2019-10-14] MEDS: Heparin 5000 units/ml inj SUBQ SCH (21:17)
--- NOTE | 2019-10-14 23:45 | Consultation ---
DATE OF CONSULTATION: 10/14/2019 REASON FOR ADMISSION: Shortness of breath, respiratory insufficiency. REASON FOR CONSULTATION: Shortness of breath, respiratory insufficiency. HISTORY OF PRESENT ILLNESS: The patient is a 59-year-old female, fairly debilitated, presents with worsening shortness of breath, worsening respiratory distress. The patient has chronic pain syndrome as well. The patient seen and evaluated in the emergency room and now being admitted. I was called to assist and evaluate further. The patient is well known to me with known history of COPD. The patient presents also with chest pain, morbid obesity. The patient had prior admissions as well for shortness of breath and difficulty with breathing. She notes to have substernal chest pain with no significant bronchospasm at present. The patient does have some shortness of breath and palpitations. The patient's care discussed and reviewed. The patient is well known to me. The patient's care reviewed. The patient has sputum production and cough. PAST MEDICAL HISTORY: Notable for COPD, CAD, CHF, hypertension, chronic back pain, lumbar stenosis. MEDICATIONS: Reviewed. ALLERGIES: Reviewed. FAMILY HISTORY: Otherwise noncontributory as above. REVIEW OF SYSTEMS: All 10 points reviewed and otherwise negative to the above. PHYSICAL EXAMINATION: GENERAL: A well-developed female complaining of some shortness of breath and chest discomfort. The patient is obese. VITAL SIGNS: Reviewed. Blood pressure 148/99, pulse 99, respiratory rate is 16, sats 97% on 2 L. HEENT: Fairly negative. Oropharynx is moist. NECK: Supple. LUNGS: Moderate breath sounds. No wheezes or rhonchi. CARDIAC: Normal S1 and S2. Regular rate and rhythm without murmurs, rubs, gallops. ABDOMEN: Soft, nontender, and nondistended. EXTREMITIES: No cyanosis, clubbing, or edema. NEUROLOGIC: Grossly nonfocal. The patient does have significant amount of pain. LABORATORY AND DIAGNOSTIC DATA: Some patchy changes, unclear if pneumonitis versus mild pulmonary edema. Notable for white count 9.6, hematocrit 34, platelets are normal. Chemistries reviewed and are otherwise normal. Liver enzymes normal. IMPRESSION: Mild respiratory insufficiency, chronic obstructive pulmonary disease per history, chest pain, possible acute coronary syndrome, hypertension, chronic pain syndrome. RECOMMENDATIONS: Supportive care. Cardiology evaluation, serial troponins, respiratory care, nebulized therapy, resume home medication. Monitor laboratories. Monitor x-rays. DVT prophylaxis. We will assist with discharge planning and will follow up care for further changes and interventions. Axel Mcfarlane M.D. DR: Jaems JOB#: [id number] CC: TIARRA
--- NOTE | 2019-10-14 23:45 | Consultation ---
DATE OF CONSULTATION: 10/14/2019 CARDIOLOGY CONSULTATION CONSULTING PHYSICIAN: Bc Daniels M.D. REFERRING PHYSICIAN: Gladys Bravo M.D. REASON FOR CONSULTATION: Management of chest pain and shortness of breath. HISTORY OF PRESENT ILLNESS: The patient is a very unfortunate 59-year-old black [place] lady known to me with past medical history significant for chronic obstructive pulmonary disease, history of hypertension, history of chronic medium sized pericardial effusion, morbid obesity, and respiratory mold infection under the care of Dr. Rocha at [facility], who presented to the hospital with pleuritic chest pain in the right side, dull pain exacerbated with movement of the shoulder. The pain is extending to the right anterior chest. It is associated with shortness of breath. The patient is on home oxygen under the care of Dr. Mcfarlane, adaptive physical education specialist. She claims that her shortness of breath has been worse in the past seven days. In the emergency department, chest x-ray was done which showed cardiomegaly and chronic interstitial changes. First troponin I level was within normal limits and 12-lead electrocardiogram was significant for sinus rhythm at a rate of 86 with no acute ischemic changes. The patient was admitted to telemetry unit for further evaluation and management of chest pain and shortness of breath. PAST MEDICAL HISTORY: 1. Medium-sized pericardial effusion, chronic in nature. Last 2D echocardiography, no change in the size of the effusion and no echocardiographic evidence of pericardial tamponade. 2. History of COPD. 3. Respiratory lung exposure. 4. Diabetes mellitus. 5. Hypertension. 6. Chronic diastolic congestive heart failure. 7. GERD. PAST SURGICAL HISTORY: Tummy tuck, breast reconstruction surgery, and lumbar spine surgery. ALLERGIES: Metronidazole and penicillin. SOCIAL HISTORY: Former smoker, quit cigarettes recently. Denies any alcohol or illicit drug use. FAMILY HISTORY: No premature coronary artery disease in the first-degree relatives. REVIEW OF SYSTEMS: HEENT: Denies any headache, diplopia, or blurred vision. CONSTITUTIONAL: Generalized weakness, but no fever. Complains of chills, but no night sweats. CARDIOVASCULAR: Pleuritic chest pain. Dyspnea on exertion. She has bilateral lower extremity edema, PND and orthopnea. There is no palpitation or syncope. PULMONARY: Complains of shortness of breath, on home oxygen. GENITOURINARY: Denies any hematuria, dysuria, or incontinence. GASTROINTESTINAL: Denies any abdominal pain, nausea, vomiting, diarrhea, constipation, or GI bleed. MUSCULOSKELETAL: Denies any lower extremity weakness. No arthralgias or myalgias beside the right-sided chest pain and right shoulder pain. SKIN: There is no rash or cyst or mass. MEDICATIONS: List of medications, carvedilol; was on diltiazem, which was discontinued; inhalers, Yupelri and Perforomist; and Cardura 2 mg daily. PHYSICAL EXAMINATION: VITAL SIGNS: Blood pressure was 161/100, pulse rate of 102, and temperature 98.0 degrees Fahrenheit. HEENT: Atraumatic and normocephalic. Anicteric. Pupils are equal, round, and reactive to light and accommodation. Extraocular muscles intact. NECK: JVP less than 5 cm. No carotid bruit. Carotid upstroke is 2+ bilaterally. CARDIOVASCULAR: Normal S1 and S2. Regular rate and rhythm. No murmurs, gallops, or rubs. PMI is at the fourth intercostal space in the midclavicular line. LUNGS: Diminished breath sounds in both lungs. ABDOMEN: Soft, nontender, and nondistended. No hepatosplenomegaly. Bowel sounds present. EXTREMITIES: No evidence of edema, clubbing, or cyanosis. LABORATORY AND DIAGNOSTIC FINDINGS: WBC is 9.6, hemoglobin 11.2, hematocrit 32, and platelet count 232,000. Sodium is 142, potassium 3.9, chloride 103, bicarbonate 33, BUN 10, and creatinine 1.0. Digoxin level was less than 0.2. ASSESSMENT AND PLAN: This is a very unfortunate 59-year-old lady who is seen in Cardiology consultation. 1. Right-sided chest pain, most likely noncardiac in origin, reproducible with palpation and pleuritic in nature. This could be musculoskeletal etiology. I am concerned about pulmonary embolism, therefore I would like to rule out this condition by ordering a D-dimer. The patient is high risk for thromboembolic event in terms of immobility and history of congestive heart failure. 2. Dyspnea. Again pulmonary embolism will be ruled out. This is most likely an acute exacerbation of chronic obstructive pulmonary disease. Dr. Mcfarlane was consulted. The patient will be continued on oxygen and nebulized treatment in-house. 3. Small to medium-sized pericardial effusion, according to the last 2D echocardiography in this facility. No evidence of pericardial tamponade. 4. Nonischemic cardiomyopathy with LVEF of approximately 45%. 5. Supraventricular tachycardia on previous admission, currently on beta-maria luz. We will continue to monitor the rhythm during this hospitalization. 6. History of hypertension. She has been off diltiazem, which she was using in the outpatient setting. We will continue carvedilol. I would like to add small dose of hydrochlorothiazide at 12.5 mg daily, as well as Cardura 2 mg daily. I would like to thank Dr. Bravo for allowing me to participate in the care of this patient. Bc Daniels M.D. DR: NATHANIEL JOB#: [id number] CC:
--- NOTE | 2019-10-15 07:40 | NUR ---
HAND-OFF: Report given to Lisa Dunn RN. Pt in stable condition.
--- NOTE | 2019-10-15 07:55 | NUR ---
NURSE NOTES: received pt in the bed, awake, alert, oriented, vital signs stable, no co pain, no SOB, respiration regular, skin warm and dry to touch, intact, tolerate diet well, dr. Bravo saw pt, bed in low position, call light within reach.
[2019-10-15 08:00] VITALS: BP 154/94
[2019-10-15] MEDS: Docusate 100mg cap ORAL SCH ×3 (09:00→17:48)
[2019-10-15] MEDS ORDERED: Doxazosin 1mg Tab ORAL SCH (09:00)
--- NOTE | 2019-10-15 09:03 | Pulmonology Progress Note ---
Assessment/Plan Assessment/Plan Mild respiratory insufficiency, chronic obstructive pulmonary disease per history, chest pain, possible acute coronary syndrome, hypertension, chronic pain syndrome. PLAN respiratory care as is oxygen pain control cards follow up and clearance monitor as is adjust meds as needed impression, plan, and exam edited and reviewed in detail care discussed with RN Subjective Allergies: Coded Allergies: METRONIDAZOLE (Verified Allergy, Mild, 02/25/15) PENICILLIN G (Verified Allergy, Mild, 02/25/15) Subjective some sob and cp reviewed care Objective Last 24 Hour Vital Signs Date Time Temp Pulse Resp B/P (MAP) Pulse Ox O2 Delivery O2 Flow Rate FiO2 10/15/19 08:00 2.0 10/15/19 08:00 98.7 61 19 154/94 (114) 98 10/15/19 04:00 83 10/15/19 04:00 2.0 10/15/19 00:00 78 10/14/19 21:17 100 157/81 10/14/19 21:00 Nasal Cannula 2.0 10/14/19 20:18 89 20 99 Nasal Cannula 2.0 28 86 20 95 10/14/19 20:00 95 10/14/19 20:00 2.0 10/14/19 16:00 92 10/14/19 16:00 2.0 10/14/19 15:20 Nasal Cannula 2.0 10/14/19 12:05 98.1 99 15 148/99 97 Nasal Cannula 2.0 10/14/19 10:25 98.3 97 17 140/95 97 Nasal Cannula 2.0 Intake and Output 10/14/19 10/15/19 19:00 07:00 Intake Total 120 ml Balance 120 ml Intake Oral 120 ml # Voids 3 Objective WDWN NAD reduced breath sounds bilaterally without rhonchi or wheeze [id number] without MRG NABS nontender no HSM no CCE nonfocal has pain Laboratory Tests 10/14/19 20:05: D-Dimer 1.18H, Troponin I 0.014 Current Medications Medications (Trade) Dose Ordered Sig/Alethea Route PRN Reason Start Time Stop Time Status Last Admin Dose Admin Albuterol/ Ipratropium (Albuterol/ Ipratropium) 3 ml Q4H PRN HHN Shortness of Breath 10/14/19 16:30 10/19/19 16:29 10/14/19 20:18 Aspirin (ASA) 81 mg DAILY ORAL 10/15/19 09:00 11/14/19 08:59 Atorvastatin Calcium (Lipitor) 20 mg BEDTIME ORAL 10/14/19 21:00 11/13/19 20:59 10/14/19 21:16 Carvedilol (Coreg) 25 mg EVERY 12 HOURS ORAL 10/14/19 21:00 11/13/19 20:59 10/14/19 21:17 Docusate Sodium (Colace) 100 mg THREE TIMES A DAY ORAL 10/14/19 18:00 11/13/19 17:59 Doxazosin Mesylate (Cardura) 4 mg DAILY ORAL 10/15/19 09:00 11/14/19 08:59 Escitalopram Oxalate (Lexapro) 10 mg DAILY ORAL 10/15/19 09:00 11/14/19 08:59 Heparin Sodium (Porcine) (Heparin 5000 units/ml) 5,000 units EVERY 12 HOURS SUBQ 10/14/19 21:00 11/13/19 20:59 10/14/19 21:17 Hydrochlorothiazide (Hydrodiuril) 12.5 mg DAILY ORAL 10/14/19 19:48 11/13/19 19:47 10/14/19 20:08 Hydromorphone HCl (Dilaudid) 1 mg Q6H PRN IVP For Pain 10/14/19 16:30 10/21/19 16:29 10/14/19 17:46 Metformin HCl (Glucophage) 500 mg TWICE A DAY ORAL 10/14/19 18:00 11/13/19 17:59 10/14/19 17:46 Ondansetron HCl (Zofran) 4 mg Q6H PRN IVP Nausea & Vomiting 10/14/19 16:30 11/13/19 16:29 10/14/19 20:08 Sucralfate (Carafate) 1 gm FOUR TIMES A DAY ORAL 10/14/19 18:00 11/13/19 17:59 10/14/19 21:16 Zolpidem Tartrate (Ambien) 5 mg HSPRN PRN ORAL Insomnia 10/14/19 16:30 10/21/19 16:29 Axel Mcfarlane MD Oct 15, 2019 09:03
[2019-10-15] MEDS: Aspirin Baby 81mg ORAL SCH (09:17)
[2019-10-15] MEDS: Carvedilol 25mg Tab ORAL SCH ×2 (09:17→22:18)
[2019-10-15] MEDS: Albuterol/Ipratropium 3ml neb HHN PRN ×3 (09:17→23:17)
[2019-10-15] MEDS: Sucralfate 1gm tab ORAL SCH ×4 (09:17→22:18)
[2019-10-15] MEDS: hydroCHLOROthiazide 12.5mg TAB ORAL SCH (09:17)
[2019-10-15] MEDS: Doxazosin 4mg tab ORAL SCH (09:17)
[2019-10-15] MEDS: HYDROmorphone 1mg/ml Carpuject IVP PRN (09:19)
[2019-10-15] MEDS: Heparin 5000 units/ml inj SUBQ SCH ×2 (09:19→21:00)
[2019-10-15] MEDS: metFORMIN 500mg tab ORAL SCH ×2 (09:20→17:47)
[2019-10-15 12:00] VITALS: BP 145/87
--- NOTE | 2019-10-15 14:53 | Nephrology Progress Note ---
Assessment/Plan Assessment 1. Acute coronary syndrome, 2. Hypertension, uncontrolled at this time. 3. COPD. 4. Morbid obesity. Plan continue current med pulmonary consult continue breathing treatment Subjective Constitutional: Reports: malaise, weakness Subjective feeling better right shoulder pain has decrease Objective Objective Last 24 Hour Vital Signs Date Time Temp Pulse Resp B/P (MAP) Pulse Ox O2 Delivery O2 Flow Rate FiO2 10/15/19 13:23 87 20 99 Nasal Cannula 2.0 28 87 20 99 10/15/19 12:00 96.8 84 20 145/87 (106) 97 10/15/19 12:00 86 10/15/19 12:00 2.0 10/15/19 09:49 98.7 10/15/19 09:20 84 20 96 Nasal Cannula 2.0 28 82 20 95 10/15/19 09:17 61 154/94 10/15/19 09:00 Nasal Cannula 2.0 10/15/19 08:00 2.0 10/15/19 08:00 86 10/15/19 08:00 98.7 61 19 154/94 (114) 98 10/15/19 04:00 83 10/15/19 04:00 2.0 10/15/19 00:00 78 10/14/19 21:17 100 157/81 10/14/19 21:00 Nasal Cannula 2.0 10/14/19 20:18 89 20 99 Nasal Cannula 2.0 28 86 20 95 10/14/19 20:00 95 10/14/19 20:00 2.0 10/14/19 16:00 92 10/14/19 16:00 2.0 10/14/19 15:20 Nasal Cannula 2.0 Intake and Output 10/14/19 10/15/19 19:00 07:00 Intake Total 120 ml Balance 120 ml Intake Oral 120 ml # Voids 3 Laboratory Tests 10/14/19 20:05: D-Dimer 1.18H, Troponin I 0.014 Height (Feet): 5 Height (Inches): 6.00 Weight (Pounds): 221 Objective HEAD AND NECK: No JVP. No LAD. Extraocular movements intact. Pupils are reactive to light and accommodation. LUNGS: Clear to auscultation. CARDIAC: Regular rate and rhythm. S1 and S2 normal. No rub. ABDOMEN: Soft, nontender, and nondistended. EXTREMITIES: No edema, no clubbing, no cyanosis. NEUROLOGIC: Cranial nerves II through XII within normal limits. Upper and lower extremities are grossly intact. Gladys Bravo MD Oct 15, 2019 14:53
[2019-10-15 16:00] VITALS: BP 131/65
--- NOTE | 2019-10-15 19:05 | NUR ---
HAND-OFF: Report given to GRANT WAGONER, no distress at this time.
--- NOTE | 2019-10-15 19:06 | NUR ---
NURSE NOTES: Received pt from RIZWANA Gonzalez. Pt awake and resting in bed in no acute distress. IV site intact. Bed locked in lowest position, call light within reach. Will continue with plan of care.
[2019-10-15 20:00] VITALS: BP 133/90
--- NOTE | 2019-10-15 20:00 | NUR ---
CASE MANAGEMENT: REVIEW 59 YEAR OLD FEMALE PRESENTED TO ED FROM HOME CC: SOB . CHEST PAIN SI: ACS . CHF EXACERBATION T 98.2 HR 102 RR 15 BP 151/100 SAT 96% NC/2L TROP 0.014 DIGOXIN LEVEL <0.2 CXR -- POSSIBLE PATCHY BASILAR PARENCHYMAL OPACITIES IS: MORPHINE 2MG IV X1 PATIENT ADMITTED TO TELEMETRY UNIT 10/14/2019 DCP: PATIENT IS FROM HOME
[2019-10-15] MEDS ORDERED: CARDIZEM60 MG ORAL (21:01)
[2019-10-15] MEDS ORDERED: POTASSIUM99 M3 PO (21:01)
[2019-10-15] MEDS: Atorvastatin 20mg tab ORAL SCH (22:18)
[2019-10-16] VITALS: BP 134/81
[2019-10-16] MEDS: Albuterol/Ipratropium 3ml neb HHN PRN ×5 (03:12→21:18)
[2019-10-16 04:00] VITALS: BP 124/80
--- NOTE | 2019-10-16 07:21 | Pulmonology Progress Note ---
Assessment/Plan Assessment/Plan Pulmonary Progress Note Assessment/Plan Mild respiratory insufficiency, chronic obstructive pulmonary disease per history, chest pain, possible acute coronary syndrome, hypertension, chronic pain syndrome. PLAN respiratory care as is, HHN oxygen PRN pain control cards follow up and clearance monitor as is adjust meds as needed impression, plan, and exam edited and reviewed in detail care discussed with RN Subjective Allergies: Coded Allergies: METRONIDAZOLE (Verified Allergy, Mild, 02/25/15) PENICILLIN G (Verified Allergy, Mild, 02/25/15) Subjective some sob and cp reviewed care Objective Vital Signs Noted Objective WDWN NAD reduced breath sounds bilaterally without rhonchi or wheeze [id number] without MRG NABS nontender no HSM no CCE nonfocal Laboratory Tests Noted Current Medications Medications (Trade) Dose Ordered Sig/Alethea Route PRN Reason Start Time Stop Time Status Last Admin Dose Admin Albuterol/ Ipratropium (Albuterol/ Ipratropium) 3 ml Q4H PRN HHN Shortness of Breath 10/14/19 16:30 10/19/19 16:29 10/14/19 20:18 Aspirin (ASA) 81 mg DAILY ORAL 10/15/19 09:00 11/14/19 08:59 Atorvastatin Calcium (Lipitor) 20 mg BEDTIME ORAL 10/14/19 21:00 11/13/19 20:59 10/14/19 21:16 Carvedilol (Coreg) 25 mg EVERY 12 HOURS ORAL 10/14/19 21:00 11/13/19 20:59 10/14/19 21:17 Docusate Sodium (Colace) 100 mg THREE TIMES A DAY ORAL 10/14/19 18:00 11/13/19 17:59 Doxazosin Mesylate (Cardura) 4 mg DAILY ORAL 10/15/19 09:00 11/14/19 08:59 Escitalopram Oxalate (Lexapro) 10 mg DAILY ORAL 10/15/19 09:00 11/14/19 08:59 Heparin Sodium (Porcine) (Heparin 5000 units/ml) 5,000 units EVERY 12 HOURS SUBQ 10/14/19 21:00 11/13/19 20:59 10/14/19 21:17 Hydrochlorothiazide (Hydrodiuril) 12.5 mg DAILY ORAL 10/14/19 19:48 11/13/19 19:47 10/14/19 20:08 Hydromorphone HCl (Dilaudid) 1 mg Q6H PRN IVP For Pain 10/14/19 16:30 10/21/19 16:29 10/14/19 17:46 Metformin HCl (Glucophage) 500 mg TWICE A DAY ORAL 10/14/19 18:00 11/13/19 17:59 10/14/19 17:46 Ondansetron HCl (Zofran) 4 mg Q6H PRN IVP Nausea & Vomiting 10/14/19 16:30 11/13/19 16:29 10/14/19 20:08 Sucralfate (Carafate) 1 gm FOUR TIMES A DAY ORAL 10/14/19 18:00 11/13/19 17:59 10/14/19 21:16 Zolpidem Tartrate (Ambien) 5 mg HSPRN PRN ORAL Insomnia 10/14/19 16:30 10/21/19 16:29 Subjective ROS Limited/Unobtainable: No Allergies: Coded Allergies: METRONIDAZOLE (Verified Allergy, Mild, 02/25/15) PENICILLIN G (Verified Allergy, Mild, 02/25/15) Objective Last 24 Hour Vital Signs Date Time Temp Pulse Resp B/P (MAP) Pulse Ox O2 Delivery O2 Flow Rate FiO2 10/16/19 04:00 98.2 92 20 124/80 (95) 92 10/16/19 04:00 2.0 10/16/19 04:00 92 10/16/19 03:13 96 20 99 Nasal Cannula 2.0 28 92 20 95 10/16/19 00:00 97.9 84 20 134/81 (98) 94 10/16/19 00:00 84 10/15/19 23:17 91 20 96 Nasal Cannula 2.0 28 88 20 90 10/15/19 22:18 91 135/92 10/15/19 21:00 Nasal Cannula 2.0 10/15/19 20:00 98.2 92 20 133/90 (104) 97 10/15/19 20:00 92 10/15/19 20:00 2.0 10/15/19 19:39 98 20 100 Nasal Cannula 2.0 28 95 20 97 10/15/19 16:00 98.1 84 19 131/65 (87) 98 10/15/19 16:00 88 10/15/19 16:00 2.0 10/15/19 13:23 87 20 99 Nasal Cannula 2.0 28 87 20 99 10/15/19 12:00 96.8 84 20 145/87 (106) 97 10/15/19 12:00 86 10/15/19 12:00 2.0 10/15/19 09:49 98.7 10/15/19 09:20 84 20 96 Nasal Cannula 2.0 28 82 20 95 10/15/19 09:17 61 154/94 10/15/19 09:00 Nasal Cannula 2.0 10/15/19 08:00 2.0 10/15/19 08:00 86 10/15/19 08:00 98.7 61 19 154/94 (114) 98 Intake and Output 10/15/19 10/16/19 19:00 07:00 Intake Total 140 ml Output Total 1600 ml Balance -1460 ml Intake Oral 140 ml Output Urine Total 1600 ml # Voids 3 2 Current Medications Medications (Trade) Dose Ordered Sig/Alethea Route PRN Reason Start Time Stop Time Status Last Admin Dose Admin Albuterol/ Ipratropium (Albuterol/ Ipratropium) 3 ml Q4H PRN HHN Shortness of Breath 10/14/19 16:30 10/19/19 16:29 10/16/19 03:12 Aspirin (ASA) 81 mg DAILY ORAL 10/15/19 09:00 11/14/19 08:59 10/15/19 09:17 Atorvastatin Calcium (Lipitor) 20 mg BEDTIME ORAL 10/14/19 21:00 11/13/19 20:59 10/15/19 22:18 Carvedilol (Coreg) 25 mg EVERY 12 HOURS ORAL 10/14/19 21:00 11/13/19 20:59 10/15/19 22:18 Docusate Sodium (Colace) 100 mg THREE TIMES A DAY ORAL 10/14/19 18:00 11/13/19 17:59 Doxazosin Mesylate (Cardura) 4 mg DAILY ORAL 10/15/19 09:00 11/14/19 08:59 10/15/19 09:17 Escitalopram Oxalate (Lexapro) 10 mg DAILY ORAL 10/15/19 09:00 11/14/19 08:59 10/15/19 09:17 Heparin Sodium (Porcine) (Heparin 5000 units/ml) 5,000 units EVERY 12 HOURS SUBQ 10/14/19 21:00 11/13/19 20:59 10/15/19 09:19 Hydrochlorothiazide (Hydrodiuril) 12.5 mg DAILY ORAL 10/14/19 19:48 11/13/19 19:47 10/15/19 09:17 Hydromorphone HCl (Dilaudid) 1 mg Q6H PRN IVP For Pain 10/14/19 16:30 10/21/19 16:29 10/15/19 09:19 Metformin HCl (Glucophage) 500 mg TWICE A DAY ORAL 10/14/19 18:00 11/13/19 17:59 10/15/19 17:47 Ondansetron HCl (Zofran) 4 mg Q6H PRN IVP Nausea & Vomiting 10/14/19 16:30 11/13/19 16:29 10/14/19 20:08 Sucralfate (Carafate) 1 gm FOUR TIMES A DAY ORAL 10/14/19 18:00 11/13/19 17:59 10/15/19 22:18 Zolpidem Tartrate (Ambien) 5 mg HSPRN PRN ORAL Insomnia 10/14/19 16:30 10/21/19 16:29 Matthew Joyner MD Oct 16, 2019 07:21
--- NOTE | 2019-10-16 07:24 | NUR ---
Report given to RIZWANA Mosquera. Pt is awake and resting in bed in no acute distress, HOB elevated.IV site intact. Bed locked in lowest position, bed alarm on, call light within reach. Endorsed plan of care.
--- NOTE | 2019-10-16 07:25 | NUR ---
NURSE NOTES: Received report from Sincere WAGONER. Pt in bed awake and oriented x4. Side railsx2 up for safety. IV site in LAC 20G SL patent and asymptomatic. Call light within easy reach. No c/o pain. On O2 2LPM via V/C. Denied SOB. Will continue to plan of care.
[2019-10-16 08:00] VITALS: BP 136/86
[2019-10-16] MEDS: Docusate 100mg cap ORAL SCH ×3 (09:00→18:00)
[2019-10-16] MEDS: Sucralfate 1gm tab ORAL SCH ×4 (09:10→21:24)
[2019-10-16] MEDS: Aspirin Baby 81mg ORAL SCH (09:10)
[2019-10-16] MEDS: Doxazosin 4mg tab ORAL SCH (09:10)
[2019-10-16] MEDS: Carvedilol 25mg Tab ORAL SCH ×2 (09:10→21:24)
[2019-10-16] MEDS: metFORMIN 500mg tab ORAL SCH ×2 (09:11→18:08)
[2019-10-16] MEDS: hydroCHLOROthiazide 12.5mg TAB ORAL SCH (09:11)
[2019-10-16] MEDS: Heparin 5000 units/ml inj SUBQ SCH ×2 (09:12→21:25)
[2019-10-16 12:00] VITALS: BP 129/74
--- NOTE | 2019-10-16 14:15 | Nephrology Progress Note ---
Assessment/Plan Assessment 1. Acute coronary syndrome, 2. Hypertension, uncontrolled at this time. 3. COPD. 4. Morbid obesity. 5.right shoulder pain Plan continue current med pulmonary consult done ortho consult pain management continue breathing treatment Subjective ROS Limited/Unobtainable: Yes Subjective feeling better continue to have right shoulder pain Objective Objective Last 24 Hour Vital Signs Date Time Temp Pulse Resp B/P (MAP) Pulse Ox O2 Delivery O2 Flow Rate FiO2 10/16/19 12:19 85 18 99 Nasal Cannula 2.0 85 18 95 10/16/19 12:00 77 10/16/19 12:00 2.0 10/16/19 12:00 97.3 77 23 129/74 (92) 94 10/16/19 09:10 90 136/86 10/16/19 09:00 Nasal Cannula 2.0 10/16/19 08:48 95 Nasal Cannula 2.0 10/16/19 08:00 2.0 10/16/19 08:00 94 10/16/19 08:00 98.0 90 24 136/86 (103) 94 10/16/19 04:00 98.2 92 20 124/80 (95) 92 10/16/19 04:00 2.0 10/16/19 04:00 92 10/16/19 03:13 96 20 99 Nasal Cannula 2.0 28 92 20 95 10/16/19 00:00 97.9 84 20 134/81 (98) 94 10/16/19 00:00 84 10/15/19 23:17 91 20 96 Nasal Cannula 2.0 28 88 20 90 10/15/19 22:18 91 135/92 10/15/19 21:00 Nasal Cannula 2.0 10/15/19 20:00 98.2 92 20 133/90 (104) 97 10/15/19 20:00 92 10/15/19 20:00 2.0 10/15/19 19:39 98 20 100 Nasal Cannula 2.0 28 95 20 97 10/15/19 16:00 98.1 84 19 131/65 (87) 98 10/15/19 16:00 88 10/15/19 16:00 2.0 Intake and Output 10/15/19 10/16/19 19:00 07:00 Intake Total 140 ml Output Total 1600 ml Balance -1460 ml Intake Oral 140 ml Output Urine Total 1600 ml # Voids 3 2 Height (Feet): 5 Height (Inches): 6.00 Weight (Pounds): 229 Objective HEAD AND NECK: No JVP. No LAD. Extraocular movements intact. Pupils are reactive to light and accommodation. LUNGS: Clear to auscultation. CARDIAC: Regular rate and rhythm. S1 and S2 normal. No rub. ABDOMEN: Soft, nontender, and nondistended. EXTREMITIES: No edema, no clubbing, no cyanosis. NEUROLOGIC: Cranial nerves II through XII within normal limits. Upper and lower extremities are grossly intact. Gladys Bravo MD Oct 16, 2019 14:15
[2019-10-16] MEDS ORDERED: Omnipaque 350 100ml vial INJ PRN (14:30)
--- NOTE | 2019-10-16 15:00 | NUR ---
NURSE NOTES: Pt went to CT scan
--- NOTE | 2019-10-16 15:40 | NUR ---
NURSE NOTES: Pt returned back from CT scan via wheelchair
[2019-10-16 16:00] VITALS: BP 137/87
--- NOTE | 2019-10-16 17:17 | Diagnostic Imaging Report ---
ndication: Respiratory insufficiency, chest pain Technique: IV administration nonionic contrast. Spiral acquisitions obtained from the lung bases to the lung apices. Multiplanar and 3-D reconstructions were generated. Total dose length product 528 mGycm. CTDIvol(s) one, 83, 15 mGy. Dose reduction achieved using automated exposure control Comparison: Noncontrast chest CT 08/26/2019 Findings: Pulmonary arteries are well-opacified. No intraluminal filling defects or other findings to suggest acute pulmonary embolus are demonstrated. Normal caliber pulmonary arteries. The heart is enlarged with four-chamber cardiomegaly. No isolated right ventricular dilatation demonstrated. No evidence of thoracic aortic aneurysm or dissection. There is diffuse interstitial septal thickening and ill-defined groundglass opacities bilaterally, as well as areas of slightly denser consolidation. No effusions. No definite masses or nodules, although the latter could easily be obscured by the surrounding parenchymal opacities. There is a pericardial effusion, predominantly over the right heart border and the left cardiac apex, measuring up to 3 cm in thickness. There are prominent hilar lymph nodes bilaterally, but no sunita hilar or mediastinal mass or adenopathy. The included portion of the thyroid is unremarkable. The esophagus is unremarkable. No axillary or chest wall mass or adenopathy. There are bilateral breast implants. The included upper abdominal anatomy is unremarkable. The bones demonstrate mild degenerative spondylosis changes. Compared to the prior study, pulmonary parenchymal opacities have improved considerably. Other findings are essentially unchanged. Impression: No evidence of acute pulmonary embolus or other acute thoracic vascular pathology. Bilateral interstitial and airspace edema, considerably less severe than on prior study of 08/26/2019 but still fairly extensive Cardiomegaly and pericardial effusion, also previously described Bilateral breast implants, also previously reported Degenerative spondylosis incidentally noted The CT scanner at [facility] is accredited by the [employer] and the scans are performed using protocols designed to limit radiation exposure to as low as reasonably achievable to attain images of sufficient resolution adequate for diagnostic evaluation.
--- NOTE | 2019-10-16 19:00 | NUR ---
HAND-OFF: Report given to Danis WAGONER. Pt remains stable.
--- NOTE | 2019-10-16 19:01 | NUR ---
NURSE NOTES: Received patient from Chuy Morin RN. Patient is aaox4, vss, with no acute distress. Patient is talkative, cooperative and well groomed. On desk monitor, IV left AC 20g with no skin issues. Patient is on 2L NC with no extra effort used to breath. Patient is on her phone with no complaints. Bed at its lowest position, call light in reach and x3 bed rails are up. Will continue to monitor.
[2019-10-16 20:00] VITALS: BP 137/74
--- NOTE | 2019-10-16 20:14 | Cardiology Progress Note ---
Assessment/Plan Assessment/Plan 1. Right-sided chest pain, most likely noncardiac in origin, reproducible with palpation and pleuritic in nature. This could be musculoskeletal etiology. Pulmonary embolism is ruled out. 2. Dyspnea, likely an acute exacerbation of chronic obstructive pulmonary disease. 3. Small to medium-sized pericardial effusion, according to the last 2D echocardiography in this facility, there was no evidence of pericardial tamponade. 4. Nonischemic cardiomyopathy with LVEF of approximately 50%. 5. Supraventricular tachycardia, continue coreg, will add diltiazem CD 120mg daily. 6. History of hypertension, continue metoprolol, diltiazem CD and cardura. Subjective Subjective Sinus rhythm at rate of 99. Objective Last 24 Hour Vital Signs Date Time Temp Pulse Resp B/P (MAP) Pulse Ox O2 Delivery O2 Flow Rate FiO2 10/16/19 16:00 97.0 99 22 137/87 (104) 99 10/16/19 16:00 103 10/16/19 16:00 2.0 10/16/19 12:19 85 18 99 Nasal Cannula 2.0 85 18 95 10/16/19 12:00 77 10/16/19 12:00 2.0 10/16/19 12:00 97.3 77 23 129/74 (92) 94 10/16/19 09:10 90 136/86 10/16/19 09:00 Nasal Cannula 2.0 10/16/19 08:48 95 Nasal Cannula 2.0 10/16/19 08:00 2.0 10/16/19 08:00 94 10/16/19 08:00 98.0 90 24 136/86 (103) 94 10/16/19 04:00 98.2 92 20 124/80 (95) 92 10/16/19 04:00 2.0 10/16/19 04:00 92 10/16/19 03:13 96 20 99 Nasal Cannula 2.0 28 92 20 95 10/16/19 00:00 97.9 84 20 134/81 (98) 94 10/16/19 00:00 84 10/15/19 23:17 91 20 96 Nasal Cannula 2.0 28 88 20 90 10/15/19 22:18 91 135/92 10/15/19 21:00 Nasal Cannula 2.0 Intake and Output 10/15/19 10/16/19 19:00 07:00 Intake Total 140 ml Output Total 1600 ml Balance -1460 ml Intake Oral 140 ml Output Urine Total 1600 ml # Voids 3 2 2D Echo: EF 50%,Septal wall HK,Mild AR/MR, RVSP 39,Med.localized Peric.eff, RAP 10 Objective HEENT: Atraumatic and normocephalic. Anicteric. Pupils are equal, round, and reactive to light and accommodation. Extraocular muscles intact. NECK: JVP less than 5 cm. No carotid bruit. Carotid upstroke is 2+ bilaterally. CARDIOVASCULAR: Normal S1 and S2. Regular rate and rhythm. No murmurs, gallops, or rubs. PMI is at the fourth intercostal space in the midclavicular line. LUNGS: Diminished breath sounds in both lungs. ABDOMEN: Soft, nontender, and nondistended. No hepatosplenomegaly. Bowel sounds present. EXTREMITIES: No evidence of edema, clubbing, or cyanosis. Bc Daniels MD Oct 16, 2019 20:14
--- NOTE | 2019-10-16 20:15 | NUR ---
NURSE NOTES: Dr Daniels ordered hot pack and two extra strength Tylenol PO PRN for moderate pain 500mg.
--- NOTE | 2019-10-16 20:30 | NUR ---
NURSE NOTES: Patients refused Tylenol for pain and demand stronger medications.
[2019-10-16] MEDS ORDERED: Acetaminophen 500mg (ES) tab ORAL PRN (20:45)
[2019-10-16] MEDS: Atorvastatin 20mg tab ORAL SCH (21:24)
[2019-10-16] MEDS: HYDROmorphone 1mg/ml Carpuject IVP PRN (21:24)
[2019-10-16] MEDS: dilTIAZem HCl CD 120mg cap ORAL SCH (21:30)
[2019-10-17] VITALS: BP 132/75
[2019-10-17 04:00] VITALS: BP 110/62
--- NOTE | 2019-10-17 07:35 | NUR ---
HAND-OFF: Report given to Lisa Rivera RN.
--- NOTE | 2019-10-17 07:40 | NUR ---
NURSE NOTES: Report received from RIZWANA Brady.Pt awake,alert oriented eating breakfast noted no resp distress on 2 L NC,denies any c/o pain or discomfort,SR on the monitor.skin warm and dry with IV heplock to LAC IV site intact,SR up x2 HOB elevated,call light within reach,bed lock in lowest position,will continue with plans of care.
[2019-10-17 08:00] VITALS: BP 139/76
[2019-10-17] MEDS: hydroCHLOROthiazide 12.5mg TAB ORAL SCH (08:49)
[2019-10-17] MEDS: metFORMIN 500mg tab ORAL SCH ×2 (08:49→18:03)
[2019-10-17] MEDS: Carvedilol 25mg Tab ORAL SCH (08:49)
[2019-10-17] MEDS: Docusate 100mg cap ORAL SCH ×4 (08:50→17:16)
[2019-10-17] MEDS: Aspirin Baby 81mg ORAL SCH (08:50)
[2019-10-17] MEDS: Sucralfate 1gm tab ORAL SCH ×3 (08:51→17:17)
[2019-10-17] MEDS: dilTIAZem HCl CD 120mg cap ORAL SCH (08:51)
[2019-10-17] MEDS: Doxazosin 4mg tab ORAL SCH (08:51)
[2019-10-17] MEDS: Heparin 5000 units/ml inj SUBQ SCH (08:54)
[2019-10-17 12:00] VITALS: BP 107/58
--- NOTE | 2019-10-17 12:42 | General Progress Note ---
Progress Note Progress Note [id number] pt seen and examined full note dictated Gladys Bravo MD Oct 17, 2019 12:42
--- NOTE | 2019-10-17 12:45 | NUR ---
NURSE NOTES: Dr Bravo at bedside,updated re pt's status,discharge to home ordered,pt informed re discharge order ,verbalized understanding.
--- NOTE | 2019-10-17 14:02 | NUR ---
CASE MANAGEMENT: NOTE INTERQUAL MET
[2019-10-17 16:00] VITALS: BP 120/64
--- NOTE | 2019-10-17 16:40 | NUR ---
NURSE NOTES: Pt sleeping quietly in bed stable, no distress noted,stable.
--- NOTE | 2019-10-17 17:07 | Pulmonology Progress Note ---
Assessment/Plan Assessment/Plan Mild respiratory insufficiency, chronic obstructive pulmonary disease per history, chest pain, possible acute coronary syndrome, hypertension, chronic pain syndrome. interstitial changes, not seen prior at [facility] PLAN respiratory care as is oxygen CT chest reviewed ? need VATS pain control cards follow up and clearance monitor as is adjust meds as needed impression, plan, and exam edited and reviewed in detail care discussed with RN Subjective Allergies: Coded Allergies: METRONIDAZOLE (Verified Allergy, Mild, 02/25/15) PENICILLIN G (Verified Allergy, Mild, 02/25/15) Subjective some sob and cp reviewed care CT chest noted Objective Last 24 Hour Vital Signs Date Time Temp Pulse Resp B/P (MAP) Pulse Ox O2 Delivery O2 Flow Rate FiO2 10/17/19 12:00 97.9 71 20 107/58 (74) 97 10/17/19 12:00 98 10/17/19 09:00 Nasal Cannula 2.0 10/17/19 08:51 83 139/76 10/17/19 08:49 83 139/76 10/17/19 08:00 98.2 83 20 139/76 (97) 95 10/17/19 08:00 2.0 10/17/19 08:00 85 10/17/19 07:26 96 Nasal Cannula 2.0 28 10/17/19 07:25 87 18 96 Nasal Cannula 2.0 28 10/17/19 04:00 91 10/17/19 04:00 98.1 88 18 110/62 (78) 97 10/17/19 04:00 2.0 10/17/19 00:00 89 10/17/19 00:00 2.0 10/17/19 00:00 98.1 85 18 132/75 (94) 94 10/16/19 21:54 97.0 10/16/19 21:30 88 137/74 10/16/19 21:28 86 20 99 Nasal Cannula 2.0 88 20 94 10/16/19 21:24 88 137/74 10/16/19 21:16 94 Nasal Cannula 2.0 10/16/19 21:00 Nasal Cannula 2.0 10/16/19 20:00 99.1 88 18 137/74 (95) 94 10/16/19 20:00 94 10/16/19 20:00 2.0 Intake and Output 10/16/19 10/17/19 19:00 07:00 Intake Total 800 ml 500 ml Balance 800 ml 500 ml Intake Oral 800 ml 500 ml # Voids 6 4 # Bowel Movements 2 Objective WDWN NAD reduced breath sounds bilaterally without rhonchi or wheeze [id number] without MRG NABS nontender no HSM no CCE nonfocal has pain Current Medications Medications (Trade) Dose Ordered Sig/Alethea Route PRN Reason Start Time Stop Time Status Last Admin Dose Admin Acetaminophen (Tylenol) 500 mg Q4H PRN ORAL Mild Pain/Temp > 100.5 10/16/19 20:45 11/15/19 20:44 Albuterol/ Ipratropium (Albuterol/ Ipratropium) 3 ml Q4H PRN HHN Shortness of Breath 10/14/19 16:30 10/19/19 16:29 10/16/19 21:18 Aspirin (ASA) 81 mg DAILY ORAL 10/15/19 09:00 11/14/19 08:59 10/17/19 08:50 Atorvastatin Calcium (Lipitor) 20 mg BEDTIME ORAL 10/14/19 21:00 11/13/19 20:59 10/16/19 21:24 Carvedilol (Coreg) 25 mg EVERY 12 HOURS ORAL 10/14/19 21:00 11/13/19 20:59 10/17/19 08:49 Diltiazem HCl (Cardizem CD) 120 mg DAILY ORAL 10/16/19 20:15 11/15/19 20:14 10/17/19 08:51 Docusate Sodium (Colace) 100 mg THREE TIMES A DAY ORAL 10/14/19 18:00 11/13/19 17:59 Doxazosin Mesylate (Cardura) 4 mg DAILY ORAL 10/15/19 09:00 11/14/19 08:59 10/17/19 08:51 Escitalopram Oxalate (Lexapro) 10 mg DAILY ORAL 10/15/19 09:00 11/14/19 08:59 10/16/19 09:11 Heparin Sodium (Porcine) (Heparin 5000 units/ml) 5,000 units EVERY 12 HOURS SUBQ 10/14/19 21:00 11/13/19 20:59 10/17/19 08:54 Hydrochlorothiazide (Hydrodiuril) 12.5 mg DAILY ORAL 10/14/19 19:48 11/13/19 19:47 10/17/19 08:49 Hydromorphone HCl (Dilaudid) 1 mg Q6H PRN IVP For Pain 10/14/19 16:30 10/21/19 16:29 10/16/19 21:24 Iohexol (Omnipaque 350 100ml) 100 ml NOW PRN INJ Radiology Procedure 10/16/19 14:30 10/18/19 14:20 Metformin HCl (Glucophage) 500 mg TWICE A DAY ORAL 10/14/19 18:00 11/13/19 17:59 10/17/19 08:49 Ondansetron HCl (Zofran) 4 mg Q6H PRN IVP Nausea & Vomiting 10/14/19 16:30 11/13/19 16:29 10/16/19 10:22 Sucralfate (Carafate) 1 gm FOUR TIMES A DAY ORAL 10/14/19 18:00 11/13/19 17:59 10/17/19 15:38 Zolpidem Tartrate (Ambien) 5 mg HSPRN PRN ORAL Insomnia 10/14/19 16:30 10/21/19 16:29 Axel Mcfarlane MD Oct 17, 2019 17:06
--- NOTE | 2019-10-17 18:00 | NUR ---
NURSE NOTES: Discharge instructions re medications given to pt,verbalized understanding.IV heplock to LAC removed .skin site intact.Pt waiting for spouse to pick her up.
--- NOTE | 2019-10-17 19:11 | NUR ---
HAND-OFF: Report given to Teresa Sinclair RN.
--- NOTE | 2019-10-17 19:45 | Discharge Summary ---
DATE OF ADMISSION: 10/14/2019 DATE OF DISCHARGE: 10/17/2019 ADMITTING DIAGNOSES: 1. Acute coronary syndrome. 2. Right-sided chest pain. 3. Right shoulder pain. 4. Hypertension. 5. Morbid obesity. 6. COPD. 7. Mild anemia. HISTORY OF PRESENT ILLNESS AND COURSE OF HOSPITAL ADMISSION: Ms. Barnett is a 59-year-old female with past medical history significant for history of COPD and history of chronic pain syndrome, history of hypertension, history of morbid obesity, who presented to the emergency room complaining of retrosternal chest pain radiating to right, increased with breathing and movement. The patient was admitted with a diagnosis of acute coronary syndrome. Over the course of hospital admission, D-dimer was checked and found to be elevated. I ordered a CT of the chest, which was negative for pulmonary embolism. Capacity Planner who is very familiar with her case, Dr. Axel Mcfarlane and Dr. Bc Daniels was called. The patient restarted home medication. The patient's lab results and medical record is reviewed. Upon discharge, her right-sided shoulder pain has significantly improved, but she continued to have mild pain, which will be addressed as an outpatient with Orthopedics. PHYSICAL EXAMINATION: VITAL SIGNS: Upon discharge, the patient has a temperature of 98, blood pressure of 139/76, pulse rate of 85, the patient had 95% on 2 liters nasal cannula. HEAD AND NECK: No JVP. No LAD. No thyromegaly. Extraocular movements intact. Pupils are reactive to light and accommodation. LUNGS: Decreased breathing sound on the both sides. CARDIAC: Regular rate and rhythm. S1, S2. No murmur. No rub. ABDOMEN: Soft, nontender, and nondistended. EXTREMITIES: No edema. No clubbing. No cyanosis. LABORATORY VALUES: Three sets of cardiac enzyme was negative. The patient's laboratory was reviewed. The study including the CT of the chest and chest x-ray were negative. The patient was cleared by both consultants. The patient will be discharged home. Will have a followup with Home Health. She will have a follow up with Dr. Axel Mcfarlane for the senior catering sales manager and Dr. Bc Daniels for the Cardiology. We will also provide an Orthopedic referral as an outpatient for right shoulder pain. Activity is going to be as tolerated. Medication list was reviewed. Gladys Bravo M.D. DR: HUSSEIN JOB#: [id number] CC:
== END 2019-10-17 19:20 | disposition home or self-care (01) | DRG 191 ==
LOC: EMR 06:45 → EDBEDREQ 14:02 → 2E 14:11 → 2W 10-16 18:50
DX: J44.1 Chronic obstructive pulmonary disease with (acute) exacerbation (principal); I31.3 Pericardial effusion (noninflammatory); I42.8 Other cardiomyopathies; I47.1 Supraventricular tachycardia; I50.32 Chronic diastolic (congestive) heart failure; R07.89 Other chest pain; I11.0 Hypertensive heart disease with heart failure; Z88.0 Allergy status to penicillin; Z88.8 Allergy status to other drugs, medicaments and biological substances; Z87.891 Personal history of nicotine dependence; G89.4 Chronic pain syndrome; E66.01 Morbid (severe) obesity due to excess calories; Z77.120 Contact with and (suspected) exposure to mold (toxic); K21.9 Gastro-esophageal reflux disease without esophagitis; R06.89 Other abnormalities of breathing
CPT/HCPCS: 36415; 71045; 71275; 80053; 80162; 82962; 83880; 84484; 85025; 85379; 93005; 94640; 94664; 96374; 99285; J2405; J7620

== ENCOUNTER 2019-12-10 09:08 | Outpatient (CLI) | payer MEDICARE, OTHER ==
[~2019-12-10] VITALS: Ht 167.6 cm; Wt 103.0 kg
[~2019-12-10 09:08] MED LIST changes: +BREO ELLIPTA 21 EACH IH; +CARVEDILOL12.5 MG ORAL; +COLCRYS0.6 M1 PO; +DOXAZOSIN MESYLA1 MG ORAL; +LEXAPRO10 MG ORAL; +METFORMIN HCL500 M1 ORAL; +PERFOROMIS20 MCG/2 M IH; +POTASSIUM99 M3 PO; +ROXICODONE30 M1 ORAL; +TRIAMCINOLONE A15 G1 TP; +YUPELRI175 MCG/3 IH
[2019-12-10 09:22] VITALS: BP 131/68
--- NOTE | 2019-12-10 09:22 | NUR ---
NASAL CANNULA O2 4 LIT/MIN Addendum: 12/10/19 at 1522 by FELIX CONNOR Amended: Links added.
--- NOTE | 2019-12-10 10:06 | General Progress Note ---
Assessment/Plan Assessment/Plan: Assessment/Plan Status: unchanged Assessment/Plan: 1. History of pericardial effusion. 2. COPD. 3. Diabetes. 4. Hypertension. 5. Chronic diastolic congestive heart failure. 6. GERD. 7. Gastritis ppi>>> will change to Dexilant add Baclofen QHS ADD VSL #3 carafate s/p recent EGD CT abnd us reviewed pain control fu labs fu cardiology and pulm pending COVID check Subjective ROS Limited/Unobtainable: Yes Allergies: Coded Allergies: METRONIDAZOLE (Verified Allergy, Mild, 02/25/15) PENICILLIN G (Verified Allergy, Mild, 02/25/15) Objective General Appearance: alert EENT: normal ENT inspection Neck: supple Cardiovascular: normal rate, systolic murmur Respiratory/Chest: decreased breath sounds Abdomen: normal bowel sounds, non tender, soft Extremities: non-tender Niranjan Good MD Dec 10, 2019 10:06
[2019-12-10] MEDS ORDERED: VENTOLIN HFA18 GM INH (15:21)
[2019-12-10] MEDS ORDERED: OMEPRAZOLE40 M1 ORAL (15:21)
[2019-12-10] MEDS ORDERED: TRAMADOL HCL50 MG ORAL (15:21)
[2019-12-10] MEDS ORDERED: HYDROCHLOROTHIA25 MG ORAL (15:21)
[2019-12-10] MEDS ORDERED: CYCLOBENZAPRINE10 MG ORAL (15:21)
== END 2019-12-10 14:30 | disposition home or self-care (01) ==
LOC: PAN 09:08
DX: J44.9 Chronic obstructive pulmonary disease, unspecified (principal); E11.9 Type 2 diabetes mellitus without complications; K21.9 Gastro-esophageal reflux disease without esophagitis; K29.70 Gastritis, unspecified, without bleeding; Z88.0 Allergy status to penicillin; I11.0 Hypertensive heart disease with heart failure; I50.9 Heart failure, unspecified
CPT/HCPCS: G0463

== ENCOUNTER 2019-12-24 08:36 | Outpatient (CLI) | payer MEDICARE, OTHER ==
[~2019-12-24 08:36] MED LIST changes: +CYCLOBENZAPRINE10 MG ORAL; +TRAMADOL HCL50 MG ORAL
--- NOTE | 2019-12-24 08:58 | General Progress Note ---
Assessment/Plan Assessment/Plan: Assessment/Plan Status: unchanged Assessment/Plan: 1. History of pericardial effusion. 2. COPD. 3. Diabetes. 4. Hypertension. 5. Chronic diastolic congestive heart failure. 6. GERD. 7. Gastritis 8. HP positive 9. Mold encounter ppi>>> Dexilant>>> not hepling and she stopped add Baclofen QHS VSL #3 carafate s/p recent EGD CT abnd us reviewed pain control fu labs fu cardiology and pulm treat for HP and RTC 3 months for breath test colonoscopy for this Monday Subjective ROS Limited/Unobtainable: Yes Allergies: Coded Allergies: No Known Allergies (Unverified , 12/10/19) Subjective still c/o abd pain Objective General Appearance: alert EENT: PERRL/EOMI Neck: normal alignment Cardiovascular: normal rate Respiratory/Chest: decreased breath sounds Abdomen: soft, hypoactive bowel sounds, tender Extremities: non-tender Niranjan Good MD Dec 24, 2019 08:58
[2019-12-24] MEDS ORDERED: YUPELRI175 MCG/3 IH (11:00)
[2019-12-24] MEDS ORDERED: LIDOCAINE VISC100 ML ORAL (11:00)
[2019-12-24] MEDS ORDERED: COLCRYS0.6 M1 PO (11:00)
[2019-12-24] MEDS ORDERED: CARVEDILOL PO (11:00)
[2019-12-24] MEDS ORDERED: PREDNISONE10 MG ORAL (11:00)
[2019-12-24] MEDS ORDERED: [UNRECOGNIZED DRUG - OTHER] PO (11:00)
[2019-12-24] MEDS ORDERED: PERFOROMIS20 MCG/2 M IH (11:00)
[2019-12-24] MEDS ORDERED: ASPIRIN EC81 MG ORAL (11:00)
== END 2019-12-24 10:36 | disposition home or self-care (01) ==
LOC: PAN 08:36
DX: K21.9 Gastro-esophageal reflux disease without esophagitis (principal); K29.70 Gastritis, unspecified, without bleeding; Z86.711 Personal history of pulmonary embolism; J44.9 Chronic obstructive pulmonary disease, unspecified; E11.9 Type 2 diabetes mellitus without complications; I10 Essential (primary) hypertension; I11.0 Hypertensive heart disease with heart failure; I50.32 Chronic diastolic (congestive) heart failure; B96.81 Helicobacter pylori [H. pylori] as the cause of diseases classified elsewhere; R10.9 Unspecified abdominal pain
CPT/HCPCS: 99212

== ENCOUNTER → 2019-12-27 | Day surgery (SDC) | payer MEDICARE, OTHER ==
[~2019-12-27] VITALS: Ht 167.6 cm; Wt 100.7 kg
[2019-12-27] VITALS (9 sets, daily range): BP systolic 135–163; BP diastolic 73–93
[~2019-12-27] MED LIST changes: +ASPIRIN EC81 MG ORAL; +CARVEDILOL PO; +DICYCLOMINE HCL20 M1 PO; +LIDOCAINE VISC100 ML ORAL; +LR 1000ml 1,000 ML IVLG SCH; +ZOFRAN PO; +[UNRECOGNIZED DRUG - OTHER] PO
--- NOTE | 2019-12-27 09:23 | Pre-Procedure Note/Attestation ---
Pre-Procedure Note/Attestation Complete Prior to Procedure Planned Procedure: not applicable Procedure Narrative: colonoscopy Indications for Procedure Pre-Operative Diagnosis: abd pain Attestation I attest that I discussed the nature of the procedure; its benefits; risks and complications; and alternatives (and the risks and benefits of such alternatives ), prior to the procedure, with the patient (or the patient's legal customer support representative). I attest that, if there was a reasonable possibility of needing a blood transfusion, the patient (or the patient's legal customer support representative) was given the [facility] standardized written summary, pursuant to the [place] Blood Safety Act ([place] Health and Safety Code # 1645, as amended). I attest that I re-evaluated the patient just prior to the surgery and that there has been no change in the patient's H&P, except as documented below: Niranjan Good MD December 27, 2019 09:23
--- NOTE | 2019-12-27 09:24 | Short Stay Surgery H&P ---
History of Present Illness History of Present Illness Chief Complaint see dr velasco notes HPI Anibla Kaur is a 59 year old female who was admitted on for Screening Patient History Allergies: Coded Allergies: No Known Allergies (Unverified , 12/10/19) Medication History Scheduled Aclidinium [place] (Tudorza Pressair), 400 MCG IH DAILY, (Reported) Albuterol Sulfate (Ventolin Hfa), 2 PUFFS INH EVERY 6 HOURS, (Reported) Aspirin Ec* (Aspirin Ec*), 81 MG ORAL DAILY, (Reported) Atorvastatin Calcium* (Atorvastatin Calcium*), 20 MG ORAL DAYTIME, (Reported) Colchicine (Colcrys), 0.6 MG PO DAILY, (Reported) Fluticasone/Vilanterol (Breo Ellipta 200-25 Mcg INH), 1 EACH IH DAILY, (Reported ) Lidocaine HCl 2% Viscous (Lidocaine HCl 2% Viscous), 15 ML ORAL QID, (Reported) Metformin Hcl* (Metformin Hcl*), 500 MG ORAL TWICE A DAY, (Reported) Potassium Gluconate (Potassium), 20 MG PO ONCE TO TWICE A DAY, (Reported) Prednisone* (Prednisone*), 10 MG ORAL DAILY, (Reported) Revefenacin (Yupelri), 175 MCG IH DAILY, (Reported) Sucralfate* (Carafate*), 1 GM ORAL FOUR TIMES A DAY, (Reported) Triamcinolone Acetonide (Triamcinolone Acetonide 0.5% Cream*), 15 GM TP BID, ( Reported) [Carvedilol Er ], 80 MG PO DAILY, (Reported) Scheduled PRN Escitalopram Oxalate* (Lexapro*), 10 MG ORAL DAILY PRN for Depression, (Reported ) Oxycodone Hcl* (Roxicodone*), 30 MG ORAL Q6H PRN for For Pain, (Reported) Tramadol Hcl* (Ultram*), 50 MG ORAL Q8HR PRN for For Pain, (Reported) Miscellaneous Medications Formoterol Fumarate (Perforomist), 20 MCG IH, (Reported) Mag Hydrox/Al Hydrox/Simeth (Almacone Liquid), 30 ML PO, (Reported) Discontinued Medications Carvedilol* (Carvedilol*), 12.5 MG ORAL EVERY 12 HOURS, (Reported) Discontinued Reason: Medication dose changed Cyclobenzaprine Hcl* (Flexeril*), 10 MG ORAL THREE TIMES A DAY, (Reported) Discontinued Reason: MD discontinued med Diltiazem Hcl* (Cardizem*), 60 MG ORAL BID, (Reported) Discontinued Reason: MD discontinued med Doxazosin Mesylate* (Doxazosin Mesylate*), 4 MG ORAL DAILY, (Reported) Discontinued Reason: MD discontinued med Hydrochlorothiazide* (Hydrochlorothiazide*), 25 MG ORAL DAILY, (Reported) Discontinued Reason: discontinued med Omeprazole (Omeprazole), 40 MG ORAL DAILY, (Reported) Discontinued Reason: MD discontinued med Physical Exam Vital Signs Last Vital Signs Date Time Temp Pulse Resp B/P (MAP) Pulse Ox O2 Delivery O2 Flow Rate FiO2 12/27/19 08:49 97.4 77 18 144/82 100 Nasal Cannula 3 Plan Attestation Are the patient's medical conditions optimized for surgery? Niranjan Good MD December 27, 2019 09:24
--- NOTE | 2019-12-27 09:29 | Anethesia Preoperative Eval ---
Anesthesia Pre-op PMH/ROS General Date of Evaluation: December 27, 2019 Time of Evaluation: 09:10 Anesthesiologist: Mirian ASA Score: ASA 3 Mallampati Score Class I : Soft palate, uvula, fauces, pillars visible Class II: Soft palate, uvula, fauces visible Class III: Soft palate, base of uvula visible Class IV: Only hard plate visible Mallampati Classification: Class III Surgeon: Florentino Diagnosis: Colon CA screening Surgical Procedure: Colonoscopy Anesthesia History: none Family History: no anesthesia problems Allergies: Coded Allergies: No Known Allergies (Unverified , 12/10/19) Medications: see eMAR Patient NPO?: Yes Past Medical History Cardiovascular: Reports: HTN, arrhythmia Pulmonary: Reports: COPD - on home oxygen; Denies: asthma, SHARON, other Gastrointestinal/Genitourinary: Reports: GERD; Denies: CRI, ESRD, other Neurologic/Psychiatric: Denies: dementia, CVA, depression/anxiety, TIA, other Endocrine: Reports: DM - borderline HEENT: Denies: cataract (L), cataract (R), glaucoma, [place] (L[place] (R), other Hematology/Immune: Reports: anemia - mild; Denies: DVT, bleeding disorder, other Musculoskeletal/Integumentary: Denies: OA, RA, DJD, DDD, edema, other Other: obesity PMH Narrative: as above PSxH Narrative: Cholecystectomy Anesthesia Pre-op Phys. Exam Physician Exam Last Vital Signs Date Time Temp Pulse Resp B/P (MAP) Pulse Ox O2 Delivery O2 Flow Rate FiO2 12/27/19 08:49 97.4 77 18 144/82 100 Nasal Cannula 3 Constitutional: NAD Neurologic: CN 2-12 intact Cardiovascular: RRR Respiratory: CTA Gastrointestinal: S/NT/ND Airway Exam Mallampati Score: Class III MO: limited Neck: short ROM: limited Teeth: intact Dentures: no upper, no lower Anesthesia Pre-op A/P Studies Pre-op Studies: EKG - SR Risk Assessment & Plan Assessment: ASA 3 Plan: Patric Pressley MD December 27, 2019 09:29
--- NOTE | 2019-12-27 09:43 | Endoscopy Procedure Note ---
Endoscopy Procedure Note General Indication for Procedure: abd pain Procedures Performed: colonoscopy Operative Findings/Diagnosis: multiple polyps Specimen: yes Pt Tolerated Procedure Well: Yes Estimated Blood Loss: none Anesthesia Anesthesiologist: niki Anesthesia: MAC Inserted Devices Implant(s) used?: No Quality Quality of Bowel Preparation: Poor Did scope reach the cecum?: Yes Was there any complications?: No GI Core Measures 50 yrs or older w/o bx or poly: No 10yrs. F/U recommended: Yes If not recommended, why?: Above average risk 18 years or older w/prev. colo: No Niranjan Good MD December 27, 2019 09:43
--- NOTE | 2019-12-27 09:50 | Immediate Post-Op Evaluation ---
Immediate Post-Op Evalulation Immediate Post-Op Evalulation Procedure: Colonoscopy Date of Evaluation: December 27, 2019 Time of Evaluation: 09:49 IV Fluids: 500 Blood Products: none Estimated Blood Loss: none Urinary Output: none Blood Pressure Systolic: 143 Blood Pressure Diastolic: 76 Pulse Rate: 72 Respiratory Rate: 20 O2 Sat by Pulse Oximetry: 99 Temperature (Fahrenheit): 97.8 Pain Score (1-10): 1` Nausea: No Vomiting: No Complications none Patient Status: awake, patent, none Hydration Status: adequate Patric Vela MD December 27, 2019 09:50
--- NOTE | 2019-12-27 18:59 | Procedure Note ---
DATE OF PROCEDURE: 12/27/2019 SURGEON: Niranjan Good MD. PROCEDURE: Colonoscopy with biopsy. ANESTHESIA: Per Dr. Vela. INSTRUMENT: Olympus adult flexible colonoscope. INDICATION: Abdominal pain. The procedure, risks, benefits, and possible consequences, including hemorrhage, aspiration, perforation and infection, and alternative treatments, were explained to the patient/legal guardian by Dr. Niranjan Good and the patient/legal guardian understood and accepted these risks. PROCEDURE IN DETAIL: After informed consent was obtained and the patient was adequately sedated, first rectal exam was performed which was positive for internal hemorrhoids. Then, the scope was advanced from the rectum into the cecum documented by appendix orifice. Quality of prep overall was poor in the right colon, especially in the cecum and ascending colon. Examination was limited given solid stool. The patient had multiple hyperplastic-looking polyps in the sigmoid area; two of them were biopsied and for diagnosis. There was another larger polyp that measured roughly about 6 mm, that one removed with cold biopsy forceps technique and placed in a different jar. The rest of the examination grossly looked within normal limits. Retroflexion of the rectum showed evidence of internal hemorrhoids. SUMMARY OF FINDINGS: 1. Poor colonic prep, especially in the right colon making examination limited. 2. There were multiple hyperplastic-looking polyps in the sigmoid colon, status post random biopsy of two of them. 3. Another polyp in the sigmoid measured roughly about 6 mm, status post cold biopsy forceps removal. 4. Internal hemorrhoids. RECOMMENDATIONS: Follow up biopsy results and treat accordingly. Given this number of polyps and given the poor quality of prep in the right colon, we will recommend repeat colonoscopy no later than 2 years. I want to thank, Dr. Axel Mcfarlane, for this kind referral. Niranjan Good M.D. DR: LYNN JOB#: [id number] CC: Axel Mcfarlane M.D.; Fax#: [phone]
[2019-12-28 08:00] VITALS: BP 156/72
--- NOTE | 2019-12-28 08:00 | 48 Hour Post Anesthesia Eval ---
Post Anesthesia Evaluation Procedure: Colonoscopy Date of Evaluation: December 27, 2019 Time of Evaluation: 10:40 Blood Pressure Systolic: 156 0: 72 Pulse Rate: 68 Respiratory Rate: 22 Temperature (Fahrenheit): 97.6 O2 Sat by Pulse Oximetry: 98 Airway: patent Nausea: No Vomiting: No Pain Intensity: 1 Hydration Status: adequate Cardiopulmonary Status: stable Mental Status/LOC: patient returned to baseline Follow-up Care/Observations: n/a Post-Anesthesia Complications: none Follow-up care needed: ready to discharge Patric Vela MD December 28, 2019 08:00
== END | disposition home or self-care (01) ==
LOC: GAS 07:37
DX: R10.9 Unspecified abdominal pain (principal); K63.5 Polyp of colon; K64.8 Other hemorrhoids; Z79.82 Long term (current) use of aspirin; Z79.899 Other long term (current) drug therapy
CPT/HCPCS: 94003; 94150

== ENCOUNTER 2020-01-05 11:32 | Emergency (ER) | payer MEDICARE, OTHER ==
[~2020-01-05] VITALS: Ht 167.6 cm; Wt 100.7 kg
[~2020-01-05 11:32] MED LIST changes: -LR 1000ml 1,000 ML IVLG SCH
--- NOTE | 2020-01-05 12:06 | Emergency Room Report ---
History of Present Illness General Chief Complaint: Dyspnea/Respdistress Source: Medical Record Present Illness HPI Patient is a 59-year-old female who presents after increased generalized chest discomfort as well as burning sensation to the throat. She had prior history of H. pylori and had recent endoscopy and was started on clarithromycin for H. pylori infection. Prior history of chronic pulmonary disease. She is normally followed by Dr. Bravo. Patient had been seen by Dr. Good for GI. Patient reports having increased burning sensation to the chest. She normally uses oxygen at home due to chronic interstitial lung disease. Denies any fever. Allergies: Coded Allergies: No Known Allergies (Unverified , 12/10/19) COVID-19 Screening Contact w/high risk pt: No Recent Travel to affected area: No Experienced COVID-19 symptoms?: Yes COVID-19 symptoms experienced: Shortness of Breath Patient History Past Medical History: see triage record Now: No Reviewed Nursing Documentation: PMH: Agreed; PSxH: Agreed Nursing Documentation-PMH Hx Cardiac Problems: Yes - irregular heart beat Hx Hypertension: Yes Hx Asthma: Yes - Allergic Bronchopulmonary Aspergillosis Hx COPD: Yes Hx Diabetes: Yes - Pre-Diabetes - PO administration Hx Cancer: No Hx Gastrointestinal Problems: Yes - GERD, acid reflux, H.pylori infection Hx Dialysis: No Hx Neurological Problems: No Hx Cerebrovascular Accident: No Hx Seizures: No Hx Fatigue: Yes Review of Systems All Other Systems: negative except mentioned in HPI Physical Exam Vital Signs Date Time Temp Pulse Resp B/P (MAP) Pulse Ox O2 Delivery O2 Flow Rate FiO2 01/05/20 11:33 98.2 97 20 152/86 (108) 100 Nasal Cannula 2.0 Sp02 EP Interpretation: reviewed, normal General Appearance: normal inspection, well appearing, no apparent distress, alert, GCS 15, obese Head: atraumatic ENT: normal ENT inspection, hearing grossly normal, normal voice Neck: normal inspection, full range of motion, supple, no bony tend Respiratory: normal inspection, lungs clear, normal breath sounds, no respiratory distress, no retraction, no wheezing Cardiovascular #1: regular rate, rhythm, no edema Gastrointestinal: normal inspection, normal bowel sounds, non tender, soft, no guarding, no hernia Genitourinary: no CVA tenderness Musculoskeletal: normal inspection, back normal, normal range of motion Neurologic: alert, motor strength/tone normal, taker off drying kiln III-XII nml as tested, oriented x3, responsive, speech normal, normal inspection Psychiatric: normal inspection, judgement/insight normal, mood/affect normal Medical Decision Making Diagnostic Impression: Primary Impression: GERD (gastroesophageal reflux disease) Last Vital Signs Date Time Temp Pulse Resp B/P (MAP) Pulse Ox O2 Delivery O2 Flow Rate FiO2 01/05/20 11:33 98.2 97 20 152/86 (108) 100 Nasal Cannula 2.0 Darrel Skinner MD January 05, 2020 12:06
[2020-01-05] MEDS ORDERED: Lidocaine 2% Visc 15ml soln ORAL ONE (12:15)
[2020-01-05] MEDS ORDERED: Mylanta II UD 30ml ORAL ONE (12:15)
[2020-01-05] MEDS ORDERED: Dicyclomine HCl 10mg/5ml oral soln ORAL ONE (12:15)
--- NOTE | 2020-01-05 12:20 | NUR ---
ED Nurse Note: first contact with pt. Pt resting in gurney, breathing normal/even/unlabored. skin warm/dry/intact. Per pt, she had abd pain and throat pain with SOB but denies CP. NAD noted.
[2020-01-05 12:35] VITALS: BP 167/101
[2020-01-05 13:17] LABS: BASOPHILS % (AUTO) 1.5 % (0.0-2.0); EOSINOPHILS % (AUTO) 2.7 % (0.0-3.0); HEMATOCRIT 34.4 % (37.0-47.0); HEMOGLOBIN 11.5 G/DL (12.0-16.0); LYMPHOCYTES % (AUTO) 36.2 % (20.0-45.0); MEAN CORPUSCULAR VOLUME 79 FL (80-99); MONOCYTES % (AUTO) 6.4 % (1.0-10.0); NEUTROPHILS % (AUTO) 53.2 % (45.0-75.0); PLATELET COUNT 307 K/UL (150-450); RED BLOOD COUNT 4.35 M/UL (4.20-5.40); WHITE BLOOD COUNT 5.4 K/UL (4.8-10.8)
--- NOTE | 2020-01-05 13:20 | NUR ---
ED Nurse Note: Pt resting in gurney, breathing normal/even/unlabored. skin warm/dry/intact. NAD noted.
[2020-01-05 13:31] LABS: ANION GAP 9 mmol/L (5-15); BLOOD UREA NITROGEN 14 mg/dL (7-18); CALCIUM 9.9 MG/DL (8.5-10.1); CARBON DIOXIDE 34 MMOL/L (21-32); CHLORIDE 101 MMOL/L (98-107); CREATININE 1.3 MG/DL (0.55-1.30); POTASSIUM 3.5 MMOL/L (3.5-5.1); SODIUM 143 MMOL/L (136-145)
--- NOTE | 2020-01-05 13:38 | Diagnostic Imaging Report ---
EXAM: XR Chest, 1 View CLINICAL HISTORY: ABD PAIN TECHNIQUE: Frontal view of the chest. COMPARISON: Chest x-ray 10/14/19 FINDINGS: Lungs: Unremarkable. The lungs appear clear. No focal consolidation. Pleural space: Unremarkable. The costophrenic angles are sharp. No visible pneumothorax. Heart: Cardiomegaly. Mediastinum: Unremarkable. Bones/joints: Unremarkable. Tubes, lines and devices: Telemetry leads overlie the thorax. IMPRESSION: Cardiomegaly. Otherwise no acute findings.
[2020-01-05 13:41] LABS: ALANINE AMINOTRANSFERASE 18 U/L (12-78); ALKALINE PHOSPHATASE 109 U/L (46-116); ASPARTATE AMINO TRANSFERASE 12 U/L (15-37); BILIRUBIN,TOTAL 0.2 MG/DL (0.2-1.0)
[2020-01-05] MEDS ORDERED: SUCRALFATE1 GM ORAL (13:56)
[2020-01-05] MEDS ORDERED: NORCO 5-325 TA1 EAC1 ORAL (13:56)
[2020-01-05 14:34] VITALS: BP 168/98
[2020-01-05 14:44] VITALS: BP 168/98
== END 2020-01-05 14:45 | disposition home or self-care (01) ==
LOC: EMR 12:46
DX: K21.9 Gastro-esophageal reflux disease without esophagitis (principal); R06.02 Shortness of breath; I10 Essential (primary) hypertension; J44.9 Chronic obstructive pulmonary disease, unspecified; R73.03 Prediabetes; Z99.81 Dependence on supplemental oxygen; J84.9 Interstitial pulmonary disease, unspecified; E66.9 Obesity, unspecified; Z68.35 Body mass index [BMI] 35.0-35.9, adult
CPT/HCPCS: 36415; 71045; 80053; 83690; 83880; 84484; 85025; 85610; 85730; 93005; 96374; 99284; S0028

== ENCOUNTER 2020-01-09 12:30 | Outpatient (CLI) | payer MEDICARE, OTHER ==
[~2020-01-09 12:30] MED LIST changes: +NORCO 5-325 TA1 EAC1 ORAL; +SUCRALFATE1 GM ORAL
[2020-01-09 12:41] VITALS: BP 128/73
--- NOTE | 2020-01-09 12:41 | NUR ---
NASAL CANNULA 4 LIT/MIN Addendum: 01/10/20 at 1531 by FELIX CONNOR Amended: Links added.
--- NOTE | 2020-01-09 14:56 | General Progress Note ---
Assessment/Plan Assessment/Plan: yosi Note date and time: 12/24/19 0858 Assessment/Plan Assessment/Plan: Assessment/Plan Status: unchanged Assessment/Plan: 1. History of pericardial effusion. 2. COPD. 3. Diabetes. 4. Hypertension. 5. Chronic diastolic congestive heart failure. 6. GERD. 7. Gastritis 8. HP positive 9. Mold encounter ppi>>> Dexilant>>> not helping and she stopped Baclofen QHS VSL #3 s/p recent EGD CT abnd us reviewed pain control fu labs fu cardiology and pulm s/p colonoscopy trial of Subjective ROS Limited/Unobtainable: Yes Allergies: Coded Allergies: No Known Allergies (Unverified , 12/10/19) Objective General Appearance: alert EENT: normal ENT inspection Neck: supple Cardiovascular: normal rate Respiratory/Chest: decreased breath sounds Abdomen: normal bowel sounds, non tender, soft Extremities: non-tender Niranjan Good MD January 09, 2020 14:56
== END 2020-01-09 14:30 | disposition home or self-care (01) ==
LOC: PAN 12:30
DX: K21.9 Gastro-esophageal reflux disease without esophagitis (principal); I11.0 Hypertensive heart disease with heart failure; I50.32 Chronic diastolic (congestive) heart failure; J44.9 Chronic obstructive pulmonary disease, unspecified; B96.81 Helicobacter pylori [H. pylori] as the cause of diseases classified elsewhere; K29.70 Gastritis, unspecified, without bleeding
CPT/HCPCS: 99212

== ENCOUNTER 2020-02-10 11:22 | Outpatient (CLI) | payer MEDICARE, OTHER | END 2020-02-10 13:22 | disposition home or self-care (01) | LOC: PAN 11:22 | DX: R10.9 Unspecified abdominal pain (principal) | CPT/HCPCS: 99212 ==

== ENCOUNTER 2020-06-06 15:15 | Inpatient (IN) | payer MEDICARE, OTHER ==
[~2020-06-06] VITALS: Ht 167.6 cm; Wt 111.9 kg
[2020-06-06 16:00] VITALS: BP 131/78
--- NOTE | 2020-06-06 16:00 | NUR ---
ED Nurse Note: Pt wheeled in to ED from home d/t chest pain on the midsternal area that radiates to her lower chest RT side and shortness of breath; pt arrived with a supplemental oxygen at 2LPM via NC. Pt is AOx4, cooperative to care, VSS, afebrile on triage.
--- NOTE | 2020-06-06 16:12 | Emergency Room Report ---
History of Present Illness General Chief Complaint: Dyspnea/Respdistress Source: Patient, Medical Record Present Illness HPI Disclaimer: Please note that this report is being documented using DRAGON technology. This can lead to erroneous entry secondary to incorrect interpretation by the dictating instrument. HPI: 60-year-old female history of severe COPD on 2 L nasal cannula, recurrent pleural effusion, cardiac effusion, diabetes, obesity presenting for evaluation of chest discomfort. This is been ongoing for several months after a pleurocentesis March 2020. She states she was recently started on steroids 05/18 for "inflammation" and ever since has been feeling progressively weak. She feels she is unable to walk at this time due to global fatigue. She reports a pulling tightness below the right breast which has been worsening for several months. She also had a mechanical fall from standing days ago seen at another hospital where no acute trauma was identified. She was in [place] [facility] until yesterday when she signed out AMA. She had been admitted for persistent tachycardia. States the pain is worse and progressively more short of breath secondary to the pain prohibiting her from taking deep breaths. She follows with industrial organization manager, Dr. Mcfarlane, but has not seen him since the fall. PMH: COPD, pleural effusion, cardiac effusion, diabetes, obesity PSH: Recurrent pleurocentesis Allergies: Reviewed Social Hx: Reviewed Allergies: Coded Allergies: No Known Allergies (Unverified , 12/10/19) COVID-19 Screening Contact w/high risk pt: No Recent Travel to affected area: No Experienced COVID-19 symptoms?: No COVID-19 symptoms experienced: Shortness of Breath COVID-19 Testing performed MARKETING BUSINESS ANALYST: No Patient History Last Menstrual Period: unknown Nursing Documentation-PM Past Medical History: No History, Except For Hx Cardiac Problems: Yes - irregular heart beat Hx Hypertension: Yes Hx Asthma: Yes - Allergic Bronchopulmonary Aspergillosis Hx COPD: Yes Hx Diabetes: Yes - Pre-Diabetes - PO administration Hx Cancer: No Hx Gastrointestinal Problems: Yes Hx Dialysis: No Hx Neurological Problems: No Hx Cerebrovascular Accident: No Hx Seizures: No Hx Fatigue: Yes Review of Systems All Other Systems: negative except mentioned in HPI Physical Exam Vital Signs Date Time Temp Pulse Resp B/P (MAP) Pulse Ox O2 Delivery O2 Flow Rate FiO2 06/06/20 15:30 97.7 108 22 131/78 (95) 95 Nasal Cannula 2.0 General: Awake and alert, appears moderately uncomfortable HEENT: NC/AT. EOMI. Cardiovascular: Mildly tachycardic. S1 and S2 normal. No murmur appreciated Resp: 2 L nasal cannula. Mild tachypnea. Normal work of breathing. No cough, wheezing or crackles appreciated Abdomen: Abdomen is soft, nondistended. Nontender Skin: Intact. No abrasions, laceration or rash over the exposed skin MSK: Normal tone and bulk. Moving all extremities. No obvious deformity. Neuro: Awake and alert. Mentating appropriately. Procedures Critical Care Time Critical Care Time Total critical care time: Approximately 45 minutes Due to a high probability of clinically significant, life threatening deterioration, the patient required the highest level of preparedness to intervene emergently and I personally spent this critical care time directly and personally managing the patient. This critical care time included obtaining a history, examining the patient, pulse oximetry, ordering and reviewing studies, ordering treatments, evaluating response to treatment and updating management plan as needed, frequent reassessment and discussion with other providers as well as arranging for ultimate disposition. This critical to care time was performed to assess and manage the high probability of life-threatening deterioration that could result in multiorgan failure. This critical care time is separate from the separately billable procedures and treating other patients. Medical Decision Making Diagnostic Impression: Primary Impression: Tachycardia Additional Impressions: Elevated WBC count Elevated lactic acid level Hypertension, uncontrolled ER Course This is a 60-year-old female presenting for evaluation of chest discomfort, shortness of breath and global fatigue. Symptoms ongoing for several months exacerbated by recent fall. No trauma was identified at recent ER evaluation outside hospital immediately after the injury. Differential includes was not limited to occult trauma, recurrent pleural effusion, symptoms or chronic steroid use, dehydration, electrolyte abnormality, ACS, pneumonia, bronchitis, COPD exacerbation, pneumothorax among others. EKG shows mild tachycardia but no evidence of acute ischemia. Troponin negative. Lactic acid elevated as is WBC count. Patient remains afebrile. Blood cultures sent. Receiving IV fluids and broad-spectrum antibiotics. Patient is hypertensive with systolic blood pressure greater than 180. Labetalol ordered. Admitted to her D, [facility]. Laboratory Tests Test 06/06/20 16:16 06/06/20 17:00 White Blood Count 23.3 K/UL (4.8-10.8) *H Red Blood Count 4.14 M/UL (4.20-5.40) L Hemoglobin 11.6 G/DL (12.0-16.0) L Hematocrit 34.8 % (37.0-47.0) L Mean Corpuscular Volume 84 FL (80-99) Mean Corpuscular Hemoglobin 28.1 PG (27.0-31.0) Mean Corpuscular Hemoglobin Concent 33.4 G/DL (32.0-36.0) Red Cell Distribution Width 15.2 % (11.6-14.8) H Platelet Count 238 K/UL (150-450) Mean Platelet Volume 7.4 FL (6.5-10.1) Neutrophils (%) (Auto) % (45.0-75.0) Lymphocytes (%) (Auto) % (20.0-45.0) Monocytes (%) (Auto) % (1.0-10.0) Eosinophils (%) (Auto) % (0.0-3.0) Basophils (%) (Auto) % (0.0-2.0) Neutrophils % (Manual) Pending Lymphocytes % (Manual) Pending Platelet Estimate Pending Platelet Morphology Pending Prothrombin Time 10.6 SEC (9.30-11.50) Prothrombin Time INR 1.0 (0.9-1.1) Activated Partial Thromboplast Time 20 SEC (23-33) L Sodium Level 137 MMOL/L (136-145) Potassium Level 4.2 MMOL/L (3.5-5.1) Chloride Level 102 MMOL/L (98-107) Carbon Dioxide Level 30 MMOL/L (21-32) Anion Gap 5 mmol/L (5-15) Blood Urea Nitrogen 22 mg/dL (7-18) H Creatinine 1.6 MG/DL (0.55-1.30) H Estimated Glomerular Filtration Rate 40.1 mL/min (>60) Glucose Level 176 MG/DL (74-106) H Calcium Level 8.7 MG/DL (8.5-10.1) Total Bilirubin 0.2 MG/DL (0.2-1.0) Aspartate Amino Transferase (AST) 11 U/L (15-37) L Alanine Aminotransferase (ALT) 18 U/L (12-78) Alkaline Phosphatase 82 U/L (46-116) Troponin I 0.015 ng/mL (0.000-0.056) Pro-B-Type Natriuretic Peptide 193 pg/mL (0-125) H Total Protein 6.7 G/DL (6.4-8.2) Albumin 3.6 G/DL (3.4-5.0) Globulin 3.1 g/dL Albumin/Globulin Ratio 1.2 (1.0-2.7) Lactic Acid Level 2.70 mmol/L (0.4-2.0) H Microbiology Date/Time Source Procedure Growth Status 06/06/20 17:00 Nasopharynx SARS-CoV-2 RdRp Gene Assay - Final Complete EKG Diagnostic Results Troponin ordered: Yes When was troponin ordered?: Jun 06, 2020 EKG Time: 16:02 Rate: tachycardiac Rhythm: NSR ST Segments: no acute changes Other Impression Sinus tachycardia, normal axis, normal intervals, no ST segment changes Rhythm Strip Diag. Results Rhythm Strip Time: 16:02 EP Interpretation: yes Rate: 105 Rhythm: no PVC's, no ectopy Chest X-Ray Diagnostic Results Chest X-Ray Diagnostic Results : Chest X-Ray Ordered: Yes # of Views/Limited/Complete: 1 View Indication: Shortness of Breath EP Interpretation: Yes Interpretation: no consolidation, no effusion, no pneumothorax, other - Enlarged cardiac silhouette Impression: No acute disease Electronically Signed by: Electronically signed by Dr. Juan David Mcpherson Last Vital Signs Date Time Temp Pulse Resp B/P (MAP) Pulse Ox O2 Delivery O2 Flow Rate FiO2 06/06/20 15:30 97.7 108 22 131/78 (95) 95 Nasal Cannula 2.0 Disposition: ADMITTED INPATIENT Condition: Serious Juan David Mcpherson MD Jun 06, 2020 16:12
[2020-06-06 16:42] LABS: HEMATOCRIT 34.8 % (37.0-47.0); HEMOGLOBIN 11.6 G/DL (12.0-16.0); MEAN CORPUSCULAR VOLUME 84 FL (80-99); PLATELET COUNT 238 K/UL (150-450); RED BLOOD COUNT 4.14 M/UL (4.20-5.40); RED CELL DISTRIBUTION WIDTH 15.2 % (11.6-14.8)
[2020-06-06 16:46] LABS: CALCIUM 8.7 MG/DL (8.5-10.1); CREATININE 1.6 MG/DL (0.55-1.30); POTASSIUM 4.2 MMOL/L (3.5-5.1)
[2020-06-06 16:47] LABS: WHITE BLOOD COUNT 23.3 K/UL (4.8-10.8)
[2020-06-06 16:57] LABS: ALBUMIN 3.6 G/DL (3.4-5.0); ALBUMIN/GLOBULIN RATIO 1.2 (1.0-2.7); BILIRUBIN,TOTAL 0.2 MG/DL (0.2-1.0)
[2020-06-06] MEDS ORDERED: Piperacillin/Tazobactam 3.375 GM in NS 110 ML IVPB ONE (18:00)
--- NOTE | 2020-06-06 18:17 | NUR ---
ED Nurse Note: lactic reflex, mrsa/cre/vre collected and sent to lab
--- NOTE | 2020-06-06 18:17 | NUR ---
ED Nurse Note: latest BP: 180/[address] Mcpherson
[2020-06-06] MEDS ORDERED: Labetalol 5mg/ml 20ml vial IV ONE ×2 (18:19→18:30)
--- NOTE | 2020-06-06 18:38 | NUR ---
ED Nurse Note: Latest BP: 143/81.
--- NOTE | 2020-06-06 18:40 | NUR ---
ED Nurse Note: Pt was transferred to telemetry unit under the care of dr. pierre. report for transfer was given to bret sidhu in telemetry unit. Pt was transferred on stable condition; all belongings was sent with pt.
--- NOTE | 2020-06-06 18:50 | NUR ---
NURSE NOTES: Received Pt from RIZWANA Stevens. Pt is AOx4, on 2LPM NC saturating 100% sPo2. vitals 168/87, 93 HR, 23 RR, and 10/10 pain on R side, head pain as well. Pt on tele m,onitor. belongings list signed. Pt is stable, no s/s or complaint of distress at this time.
--- NOTE | 2020-06-06 19:10 | NUR ---
NURSE NOTES: Pt received from RIZWANA Muniz. Pt is resting in bed and C/O pain midsternum 04/06. PT is A/Ox4 and fall risk with history of falls and bilateral leg strength 4/5. Pt is on Cardiac Monitoring SR and asymptomatic. Pt is on NC 2LPM and experiencing SOB with shallow breathing; pt has clear lung sounds. Pt has IV RFA 20G patent with skin dry and intact. Bed locked in lowest position and call light within reach. Will continue to monitor.
--- NOTE | 2020-06-06 19:50 | NUR ---
NURSE HAND-OFF REPORT: Important Events on Shift: admission Patient Status: fc, stable Diet: Pending Orders: admitting orders Pending Results/Labs: Pending MD notification: Latest Vital Signs: Temperature 97.7 , Pulse 84 , B/P 143 /81 , Respiratory Rate 21 , O2 SAT 100 , Nasal Cannula, O2 Flow Rate 2.0 . Vital Sign Comment: EKG Rhythm: Rhythm change?: MD Notified?: - MD Response: Latest Flowers Fall Score: 70 Fall Risk: Safety Measures: Call light , Bed Alarm , Side Rails , Bed position . Fall Precautions: Report given to RIZWANA Cruz.
[2020-06-06 20:00] VITALS: BP 168/87
[2020-06-06] MEDS ORDERED: Docusate 100mg cap ORAL PRN (21:30)
[2020-06-06] MEDS: dilTIAZem HCl 60mg tab ORAL SCH (22:04)
[2020-06-06] MEDS: Carvedilol 12.5mg tab ORAL SCH (22:05)
[2020-06-06] MEDS: oxyCODONE 15mg IR tab ORAL PRN (22:35)
[2020-06-07] VITALS: BP 149/82
[2020-06-07] MEDS: Zolpidem 5mg tab ORAL PRN (02:09)
[2020-06-07 04:00] VITALS: BP 138/87
[2020-06-07] MEDS: dilTIAZem HCl 60mg tab ORAL SCH ×3 (06:00→21:45)
[2020-06-07] MEDS: oxyCODONE 15mg IR tab ORAL PRN ×2 (07:01→20:28)
[2020-06-07 07:19] LABS: BASOPHILS % (AUTO) 0.4 % (0.0-2.0); EOSINOPHILS % (AUTO) 0.2 % (0.0-3.0); HEMATOCRIT 33.4 % (37.0-47.0); LYMPHOCYTES % (AUTO) 13.8 % (20.0-45.0); MEAN CORPUSCULAR VOLUME 82 FL (80-99); NEUTROPHILS % (AUTO) 78.6 % (45.0-75.0); PLATELET COUNT 226 K/UL (150-450); RED BLOOD COUNT 4.07 M/UL (4.20-5.40); RED CELL DISTRIBUTION WIDTH 14.2 % (11.6-14.8); WHITE BLOOD COUNT 16.8 K/UL (4.8-10.8)
--- NOTE | 2020-06-07 07:36 | NUR ---
NURSE HAND-OFF REPORT: Important Events on Shift:Pt admitted to tele Patient Status: Stable Diet: Low Sodium Diet Pending Results/Labs:AM Labs Latest Vital Signs: Temperature 97.6 , Pulse 67 , B/P 138 /87 , Respiratory Rate 20 , O2 SAT 100 , Nasal Cannula, O2 Flow Rate 2.0 . Vital Sign Comment: VSS EKG Rhythm: Sinus Rhythm Rhythm change?: N MD Notified?: N - MD Response: Latest Flowers Fall Score: 70 Fall Risk: High Risk Safety Measures: Call light Within Reach, Bed Alarm Zone 1, Side Rails Side Rails x2, Bed position Low and Locked. Fall Precautions: Yellow Socks Yellow Gown Patient Fall Education Report given to RIZWANA Santa..
--- NOTE | 2020-06-07 07:44 | NUR ---
NURSE NOTES: Pt awake/alert in bed, breathing easily on 2 lpm nasal cannula, c/o SOB but no pursed lip breathing, no accessory muscle use, speaking in full sentences. Lungs clear bilaterally. RT called for breathing Tx. Pt also c/o constant aching pain on right side of chest despite getting pain medication 40 min ago. Bed left in low position, side rails up x 2 and call light left neat pt's hand. Addendum: 06/07/20 at 0757 by Bentley Valadez RN Vital signs stable with SR @ 78 on monitor. IV access RFA, flushed with 10 ml NS and locked.
[2020-06-07 07:53] LABS: ALANINE AMINOTRANSFERASE 24 U/L (12-78); ALBUMIN 3.4 G/DL (3.4-5.0); ALBUMIN/GLOBULIN RATIO 1.3 (1.0-2.7); ALKALINE PHOSPHATASE 71 U/L (46-116); ASPARTATE AMINO TRANSFERASE 17 U/L (15-37); BILIRUBIN,TOTAL 0.3 MG/DL (0.2-1.0); BLOOD UREA NITROGEN 28 mg/dL (7-18); CALCIUM 8.5 MG/DL (8.5-10.1); CARBON DIOXIDE 30 MMOL/L (21-32); CHLORIDE 104 MMOL/L (98-107); CREATININE 1.3 MG/DL (0.55-1.30); SODIUM 141 MMOL/L (136-145)
[2020-06-07 08:00] VITALS: BP 139/71
--- NOTE | 2020-06-07 08:10 | NUR ---
NURSE NOTES: Call to Dr Bravo regarding pt's SOB. Orders received, read back and entered into chart.
[2020-06-07] MEDS: metFORMIN 500mg tab ORAL SCH ×2 (09:00→16:57)
[2020-06-07] MEDS ORDERED: Heparin 5000 units/ml inj SUBQ ONE (09:00)
[2020-06-07] MEDS: cefTRIAXone 1gm/D5W 55ml IVPB SCH ×2 (09:00)
[2020-06-07] MEDS: hydroCHLOROthiazide 25mg cap ORAL SCH (09:00)
[2020-06-07] MEDS: Cyclobenzaprine 10mg Tab ORAL SCH ×3 (09:00→16:57)
[2020-06-07] MEDS: Carvedilol 12.5mg tab ORAL SCH ×2 (09:00→20:30)
[2020-06-07] MEDS: Albuterol/Ipratropium 3ml neb HHN PRN ×3 (09:26→23:41)
--- NOTE | 2020-06-07 10:45 | History and Physical Report ---
DATE OF ADMISSION: 06/06/2020 TIME SEEN: 9 a.m. CONSULTANTS: Gladys Bravo MD. CHIEF COMPLAINT: Shortness of breath, weakness. BRIEF HISTORY: This is a 60-year-old female who lives at home under care of Dr. Bravo, apparently became very short of breath in the past couple days, was very weak, came to [place], diagnosed with the above, admitted to telemetry, currently O2, NC, calm, slight short of breath in bed, no complaint. REVIEW OF SYSTEMS: No chest pain. Slight short of breath. No nausea, vomiting, or diarrhea. PAST MEDICAL HISTORY: Includes COPD, hypertension, CHF, prediabetes. PAST SURGICAL HISTORY: Lung surgery and thoracentesis in March. MEDICATIONS: Atorvastatin, acyclovir, prednisone, ceftriaxone, hydrochlorothiazide, albuterol, diltiazem, oxycodone, carvedilol, Zofran. ALLERGIES: Denies. SOCIAL HISTORY: No smoking. No alcohol. No intravenous drug abuse. FAMILY HISTORY: Noncontributory. PHYSICAL EXAMINATION: GENERAL: Calm in bed, oriented x3, slight short of breath. VITAL SIGNS: Temperature 97, pulse 91, respirations 20, blood pressure 149/82. CARDIOVASCULAR: No murmur. LUNGS: Poor exchange. ABDOMEN: Bowel sounds distant. EXTREMITIES: No cyanosis or edema. LABORATORY AND DIAGNOSTIC DATA: Labs at this time show white count 16.8 leukocytosis, hemoglobin and hematocrit 11 and 33, platelets 226. BMP shows BUN and creatinine 28 and 1.3, glucose 142. INR is 1.0, PTT 20. ASSESSMENT: 1. Shortness of breath. 2. Weakness. 3. Leukocytosis. 4. Anemia. 5. CHF. 6. Hypertension. 7. Diabetes. 8. COPD. PLAN: 1. O2 and pulmonary treatment. 2. Antibiotics per Infectious Disease. 3. Blood pressure, blood sugar, pain control. 4. Taper off steroids if possible. 5. PT and dietary evaluation. 6. CBC and BMP in the morning. 7. Resume home medications. Hernando Crow D.O. DR: Compa JOB#: [id number] CC:
[2020-06-07 12:00] VITALS: BP 131/74
--- NOTE | 2020-06-07 13:20 | General Progress Note ---
Progress Note Progress Note [id number] full note dictated Gladys Bravo MD Jun 07, 2020 13:20
--- NOTE | 2020-06-07 14:25 | Consultation ---
Consult Note Consult Note 60-year-old female is well-known to me. Patient with nonspecific interstitial pneumonitis and was recently started on prednisone. Patient presented with evidence of shingles and significant pain. The patient now admitted for further intervention. Patient also with ongoing shortness of breath patient's had significant dysphonia but overall has improved. Patient is chronically on oxygen debilitated very weak overall patient care discussed and reviewed the patient medications reviewed and care discussed with patient who notes ongoing weakness overall the patient was given prednisone 10 mg daily as well as acyclovir for shingles. PMH Nonspecific interstitial pneumonitis, possible COPD, hypertension, congestive heart failure, prediabetes, history of VATS with lung biopsy, hypercholesterolemia, chronic pain next Medications reviewed and reconciled Allergies reviewed and reconciled Social history non-smoker nondrinker she still lives independently but fairly disabled Family history Very physical examination Well-developed female, alert and oriented x3 Vital signs 97% on 2 L respiratory 18 blood pressure 133/87, temperature 97.5 respiratory 20 Lungs with scattered crackles both bases moderate air entry Cardiac examination was to regulate rhythm Abdomen is soft nontender Extremities no sinus clubbing but mild edema Neurologically grossly nonfocal Laboratory Tests Test 06/06/20 16:16 06/06/20 17:00 06/06/20 18:13 06/07/20 06:19 White Blood Count 23.3 K/UL (4.8-10.8) *H 16.8 K/UL (4.8-10.8) H Red Blood Count 4.14 M/UL (4.20-5.40) L 4.07 M/UL (4.20-5.40) L Hemoglobin 11.6 G/DL (12.0-16.0) L 11.0 G/DL (12.0-16.0) L Hematocrit 34.8 % (37.0-47.0) L 33.4 % (37.0-47.0) L Mean Corpuscular Volume 84 FL (80-99) 82 FL (80-99) Mean Corpuscular Hemoglobin 28.1 PG (27.0-31.0) 27.1 PG (27.0-31.0) Mean Corpuscular Hemoglobin Concent 33.4 G/DL (32.0-36.0) 33.0 G/DL (32.0-36.0) Red Cell Distribution Width 15.2 % (11.6-14.8) H 14.2 % (11.6-14.8) Platelet Count 238 K/UL (150-450) 226 K/UL (150-450) Mean Platelet Volume 7.4 FL (6.5-10.1) 6.5 FL (6.5-10.1) Neutrophils (%) (Auto) % (45.0-75.0) 78.6 % (45.0-75.0) H Lymphocytes (%) (Auto) % (20.0-45.0) 13.8 % (20.0-45.0) L Monocytes (%) (Auto) % (1.0-10.0) 7.0 % (1.0-10.0) Eosinophils (%) (Auto) % (0.0-3.0) 0.2 % (0.0-3.0) Basophils (%) (Auto) % (0.0-2.0) 0.4 % (0.0-2.0) Differential Total Cells Counted 100 Neutrophils % (Manual) 87 % (45-75) H Lymphocytes % (Manual) 5 % (20-45) L Monocytes % (Manual) 3 % (1-10) Eosinophils % (Manual) 0 % (0-3) Basophils % (Manual) 0 % (0-2) Band Neutrophils 5 % (0-8) Platelet Estimate Adequate Platelet Morphology Normal Anisocytosis 1+ Prothrombin Time 10.6 SEC (9.30-11.50) Prothromb Time International Ratio 1.0 (0.9-1.1) Activated Partial Thromboplast Time 20 SEC (23-33) L Sodium Level 137 MMOL/L (136-145) 141 MMOL/L (136-145) Potassium Level 4.2 MMOL/L (3.5-5.1) 4.0 MMOL/L (3.5-5.1) Chloride Level 102 MMOL/L (98-107) 104 MMOL/L (98-107) Carbon Dioxide Level 30 MMOL/L (21-32) 30 MMOL/L (21-32) Anion Gap 5 mmol/L (5-15) Blood Urea Nitrogen 22 mg/dL (7-18) H 28 mg/dL (7-18) H Creatinine 1.6 MG/DL (0.55-1.30) H 1.3 MG/DL (0.55-1.30) Estimat Glomerular Filtration Rate 40.1 mL/min (>60) 51.0 mL/min (>60) Glucose Level 176 MG/DL (74-106) H 142 MG/DL (74-106) H Calcium Level 8.7 MG/DL (8.5-10.1) 8.5 MG/DL (8.5-10.1) Total Bilirubin 0.2 MG/DL (0.2-1.0) 0.3 MG/DL (0.2-1.0) Aspartate Amino Transf (AST/SGOT) 11 U/L (15-37) L 17 U/L (15-37) Alanine Aminotransferase (ALT/SGPT) 18 U/L (12-78) 24 U/L (12-78) Alkaline Phosphatase 82 U/L (46-116) 71 U/L (46-116) Troponin I 0.015 ng/mL (0.000-0.056) Pro-B-Type Natriuretic Peptide 193 pg/mL (0-125) H Total Protein 6.7 G/DL (6.4-8.2) 6.1 G/DL (6.4-8.2) L Albumin 3.6 G/DL (3.4-5.0) 3.4 G/DL (3.4-5.0) Globulin 3.1 g/dL 2.7 g/dL Albumin/Globulin Ratio 1.2 (1.0-2.7) 1.3 (1.0-2.7) Lactic Acid Level 2.70 mmol/L (0.4-2.0) H 2.00 mmol/L (0.66-2.22) Test 06/07/20 11:47 POC Whole Blood Glucose Pending IMPRESSION NSIP Chronic hypoxemia Chronic respiratory failure Shingles Failure to thrive Leukocytosis likely due to steroid use Immunosuppression plan Continue with steroids however, patient was on higher dose prior IV antibiotics Antiviral agent Local care Oxygen therapy Monitor imaging Respiratory therapy as outlined Discharged home with stable with outpatient impression, plan, and exam edited and reviewed in detail care discussed with Axel Saez MD Jun 07, 2020 14:25
--- NOTE | 2020-06-07 15:55 | Cardiology Progress Note ---
Assessment/Plan Assessment/Plan The patient is seen and examined, full consult note is dictated. Objective Last 24 Hour Vital Signs Date Time Temp Pulse Resp B/P (MAP) Pulse Ox O2 Delivery O2 Flow Rate FiO2 06/07/20 14:16 79 131/74 06/07/20 12:00 79 06/07/20 12:00 97.5 76 20 131/74 (93) 100 06/07/20 09:36 101 18 100 Nasal Cannula 2.0 99 18 97 06/07/20 09:25 99 18 97 Nasal Cannula 2.0 06/07/20 09:24 99 18 97 Room Air 2.0 06/07/20 09:00 67 138/87 06/07/20 09:00 Nasal Cannula 2.0 06/07/20 08:00 97.7 78 20 139/71 (93) 95 06/07/20 08:00 67 06/07/20 06:00 67 138/87 06/07/20 04:00 97.6 67 20 138/87 (104) 100 06/07/20 04:00 70 06/07/20 00:00 91 06/07/20 00:00 97.2 96 20 149/82 (104) 100 06/06/20 22:05 93 168/87 06/06/20 22:04 93 168/87 06/06/20 21:00 Nasal Cannula 2.0 06/06/20 20:11 Nasal Cannula 2.0 06/06/20 20:00 96.4 93 23 168/87 (114) 99 06/06/20 20:00 102 06/06/20 18:40 97.7 84 21 143/81 100 Nasal Cannula 2.0 06/06/20 18:21 100 180/104 06/06/20 16:00 108 22 Nasal Cannula 2.0 06/06/20 16:00 97.7 22 131/78 95 Nasal Cannula 2.0 Intake and Output 06/06/20 06/07/20 19:00 07:00 Intake Total 720 ml Balance 720 ml Intake Oral 720 ml # Voids 2 Laboratory Tests Test 06/06/20 16:16 06/06/20 17:00 06/06/20 18:13 06/07/20 06:19 White Blood Count 23.3 K/UL (4.8-10.8) *H 16.8 K/UL (4.8-10.8) H Red Blood Count 4.14 M/UL (4.20-5.40) L 4.07 M/UL (4.20-5.40) L Hemoglobin 11.6 G/DL (12.0-16.0) L 11.0 G/DL (12.0-16.0) L Hematocrit 34.8 % (37.0-47.0) L 33.4 % (37.0-47.0) L Mean Corpuscular Volume 84 FL (80-99) 82 FL (80-99) Mean Corpuscular Hemoglobin 28.1 PG (27.0-31.0) 27.1 PG (27.0-31.0) Mean Corpuscular Hemoglobin Concent 33.4 G/DL (32.0-36.0) 33.0 G/DL (32.0-36.0) Red Cell Distribution Width 15.2 % (11.6-14.8) H 14.2 % (11.6-14.8) Platelet Count 238 K/UL (150-450) 226 K/UL (150-450) Mean Platelet Volume 7.4 FL (6.5-10.1) 6.5 FL (6.5-10.1) Neutrophils (%) (Auto) % (45.0-75.0) 78.6 % (45.0-75.0) H Lymphocytes (%) (Auto) % (20.0-45.0) 13.8 % (20.0-45.0) L Monocytes (%) (Auto) % (1.0-10.0) 7.0 % (1.0-10.0) Eosinophils (%) (Auto) % (0.0-3.0) 0.2 % (0.0-3.0) Basophils (%) (Auto) % (0.0-2.0) 0.4 % (0.0-2.0) Differential Total Cells Counted 100 Neutrophils % (Manual) 87 % (45-75) H Lymphocytes % (Manual) 5 % (20-45) L Monocytes % (Manual) 3 % (1-10) Eosinophils % (Manual) 0 % (0-3) Basophils % (Manual) 0 % (0-2) Band Neutrophils 5 % (0-8) Platelet Estimate Adequate Platelet Morphology Normal Anisocytosis 1+ Prothrombin Time 10.6 SEC (9.30-11.50) Prothromb Time International Ratio 1.0 (0.9-1.1) Activated Partial Thromboplast Time 20 SEC (23-33) L Sodium Level 137 MMOL/L (136-145) 141 MMOL/L (136-145) Potassium Level 4.2 MMOL/L (3.5-5.1) 4.0 MMOL/L (3.5-5.1) Chloride Level 102 MMOL/L (98-107) 104 MMOL/L (98-107) Carbon Dioxide Level 30 MMOL/L (21-32) 30 MMOL/L (21-32) Anion Gap 5 mmol/L (5-15) Blood Urea Nitrogen 22 mg/dL (7-18) H 28 mg/dL (7-18) H Creatinine 1.6 MG/DL (0.55-1.30) H 1.3 MG/DL (0.55-1.30) Estimat Glomerular Filtration Rate 40.1 mL/min (>60) 51.0 mL/min (>60) Glucose Level 176 MG/DL (74-106) H 142 MG/DL (74-106) H Calcium Level 8.7 MG/DL (8.5-10.1) 8.5 MG/DL (8.5-10.1) Total Bilirubin 0.2 MG/DL (0.2-1.0) 0.3 MG/DL (0.2-1.0) Aspartate Amino Transf (AST/SGOT) 11 U/L (15-37) L 17 U/L (15-37) Alanine Aminotransferase (ALT/SGPT) 18 U/L (12-78) 24 U/L (12-78) Alkaline Phosphatase 82 U/L (46-116) 71 U/L (46-116) Troponin I 0.015 ng/mL (0.000-0.056) Pro-B-Type Natriuretic Peptide 193 pg/mL (0-125) H Total Protein 6.7 G/DL (6.4-8.2) 6.1 G/DL (6.4-8.2) L Albumin 3.6 G/DL (3.4-5.0) 3.4 G/DL (3.4-5.0) Globulin 3.1 g/dL 2.7 g/dL Albumin/Globulin Ratio 1.2 (1.0-2.7) 1.3 (1.0-2.7) Lactic Acid Level 2.70 mmol/L (0.4-2.0) H 2.00 mmol/L (0.66-2.22) Test 06/07/20 11:47 POC Whole Blood Glucose Pending Microbiology Date/Time Source Procedure Growth Status 06/06/20 18:00 Rectum Received 06/06/20 17:00 Nasopharynx SARS-CoV-2 RdRp Gene Assay - Final Complete Bc Daniels MD Jun 07, 2020 15:55
[2020-06-07 16:00] VITALS: BP 134/76
--- NOTE | 2020-06-07 18:15 | Consultation ---
DATE OF CONSULTATION: 06/07/2020 INFECTIOUS DISEASE CONSULT This consult is for coverage of Dr. Greenberg. PRIMARY ATTENDING PHYSICIAN: Gladys Bravo M.D. REASON FOR CONSULT: COPD, leukocytosis, shingles. HISTORY OF PRESENT ILLNESS: This is a 60-year-old female admitted yesterday from home complaining of shortness of breath, weakness. 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 Had significant leukocytosis of 23.3 at the time of admission, had lactic acidosis, had pain in the right flank. PAST MEDICAL HISTORY: Significant for diabetes, hypertension, CHF, anemia, chronic hypoxemia, obesity. ALLERGIES: No known drug allergies. MEDICATIONS: Getting atorvastatin, acyclovir, prednisone, ceftriaxone, hydrochlorothiazide, Celexa, metformin, albuterol ipratropium inhaler, diltiazem, oxycodone, Ambien, carvedilol, Zofran, Tylenol. SOCIAL HISTORY: Single. Denies alcohol, drug abuse, or smoking. REVIEW OF SYSTEMS: No fever. No chills. Has shortness of breath. No significant coughing. No nausea. No vomiting. No dysuria. Has right flank pain at least for a couple of days. PHYSICAL EXAMINATION: VITAL SIGNS: Temperature 97.5, pulse 79, blood pressure 131/70. GENERAL APPEARANCE: Obese. No acute distress. HEAD AND NECK: Getting oxygen via nasal cannula. Spreckels conjunctivae. HEART: Normal rate. LUNGS: Clear. ABDOMEN: Soft, nontender. EXTREMITIES: No edema. SKIN: There is a fine rash and 1 to 2 blisters in the right flank. NEUROLOGIC: Awake, alert, oriented x3. LABORATORY DATA: COVID test was negative. WBC today is 16.8, coming down from 23.3. Hemoglobin 11, hematocrit 33.4, platelets 226. Sodium 141, potassium 4, chloride 104, bicarb 30, BUN 28, creatinine 1.3, glucose 142. Lactic acid at the time of admission 3.7. Chest x-ray showed cardiomegaly. IMPRESSION: Shortness of breath, likely COPD exacerbation, interstitial pneumonitis, has a rash, suspected of herpes zoster, has chronic respiratory failure, acidosis, obesity, diabetes mellitus type 2, CHF, hypertension. RECOMMENDATION: Continue Rocephin and acyclovir. We will change airborne isolation to contact isolation. We will follow up on the official report on chest x-ray and cultures. At the end of my exam, I thank Dr. Bravo for involving me in the care of this patient. Demetrio Davis M.D. DR: ELIN JOB#: [id number] CC:
--- NOTE | 2020-06-07 18:54 | NUR ---
NURSE NOTES: Pt received from RIZWANA Muniz. Pt is resting in bed and C/O pain midsternum 11/04. PT is A/Ox4 and fall risk with history of falls and generalized weakness 11/30. Pt is on Cardiac Monitoring SR and asymptomatic. Pt is on NC 2LPM and experiencing SOB with shallow breathing on exertion; pt has clear lung sounds and receives breathing tx q4h. Pt has IV RFA 20G patent with skin dry and intact. Bed locked in lowest position and call light within reach. Will continue to monitor.
--- NOTE | 2020-06-07 19:19 | NUR ---
NURSE HAND-OFF REPORT: Important Events on Shift: SOB Patient Status: fc, stable Diet: low sodium Pending Orders: UA Pending Results/Labs: Pending MD notification: Latest Vital Signs: Temperature 97.9 , Pulse 82 , B/P 134 /76 , Respiratory Rate 20 , O2 SAT 100 , Nasal Cannula, O2 Flow Rate 2.0 . Vital Sign Comment: EKG Rhythm: Sinus Rhythm Rhythm change?: N MD Notified?: N - MD Response: Latest Flowers Fall Score: 70 Fall Risk: High Risk Safety Measures: Call light Within Reach, Bed Alarm Zone 1, Side Rails Side Rails x2, Bed position Low and Locked. Fall Precautions: Yellow Socks Yellow Gown Patient Fall Education Report given to Anthony WAGONER.
[2020-06-07 20:00] VITALS: BP 139/68
[2020-06-07] MEDS: Atorvastatin 20mg tab ORAL SCH (20:30)
[2020-06-08] VITALS: BP 142/77
[2020-06-08] MEDS: Zolpidem 5mg tab ORAL PRN (00:41)
--- NOTE | 2020-06-08 01:15 | Consultation ---
DATE OF CONSULTATION: 06/07/2020 NOTE: INCOMPLETE DICTATION CARDIOLOGY CONSULTATION CONSULTING PHYSICIAN: Bc Daniels MD. REFERRING PHYSICIAN: Gladys Bravo MD. ADDITIONAL REFERRING PHYSICIAN: Hernando Crow DO. REASON FOR CONSULTATION: Management of pericardial effusion. HISTORY OF PRESENT ILLNESS: The patient is a very unfortunate 60-year-old female known to me with prior history of moderate-sized pericardial effusion with no cardiac tamponade that has been going on for the past 3 to 4 years, history of nonischemic cardiomyopathy with prolonged ejection fraction approximately 40% to 45% and areas of wall motion abnormalities, history of severe COPD on home oxygen 2 liter/minute, history of recurrent pleural effusion status post VATS with lung biopsy which determined to be inflammatory reaction, history of hypertension, diabetes mellitus. The patient of Dr. Eric Alexander, the primary care physician, who presents to the hospital after recent AMA from [facility] following a fall that occurred with no associated injury. The patient continues to have trouble with worsening of shortness of breath. She was started on steroids on 05/18/2020 for inflammation following VATS procedure. She states that she is unable to walk due to global fatigue and also has tightness underneath her right breast which has been progressively worsened in the past few months. The mechanical fall that she sustained was not associated with any syncope. At the time of arrival to the hospital, blood pressure was 131/78 mmHg and heart rate of 108, pulse ox was 95% on nasal cannula, afebrile. A 12-lead electrocardiogram was significant for sinus tachycardia, rate of 105 with no acute ischemic features. PAST MEDICAL HISTORY: 1. As mentioned in the history of present illness including nonischemic cardiomyopathy with LVEF approximately 40% to 45% and areas of wall motion abnormalities, which appears to be myocardial scar. 2. Moderate-sized pericardial effusion with no prior history of pericardial tamponade, chronic. 3. History of COPD. 4. History of pleural effusion status post VATS at [facility]. 5. History of diabetes mellitus. 6. History of hypertension. 7. History of obesity. 8. History of mold infestation. PAST SURGICAL HISTORY: VATS procedure, history of coronary angiography. ALLERGIES: No known drug allergies. SOCIAL HISTORY: Prior history of tobacco use. No history of alcohol or illicit drug use. FAMILY HISTORY: No premature coronary artery disease in first-degree relatives. MEDICATIONS: List of medications: 1. Breo inhaler. 2. 10 mg p.o. daily as needed for depression. 3. Sucralfate 1 g four times a day. 4. Huntington 5/325. 5. Zofran. 6. Dicyclomine. 7. Lidocaine. 8. Perforomist. 9. Prednisone 10 mg daily. 10. Carvedilol CR 80 mg p.o. daily. 11. Colchicine 0.6 mg daily. 12. Yupelri. 13. Aspirin 81 mg p.o. daily. 14. Almacone liquid. 15. Albuterol inhaler. 16. Tramadol. 17. Potassium gluconate. 18. Oxycodone. 19. Triamcinolone acetonide 0.5% cream. 20. Metformin 500 mg twice daily. 21. Tudorza Pressair inhaler. 22. Atorvastatin 20 mg at bedtime. REVIEW OF SYSTEMS: HEENT: Denies any headache, diplopia, blurred vision. CONSTITUTIONAL: Complains of fatigue but no fever, chills, night sweats. CARDIOVASCULAR: Complains of dyspnea on exertion with less than ordinary activities. No PND but orthopnea. No edema in the lower extremity. No syncope. PULMONARY: Shortness of breath. No hemoptysis. No phlegm. GASTROINTESTINAL: Denies any nausea, vomiting, diarrhea, constipation, abdominal pain, or GI bleed. GENITOURINARY: Denies any hematuria, dysuria, incontinence. NEUROLOGY: Denies any motor dysfunction, sensory deficit, altered speech. PHYSICAL EXAMINATION: VITAL SIGNS: Blood pressure 131/78, pulse of 108, respirations 22, temperature 97.7 degrees Fahrenheit, O2 saturation 95% on room air. GENERAL: This is a very unfortunate 60-year-old female in mild respiratory distress on oxygen nasal cannula. HEENT: Atraumatic and normocephalic. Anicteric. Pupils are equal, round, and reactive to light and accommodation. Extraocular muscles intact. NECK: JVP less than 5 centimeter. No carotid bruit. Carotid upstroke is 2+ bilaterally. CARDIOVASCULAR: Normal S1, S2. Regular rate and rhythm. No murmurs, gallops, or rubs. PMI is at fourth intercostal space, midclavicular line. LUNGS: Diminished breath sounds in both lungs. ABDOMEN: Distended. No hepatosplenomegaly. Positive bowel sounds. EXTREMITIES: No evidence of edema, clubbing, or cyanosis. LABORATORY AND DIAGNOSTIC DATA: WBC is 23.3, hemoglobin 11.6, hematocrit of 34.8%, platelet count is 238. INR is 1.0. Sodium 137, potassium 4.2, chloride is 102, bicarbonate 30, BUN of 22, creatinine is 1.6, glucose is 176, calcium is 8.7. Troponin I is 0.015. ProBNP was 193. Chest x-ray showed enlarged heart most likely due to pericardial effusion and increased interstitial markings. Bc Daniels M.D. DR: Keren JOB#: [id number] CC:
[2020-06-08 04:00] VITALS: BP 134/75
[2020-06-08] MEDS: dilTIAZem HCl 60mg tab ORAL SCH ×3 (06:02→22:41)
--- NOTE | 2020-06-08 06:19 | Diagnostic Imaging Report ---
EXAM: XR Chest, 1 View CLINICAL HISTORY: SOB TECHNIQUE: Frontal view of the chest. COMPARISON: Chest radiograph dated 05/03/2020. FINDINGS: The study is degraded due to poor penetration. Cardiac silhouette is enlarged, similar to comparison. There are apparent ill-defined perihilar opacities. No obvious focal airspace disease. No pneumothorax or pleural effusion. No acute skeletal findings. IMPRESSION: Enlarged cardiac silhouette with ill-defined perihilar opacities which may represent mild pulmonary edema and/or atelectasis.
--- NOTE | 2020-06-08 07:27 | NUR ---
NURSE HAND-OFF REPORT: Important Events on Shift: SOB Patient Status: fc, stable Diet: low sodium Pending Orders: UA Pending Results/Labs: Pending MD notification: Latest Vital Signs: Temperature 97.9 , Pulse 82 , B/P 134 /76 , Respiratory Rate 20 , O2 SAT 100 , Nasal Cannula, O2 Flow Rate 2.0 . Vital Sign Comment: EKG Rhythm: Sinus Rhythm Rhythm change?: N MD Notified?: N - MD Response: Latest Flowers Fall Score: 70 Fall Risk: High Risk Safety Measures: Call light Within Reach, Bed Alarm Zone 1, Side Rails Side Rails x2, Bed position Low and Locked. Fall Precautions: Yellow Socks Yellow Gown Patient Fall Education Report given to clement WAGONER. Addendum: 06/08/20 at 0727 by Anthony Adamson RN Report given to RIZWANA Santa
[2020-06-08 07:39] LABS: BASOPHILS % (AUTO) 1.6 % (0.0-2.0); EOSINOPHILS % (AUTO) 0.9 % (0.0-3.0); HEMATOCRIT 35.7 % (37.0-47.0); HEMOGLOBIN 11.6 G/DL (12.0-16.0); LYMPHOCYTES % (AUTO) 22.1 % (20.0-45.0); MEAN CORPUSCULAR VOLUME 82 FL (80-99); MONOCYTES % (AUTO) 10.2 % (1.0-10.0); NEUTROPHILS % (AUTO) 65.2 % (45.0-75.0); PLATELET COUNT 242 K/UL (150-450); RED BLOOD COUNT 4.33 M/UL (4.20-5.40); RED CELL DISTRIBUTION WIDTH 14.9 % (11.6-14.8); WHITE BLOOD COUNT 14.4 K/UL (4.8-10.8)
[2020-06-08 08:00] VITALS: BP 128/79
--- NOTE | 2020-06-08 08:00 | NUR ---
NURSE NOTES: Pt awake/alert in bed, breathing easily on 2 lpm nasal cannula, denies SOB but c/o pain on left chest. Vital signs stable with SR @ 88 on monitor. IV access RFA, flushed with 10 ml NS and locked. Commode obtained for bedside. Bed left in low position, side rails up x 2 and call light left neat pt's hand.
[2020-06-08 08:02] LABS: CALCIUM 8.5 MG/DL (8.5-10.1); CREATININE 1.4 MG/DL (0.55-1.30); POTASSIUM 3.7 MMOL/L (3.5-5.1)
[2020-06-08] MEDS: cefTRIAXone 1gm/D5W 55ml IVPB SCH ×2 (09:00)
[2020-06-08] MEDS: Albuterol/Ipratropium 3ml neb HHN PRN ×3 (09:09→20:57)
--- NOTE | 2020-06-08 09:47 | General Progress Note ---
Subjective Constitutional: Reports: weakness Respiratory: Reports: shortness of breath Allergies: Coded Allergies: No Known Allergies (Unverified , 12/10/19) All Systems: reviewed and negative except above Subjective o2nc calm Objective Last 24 Hour Vital Signs Date Time Temp Pulse Resp B/P (MAP) Pulse Ox O2 Delivery O2 Flow Rate FiO2 06/08/20 06:02 97 134/75 06/08/20 04:00 98.1 85 22 134/75 (94) 100 06/08/20 04:00 97 06/08/20 00:00 81 06/08/20 00:00 97.7 83 20 142/77 (98) 99 06/07/20 23:41 97 18 100 Nasal Cannula 2.0 28 87 18 99 06/07/20 21:45 68 138/67 06/07/20 21:00 Nasal Cannula 2.0 06/07/20 20:30 72 139/68 06/07/20 20:00 99.0 62 22 139/68 (91) 95 06/07/20 20:00 83 06/07/20 17:15 97 18 100 Nasal Cannula 2.0 101 16 98 06/07/20 16:00 97.9 71 20 134/76 (95) 100 06/07/20 16:00 82 06/07/20 14:16 79 131/74 06/07/20 12:00 79 06/07/20 12:00 97.5 76 20 131/74 (93) 100 Intake and Output 06/07/20 06/08/20 19:00 07:00 Intake Total 1000 ml 480 ml Balance 1000 ml 480 ml Intake Oral 1000 ml 480 ml # Voids 3 3 Laboratory Tests 06/07/20 11:47: POC Whole Blood Glucose [Pending] 06/07/20 17:07: POC Whole Blood Glucose 105 06/07/20 18:00: Urine Eosinophils None seen, Urine Random Creatinine [Pending], Urine Random Microalbumin [Pending], Urine Random Sodium 129H, Urine Creatinine 129.0H, Urine Microalbumin/Creatinine Ratio [Pending], Urine Potassium Timed 75H 06/08/20 07:30: White Blood Count 14.4H, Red Blood Count 4.33, Hemoglobin 11.6L, Hematocrit 35.7L, Mean Corpuscular Volume 82, Mean Corpuscular Hemoglobin 26.9L, Mean Corpuscular Hemoglobin Concent 32.6, Red Cell Distribution Width 14.9H, Platelet Count 242, Mean Platelet Volume 6.2L, Neutrophils (%) (Auto) 65.2, Lymphocytes (%) (Auto) 22.1, Monocytes (%) (Auto) 10.2H, Eosinophils (%) (Auto) 0.9, Basophils (%) (Auto) 1.6, Sodium Level 142, Potassium Level 3.7, Chloride Level 103, Carbon Dioxide Level 33H, Anion Gap 6, Blood Urea Nitrogen 30H, Creatinine 1.4H, Estimat Glomerular Filtration Rate 46.9, Glucose Level 108H, Calcium Level 8.5 Height (Feet): 5 Height (Inches): 6.00 Weight (Pounds): 242 General Appearance: lethargic EENT: normal ENT inspection Neck: normal alignment Cardiovascular: normal peripheral pulses, normal rate, regular rhythm Respiratory/Chest: chest wall non-tender, lungs clear, normal breath sounds Abdomen: normal bowel sounds, non tender, soft Extremities: normal inspection Edema: no edema noted Arm (L), no edema noted Arm (R), no edema noted Leg (L), no edema noted Leg (R), no edema noted Pedal (L), no edema noted Pedal (R), no edema noted Generalized Neurologic: responsive, motor weakness Skin: normal pigmentation, warm/dry Assessment/Plan Problem List: (1) Congestive cardiac failure ICD Codes: I50.9 - Heart failure, unspecified SNOMED: 83746827 (2) Leukocytosis ICD Codes: D72.829 - Elevated white blood cell count, unspecified SNOMED: 741125969, 062473065 (3) COPD exacerbation ICD Codes: J44.1 - Chronic obstructive pulmonary disease with (acute) exacerbation SNOMED: 317044115 (4) DMII (diabetes mellitus, type 2) ICD Codes: E11.9 - Type 2 diabetes mellitus without complications SNOMED: 96084427 (5) CHF exacerbation ICD Codes: I50.9 - Heart failure, unspecified SNOMED: 892821027, 46071732565504 Status: unchanged Assessment/Plan: o2 pulm tx abx pt diet cbc amp am aru Hernando Duran DO Jun 08, 2020 09:47
[2020-06-08] MEDS: metFORMIN 500mg tab ORAL SCH ×2 (09:54→18:06)
[2020-06-08] MEDS: hydroCHLOROthiazide 25mg cap ORAL SCH (09:55)
[2020-06-08] MEDS: Cyclobenzaprine 10mg Tab ORAL SCH ×3 (09:55→18:06)
[2020-06-08] MEDS: Carvedilol 12.5mg tab ORAL SCH ×2 (09:55→20:54)
[2020-06-08] MEDS: oxyCODONE 15mg IR tab ORAL PRN ×2 (10:02→18:15)
--- NOTE | 2020-06-08 10:18 | NUR ---
*-*DISCHARGE PLANNING*-* PATIENT HAS BEEN REFERRED TO: [facility] P: [phone]
--- NOTE | 2020-06-08 10:55 | Infectious Diseases Prog Note ---
Assessment/Plan Assessment/Plan IMPRESSION: COPD exacerbation, Interstitial pneumonitis, Leukocytosis, improving Herpes zoster, Chronic respiratory failure, Acidosis, Obesity, Diabetes mellitus type 2, CHF, Hypertension. RECOMMENDATION: Continue Rocephin and acyclovir. Continue contact isolation. We will follow up cultures Subjective ROS Limited/Unobtainable: No Constitutional: Reports: no symptoms Respiratory: Reports: productive cough Skin: Reports: rash, other - pain in right flank extending to below breast Allergies: Coded Allergies: No Known Allergies (Unverified , 12/10/19) Objective Last 24 Hour Vital Signs Date Time Temp Pulse Resp B/P (MAP) Pulse Ox O2 Delivery O2 Flow Rate FiO2 06/08/20 09:55 97 134/75 06/08/20 06:02 97 134/75 06/08/20 04:00 98.1 85 22 134/75 (94) 100 06/08/20 04:00 97 06/08/20 00:00 81 06/08/20 00:00 97.7 83 20 142/77 (98) 99 06/07/20 23:41 97 18 100 Nasal Cannula 2.0 28 87 18 99 06/07/20 21:45 68 138/67 06/07/20 21:00 Nasal Cannula 2.0 06/07/20 20:30 72 139/68 06/07/20 20:00 99.0 62 22 139/68 (91) 95 06/07/20 20:00 83 06/07/20 17:15 97 18 100 Nasal Cannula 2.0 101 16 98 06/07/20 16:00 97.9 71 20 134/76 (95) 100 06/07/20 16:00 82 06/07/20 14:16 79 131/74 06/07/20 12:00 79 06/07/20 12:00 97.5 76 20 131/74 (93) 100 Height (Feet): 5 Height (Inches): 6.00 Weight (Pounds): 242 General Appearance: no acute distress, other - obese Respiratory/Chest: lungs clear Cardiovascular: normal rate Abdomen: soft, non tender Extremities: no edema Neurologic/Psychiatric: alert, oriented x 3, responsive Microbiology Date/Time Source Procedure Growth Status 06/06/20 18:00 Rectum VRE Culture - Final NO VANCOMYCIN RESISTANT ENTEROCOCCUS ... Complete 06/06/20 18:00 Nose MRSA Culture - Final NO METHICILLIN RESISTANT STAPH AUREUS... Complete 06/06/20 17:00 Nasopharynx SARS-CoV-2 RdRp Gene Assay - Final Complete 06/06/20 17:00 Blood Blood Culture - Preliminary NO GROWTH AFTER 24 HOURS Resulted 06/06/20 16:30 Blood Blood Culture - Preliminary NO GROWTH AFTER 24 HOURS Resulted Laboratory Tests Test 06/07/20 11:47 06/07/20 17:07 06/07/20 18:00 06/08/20 07:30 POC Whole Blood Glucose Pending 105 MG/DL (74-106) Urine Eosinophils None seen (NONE SEEN) Urine Random Creatinine Pending Urine Random Microalbumin Pending Urine Random Sodium 129 mmol/L (20-110) H Urine Creatinine 129.0 MG/DL (30.0-125.0) H Urine Microalbumin/Creatinine Ratio Pending Urine Potassium Timed 75 mmol/L (12-62) H White Blood Count 14.4 K/UL (4.8-10.8) H Red Blood Count 4.33 M/UL (4.20-5.40) Hemoglobin 11.6 G/DL (12.0-16.0) L Hematocrit 35.7 % (37.0-47.0) L Mean Corpuscular Volume 82 FL (80-99) Mean Corpuscular Hemoglobin 26.9 PG (27.0-31.0) L Mean Corpuscular Hemoglobin Concent 32.6 G/DL (32.0-36.0) Red Cell Distribution Width 14.9 % (11.6-14.8) H Platelet Count 242 K/UL (150-450) Mean Platelet Volume 6.2 FL (6.5-10.1) L Neutrophils (%) (Auto) 65.2 % (45.0-75.0) Lymphocytes (%) (Auto) 22.1 % (20.0-45.0) Monocytes (%) (Auto) 10.2 % (1.0-10.0) H Eosinophils (%) (Auto) 0.9 % (0.0-3.0) Basophils (%) (Auto) 1.6 % (0.0-2.0) Sodium Level 142 MMOL/L (136-145) Potassium Level 3.7 MMOL/L (3.5-5.1) Chloride Level 103 MMOL/L (98-107) Carbon Dioxide Level 33 MMOL/L (21-32) H Anion Gap 6 mmol/L (5-15) Blood Urea Nitrogen 30 mg/dL (7-18) H Creatinine 1.4 MG/DL (0.55-1.30) H Estimat Glomerular Filtration Rate 46.9 mL/min (>60) Glucose Level 108 MG/DL (74-106) H Calcium Level 8.5 MG/DL (8.5-10.1) Current Medications Medications (Trade) Dose Ordered Sig/Alethea Route PRN Reason Start Time Stop Time Status Last Admin Dose Admin Acetaminophen (Tylenol) 650 mg EVERY 6 HOURS PRN ORAL Pain Scale (3-5) 06/06/20 21:30 07/06/20 21:29 Acyclovir (Zovirax) 800 mg FIVE TIMES A DAY ORAL 06/07/20 10:00 07/07/20 09:59 06/08/20 09:54 Albuterol/ Ipratropium (Albuterol/ Ipratropium) 3 ml Q4H PRN HHN Shortness of Breath 06/07/20 08:30 06/12/20 08:29 06/08/20 09:09 Atorvastatin Calcium (Lipitor) 20 mg BEDTIME ORAL 06/07/20 21:00 09/05/20 20:59 06/07/20 20:30 Carvedilol (Coreg) 12.5 mg EVERY 12 HOURS ORAL 06/06/20 21:30 07/06/20 21:29 06/08/20 09:55 Ceftriaxone Sodium 1 gm/ Dextrose 55 ml @ 110 mls/hr Q24H IVPB 06/07/20 09:00 06/14/20 08:59 06/08/20 09:00 Cyclobenzaprine HCl (Flexeril) 10 mg THREE TIMES A DAY ORAL 06/07/20 09:00 06/14/20 08:59 06/08/20 09:55 Diltiazem HCl (Cardizem Tab) 60 mg EVERY 8 HOURS ORAL 06/06/20 22:00 07/06/20 21:59 06/08/20 06:02 Docusate Sodium (Colace) 100 mg TID PRN ORAL Constipation 06/06/20 21:30 07/06/20 21:29 Hydrochlorothiazide (Hydrodiuril) 25 mg DAILY ORAL 06/07/20 09:00 07/07/20 08:59 06/08/20 09:55 Metformin HCl (Glucophage) 500 mg TWICE A DAY ORAL 06/07/20 09:00 07/07/20 08:59 06/08/20 09:54 Ondansetron HCl (Zofran) 4 mg Q6H PRN IVP Nausea & Vomiting 06/06/20 21:30 07/06/20 21:29 06/07/20 19:26 Oxycodone HCl (Roxicodone) 30 mg Q6H PRN ORAL For Pain 06/06/20 21:30 06/13/20 21:29 06/08/20 10:02 Prednisone (predniSONE) 10 mg DAILY ORAL 06/07/20 09:00 07/07/20 08:59 06/08/20 09:55 Zolpidem Tartrate (Ambien) 5 mg HSPRN PRN ORAL Insomnia 06/06/20 21:30 06/13/20 21:29 06/08/20 00:41 Demetrio Davis MD Jun 08, 2020 10:55
--- NOTE | 2020-06-08 11:15 | NUR ---
PT EVALUATION NOTE Patient seen for initial evaluation and treatment initiated. Patient presents with generalized weakness and pain which limits patient's ability to perform mobility skills safely. Patient requires CGA/min assist for transfers with FWW. Patient is unstable in standing with wobbling bilateral knees. Patient able to take sideways steps with FWW however unsafe to ambulate at this time as patient is a fall risk. Patient will benefit from skilled inpatient PT intervention to increase strength and postural stability for improved level of functional mobility, to increase safety with mobility and to decrease fall risk. Recommend discharge to ARU/SNF for continued rehab vs home with home PT depending on patient's progress once medically cleared by MD. Addendum: 06/08/20 at 1234 by MARISA VARGAS PT Amended: Links added.
[2020-06-08 12:00] VITALS: BP 148/88
--- NOTE | 2020-06-08 12:15 | Consultation ---
DATE OF CONSULTATION: 06/07/2020 NEPHROLOGY CONSULTATION CONSULTING PHYSICIAN: Gladys Bravo M.D. REFERRING PHYSICIAN: Hernando Crow DO REASON FOR CONSULTATION: Acute renal failure and fluid overload. HISTORY OF PRESENT ILLNESS: The patient is an unfortunate 60-year-old female well known to me with past medical history of severe COPD, history of history of recurrent pleural effusion, diabetes, obesity, history of multiple falls. Apparently, patient had an episode of fall . She felt dizzy, felt down, she complained of right-sided chest pain She left AMA and came to emergency room at [facility] [place] for further evaluation. She continued to have the right-sided pain increased with the breathing or any movement. She complained of dizziness. She denies having any fever, chills, or night sweats. PAST MEDICAL HISTORY: Includin. History of interstitial lung disease. 2. COPD. 3. History of hypertension. 4. CKD ALLERGIES: No known drug allergies. FAMILY HISTORY: Noncontributory. MEDICATIONS: Medication list was reviewed. REVIEW OF SYSTEMS: GENERAL: She complained of generalized weakness. Denied any fever, chills, or night sweats. HEAD AND NECK: Denies any dysphagia, odynophagia, blurry vision. Complained of headache. No neck stiffness. PULMONARY: Complained shortness of breath. No cough. No sputum. CARDIOVASCULAR: Complained of right-sided chest pain, dizziness upon standing, weakness. GASTROINTESTINAL: Denies any nausea, vomiting, diarrhea, hematemesis, or hematochezia. GENITOURINARY: Denies any dysuria, frequency, or hematuria. MUSCULOSKELETAL: Denies any weakness or numbness. PHYSICAL EXAMINATION: VITAL SIGNS: Temperature of 97, blood pressure of 130/78, pulse rate of 100, respiratory rate of 18. HEENT: Atraumatic and normocephalic. Anicteric. Pupils are equal, round, and reactive to light and accommodation. Extraocular muscles intact. NECK: no JVP or LAD . CARDIOVASCULAR: Normal S1, S2. Regular rate and rhythm. No murmurs, LUNGS: Diminished breath sounds in both lungs.patient has lesion on back of her chest looks like shingle lesion abdomen ; Soft not tender or distended ,BS + ABDOMEN: Distended. No hepatosplenomegaly. Positive bowel sounds. EXTREMITIES: No evidence of edema, clubbing, or cyanosis. LABORATORY AND DIAGNOSTIC DATA: Sodium 141, potassium of 4, 104 chloride, bicarb 30, BUN of 28, creatinine of 1, glucose of 142. AST and ALT within normal limits, . CBC on admission WBC 22,000, hemoglobin 11.6, hematocrit 36, platelet count of 238. ASSESSMENT AND PLAN: 1. Prerenal azotemia. 2. Hypertension, which is under better control at this time. 3. History of COPD. 4. History of recurrent pleural effusion. 5. Possible pneumonia. 6. Rule out shingles infection . PLAN: Restart antihypertensive medication. Monitor renal function closely. Obtain UA. Check the random urine protein creatinine ratio for evaluation of proteinuria. Check the microalbumin, creatinine ratio. Monitor renal function and electrolytes closely. Replace electrolytes as needed. Again, I would like to thank Dr. Hernando Crow for allowing me to participate in the care of this patient. Gladys Bravo M.D. DR: Debo JOB#: [id number] CC: TIARRA
--- NOTE | 2020-06-08 13:26 | Nephrology Progress Note ---
Assessment/Plan Assessment 1. ALI 2. Hypertension, which is under better control at this time. 3. History of COPD. 4. History of recurrent pleural effusion. 5. Possible pneumonia. 6. shingles Plan plan fallow up with urine study start her on Zofran gabapentin for pain avoid NSIAD Replace electrolyte as need it PT/OT patient refused acute rehab or half-way Subjective Subjective c/o pain numbness and tingling under beast also nausea but no vomiting Objective Objective Last 24 Hour Vital Signs Date Time Temp Pulse Resp B/P (MAP) Pulse Ox O2 Delivery O2 Flow Rate FiO2 06/08/20 09:55 97 134/75 06/08/20 08:00 65 06/08/20 08:00 97.9 70 21 128/79 (95) 98 06/08/20 06:02 97 134/75 06/08/20 04:00 98.1 85 22 134/75 (94) 100 06/08/20 04:00 97 06/08/20 00:00 81 06/08/20 00:00 97.7 83 20 142/77 (98) 99 06/07/20 23:41 97 18 100 Nasal Cannula 2.0 28 87 18 99 06/07/20 21:45 68 138/67 06/07/20 21:00 Nasal Cannula 2.0 06/07/20 20:30 72 139/68 06/07/20 20:00 99.0 62 22 139/68 (91) 95 06/07/20 20:00 83 06/07/20 17:15 97 18 100 Nasal Cannula 2.0 101 16 98 06/07/20 16:00 97.9 71 20 134/76 (95) 100 06/07/20 16:00 82 06/07/20 14:16 79 131/74 Intake and Output 06/07/20 06/08/20 19:00 07:00 Intake Total 1000 ml 480 ml Balance 1000 ml 480 ml Intake Oral 1000 ml 480 ml # Voids 3 3 Laboratory Tests 06/07/20 17:07: POC Whole Blood Glucose 105 06/07/20 18:00: Urine Eosinophils None seen, Urine Random Creatinine [Pending], Urine Random Microalbumin [Pending], Urine Random Sodium 129H, Urine Creatinine 129.0H, Urine Microalbumin/Creatinine Ratio [Pending], Urine Potassium Timed 75H 06/08/20 07:30: White Blood Count 14.4H, Red Blood Count 4.33, Hemoglobin 11.6L, Hematocrit 35.7L, Mean Corpuscular Volume 82, Mean Corpuscular Hemoglobin 26.9L, Mean Corpuscular Hemoglobin Concent 32.6, Red Cell Distribution Width 14.9H, Platelet Count 242, Mean Platelet Volume 6.2L, Neutrophils (%) (Auto) 65.2, Lymphocytes (%) (Auto) 22.1, Monocytes (%) (Auto) 10.2H, Eosinophils (%) (Auto) 0.9, Basophils (%) (Auto) 1.6, Sodium Level 142, Potassium Level 3.7, Chloride Level 103, Carbon Dioxide Level 33H, Anion Gap 6, Blood Urea Nitrogen 30H, Creatinine 1.4H, Estimat Glomerular Filtration Rate 46.9, Glucose Level 108H, Calcium Level 8.5 Height (Feet): 5 Height (Inches): 6.00 Weight (Pounds): 242 Objective HEENT: Atraumatic and normocephalic. Anicteric. Pupils are equal, round, and reactive to light and accommodation. Extraocular muscles intact. NECK: no JVP or LAD . CARDIOVASCULAR: Normal S1, S2. Regular rate and rhythm. No murmurs, LUNGS: Diminished breath sounds in both lungs.patient has lesion on back of her chest looks like shingle lesion abdomen ; Soft not tender or distended ,BS + ABDOMEN: Distended. No hepatosplenomegaly. Positive bowel sounds. EXTREMITIES: No evidence of edema, clubbing, or cyanosis. Gladys Barvo MD Jun 08, 2020 13:26
--- NOTE | 2020-06-08 15:35 | NUR ---
*-*DISCHARGE PLANNING*-* PATIENT HAS BEEN ACCEPTED TO: [facility] P: [phone] FOR NURSE REPORT ROOM#405 [facility] SET FOR WILL CALL
--- NOTE | 2020-06-08 15:39 | NUR ---
*-*DISCHARGE PLANNING*-* PATIENT HAS BEEN ACCEPTED TO: [facility] P: [phone] FOR NURSE REPORT ROOM#405 [facility] SET FOR WILL CALL S/W VIVIAN [id number]
--- NOTE | 2020-06-08 15:45 | NUR ---
*-*DISCHARGE PLANNING*-* PATIENT DEMANDING TO BE DISCHARGED HOME UPON DISCHARGE
[2020-06-08 16:00] VITALS: BP 148/79
--- NOTE | 2020-06-08 17:00 | NUR ---
CASE MANAGEMENT: REVIEW SI: PLEURAL EFFUSION . COPD . SHINGLE T 96.4 HR 108 RR 21 BP 180/104 SAST 95% NC/2L WBC 23.3 BUN 22 CR 1.6 IS: ACYCLOVIR PO Q8HR ROCEPHIN IM QD HEPARIN SUBQ BID X1 LABETALOL IV X1 ZOSYN IV X1 NS IVF BOLUS X1 ALBUTEROL HHN Q4HR PRN PREDNISONE PO QD HYDRODIURIL PO QD TELEMETRY UNIT STATUS DCP: PATIENT IS FROM HOME. DC HOME WITH HOME HEALTH
--- NOTE | 2020-06-08 17:13 | Pulmonology Progress Note ---
Subjective ROS Limited/Unobtainable: No Constitutional: Reports: no symptoms Skin: Reports: rash, other - pain in right flank extending to below breast Allergies: Coded Allergies: No Known Allergies (Unverified , 12/10/19) All Systems: reviewed and negative except above Subjective care noted same overall no distress Objective Last 24 Hour Vital Signs Date Time Temp Pulse Resp B/P (MAP) Pulse Ox O2 Delivery O2 Flow Rate FiO2 06/08/20 16:00 98.1 78 21 148/79 (102) 98 06/08/20 14:15 97 134/75 06/08/20 12:00 96.8 64 22 148/88 (108) 98 06/08/20 09:55 97 134/75 06/08/20 09:00 Nasal Cannula 2.0 06/08/20 08:00 65 06/08/20 08:00 97.9 70 21 128/79 (95) 98 06/08/20 06:02 97 134/75 06/08/20 04:00 98.1 85 22 134/75 (94) 100 06/08/20 04:00 97 06/08/20 00:00 81 06/08/20 00:00 97.7 83 20 142/77 (98) 99 06/07/20 23:41 97 18 100 Nasal Cannula 2.0 28 87 18 99 06/07/20 21:45 68 138/67 06/07/20 21:00 Nasal Cannula 2.0 06/07/20 20:30 72 139/68 06/07/20 20:00 99.0 62 22 139/68 (91) 95 06/07/20 20:00 83 06/07/20 17:15 97 18 100 Nasal Cannula 2.0 101 16 98 Intake and Output 06/07/20 06/08/20 19:00 07:00 Intake Total 1000 ml 480 ml Balance 1000 ml 480 ml Intake Oral 1000 ml 480 ml # Voids 3 3 Objective WDWN NAD reduced breath sounds bilaterally without rhonchi or wheeze [id number] without MRG NABS nontender no HSM no CC mild edema nonfocal Microbiology Date/Time Source Procedure Growth Status 06/06/20 18:00 Rectum VRE Culture - Final NO VANCOMYCIN RESISTANT ENTEROCOCCUS ... Complete 06/06/20 18:00 Nose MRSA Culture - Final NO METHICILLIN RESISTANT STAPH AUREUS... Complete 06/06/20 17:00 Nasopharynx SARS-CoV-2 RdRp Gene Assay - Final Complete 06/06/20 17:00 Blood Blood Culture - Preliminary NO GROWTH AFTER 24 HOURS Resulted 06/06/20 16:30 Blood Blood Culture - Preliminary NO GROWTH AFTER 24 HOURS Resulted Laboratory Tests 06/07/20 18:00: Urine Eosinophils None seen, Urine Random Creatinine [Pending], Urine Random Microalbumin [Pending], Urine Random Sodium 129H, Urine Creatinine 129.0H, Urine Microalbumin/Creatinine Ratio [Pending], Urine Potassium Timed 75H 06/08/20 07:30: White Blood Count 14.4H, Red Blood Count 4.33, Hemoglobin 11.6L, Hematocrit 35.7L, Mean Corpuscular Volume 82, Mean Corpuscular Hemoglobin 26.9L, Mean Corpuscular Hemoglobin Concent 32.6, Red Cell Distribution Width 14.9H, Platelet Count 242, Mean Platelet Volume 6.2L, Neutrophils (%) (Auto) 65.2, Lymphocytes (%) (Auto) 22.1, Monocytes (%) (Auto) 10.2H, Eosinophils (%) (Auto) 0.9, Basophils (%) (Auto) 1.6, Sodium Level 142, Potassium Level 3.7, Chloride Level 103, Carbon Dioxide Level 33H, Anion Gap 6, Blood Urea Nitrogen 30H, Creatinine 1.4H, Estimat Glomerular Filtration Rate 46.9, Glucose Level 108H, Calcium Level 8.5 Current Medications Medications (Trade) Dose Ordered Sig/Alethea Route PRN Reason Start Time Stop Time Status Last Admin Dose Admin Acetaminophen (Tylenol) 650 mg EVERY 6 HOURS PRN ORAL Pain Scale (3-5) 06/06/20 21:30 07/06/20 21:29 Acyclovir (Zovirax) 800 mg FIVE TIMES A DAY ORAL 06/07/20 10:00 07/07/20 09:59 06/08/20 16:52 Albuterol/ Ipratropium (Albuterol/ Ipratropium) 3 ml Q4H PRN HHN Shortness of Breath 06/07/20 08:30 06/12/20 08:29 06/08/20 16:24 Atorvastatin Calcium (Lipitor) 20 mg BEDTIME ORAL 06/07/20 21:00 09/05/20 20:59 06/07/20 20:30 Carvedilol (Coreg) 12.5 mg EVERY 12 HOURS ORAL 06/06/20 21:30 07/06/20 21:29 06/08/20 09:55 Ceftriaxone Sodium 1 gm/ Dextrose 55 ml @ 110 mls/hr Q24H IVPB 06/07/20 09:00 06/14/20 08:59 06/08/20 09:00 Cyclobenzaprine HCl (Flexeril) 10 mg THREE TIMES A DAY ORAL 06/07/20 09:00 06/14/20 08:59 06/08/20 14:15 Diltiazem HCl (Cardizem Tab) 60 mg EVERY 8 HOURS ORAL 06/06/20 22:00 07/06/20 21:59 06/08/20 14:15 Docusate Sodium (Colace) 100 mg TID PRN ORAL Constipation 06/06/20 21:30 07/06/20 21:29 Gabapentin (Neurontin) 300 mg THREE TIMES A DAY ORAL 06/08/20 18:00 07/08/20 17:59 Hydrochlorothiazide (Hydrodiuril) 25 mg DAILY ORAL 06/07/20 09:00 07/07/20 08:59 06/08/20 09:55 Metformin HCl (Glucophage) 500 mg TWICE A DAY ORAL 06/07/20 09:00 07/07/20 08:59 06/08/20 09:54 Ondansetron HCl (Zofran) 4 mg Q6H PRN IVP Nausea & Vomiting 06/06/20 21:30 07/06/20 21:29 06/07/20 19:26 Oxycodone HCl (Roxicodone) 30 mg Q6H PRN ORAL For Pain 06/06/20 21:30 06/13/20 21:29 06/08/20 10:02 Prednisone (predniSONE) 10 mg DAILY ORAL 06/07/20 09:00 07/07/20 08:59 06/08/20 09:55 Zolpidem Tartrate (Ambien) 5 mg HSPRN PRN ORAL Insomnia 06/06/20 21:30 06/13/20 21:29 06/08/20 00:41 Assessment/Plan Assessment/Plan IMPRESSION NSIP Chronic hypoxemia Chronic respiratory failure Shingles Failure to thrive Leukocytosis likely due to steroid use Immunosuppression plan Continue with steroids however, patient was on higher dose prior/ will await improvement in shingles and discuss IV antibiotics Antiviral agent Local care Oxygen therapy Monitor imaging Respiratory therapy as outlined Discharged home with stable with outpatient impression, plan, and exam edited and reviewed in detail care discussed with Axel Saez MD Jun 08, 2020 17:13
[2020-06-08 20:00] VITALS: BP 160/89
--- NOTE | 2020-06-08 20:30 | NUR ---
NURSE NOTES: Received patient report from Manuel RN and Kiet RN. Patient shows no signs of distress or pain at the time. Patient is AO x4. IV is intact and patent. There are no signs of erythema, infiltration, or bleeding. Patient is on 2 L nasal canula, saturating at 100%. Patient is able to walk to bathroom with assistance and walker. Bed is in the lowest position, call light is within reach, side rails up x3. Will continue to monitor.
[2020-06-08] MEDS: Atorvastatin 20mg tab ORAL SCH (20:54)
--- NOTE | 2020-06-08 23:56 | Cardiology Progress Note ---
Assessment/Plan Assessment/Plan 1. Small sized pericardial effusion with no pericardial tamponade. Continue diuretic therapy. 2. Non-ischemic CM with LVEF at 40-45%. Continue carvedilol. 3. Mild pulmonary HTN due to severe COPD. 4. HTN, conitnue diltiazem and metoprolol. 5. sp VATS at [facility]. Subjective Subjective Sinus rhythm at rate of 73. Objective Last 24 Hour Vital Signs Date Time Temp Pulse Resp B/P (MAP) Pulse Ox O2 Delivery O2 Flow Rate FiO2 06/08/20 22:41 73 160/81 06/08/20 20:57 97 18 100 Nasal Cannula 2.0 28 92 18 98 06/08/20 20:54 73 160/89 06/08/20 19:28 96 Nasal Cannula 2.0 28 06/08/20 19:26 88 18 96 Nasal Cannula 2.0 28 06/08/20 16:34 99 18 100 Nasal Cannula 2.0 28 90 18 99 06/08/20 16:00 98.1 78 21 148/79 (102) 98 06/08/20 16:00 76 06/08/20 14:15 97 134/75 06/08/20 12:00 83 06/08/20 12:00 96.8 64 22 148/88 (108) 98 06/08/20 09:55 97 134/75 06/08/20 09:19 106 18 100 Nasal Cannula 2.0 28 99 18 99 06/08/20 09:00 Nasal Cannula 2.0 06/08/20 08:00 65 06/08/20 08:00 97.9 70 21 128/79 (95) 98 06/08/20 06:02 97 134/75 06/08/20 04:00 98.1 85 22 134/75 (94) 100 06/08/20 04:00 97 06/08/20 00:00 81 06/08/20 00:00 97.7 83 20 142/77 (98) 99 Intake and Output 06/07/20 06/08/20 19:00 07:00 Intake Total 1000 ml 480 ml Balance 1000 ml 480 ml Intake Oral 1000 ml 480 ml # Voids 3 3 Laboratory Tests Test 06/08/20 07:30 White Blood Count 14.4 K/UL (4.8-10.8) H Red Blood Count 4.33 M/UL (4.20-5.40) Hemoglobin 11.6 G/DL (12.0-16.0) L Hematocrit 35.7 % (37.0-47.0) L Mean Corpuscular Volume 82 FL (80-99) Mean Corpuscular Hemoglobin 26.9 PG (27.0-31.0) L Mean Corpuscular Hemoglobin Concent 32.6 G/DL (32.0-36.0) Red Cell Distribution Width 14.9 % (11.6-14.8) H Platelet Count 242 K/UL (150-450) Mean Platelet Volume 6.2 FL (6.5-10.1) L Neutrophils (%) (Auto) 65.2 % (45.0-75.0) Lymphocytes (%) (Auto) 22.1 % (20.0-45.0) Monocytes (%) (Auto) 10.2 % (1.0-10.0) H Eosinophils (%) (Auto) 0.9 % (0.0-3.0) Basophils (%) (Auto) 1.6 % (0.0-2.0) Sodium Level 142 MMOL/L (136-145) Potassium Level 3.7 MMOL/L (3.5-5.1) Chloride Level 103 MMOL/L (98-107) Carbon Dioxide Level 33 MMOL/L (21-32) H Anion Gap 6 mmol/L (5-15) Blood Urea Nitrogen 30 mg/dL (7-18) H Creatinine 1.4 MG/DL (0.55-1.30) H Estimat Glomerular Filtration Rate 46.9 mL/min (>60) Glucose Level 108 MG/DL (74-106) H Calcium Level 8.5 MG/DL (8.5-10.1) Microbiology Date/Time Source Procedure Growth Status 06/06/20 18:00 Rectum VRE Culture - Final NO VANCOMYCIN RESISTANT ENTEROCOCCUS ... Complete 06/06/20 18:00 Nose MRSA Culture - Final NO METHICILLIN RESISTANT STAPH AUREUS... Complete 06/06/20 17:00 Nasopharynx SARS-CoV-2 RdRp Gene Assay - Final Complete 06/06/20 17:00 Blood Blood Culture - Preliminary NO GROWTH AFTER 24 HOURS Resulted 06/06/20 16:30 Blood Blood Culture - Preliminary NO GROWTH AFTER 24 HOURS Resulted Objective HEENT: Atraumatic and normocephalic. Anicteric. Pupils are equal, round, and reactive to light and accommodation. Extraocular muscles intact. NECK: JVP less than 5 centimeter. No carotid bruit. Carotid upstroke is 2+ bilaterally. CARDIOVASCULAR: Normal S1, S2. Regular rate and rhythm. No murmurs, gallops, or rubs. PMI is at fourth intercostal space, midclavicular line. LUNGS: Diminished breath sounds in both lungs. ABDOMEN: Distended. No hepatosplenomegaly. Positive bowel sounds. EXTREMITIES: No evidence of edema, clubbing, or cyanosis. Bc Daniels MD Jun 08, 2020 23:56
[2020-06-09] VITALS: BP 155/84
[2020-06-09] MEDS: Albuterol/Ipratropium 3ml neb HHN PRN ×2 (02:00→07:30)
[2020-06-09 04:00] VITALS: BP 137/80
[2020-06-09] MEDS: dilTIAZem HCl 60mg tab ORAL SCH ×3 (05:32→22:14)
[2020-06-09] MEDS: oxyCODONE 15mg IR tab ORAL PRN ×2 (06:22→22:16)
--- NOTE | 2020-06-09 07:26 | NUR ---
NURSE HAND-OFF REPORT: Important Events on Shift:[NA] Patient Status: []Full code Diet: [Low sodium] Pending Orders: [NA] Pending Results/Labs:[NA] Pending MD notification:[NA] Latest Vital Signs: Temperature 97.9 , Pulse 92 , B/P 137 /80 , Respiratory Rate 18 , O2 SAT 96 , Nasal Cannula, O2 Flow Rate 2.0 . Vital Sign Comment: [NA] EKG Rhythm: Sinus Rhythm Rhythm change?: N MD Notified?: N - MD Response: Latest Flowers Fall Score: 70 Fall Risk: High Risk Safety Measures: Call light Within Reach, Bed Alarm Zone 1, Side Rails Side Rails x2, Bed position Low and Locked. Fall Precautions: Yellow Socks Yellow Gown Patient Fall Education Report given to [RIZWANA Alcantara].
--- NOTE | 2020-06-09 07:30 | NUR ---
NURSE NOTES: RECEIVED PATIENT FROM [facility] IN BED DENIES ANY PAIN AT THIS TIME. NO S/S OF RESPIRATORY DISTRESS NOTED AT THIS TIME. PATIENT IS ON 2L NC AND TOLERATING WELL, SATURATING 97 -98%. BED IS ON LOWEST LEVEL WITH BEDSIDE RAILS UP X2, BRAKES ENGAGED FOR SAFETY. CALL LIGHT IS WITHIN REACH. WILL CONTINUE WITH THE PLAN OF CARE.
[2020-06-09 07:33] LABS: BASOPHILS % (AUTO) 2.7 % (0.0-2.0); EOSINOPHILS % (AUTO) 1.3 % (0.0-3.0); HEMATOCRIT 34.6 % (37.0-47.0); HEMOGLOBIN 11.4 G/DL (12.0-16.0); LYMPHOCYTES % (AUTO) 21.3 % (20.0-45.0); MEAN CORPUSCULAR VOLUME 82 FL (80-99); MONOCYTES % (AUTO) 7.4 % (1.0-10.0); NEUTROPHILS % (AUTO) 67.2 % (45.0-75.0); PLATELET COUNT 238 K/UL (150-450); RED BLOOD COUNT 4.22 M/UL (4.20-5.40); RED CELL DISTRIBUTION WIDTH 14.4 % (11.6-14.8); WHITE BLOOD COUNT 13.8 K/UL (4.8-10.8)
[2020-06-09 07:35] LABS: CALCIUM 8.9 MG/DL (8.5-10.1); CREATININE 1.2 MG/DL (0.55-1.30); POTASSIUM 3.6 MMOL/L (3.5-5.1)
--- NOTE | 2020-06-09 07:44 | Pulmonology Progress Note ---
Subjective ROS Limited/Unobtainable: No Constitutional: Reports: no symptoms Skin: Reports: rash, other - pain in right flank extending to below breast Allergies: Coded Allergies: No Known Allergies (Unverified , 12/10/19) All Systems: reviewed and negative except above Subjective care noted same overall no distress Objective Last 24 Hour Vital Signs Date Time Temp Pulse Resp B/P (MAP) Pulse Ox O2 Delivery O2 Flow Rate FiO2 06/09/20 07:30 98 18 100 Nasal Cannula 2.0 28 90 18 99 06/09/20 07:22 92 18 96 Nasal Cannula 2.0 28 06/09/20 07:22 96 Nasal Cannula 2.0 28 06/09/20 05:32 76 137/80 06/09/20 04:00 76 06/09/20 04:00 97.9 80 20 137/80 (99) 98 06/09/20 02:01 102 18 100 Nasal Cannula 2.0 28 94 18 98 06/09/20 00:00 98.0 70 24 155/84 (107) 97 06/09/20 00:00 76 06/08/20 22:41 73 160/81 06/08/20 21:00 Nasal Cannula 2.0 06/08/20 20:57 97 18 100 Nasal Cannula 2.0 28 92 18 98 06/08/20 20:54 73 160/89 06/08/20 20:00 75 06/08/20 20:00 98.0 73 24 160/89 (112) 98 06/08/20 19:28 96 Nasal Cannula 2.0 28 06/08/20 19:26 88 18 96 Nasal Cannula 2.0 28 06/08/20 16:34 99 18 100 Nasal Cannula 2.0 28 90 18 99 06/08/20 16:00 98.1 78 21 148/79 (102) 98 06/08/20 16:00 76 06/08/20 14:15 97 134/75 06/08/20 12:00 83 06/08/20 12:00 96.8 64 22 148/88 (108) 98 06/08/20 09:55 97 134/75 06/08/20 09:19 106 18 100 Nasal Cannula 2.0 28 99 18 99 06/08/20 09:00 Nasal Cannula 2.0 06/08/20 08:00 65 06/08/20 08:00 97.9 70 21 128/79 (95) 98 Intake and Output 06/08/20 06/09/20 19:00 07:00 Intake Total 1680 ml 680 ml Balance 1680 ml 680 ml Intake Oral 1680 ml 680 ml # Voids 5 2 Objective WDWN NAD reduced breath sounds bilaterally without rhonchi or wheeze [id number] without MRG NABS nontender no HSM no CC mild edema nonfocal Microbiology Date/Time Source Procedure Growth Status 06/06/20 18:00 Rectum VRE Culture - Final NO VANCOMYCIN RESISTANT ENTEROCOCCUS ... Complete 06/06/20 18:00 Nose MRSA Culture - Final NO METHICILLIN RESISTANT STAPH AUREUS... Complete 06/06/20 17:00 Nasopharynx SARS-CoV-2 RdRp Gene Assay - Final Complete 06/06/20 17:00 Blood Blood Culture - Preliminary NO GROWTH AFTER 24 HOURS Resulted 06/06/20 16:30 Blood Blood Culture - Preliminary NO GROWTH AFTER 24 HOURS Resulted Laboratory Tests 06/08/20 15:08: POC Whole Blood Glucose 152H 06/08/20 16:54: POC Whole Blood Glucose 115H 06/09/20 04:36: POC Whole Blood Glucose 89 06/09/20 05:34: POC Whole Blood Glucose [Pending] 06/09/20 06:40: White Blood Count 13.8H, Red Blood Count 4.22, Hemoglobin 11.4L, Hematocrit 34.6L, Mean Corpuscular Volume 82, Mean Corpuscular Hemoglobin 27.1, Mean Corpuscular Hemoglobin Concent 33.0, Red Cell Distribution Width 14.4, Platelet Count 238, Mean Platelet Volume 6.3L, Neutrophils (%) (Auto) 67.2, Lymphocytes (%) (Auto) 21.3, Monocytes (%) (Auto) 7.4, Eosinophils (%) (Auto) 1.3, Basophils (%) (Auto) 2.7H, Sodium Level [Pending], Potassium Level [Pending], Chloride Level [Pending], Carbon Dioxide Level [Pending], Blood Urea Nitrogen [Pending], Creatinine [Pending], Estimat Glomerular Filtration Rate [Pending], Glucose Level [Pending], Calcium Level [Pending] Current Medications Medications (Trade) Dose Ordered Sig/Alethea Route PRN Reason Start Time Stop Time Status Last Admin Dose Admin Acetaminophen (Tylenol) 650 mg EVERY 6 HOURS PRN ORAL Pain Scale (3-5) 06/06/20 21:30 07/06/20 21:29 Acyclovir (Zovirax) 800 mg FIVE TIMES A DAY ORAL 06/07/20 10:00 07/07/20 09:59 06/08/20 18:20 Albuterol/ Ipratropium (Albuterol/ Ipratropium) 3 ml Q4H PRN HHN Shortness of Breath 06/07/20 08:30 06/12/20 08:29 06/09/20 07:30 Atorvastatin Calcium (Lipitor) 20 mg BEDTIME ORAL 06/07/20 21:00 09/05/20 20:59 06/08/20 20:54 Carvedilol (Coreg) 12.5 mg EVERY 12 HOURS ORAL 06/06/20 21:30 07/06/20 21:29 06/08/20 20:54 Ceftriaxone Sodium 1 gm/ Dextrose 55 ml @ 110 mls/hr Q24H IVPB 06/07/20 09:00 06/14/20 08:59 06/08/20 09:00 Cyclobenzaprine HCl (Flexeril) 10 mg THREE TIMES A DAY ORAL 06/07/20 09:00 06/14/20 08:59 06/08/20 18:06 Diltiazem HCl (Cardizem Tab) 60 mg EVERY 8 HOURS ORAL 06/06/20 22:00 07/06/20 21:59 06/09/20 05:32 Docusate Sodium (Colace) 100 mg TID PRN ORAL Constipation 06/06/20 21:30 07/06/20 21:29 Gabapentin (Neurontin) 300 mg THREE TIMES A DAY ORAL 06/08/20 18:00 07/08/20 17:59 06/08/20 18:07 Hydrochlorothiazide (Hydrodiuril) 25 mg DAILY ORAL 06/07/20 09:00 07/07/20 08:59 06/08/20 09:55 Metformin HCl (Glucophage) 500 mg TWICE A DAY ORAL 06/07/20 09:00 07/07/20 08:59 06/08/20 18:06 Ondansetron HCl (Zofran) 4 mg Q6H PRN IVP Nausea & Vomiting 06/06/20 21:30 07/06/20 21:29 06/07/20 19:26 Oxycodone HCl (Roxicodone) 30 mg Q6H PRN ORAL For Pain 06/06/20 21:30 06/13/20 21:29 06/09/20 06:22 Prednisone (predniSONE) 10 mg DAILY ORAL 06/07/20 09:00 07/07/20 08:59 06/08/20 09:55 Zolpidem Tartrate (Ambien) 5 mg HSPRN PRN ORAL Insomnia 06/06/20 21:30 06/13/20 21:29 06/08/20 00:41 Assessment/Plan Assessment/Plan IMPRESSION NSIP Chronic hypoxemia Chronic respiratory failure Shingles Failure to thrive Leukocytosis likely due to steroid use Immunosuppression plan Continue with steroids however, patient was on higher dose prior/ will await improvement in shingles and discuss IV antibiotics Antiviral agent Local care Oxygen therapy Monitor imaging Respiratory therapy as outlined Discharged home ok per pulmonary will follow up after dc impression, plan, and exam edited and reviewed in detail care discussed with Axel Saez MD Jun 09, 2020 07:44
[2020-06-09 08:00] VITALS: BP 138/75
[2020-06-09] MEDS: metFORMIN 500mg tab ORAL SCH ×2 (08:34→18:27)
[2020-06-09] MEDS: Carvedilol 12.5mg tab ORAL SCH ×2 (08:35→20:43)
[2020-06-09] MEDS: hydroCHLOROthiazide 25mg cap ORAL SCH (08:35)
[2020-06-09] MEDS: Cyclobenzaprine 10mg Tab ORAL SCH ×3 (08:36→18:27)
[2020-06-09] MEDS: cefTRIAXone 1gm/D5W 55ml IVPB SCH ×2 (08:36)
[2020-06-09 12:00] VITALS: BP 131/87
--- NOTE | 2020-06-09 13:34 | Infectious Diseases Prog Note ---
Assessment/Plan Assessment/Plan antibiotics : ceftriaxone, acyclovir A 1. pneumonia 2. zoster 3. COPD exacerbation 4. diabetes mellitus 5. hypertension 6. obesity 7, leucocytosis improving P 1. d/c ceftriaxone 2. start and continue po levoquin 4 more days 3. continue acyclovir 7 more days 4. will follow up cultures Subjective Constitutional: Denies: fever, chills Respiratory: Reports: shortness of breath, dry cough Gastrointestinal/Abdominal: Reports: nausea; Denies: vomiting, diarrhea Musculoskeletal: Reports: pain Allergies: Coded Allergies: No Known Allergies (Unverified , 12/10/19) Objective Last 24 Hour Vital Signs Date Time Temp Pulse Resp B/P (MAP) Pulse Ox O2 Delivery O2 Flow Rate FiO2 06/09/20 12:00 97.7 78 20 131/87 (102) 96 06/09/20 12:00 78 06/09/20 09:00 Nasal Cannula 2.0 06/09/20 08:35 75 138/75 06/09/20 08:00 97.5 74 20 138/75 (96) 98 06/09/20 08:00 74 06/09/20 07:30 98 18 100 Nasal Cannula 2.0 28 90 18 99 06/09/20 07:22 92 18 96 Nasal Cannula 2.0 28 06/09/20 07:22 96 Nasal Cannula 2.0 28 06/09/20 05:32 76 137/80 06/09/20 04:00 76 06/09/20 04:00 97.9 80 20 137/80 (99) 98 06/09/20 02:01 102 18 100 Nasal Cannula 2.0 28 94 18 98 06/09/20 00:00 98.0 70 24 155/84 (107) 97 06/09/20 00:00 76 06/08/20 22:41 73 160/81 06/08/20 21:00 Nasal Cannula 2.0 06/08/20 20:57 97 18 100 Nasal Cannula 2.0 28 92 18 98 06/08/20 20:54 73 160/89 06/08/20 20:00 75 06/08/20 20:00 98.0 73 24 160/89 (112) 98 06/08/20 19:28 96 Nasal Cannula 2.0 28 06/08/20 19:26 88 18 96 Nasal Cannula 2.0 28 06/08/20 16:34 99 18 100 Nasal Cannula 2.0 28 90 18 99 06/08/20 16:00 98.1 78 21 148/79 (102) 98 06/08/20 16:00 76 06/08/20 14:15 97 134/75 Height (Feet): 5 Height (Inches): 6.00 Weight (Pounds): 242 Respiratory/Chest: lungs clear Cardiovascular: normal rate, regular rhythm, no gallop/murmur Abdomen: soft, non tender Extremities: no edema Microbiology Date/Time Source Procedure Growth Status 06/06/20 18:00 Rectum - Final NO CARBAPENEM-RESISTANT ENTEROBACTERI... Complete 06/06/20 18:00 Rectum VRE Culture - Final NO VANCOMYCIN RESISTANT ENTEROCOCCUS ... Complete 06/06/20 18:00 Nose MRSA Culture - Final NO METHICILLIN RESISTANT STAPH AUREUS... Complete 06/06/20 17:00 Nasopharynx SARS-CoV-2 RdRp Gene Assay - Final Complete 06/06/20 17:00 Blood Blood Culture - Preliminary NO GROWTH AFTER 24 HOURS Resulted 06/06/20 16:30 Blood Blood Culture - Preliminary NO GROWTH AFTER 24 HOURS Resulted Laboratory Tests Test 06/08/20 15:08 06/08/20 16:54 06/09/20 04:36 06/09/20 05:34 POC Whole Blood Glucose 152 MG/DL (74-106) H 115 MG/DL (74-106) H 89 MG/DL (74-106) Pending Test 06/09/20 06:40 White Blood Count 13.8 K/UL (4.8-10.8) H Red Blood Count 4.22 M/UL (4.20-5.40) Hemoglobin 11.4 G/DL (12.0-16.0) L Hematocrit 34.6 % (37.0-47.0) L Mean Corpuscular Volume 82 FL (80-99) Mean Corpuscular Hemoglobin 27.1 PG (27.0-31.0) Mean Corpuscular Hemoglobin Concent 33.0 G/DL (32.0-36.0) Red Cell Distribution Width 14.4 % (11.6-14.8) Platelet Count 238 K/UL (150-450) Mean Platelet Volume 6.3 FL (6.5-10.1) L Neutrophils (%) (Auto) 67.2 % (45.0-75.0) Lymphocytes (%) (Auto) 21.3 % (20.0-45.0) Monocytes (%) (Auto) 7.4 % (1.0-10.0) Eosinophils (%) (Auto) 1.3 % (0.0-3.0) Basophils (%) (Auto) 2.7 % (0.0-2.0) H Sodium Level 138 MMOL/L (136-145) Potassium Level 3.6 MMOL/L (3.5-5.1) Chloride Level 100 MMOL/L (98-107) Carbon Dioxide Level 34 MMOL/L (21-32) H Anion Gap 4 mmol/L (5-15) L Blood Urea Nitrogen 20 mg/dL (7-18) H Creatinine 1.2 MG/DL (0.55-1.30) Estimat Glomerular Filtration Rate 56.0 mL/min (>60) Glucose Level 139 MG/DL (74-106) H Calcium Level 8.9 MG/DL (8.5-10.1) Current Medications Medications (Trade) Dose Ordered Sig/Alethea Route PRN Reason Start Time Stop Time Status Last Admin Dose Admin Acetaminophen (Tylenol) 650 mg EVERY 6 HOURS PRN ORAL Pain Scale (3-5) 06/06/20 21:30 07/06/20 21:29 Acyclovir (Zovirax) 800 mg FIVE TIMES A DAY ORAL 06/07/20 10:00 07/07/20 09:59 06/09/20 11:39 Albuterol/ Ipratropium (Albuterol/ Ipratropium) 3 ml Q4H PRN HHN Shortness of Breath 06/07/20 08:30 06/12/20 08:29 06/09/20 07:30 Atorvastatin Calcium (Lipitor) 20 mg BEDTIME ORAL 06/07/20 21:00 09/05/20 20:59 06/08/20 20:54 Carvedilol (Coreg) 12.5 mg EVERY 12 HOURS ORAL 06/06/20 21:30 07/06/20 21:29 06/09/20 08:35 Ceftriaxone Sodium 1 gm/ Dextrose 55 ml @ 110 mls/hr Q24H IVPB 06/07/20 09:00 06/14/20 08:59 06/09/20 08:36 Cyclobenzaprine HCl (Flexeril) 10 mg THREE TIMES A DAY ORAL 06/07/20 09:00 06/14/20 08:59 06/09/20 08:36 Diltiazem HCl (Cardizem Tab) 60 mg EVERY 8 HOURS ORAL 06/06/20 22:00 07/06/20 21:59 06/09/20 05:32 Docusate Sodium (Colace) 100 mg TID PRN ORAL Constipation 06/06/20 21:30 07/06/20 21:29 Gabapentin (Neurontin) 300 mg THREE TIMES A DAY ORAL 06/08/20 18:00 07/08/20 17:59 06/09/20 08:34 Hydrochlorothiazide (Hydrodiuril) 25 mg DAILY ORAL 06/07/20 09:00 07/07/20 08:59 06/09/20 08:35 Metformin HCl (Glucophage) 500 mg TWICE A DAY ORAL 06/07/20 09:00 07/07/20 08:59 06/09/20 08:34 Ondansetron HCl (Zofran) 4 mg Q6H PRN IVP Nausea & Vomiting 06/06/20 21:30 07/06/20 21:29 06/09/20 10:55 Oxycodone HCl (Roxicodone) 30 mg Q6H PRN ORAL For Pain 06/06/20 21:30 06/13/20 21:29 06/09/20 06:22 Prednisone (predniSONE) 10 mg DAILY ORAL 06/07/20 09:00 07/07/20 08:59 06/09/20 08:35 Zolpidem Tartrate (Ambien) 5 mg HSPRN PRN ORAL Insomnia 06/06/20 21:30 06/13/20 21:29 06/08/20 00:41 Meghan Greenberg MD Jun 09, 2020 13:34
--- NOTE | 2020-06-09 13:44 | NUR ---
*-*DISCHARGE PLANNING*-* PATIENT HAS BEEN ACCEPTED WITH: [facility] P: [phone] S/W RENET[place], WILL SERVICE PATIENT UPON DISCHARGE ~~~~SPOKE WITH PATIENT WHO STATED, SHE DOESN'T WANT HOME HEALTH OR TO BE SENT TO ARU OR SNF, STATED WILL SET UP HER OWN HOME HEALTH~~~~~
--- NOTE | 2020-06-09 14:04 | General Progress Note ---
Subjective Constitutional: Reports: weakness Respiratory: Reports: shortness of breath Allergies: Coded Allergies: No Known Allergies (Unverified , 12/10/19) All Systems: reviewed and negative except above Subjective o2nc calm Objective Last 24 Hour Vital Signs Date Time Temp Pulse Resp B/P (MAP) Pulse Ox O2 Delivery O2 Flow Rate FiO2 06/09/20 12:00 97.7 78 20 131/87 (102) 96 06/09/20 12:00 78 06/09/20 09:00 Nasal Cannula 2.0 06/09/20 08:35 75 138/75 06/09/20 08:00 97.5 74 20 138/75 (96) 98 06/09/20 08:00 74 06/09/20 07:30 98 18 100 Nasal Cannula 2.0 28 90 18 99 06/09/20 07:22 92 18 96 Nasal Cannula 2.0 28 06/09/20 07:22 96 Nasal Cannula 2.0 28 06/09/20 05:32 76 137/80 06/09/20 04:00 76 06/09/20 04:00 97.9 80 20 137/80 (99) 98 06/09/20 02:01 102 18 100 Nasal Cannula 2.0 28 94 18 98 06/09/20 00:00 98.0 70 24 155/84 (107) 97 06/09/20 00:00 76 06/08/20 22:41 73 160/81 06/08/20 21:00 Nasal Cannula 2.0 06/08/20 20:57 97 18 100 Nasal Cannula 2.0 28 92 18 98 06/08/20 20:54 73 160/89 06/08/20 20:00 75 06/08/20 20:00 98.0 73 24 160/89 (112) 98 06/08/20 19:28 96 Nasal Cannula 2.0 28 06/08/20 19:26 88 18 96 Nasal Cannula 2.0 28 06/08/20 16:34 99 18 100 Nasal Cannula 2.0 28 90 18 99 06/08/20 16:00 98.1 78 21 148/79 (102) 98 06/08/20 16:00 76 06/08/20 14:15 97 134/75 Intake and Output 06/08/20 06/09/20 19:00 07:00 Intake Total 1680 ml 680 ml Balance 1680 ml 680 ml Intake Oral 1680 ml 680 ml # Voids 5 2 Laboratory Tests 06/08/20 15:08: POC Whole Blood Glucose 152H 06/08/20 16:54: POC Whole Blood Glucose 115H 06/09/20 04:36: POC Whole Blood Glucose 89 06/09/20 05:34: POC Whole Blood Glucose [Pending] 06/09/20 06:40: White Blood Count 13.8H, Red Blood Count 4.22, Hemoglobin 11.4L, Hematocrit 34.6L, Mean Corpuscular Volume 82, Mean Corpuscular Hemoglobin 27.1, Mean Corpuscular Hemoglobin Concent 33.0, Red Cell Distribution Width 14.4, Platelet Count 238, Mean Platelet Volume 6.3L, Neutrophils (%) (Auto) 67.2, Lymphocytes (%) (Auto) 21.3, Monocytes (%) (Auto) 7.4, Eosinophils (%) (Auto) 1.3, Basophils (%) (Auto) 2.7H, Sodium Level 138, Potassium Level 3.6, Chloride Level 100, Carbon Dioxide Level 34H, Anion Gap 4L, Blood Urea Nitrogen 20H, Creatinine 1.2, Estimat Glomerular Filtration Rate 56.0, Glucose Level 139H, Calcium Level 8.9 Height (Feet): 5 Height (Inches): 6.00 Weight (Pounds): 242 General Appearance: lethargic EENT: normal ENT inspection Neck: normal alignment Cardiovascular: normal peripheral pulses, normal rate, regular rhythm Respiratory/Chest: chest wall non-tender, lungs clear, normal breath sounds Abdomen: normal bowel sounds, non tender, soft Extremities: normal inspection Edema: no edema noted Arm (L), no edema noted Arm (R), no edema noted Leg (L), no edema noted Leg (R), no edema noted Pedal (L), no edema noted Pedal (R), no edema noted Generalized Neurologic: responsive, motor weakness Skin: normal pigmentation, warm/dry Assessment/Plan Problem List: (1) Congestive cardiac failure ICD Codes: I50.9 - Heart failure, unspecified SNOMED: 06080841 (2) Leukocytosis ICD Codes: D72.829 - Elevated white blood cell count, unspecified SNOMED: 625600367, 134059745 (3) COPD exacerbation ICD Codes: J44.1 - Chronic obstructive pulmonary disease with (acute) exacerbation SNOMED: 841294281 (4) DMII (diabetes mellitus, type 2) ICD Codes: E11.9 - Type 2 diabetes mellitus without complications SNOMED: 38230707 (5) CHF exacerbation ICD Codes: I50.9 - Heart failure, unspecified SNOMED: 005157485, 95791896640821 Status: unchanged Assessment/Plan: o2 pulm tx abx pt diet cbc amp am dc plan Hernando Crow DO Jun 09, 2020 14:04
[2020-06-09] MEDS: Levofloxacin 500mg tab ORAL SCH (14:25)
--- NOTE | 2020-06-09 14:43 | NUR ---
*-*DISCHARGE PLANNED*-* PATIENT HAS BEEN REFERRED TO: [facility] P: [phone] S/W [place]EM[place], WHO STATED, CANNOT SERVICE PATIENT, DUE TO PATIENT ALREADY SERVICED WITH [facility]
--- NOTE | 2020-06-09 15:36 | NUR ---
CASE MANAGEMENT: REVIEW SI: PLEURAL EFFUSION . COPD . SHINGLE T 97.5 HR 74 RR 20 BP 138/75 SAT 98% NC/2L WBC 13.8 GLUCOSE 139 IS: ACYCLOVIR PO Q8HR LEVAQUIN PO QD ALBUTEROL HHN Q4HR PRN PREDNISONE PO QD HYDRODIURIL PO QD TELEMETRY UNIT STATUS DCP: PATIENT IS FROM HOME. DC HOME WITH HOME HEALTH
[2020-06-09 16:00] VITALS: BP 140/84
--- NOTE | 2020-06-09 17:08 | Nephrology Progress Note ---
Assessment/Plan Assessment 1. ALI 2. Hypertension, which is under better control at this time. 3. History of COPD. 4. History of recurrent pleural effusion. 5. Possible pneumonia. 6. shingles Plan plan pain management avoid NSIAD Replace electrolyte as need it PT/OT patient refused acute rehab or long term Subjective Subjective c/o pain numbness and tingling under beast gabapentin has helped Objective Objective Last 24 Hour Vital Signs Date Time Temp Pulse Resp B/P (MAP) Pulse Ox O2 Delivery O2 Flow Rate FiO2 06/09/20 16:00 97.6 85 18 140/84 (102) 100 06/09/20 16:00 85 06/09/20 14:25 78 131/87 06/09/20 12:00 97.7 78 20 131/87 (102) 96 06/09/20 12:00 78 06/09/20 09:00 Nasal Cannula 2.0 06/09/20 08:35 75 138/75 06/09/20 08:00 97.5 74 20 138/75 (96) 98 06/09/20 08:00 74 06/09/20 07:30 98 18 100 Nasal Cannula 2.0 28 90 18 99 06/09/20 07:22 92 18 96 Nasal Cannula 2.0 28 06/09/20 07:22 96 Nasal Cannula 2.0 28 06/09/20 05:32 76 137/80 06/09/20 04:00 76 06/09/20 04:00 97.9 80 20 137/80 (99) 98 06/09/20 02:01 102 18 100 Nasal Cannula 2.0 28 94 18 98 06/09/20 00:00 98.0 70 24 155/84 (107) 97 06/09/20 00:00 76 06/08/20 22:41 73 160/81 06/08/20 21:00 Nasal Cannula 2.0 06/08/20 20:57 97 18 100 Nasal Cannula 2.0 28 92 18 98 06/08/20 20:54 73 160/89 06/08/20 20:00 75 06/08/20 20:00 98.0 73 24 160/89 (112) 98 06/08/20 19:28 96 Nasal Cannula 2.0 28 06/08/20 19:26 88 18 96 Nasal Cannula 2.0 28 Intake and Output 06/08/20 06/09/20 18:59 06:59 Intake Total 1680 ml 680 ml Balance 1680 ml 680 ml Intake Oral 1680 ml 680 ml # Voids 5 2 Laboratory Tests 06/09/20 04:36: POC Whole Blood Glucose 89 06/09/20 05:34: POC Whole Blood Glucose [Pending] 06/09/20 06:40: White Blood Count 13.8H, Red Blood Count 4.22, Hemoglobin 11.4L, Hematocrit 34.6L, Mean Corpuscular Volume 82, Mean Corpuscular Hemoglobin 27.1, Mean Corpuscular Hemoglobin Concent 33.0, Red Cell Distribution Width 14.4, Platelet Count 238, Mean Platelet Volume 6.3L, Neutrophils (%) (Auto) 67.2, Lymphocytes (%) (Auto) 21.3, Monocytes (%) (Auto) 7.4, Eosinophils (%) (Auto) 1.3, Basophils (%) (Auto) 2.7H, Sodium Level 138, Potassium Level 3.6, Chloride Level 100, Carbon Dioxide Level 34H, Anion Gap 4L, Blood Urea Nitrogen 20H, Creatinine 1.2, Estimat Glomerular Filtration Rate 56.0, Glucose Level 139H, Calcium Level 8.9 Height (Feet): 5 Height (Inches): 6.00 Weight (Pounds): 242 Objective HEENT: Atraumatic and normocephalic. Anicteric. Pupils are equal, round, and reactive to light and accommodation. Extraocular muscles intact. NECK: no JVP or LAD . CARDIOVASCULAR: Normal S1, S2. Regular rate and rhythm. No murmurs, LUNGS: Diminished breath sounds in both lungs.patient has lesion on back of her chest looks like shingle lesion abdomen ; Soft not tender or distended ,BS + ABDOMEN: Distended. No hepatosplenomegaly. Positive bowel sounds. EXTREMITIES: No evidence of edema, clubbing, or cyanosis. Gladys Bravo MD Jun 09, 2020 17:08
--- NOTE | 2020-06-09 19:38 | NUR ---
NURSE HAND-OFF REPORT: Important Events on Shift:N Patient Status: Diet: Pending Orders: Pending Results/Labs: Pending MD notification: Latest Vital Signs: Temperature 97.6 , Pulse 85 , B/P 140 /84 , Respiratory Rate 18 , O2 SAT 100 , Nasal Cannula, O2 Flow Rate 2.0 . Vital Sign Comment: EKG Rhythm: Sinus Rhythm Rhythm change?: N MD Notified?: N - MD Response: Latest Flowers Fall Score: 70 Fall Risk: High Risk Safety Measures: Call light Within Reach, Bed Alarm Zone 1, Side Rails Side Rails x2, Bed position Low and Locked. Fall Precautions: Yellow Socks Yellow Gown Patient Fall Education Report given to .
[2020-06-09 20:00] VITALS: BP 151/86
--- NOTE | 2020-06-09 20:02 | NUR ---
NURSE NOTES: Received patient report from RIZWANA Alcantara. Patient shows no signs of distress or pain at the time. Patient is AO x4. She is on 2L nasal canula and shows no signs of respiratory distress. IV is intact and patent. There are no signs of erythema, infiltration, or bleeding. Bed is in the lowest position, call light is within reach, side rails up x3. Bed side camode is next to her, walker too. Will continue to monitor.
[2020-06-09] MEDS: Atorvastatin 20mg tab ORAL SCH (20:43)
[2020-06-10] VITALS: BP 139/68
[2020-06-10] MEDS: Albuterol/Ipratropium 3ml neb HHN PRN ×2 (03:16→08:49)
[2020-06-10 04:00] VITALS: BP 156/73
[2020-06-10] MEDS: dilTIAZem HCl 60mg tab ORAL SCH ×2 (05:18→14:00)
[2020-06-10 06:39] LABS: BASOPHILS % (AUTO) 1.5 % (0.0-2.0); EOSINOPHILS % (AUTO) 0.8 % (0.0-3.0); HEMATOCRIT 33.2 % (37.0-47.0); LYMPHOCYTES % (AUTO) 20.8 % (20.0-45.0); MEAN CORPUSCULAR VOLUME 82 FL (80-99); MONOCYTES % (AUTO) 7.1 % (1.0-10.0); NEUTROPHILS % (AUTO) 69.8 % (45.0-75.0); PLATELET COUNT 240 K/UL (150-450); RED BLOOD COUNT 4.07 M/UL (4.20-5.40); RED CELL DISTRIBUTION WIDTH 14.2 % (11.6-14.8); WHITE BLOOD COUNT 14.2 K/UL (4.8-10.8)
[2020-06-10 07:00] LABS: CREATININE 1.3 MG/DL (0.55-1.30); POTASSIUM 3.7 MMOL/L (3.5-5.1)
--- NOTE | 2020-06-10 07:42 | NUR ---
NURSE HAND-OFF REPORT: Important Events on Shift:[NA] Patient Status: [Full code] Diet: [Low sodium] Pending Orders: [NA] Pending Results/Labs:[NA] Pending MD notification:[NA] Latest Vital Signs: Temperature 97.9 , Pulse 85 , B/P 156 /73 , Respiratory Rate 20 , O2 SAT 98 , Nasal Cannula, O2 Flow Rate 2.0 . Vital Sign Comment: [NA] EKG Rhythm: Sinus Rhythm Rhythm change?: N MD Notified?: N - MD Response: Latest Flowers Fall Score: 70 Fall Risk: High Risk Safety Measures: Call light Within Reach, Bed Alarm Zone 1, Side Rails Side Rails x2, Bed position Low and Locked. Fall Precautions: Yellow Socks Yellow Gown Patient Fall Education Report given to [RIZWANA Frias].
[2020-06-10 08:00] VITALS: BP 138/69
--- NOTE | 2020-06-10 08:04 | NUR ---
NURSE NOTES: Received patient report from RIZWANA Yan. Patient is AO x 4 and on NC @2L with no sign of sob or resp distress. 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 IV is intact and patent. Bed is in the lowest position, call light is within reach, side rails up x3. Will continue to monitor.
[2020-06-10] MEDS: Carvedilol 12.5mg tab ORAL SCH (08:26)
[2020-06-10] MEDS: hydroCHLOROthiazide 25mg cap ORAL SCH (08:26)
[2020-06-10] MEDS: metFORMIN 500mg tab ORAL SCH (08:26)
[2020-06-10] MEDS: Cyclobenzaprine 10mg Tab ORAL SCH ×2 (08:27→14:00)
[2020-06-10] MEDS: Levofloxacin 500mg tab ORAL SCH (08:53)
--- NOTE | 2020-06-10 09:13 | General Progress Note ---
Subjective Constitutional: Reports: weakness Allergies: Coded Allergies: No Known Allergies (Unverified , 12/10/19) All Systems: reviewed and negative except above Subjective o2nc calm Objective Last 24 Hour Vital Signs Date Time Temp Pulse Resp B/P (MAP) Pulse Ox O2 Delivery O2 Flow Rate FiO2 06/10/20 08:54 85 18 96 Nasal Cannula 2.0 28 06/10/20 08:54 97 Nasal Cannula 2.0 28 06/10/20 08:26 79 138/69 06/10/20 05:18 85 156/73 06/10/20 04:00 85 06/10/20 04:00 97.9 84 20 156/73 (100) 98 06/10/20 03:26 99 20 99 Nasal Cannula 2.0 28 06/10/20 03:16 95 20 98 Nasal Cannula 2.0 28 06/10/20 00:00 84 06/10/20 00:00 97.9 86 20 139/68 (91) 97 06/09/20 22:14 84 151/86 06/09/20 21:00 Nasal Cannula 2.0 06/09/20 20:43 84 151/86 06/09/20 20:18 97 Nasal Cannula 2.0 28 06/09/20 20:18 84 18 97 Nasal Cannula 2.0 28 06/09/20 20:00 92 06/09/20 20:00 98.4 85 22 151/86 (107) 97 06/09/20 16:00 97.6 85 18 140/84 (102) 100 06/09/20 16:00 85 06/09/20 14:25 78 131/87 06/09/20 12:00 97.7 78 20 131/87 (102) 96 06/09/20 12:00 78 Intake and Output 06/09/20 06/10/20 19:00 07:00 Intake Total 930 ml 350 ml Output Total 400 ml Balance 530 ml 350 ml Intake Oral 930 ml 350 ml Output Urine Total 400 ml # Voids 2 2 Laboratory Tests 06/09/20 12:05: POC Whole Blood Glucose 136H 06/09/20 17:06: POC Whole Blood Glucose 126H 06/09/20 20:29: POC Whole Blood Glucose [Pending] 06/10/20 05:59: POC Whole Blood Glucose 104 06/10/20 06:22: White Blood Count 14.2H, Red Blood Count 4.07L, Hemoglobin 11.0L, Hematocrit 33.2L, Mean Corpuscular Volume 82, Mean Corpuscular Hemoglobin 27.1, Mean Corpuscular Hemoglobin Concent 33.2, Red Cell Distribution Width 14.2, Platelet Count 240, Mean Platelet Volume 6.3L, Neutrophils (%) (Auto) 69.8, Lymphocytes (%) (Auto) 20.8, Monocytes (%) (Auto) 7.1, Eosinophils (%) (Auto) 0.8, Basophils (%) (Auto) 1.5, Sodium Level 137, Potassium Level 3.7, Chloride Level 97L, Carbon Dioxide Level 35H, Anion Gap 5, Blood Urea Nitrogen 19H, Creatinine 1.3, Estimat Glomerular Filtration Rate 51.0, Glucose Level 115H, Calcium Level 9.0 Height (Feet): 5 Height (Inches): 6.00 Weight (Pounds): 242 General Appearance: lethargic EENT: normal ENT inspection Neck: normal alignment Cardiovascular: normal peripheral pulses, normal rate, regular rhythm Respiratory/Chest: chest wall non-tender, lungs clear, normal breath sounds Abdomen: normal bowel sounds, non tender, soft Extremities: normal inspection Edema: no edema noted Arm (L), no edema noted Arm (R), no edema noted Leg (L), no edema noted Leg (R), no edema noted Pedal (L), no edema noted Pedal (R), no edema noted Generalized Neurologic: motor weakness Skin: normal pigmentation, warm/dry Assessment/Plan Problem List: (1) Congestive cardiac failure ICD Codes: I50.9 - Heart failure, unspecified SNOMED: 24815330 (2) Leukocytosis ICD Codes: D72.829 - Elevated white blood cell count, unspecified SNOMED: 854092458, 662526116 (3) COPD exacerbation ICD Codes: J44.1 - Chronic obstructive pulmonary disease with (acute) exacerbation SNOMED: 911771326 (4) DMII (diabetes mellitus, type 2) ICD Codes: E11.9 - Type 2 diabetes mellitus without complications SNOMED: 59642450 (5) CHF exacerbation ICD Codes: I50.9 - Heart failure, unspecified SNOMED: 007481088, 48102887704293 Status: unchanged Assessment/Plan: o2 pulm tx abx pt diet cbc bmp am dc plan when clear Hernando Crow DO Jun 10, 2020 09:13
--- NOTE | 2020-06-10 09:40 | NUR ---
CASE MANAGEMENT: REVIEW 06/10/20 SI: PLEURAL EFFUSION . COPD . SHINGLE 97.9 85 18 138/69 97% ON 2L/NC WBC+14.2 CO2+35 BUN+19 IS: ACYCLOVIR PO 5X/DAY LEVAQUIN PO QD ALBUTEROL HHN Q4HR PRN PREDNISONE PO QD HCTZ PO QD COREG PO Q12 CARDIZEM PO Q8HRS METFORMIN PO BID : TELEMETRY STATUS PLAN: REFUSED ARU AND SNF WANTS TO DISCHARGE HOME
--- NOTE | 2020-06-10 10:14 | Pulmonology Progress Note ---
Subjective ROS Limited/Unobtainable: No Constitutional: Denies: fever, chills Gastrointestinal/Abdominal: Denies: vomiting, diarrhea Musculoskeletal: Reports: pain Allergies: Coded Allergies: No Known Allergies (Unverified , 12/10/19) All Systems: reviewed and negative except above Subjective care noted same overall no distress Objective Last 24 Hour Vital Signs Date Time Temp Pulse Resp B/P (MAP) Pulse Ox O2 Delivery O2 Flow Rate FiO2 06/10/20 08:54 85 18 96 Nasal Cannula 2.0 28 06/10/20 08:54 97 Nasal Cannula 2.0 28 06/10/20 08:26 79 138/69 06/10/20 05:18 85 156/73 06/10/20 04:00 85 06/10/20 04:00 97.9 84 20 156/73 (100) 98 06/10/20 03:26 99 20 99 Nasal Cannula 2.0 28 06/10/20 03:16 95 20 98 Nasal Cannula 2.0 28 06/10/20 00:00 84 06/10/20 00:00 97.9 86 20 139/68 (91) 97 06/09/20 22:14 84 151/86 06/09/20 21:00 Nasal Cannula 2.0 06/09/20 20:43 84 151/86 06/09/20 20:18 97 Nasal Cannula 2.0 28 06/09/20 20:18 84 18 97 Nasal Cannula 2.0 28 06/09/20 20:00 92 06/09/20 20:00 98.4 85 22 151/86 (107) 97 06/09/20 16:00 97.6 85 18 140/84 (102) 100 06/09/20 16:00 85 06/09/20 14:25 78 131/87 06/09/20 12:00 97.7 78 20 131/87 (102) 96 06/09/20 12:00 78 Intake and Output 06/09/20 06/10/20 19:00 07:00 Intake Total 930 ml 350 ml Output Total 400 ml Balance 530 ml 350 ml Intake Oral 930 ml 350 ml Output Urine Total 400 ml # Voids 2 2 Objective WDWN NAD reduced breath sounds bilaterally without rhonchi or wheeze [id number] without MRG NABS nontender no HSM no CC mild edema nonfocal Laboratory Tests 06/09/20 12:05: POC Whole Blood Glucose 136H 06/09/20 17:06: POC Whole Blood Glucose 126H 06/09/20 20:29: POC Whole Blood Glucose [Pending] 06/10/20 05:59: POC Whole Blood Glucose 104 06/10/20 06:22: White Blood Count 14.2H, Red Blood Count 4.07L, Hemoglobin 11.0L, Hematocrit 33.2L, Mean Corpuscular Volume 82, Mean Corpuscular Hemoglobin 27.1, Mean Cor puscular Hemoglobin Concent 33.2, Red Cell Distribution Width 14.2, Platelet Count 240, Mean Platelet Volume 6.3L, Neutrophils (%) (Auto) 69.8, Lymphocytes (%) (Auto) 20.8, Monocytes (%) (Auto) 7.1, Eosinophils (%) (Auto) 0.8, Basophils (%) (Auto) 1.5, Sodium Level 137, Potassium Level 3.7, Chloride Level 97L, Carbon Dioxide Level 35H, Anion Gap 5, Blood Urea Nitrogen 19H, Creatinine 1.3, Estimat Glomerular Filtration Rate 51.0, Glucose Level 115H, Calcium Level 9.0 Current Medications Medications (Trade) Dose Ordered Sig/Alethea Route PRN Reason Start Time Stop Time Status Last Admin Dose Admin Acetaminophen (Tylenol) 650 mg EVERY 6 HOURS PRN ORAL Pain Scale (3-5) 06/06/20 21:30 07/06/20 21:29 Acyclovir (Zovirax) 800 mg FIVE TIMES A DAY ORAL 06/07/20 10:00 07/07/20 09:59 06/10/20 07:07 Albuterol/ Ipratropium (Albuterol/ Ipratropium) 3 ml Q4H PRN HHN Shortness of Breath 06/07/20 08:30 06/12/20 08:29 06/10/20 08:49 Atorvastatin Calcium (Lipitor) 20 mg BEDTIME ORAL 06/07/20 21:00 09/05/20 20:59 06/09/20 20:43 Carvedilol (Coreg) 12.5 mg EVERY 12 HOURS ORAL 06/06/20 21:30 07/06/20 21:29 06/10/20 08:26 Cyclobenzaprine HCl (Flexeril) 10 mg THREE TIMES A DAY ORAL 06/07/20 09:00 06/14/20 08:59 06/10/20 08:27 Diltiazem HCl (Cardizem Tab) 60 mg EVERY 8 HOURS ORAL 06/06/20 22:00 07/06/20 21:59 06/10/20 05:18 Docusate Sodium (Colace) 100 mg TID PRN ORAL Constipation 06/06/20 21:30 07/06/20 21:29 Gabapentin (Neurontin) 300 mg THREE TIMES A DAY ORAL 06/08/20 18:00 07/08/20 17:59 06/10/20 08:26 Hydrochlorothiazide (Hydrodiuril) 25 mg DAILY ORAL 06/07/20 09:00 07/07/20 08:59 06/10/20 08:26 Levofloxacin (Levaquin) 500 mg DAILY ORAL 06/09/20 13:36 06/16/20 13:35 06/10/20 08:53 Metformin HCl (Glucophage) 500 mg TWICE A DAY ORAL 06/07/20 09:00 07/07/20 08:59 06/10/20 08:26 Ondansetron HCl (Zofran) 4 mg Q6H PRN IVP Nausea & Vomiting 06/06/20 21:30 07/06/20 21:29 06/09/20 10:55 Oxycodone HCl (Roxicodone) 30 mg Q6H PRN ORAL For Pain 06/06/20 21:30 06/13/20 21:29 06/09/20 22:16 Prednisone (predniSONE) 10 mg DAILY ORAL 06/07/20 09:00 07/07/20 08:59 06/09/20 08:35 Zolpidem Tartrate (Ambien) 5 mg HSPRN PRN ORAL Insomnia 06/06/20 21:30 06/13/20 21:29 06/08/20 00:41 Assessment/Plan Assessment/Plan IMPRESSION NSIP Chronic hypoxemia Chronic respiratory failure Shingles Failure to thrive Leukocytosis likely due to steroid use Immunosuppression plan Continue with steroids however, patient was on higher dose prior/ will await improvement in shingles and discuss IV antibiotics Antiviral agent Local care Oxygen therapy Monitor imaging Respiratory therapy as outlined Discharged home ok per pulmonary will follow up after dc and adjust prednisone and consider cellcept impression, plan, and exam edited and reviewed in detail care discussed with Axel Saez MD Jun 10, 2020 10:14
--- NOTE | 2020-06-10 11:01 | Infectious Diseases Prog Note ---
Assessment/Plan Assessment/Plan antibiotics : levoquin, acyclovir A 1. pneumonia 2. zoster 3. COPD exacerbation 4. diabetes mellitus 5. hypertension 6. obesity 7, leucocytosis P 1. continue po levoquin 3 more days 2. continue acyclovir 6 more days 3. will follow up cultures Subjective Constitutional: Denies: fever, chills Respiratory: Reports: shortness of breath, dry cough Gastrointestinal/Abdominal: Reports: nausea; Denies: vomiting, diarrhea Musculoskeletal: Reports: pain Allergies: Coded Allergies: No Known Allergies (Unverified , 12/10/19) Objective Last 24 Hour Vital Signs Date Time Temp Pulse Resp B/P (MAP) Pulse Ox O2 Delivery O2 Flow Rate FiO2 06/10/20 09:00 Nasal Cannula 2.0 06/10/20 08:54 85 18 96 Nasal Cannula 2.0 28 06/10/20 08:54 97 Nasal Cannula 2.0 28 06/10/20 08:26 79 138/69 06/10/20 08:00 85 06/10/20 08:00 97.7 79 22 138/69 (92) 100 06/10/20 05:18 85 156/73 06/10/20 04:00 85 06/10/20 04:00 97.9 84 20 156/73 (100) 98 06/10/20 03:26 99 20 99 Nasal Cannula 2.0 28 06/10/20 03:16 95 20 98 Nasal Cannula 2.0 28 06/10/20 00:00 84 06/10/20 00:00 97.9 86 20 139/68 (91) 97 06/09/20 22:14 84 151/86 06/09/20 21:00 Nasal Cannula 2.0 06/09/20 20:43 84 151/86 06/09/20 20:18 97 Nasal Cannula 2.0 28 06/09/20 20:18 84 18 97 Nasal Cannula 2.0 28 06/09/20 20:00 92 06/09/20 20:00 98.4 85 22 151/86 (107) 97 06/09/20 16:00 97.6 85 18 140/84 (102) 100 06/09/20 16:00 85 06/09/20 14:25 78 131/87 06/09/20 12:00 97.7 78 20 131/87 (102) 96 06/09/20 12:00 78 Height (Feet): 5 Height (Inches): 6.00 Weight (Pounds): 242 Respiratory/Chest: lungs clear Cardiovascular: normal rate, regular rhythm, no gallop/murmur Abdomen: soft, non tender Extremities: no edema Skin: rash - on right chest and back Laboratory Tests Test 06/09/20 12:05 06/09/20 17:06 06/09/20 20:29 06/10/20 05:59 POC Whole Blood Glucose 136 MG/DL (74-106) H 126 MG/DL (74-106) H Pending 104 MG/DL (74-106) Test 06/10/20 06:22 White Blood Count 14.2 K/UL (4.8-10.8) H Red Blood Count 4.07 M/UL (4.20-5.40) L Hemoglobin 11.0 G/DL (12.0-16.0) L Hematocrit 33.2 % (37.0-47.0) L Mean Corpuscular Volume 82 FL (80-99) Mean Corpuscular Hemoglobin 27.1 PG (27.0-31.0) Mean Corpuscular Hemoglobin Concent 33.2 G/DL (32.0-36.0) Red Cell Distribution Width 14.2 % (11.6-14.8) Platelet Count 240 K/UL (150-450) Mean Platelet Volume 6.3 FL (6.5-10.1) L Neutrophils (%) (Auto) 69.8 % (45.0-75.0) Lymphocytes (%) (Auto) 20.8 % (20.0-45.0) Monocytes (%) (Auto) 7.1 % (1.0-10.0) Eosinophils (%) (Auto) 0.8 % (0.0-3.0) Basophils (%) (Auto) 1.5 % (0.0-2.0) Sodium Level 137 MMOL/L (136-145) Potassium Level 3.7 MMOL/L (3.5-5.1) Chloride Level 97 MMOL/L (98-107) L Carbon Dioxide Level 35 MMOL/L (21-32) H Anion Gap 5 mmol/L (5-15) Blood Urea Nitrogen 19 mg/dL (7-18) H Creatinine 1.3 MG/DL (0.55-1.30) Estimat Glomerular Filtration Rate 51.0 mL/min (>60) Glucose Level 115 MG/DL (74-106) H Calcium Level 9.0 MG/DL (8.5-10.1) Current Medications Medications (Trade) Dose Ordered Sig/Alethea Route PRN Reason Start Time Stop Time Status Last Admin Dose Admin Acetaminophen (Tylenol) 650 mg EVERY 6 HOURS PRN ORAL Pain Scale (3-5) 06/06/20 21:30 07/06/20 21:29 Acyclovir (Zovirax) 800 mg FIVE TIMES A DAY ORAL 06/07/20 10:00 07/07/20 09:59 06/10/20 07:07 Albuterol/ Ipratropium (Albuterol/ Ipratropium) 3 ml Q4H PRN HHN Shortness of Breath 06/07/20 08:30 06/12/20 08:29 06/10/20 08:49 Atorvastatin Calcium (Lipitor) 20 mg BEDTIME ORAL 06/07/20 21:00 09/05/20 20:59 06/09/20 20:43 Carvedilol (Coreg) 12.5 mg EVERY 12 HOURS ORAL 06/06/20 21:30 07/06/20 21:29 06/10/20 08:26 Cyclobenzaprine HCl (Flexeril) 10 mg THREE TIMES A DAY ORAL 06/07/20 09:00 06/14/20 08:59 06/10/20 08:27 Diltiazem HCl (Cardizem Tab) 60 mg EVERY 8 HOURS ORAL 06/06/20 22:00 07/06/20 21:59 06/10/20 05:18 Docusate Sodium (Colace) 100 mg TID PRN ORAL Constipation 06/06/20 21:30 07/06/20 21:29 Gabapentin (Neurontin) 300 mg THREE TIMES A DAY ORAL 06/08/20 18:00 07/08/20 17:59 06/10/20 08:26 Hydrochlorothiazide (Hydrodiuril) 25 mg DAILY ORAL 06/07/20 09:00 07/07/20 08:59 06/10/20 08:26 Levofloxacin (Levaquin) 500 mg DAILY ORAL 06/09/20 13:36 06/16/20 13:35 06/10/20 08:53 Metformin HCl (Glucophage) 500 mg TWICE A DAY ORAL 06/07/20 09:00 07/07/20 08:59 06/10/20 08:26 Ondansetron HCl (Zofran) 4 mg Q6H PRN IVP Nausea & Vomiting 06/06/20 21:30 07/06/20 21:29 06/09/20 10:55 Oxycodone HCl (Roxicodone) 30 mg Q6H PRN ORAL For Pain 06/06/20 21:30 06/13/20 21:29 06/09/20 22:16 Prednisone (predniSONE) 10 mg DAILY ORAL 06/07/20 09:00 07/07/20 08:59 06/09/20 08:35 Zolpidem Tartrate (Ambien) 5 mg HSPRN PRN ORAL Insomnia 06/06/20 21:30 06/13/20 21:29 06/08/20 00:41 Meghan Greenberg MD Jun 10, 2020 11:01
[2020-06-10 12:00] VITALS: BP 142/78
[2020-06-10 14:00] VITALS: BP 142/78
[2020-06-10] MEDS ORDERED: NEURONTIN300 MG ORAL (14:16)
[2020-06-10] MEDS ORDERED: ACYCLOVIR800 MG ORAL (14:16)
--- NOTE | 2020-06-10 14:17 | Nephrology Progress Note ---
Assessment/Plan Assessment 1. Osei resolved 2. Hypertension, which is under better control at this time. 3. History of COPD. 4. History of recurrent pleural effusion. 5. Possible pneumonia. 6. shingles Plan plan pain management avoid NSIAD Replace electrolyte as need it PT/OT patient refused acute rehab or skilled nursing Subjective Subjective c/o pain numbness and tingling under beast gabapentin has helped Objective Objective Last 24 Hour Vital Signs Date Time Temp Pulse Resp B/P (MAP) Pulse Ox O2 Delivery O2 Flow Rate FiO2 06/10/20 14:00 79 142/78 06/10/20 12:00 97.7 78 20 142/78 (99) 98 06/10/20 12:00 79 06/10/20 09:00 Nasal Cannula 2.0 06/10/20 08:54 85 18 96 Nasal Cannula 2.0 28 06/10/20 08:54 97 Nasal Cannula 2.0 28 06/10/20 08:26 79 138/69 06/10/20 08:00 85 06/10/20 08:00 97.7 79 22 138/69 (92) 100 06/10/20 05:18 85 156/73 06/10/20 04:00 85 06/10/20 04:00 97.9 84 20 156/73 (100) 98 06/10/20 03:26 99 20 99 Nasal Cannula 2.0 28 06/10/20 03:16 95 20 98 Nasal Cannula 2.0 28 06/10/20 00:00 84 06/10/20 00:00 97.9 86 20 139/68 (91) 97 06/09/20 22:14 84 151/86 06/09/20 21:00 Nasal Cannula 2.0 06/09/20 20:43 84 151/86 06/09/20 20:18 97 Nasal Cannula 2.0 28 06/09/20 20:18 84 18 97 Nasal Cannula 2.0 28 06/09/20 20:00 92 06/09/20 20:00 98.4 85 22 151/86 (107) 97 06/09/20 16:00 97.6 85 18 140/84 (102) 100 06/09/20 16:00 85 06/09/20 14:25 78 131/87 Intake and Output 06/09/20 06/10/20 19:00 07:00 Intake Total 930 ml 350 ml Output Total 400 ml Balance 530 ml 350 ml Intake Oral 930 ml 350 ml Output Urine Total 400 ml # Voids 2 2 Laboratory Tests 06/09/20 17:06: POC Whole Blood Glucose 126H 06/09/20 20:29: POC Whole Blood Glucose [Pending] 06/10/20 05:59: POC Whole Blood Glucose 104 06/10/20 06:22: White Blood Count 14.2H, Red Blood Count 4.07L, Hemoglobin 11.0L, Hematocrit 33. 2L, Mean Corpuscular Volume 82, Mean Corpuscular Hemoglobin 27.1, Mean Corpuscular Hemoglobin Concent 33.2, Red Cell Distribution Width 14.2, Platelet Count 240, Mean Platelet Volume 6.3L, Neutrophils (%) (Auto) 69.8, Lymphocytes (%) (Auto) 20.8, Monocytes (%) (Auto) 7.1, Eosinophils (%) (Auto) 0.8, Basophils (%) (Auto) 1.5, Sodium Level 137, Potassium Level 3.7, Chloride Level 97L, Carbon Dioxide Level 35H, Anion Gap 5, Blood Urea Nitrogen 19H, Creatinine 1.3, Estimat Glomerular Filtration Rate 51.0, Glucose Level 115H, Calcium Level 9.0 06/10/20 11:32: POC Whole Blood Glucose [Pending] Height (Feet): 5 Height (Inches): 6.00 Weight (Pounds): 242 Objective HEENT: Atraumatic and normocephalic. Anicteric. Pupils are equal, round, and reactive to light and accommodation. Extraocular muscles intact. NECK: no JVP or LAD . CARDIOVASCULAR: Normal S1, S2. Regular rate and rhythm. No murmurs, LUNGS: Diminished breath sounds in both lungs.patient has lesion on back of her chest looks like shingle lesion abdomen ; Soft not tender or distended ,BS + ABDOMEN: Distended. No hepatosplenomegaly. Positive bowel sounds. EXTREMITIES: No evidence of edema, clubbing, or cyanosis. Gladys Bravo MD Jun 10, 2020 14:17
--- NOTE | 2020-06-10 16:25 | NUR ---
*-*DISCHARGE PLANNING*-* PATIENT HAS BEEN REFERRED TO: [facility] P: [phone]
--- NOTE | 2020-06-11 12:07 | Discharge Summary ---
Discharge Summary Discharge Summary _ DATE OF ADMISSION: 06/06/2020 DATE OF DISCHARGE: 06/10/2020 DISCHARGED BY: Dr. Crow REASON FOR ADMISSION: 60 years old female with past medical history of severe COPD, oxygen dependent, recurrent pleural effusion, diabetes mellitus, obesity presented with chest discomfort. Symptoms were ongoing for several months after pleurocentesis in March . She recently started on steroids and ever since has been feeling progressively weak. She reported inability to walk due to global fatigue. She also had mechanical fall from standing position few days ago and seen in another hospital , but no acute trauma was identified. Patient was admitted to another hospital for sinus tachycardia , but signed AMA. Patient reported worsening shortness of breath due to pain . Laboratory work-up revealed significant leukocytosis WBC 23.3, hemoglobin 11.6 , hematocrit 34.8. BUN 22, creatinine 1.6. Glucose 176. Lactic acid 2.7. Troponin 0.015 , pro BNP 193. Rapid COVID-19 in emergency department was negative. Chest x-ray demonstrated enlarged cardiac silhouette with ill-defined perihilar opacity, which probably represent mild pulmonary edema and/or atelectasis. Vital signs revealed low tachycardia with heart rate 108, tachypnea with respiratory rate 22; pulse oximetry was 95% on 2 L of oxygen via nasal cannula. Patient subsequently admitted for further management. CONSULTANTS: kindergarten tutor Dr. Daniels pulmonary Dr. Mcfarlane ID specialist Dr. Greenberg master baker Dr. Bravo [facility] COURSE: Patient admitted to telemetry floor. Substation Operator Transforming followed. Echocardiogram revealed estimated ejection fraction 40 to 45%. Mild to moderate aortic insufficiency , mild to moderate mitral regurgitation. Right ventricular systolic pressure of 39 consistent with mild pulmonary hypertension. Small posterior pericardial effusion . Per kindergarten tutor pericardial effusion appeared to be small sized , with no evidence of pericardial tamponade. Guideline directed medical therapy for congestive heart failure provided. Diuretic therapy was continued with close monitoring of volumes. Beta-blockade provided . Mild pulmonary hypertension was most likely due to severe COPD. Blood pressure was managed with beta-maria luz and Cardizem. DVT prophylaxis provided. Antibiotic for pneumonia provided . Supplemental oxygen provided and titrated to keep pulse oximetry above 92%. Pulmonary toilet provided. Blood cultures were negative. Leukocytosis was trending down, most likely due to steroids. Patient noted to have shingles with characteristic dermatome on the right flank and started on Acyclovir. Steroids changed to oral prednisone to complete the course . Pain management was addressed. Patient started on Neurontin . Renal parameters and electrolytes were closely monitored , electrolytes corrected as needed, nephrotoxic were avoided . Prior to discharge creatinine down to 1.3 from initial 1.6 . Acute kidney injury resolved. Patient was counseled to avoid nonsteroid anti-inflammatory medications/ NSAID. Patient clinically stabilized and was ready for discharge home with home health services. FINAL DIAGNOSES: Nonspecific interstitial pneumonia /NSIP Shingles /Varicella-zoster COPD exacerbation Acute kidney injury -resolved Chronic hypoxemic respiratory failure Leukocytosis- likely due to steroid therapy Pericardial effusion ( small size, with no pericardial tamponade) Nonischemic cardiomyopathy/ ejection fraction 40 to 45% Mild pulmonary hypertension (due to severe COPD ) s/p VATS at [facility] Diabetes mellitus Obesity DISCHARGE MEDICATIONS: See Medication Reconciliation list. DISCHARGE INSTRUCTIONS: Patient was discharged home with home health services. Follow-up with a primary care provider in 1 week. I have been assigned to dictate discharge summary for this account. I was not involved in the patient's management. Odalys Landon NP Jun 11, 2020 12:07
== END 2020-06-10 17:10 | disposition home or self-care (01) | DRG 197 ==
LOC: EMR 16:35 → 2E 17:30 → EDBEDREQ 18:01 → 2E 23:41
DX: J84.89 Other specified interstitial pulmonary diseases (principal); J44.1 Chronic obstructive pulmonary disease with (acute) exacerbation; J96.11 Chronic respiratory failure with hypoxia; I42.8 Other cardiomyopathies; E87.2 Acidosis; R00.0 Tachycardia, unspecified; B02.9 Zoster without complications; Z68.39 Body mass index [BMI] 39.0-39.9, adult; D72.829 Elevated white blood cell count, unspecified; T38.0X5A Adverse effect of glucocorticoids and synthetic analogues, initial encounter; I27.20 Pulmonary hypertension, unspecified; E11.9 Type 2 diabetes mellitus without complications; E66.9 Obesity, unspecified; I11.9 Hypertensive heart disease without heart failure; I50.9 Heart failure, unspecified
CPT/HCPCS: 36415; 71045; 80048; 80053; 82043; 82570; 82962; 83605; 83880; 84133; 84300; 84484; 85007; 85025; 85610; 85730; 87040; 87081; 89050; 93005; 93306; 94640; 94664; 96365; 96375; 99291; J2405; J7030; J7620; U0002

== ENCOUNTER 2020-06-30 10:21 | Outpatient (CLI) | payer MEDICARE, OTHER ==
[~2020-06-30 10:21] MED LIST changes: +ACYCLOVIR800 MG ORAL; +NEURONTIN300 MG ORAL
[2020-06-30 10:41] VITALS: BP 137/88
--- NOTE | 2020-06-30 11:46 | General Progress Note ---
Subjective ROS Limited/Unobtainable: Yes Allergies: Coded Allergies: No Known Allergies (Unverified , 12/10/19) Objective Last 24 Hour Vital Signs Date Time Temp Pulse Resp B/P (MAP) Pulse Ox O2 Delivery O2 Flow Rate FiO2 06/30/20 10:41 96.8 106 20 137/88 100 General Appearance: alert EENT: normal ENT inspection Neck: supple Cardiovascular: normal rate Respiratory/Chest: decreased breath sounds Abdomen: normal bowel sounds, non tender, soft Extremities: non-tender Assessment/Plan Assessment/Plan: Assessment/Plan: 1. History of pericardial effusion. 2. COPD. 3. Diabetes. 4. Hypertension. 5. Chronic diastolic congestive heart failure. 6. GERD. 7. Gastritis 8. HP positive 9. Mold encounter ppi>>> Dexilant Baclofen QHS add Carafate susp consider EGD s/p colonoscopy Niranjan Good MD Jun 30, 2020 11:46
== END 2020-06-30 12:21 | disposition home or self-care (01) ==
LOC: PAN 10:21
DX: K21.9 Gastro-esophageal reflux disease without esophagitis (principal); J44.9 Chronic obstructive pulmonary disease, unspecified; E11.9 Type 2 diabetes mellitus without complications; I11.0 Hypertensive heart disease with heart failure; I50.32 Chronic diastolic (congestive) heart failure; K29.70 Gastritis, unspecified, without bleeding; B96.81 Helicobacter pylori [H. pylori] as the cause of diseases classified elsewhere; Z77.120 Contact with and (suspected) exposure to mold (toxic)
CPT/HCPCS: 99212

== ENCOUNTER 2020-07-08 13:34 | Outpatient (CLI) | payer MEDICARE, OTHER ==
--- NOTE | 2020-07-08 14:40 | General Progress Note ---
Subjective ROS Limited/Unobtainable: Yes Allergies: Coded Allergies: No Known Allergies (Unverified , 12/10/19) Objective General Appearance: alert EENT: normal ENT inspection Neck: supple Cardiovascular: normal rate Respiratory/Chest: decreased breath sounds Abdomen: normal bowel sounds, non tender, soft Extremities: non-tender, normal inspection Assessment/Plan Assessment/Plan: Assessment/Plan Assessment/Plan: Assessment/Plan: 1. History of pericardial effusion. 2. COPD. 3. Diabetes. 4. Hypertension. 5. Chronic diastolic congestive heart failure. 6. GERD. 7. Gastritis 8. HP positive 9. Mold encounter ppi>>> Dexilant Baclofen QHS Carafate susp add Xifaxan plan EGD s/p colonoscopy Niranjan Good MD Jul 08, 2020 14:40
[2020-07-09] MEDS ORDERED: CARAFATE1 GM/10 M1 ORAL (07:39)
== END 2020-07-08 15:34 | disposition home or self-care (01) ==
LOC: PAN 13:34
DX: K21.9 Gastro-esophageal reflux disease without esophagitis (principal); K29.70 Gastritis, unspecified, without bleeding; J44.9 Chronic obstructive pulmonary disease, unspecified; I11.0 Hypertensive heart disease with heart failure; I50.32 Chronic diastolic (congestive) heart failure; Z77.120 Contact with and (suspected) exposure to mold (toxic)
CPT/HCPCS: 99212

== ENCOUNTER 2020-08-03 07:52 | Day surgery (SDC) | payer MEDICARE, OTHER ==
[~2020-08-03] VITALS: Ht 167.6 cm; Wt 107.0 kg
[2020-08-03] VITALS (8 sets, daily range): BP systolic 125–155; BP diastolic 61–91
--- NOTE | 2020-08-03 07:14 | Anethesia Preoperative Eval ---
Anesthesia Pre-op PMH/ROS General Date of Evaluation: Aug 03, 2020 Time of Evaluation: 07:06 Anesthesiologist: simona ASA Score: ASA 4 Mallampati Score Class I : Soft palate, uvula, fauces, pillars visible Class II: Soft palate, uvula, fauces visible Class III: Soft palate, base of uvula visible Class IV: Only hard plate visible Mallampati Classification: Class II Surgeon: nan Diagnosis: gerd Surgical Procedure: egd Anesthesia History: none Social History: smoking - former Family History: no anesthesia problems Allergies: Coded Allergies: No Known Allergies (Unverified , 12/10/19) Medications: see eMAR Patient NPO?: Yes Past Medical History Cardiovascular: Reports: HTN, arrhythmia, other - chf, pericardial effusion, Pulmonary: Reports: other - sob, allergic rhinitis,hemoptysis, sob, atypical pneumonia Gastrointestinal/Genitourinary: Reports: GERD, other - roseanne, cholecystitis, uti, Endocrine: Reports: DM Hematology/Immune: Reports: other - sepsis Musculoskeletal/Integumentary: Reports: OA Other: obesity Anesthesia Pre-op Phys. Exam Physician Exam Microbiology Date/Time Source Procedure Growth Status 07/31/20 11:10 Nasopharynx SARS-CoV-2 RdRp Gene Assay - Final Complete Constitutional: NAD Neurologic: CN 2-12 intact Cardiovascular: RRR Respiratory: CTA Gastrointestinal: S/NT/ND Airway Exam Mallampati Score: Class II MO: limited Neck: short TMD: 2fb ROM: limited Anesthesia Pre-op A/P Labs Microbiology Date/Time Source Procedure Growth Status 07/31/20 11:10 Nasopharynx SARS-CoV-2 RdRp Gene Assay - Final Complete Studies Pre-op Studies: EKG - nsr, anthony, anterior infarct age undetermined Risk Assessment & Plan Assessment: asa4 Plan: mac Status Change Before Surgery: No Pre-Antibiotics Drug: Dalila Torres MD Aug 03, 2020 07:14
[~2020-08-03 07:52] MED LIST changes: +Atropine Inj 1mg/10ml Syr IVP PRN; +CARAFATE1 GM/10 M1 ORAL; +DiphenhydrAMINE 50mg/ml Inj IVP PRN; +Midazolam 2mg/2ml Inj IVP PRN; +fentaNYL 100 mcg/2 mL IV PRN
[2020-08-03] MEDS ORDERED: Lidocaine 1% MPF 10mg/ml 5ml ONE (07:53)
[2020-08-03] MEDS ORDERED: LR 1000ml ONE (07:53)
--- NOTE | 2020-08-03 09:09 | Pre-Procedure Note/Attestation ---
Pre-Procedure Note/Attestation Complete Prior to Procedure Planned Procedure: not applicable Procedure Narrative: EGD Indications for Procedure Pre-Operative Diagnosis: GERD Attestation I attest that I discussed the nature of the procedure; its benefits; risks and complications; and alternatives (and the risks and benefits of such alternatives), prior to the procedure, with the patient (or the patient's legal tax representative). I attest that, if there was a reasonable possibility of needing a blood transfusion, the patient (or the patient's legal tax representative) was given the [facility] standardized written summary, pursuant to the [place] Blood Safety Act ([place] Health and Safety Code # 1645, as amended). I attest that I re-evaluated the patient just prior to the surgery and that there has been no change in the patient's H&P, except as documented below: Niranjan Good MD Aug 03, 2020 09:09
--- NOTE | 2020-08-03 09:09 | Short Stay Surgery H&P ---
History of Present Illness History of Present Illness Chief Complaint see office note HPI Anibal Kaur is a 60 year old female who was admitted on for GERD Patient History Allergies: Coded Allergies: No Known Allergies (Unverified , 12/10/19) Medication History Scheduled Acyclovir* (Zovirax*), 800 MG ORAL FIVE TIMES A DAY Albuterol Sulfate (Ventolin Hfa), 2 PUFFS INH EVERY 6 HOURS, (Reported) Aspirin Ec* (Aspirin Ec*), 81 MG ORAL DAILY, (Reported) Atorvastatin Calcium* (Atorvastatin Calcium*), 20 MG ORAL DAYTIME, (Reported) Fluticasone/Vilanterol (Breo Ellipta 200-25 Mcg INH), 1 EACH IH DAILY, (Repo rted) Metformin Hcl* (Metformin Hcl*), 500 MG ORAL TWICE A DAY, (Reported) Prednisone* (Prednisone*), 10 MG ORAL DAILY, (Reported) Sucralfate (Carafate), 1 GM ORAL FOUR TIMES A DAY, (Reported) Triamcinolone Acetonide (Triamcinolone Acetonide 0.5% Cream*), 15 GM TP BID, (Reported) [Carvedilol Er ], 80 MG PO DAILY, (Reported) Scheduled PRN Oxycodone Hcl* (Roxicodone*), 30 MG ORAL Q6H PRN for For Pain, (Reported) Discontinued Medications Aclidinium [place] (Tudorza Pressair), 400 MCG IH DAILY, (Reported) Discontinued Reason: MD discontinued med Dicyclomine Hcl (Dicyclomine Hcl), 20 MG PO Q8HR, (Reported) Discontinued Reason: MD discontinued med Escitalopram Oxalate* (Lexapro*), 10 MG ORAL DAILY PRN for Depression, (Reported) Discontinued Reason: MD discontinued med Formoterol Fumarate (Perforomist), 20 MCG IH, (Reported) Discontinued Reason: MD discontinued med Gabapentin (Neurontin), 300 MG ORAL THREE TIMES A DAY Discontinued Reason: MD discontinued med Hydrocodone Bit/Acetaminophen 5-325* ([place] 5-325 Tablet*), 1 TAB ORAL Q6H PRN for FOR PAIN Discontinued Reason: MD discontinued med Revefenacin (Yupelri), 175 MCG IH DAILY, (Reported) Discontinued Reason: MD discontinued med Tramadol Hcl* (Ultram*), 50 MG ORAL Q8HR PRN for For Pain, (Reported) Discontinued Reason: discontinued med Physical Exam Vital Signs Last Vital Signs Date Time Temp Pulse Resp B/P (MAP) Pulse Ox O2 Delivery O2 Flow Rate FiO2 08/03/20 08:43 Nasal Cannula 2 08/03/20 08:40 97.5 91 20 136/91 100 Labs Laboratory Tests Test 08/03/20 08:57 POC Whole Blood Glucose 103 MG/DL (74-106) Plan Attestation Are the patient's medical conditions optimized for surgery? Niranjan Good MD Aug 03, 2020 09:09
--- NOTE | 2020-08-03 10:50 | Endoscopy Procedure Note ---
Endoscopy Procedure Note General Indication for Procedure: /GERD Procedures Performed: EGD Operative Findings/Diagnosis: gastritis Specimen: yes Pt Tolerated Procedure Well: Yes Estimated Blood Loss: none Anesthesia Anesthesiologist: valencia Anesthesia: MAC Inserted Devices Implant(s) used?: No GI Core Measures 50 yrs or older w/o bx or poly: Not Applicable 10yrs. F/U recommended: Not Applicable Niranjan Good MD Aug 03, 2020 10:50
--- NOTE | 2020-08-03 10:54 | Immediate Post-Op Evaluation ---
Immediate Post-Op Evalulation Immediate Post-Op Evalulation Procedure: egd w/bx Date of Evaluation: Aug 03, 2020 Time of Evaluation: 10:54 IV Fluids: 350ml lr Blood Products: none Estimated Blood Loss: negligible Blood Pressure Systolic: 125 Blood Pressure Diastolic: 64 Pulse Rate: 80 Respiratory Rate: 18 O2 Sat by Pulse Oximetry: 100 Temperature (Fahrenheit): 97.6 Pain Score (1-10): 0 Nausea: No Vomiting: No Complications none Patient Status: awake, reacts, patent Hydration Status: adequate Drug: Dalila Torres MD Aug 03, 2020 10:54
--- NOTE | 2020-08-03 11:55 | 48 Hour Post Anesthesia Eval ---
Post Anesthesia Evaluation Procedure: egd w/bx Date of Evaluation: Aug 03, 2020 Time of Evaluation: 10:56 Blood Pressure Systolic: 131 0: 72 Pulse Rate: 79 Respiratory Rate: 18 Temperature (Fahrenheit): 97.6 O2 Sat by Pulse Oximetry: 100 Airway: patent Nausea: No Vomiting: No Pain Intensity: 0 Hydration Status: adequate Cardiopulmonary Status: stable Mental Status/LOC: patient returned to baseline Post-Anesthesia Complications: none Follow-up care needed: N/A Dalila Spears MD Aug 03, 2020 11:55
--- NOTE | 2020-08-03 16:45 | Procedure Note ---
DATE OF PROCEDURE: 08/03/2020 ENDOSCOPIST: Niranjan Good M.D. ANESTHESIOLOGIST: Dalila Meyers M.D. PROCEDURE PERFORMED: Upper endoscopy with biopsy. INSTRUMENT USED: Olympus adult flexible endoscope. INDICATIONS FOR PROCEDURE: Chronic GERD, not responding to PPI. The procedure, risks, benefits, and possible consequences, including hemorrhage, aspiration, perforation and infection, and alternative treatments, were explained to the patient/legal guardian by Dr. Niranjan Good and the patient/legal guardian understood and accepted these risks. DESCRIPTION OF PROCEDURE: After informed consent was obtained and the patient was adequately sedated, the Olympus upper endoscope was advanced through the mouth into the second portion of the duodenum and retroflexion maneuver was performed in the stomach. gastritis. Random biopsies from antrum and body were obtained to rule out H. pylori infection. Otherwise, the rest of upper endoscopic examination was grossly within normal limits. GE junction was found to be at about 41 cm from the incisors. No evidence of any esophagitis. No esophageal mass. No esophagitis. The patient tolerated the procedure very well without any complications. SUMMARY OF FINDINGS: Gastritis, otherwise normal upper endoscopic examination. RECOMMENDATIONS: Follow up biopsy results and treat accordingly. Niranjan Good M.D. DR: АННА JOB#: [id number] CC:
== END 2020-08-03 13:15 | disposition home or self-care (01) ==
LOC: GAS 07:52
DX: K21.9 Gastro-esophageal reflux disease without esophagitis (principal); B96.81 Helicobacter pylori [H. pylori] as the cause of diseases classified elsewhere; K29.70 Gastritis, unspecified, without bleeding; Z79.82 Long term (current) use of aspirin; Z79.899 Other long term (current) drug therapy; Z79.84 Long term (current) use of oral hypoglycemic drugs; I11.0 Hypertensive heart disease with heart failure; I50.9 Heart failure, unspecified; E11.9 Type 2 diabetes mellitus without complications; M19.90 Unspecified osteoarthritis, unspecified site; E66.9 Obesity, unspecified; Z87.891 Personal history of nicotine dependence; Z68.38 Body mass index [BMI] 38.0-38.9, adult
CPT/HCPCS: 43239; 82962; 93005; 94003; J2704; J7120; U0002; 94150

== ENCOUNTER → 2020-08-10 | Outpatient (CLI) | payer MEDICARE, OTHER ==
[~2020-08-10] MED LIST changes: -Atropine Inj 1mg/10ml Syr IVP PRN; -DiphenhydrAMINE 50mg/ml Inj IVP PRN; -Midazolam 2mg/2ml Inj IVP PRN; -fentaNYL 100 mcg/2 mL IV PRN
--- NOTE | 2020-08-10 13:22 | General Progress Note ---
Subjective ROS Limited/Unobtainable: Yes Allergies: Coded Allergies: No Known Allergies (Unverified , 12/10/19) Objective General Appearance: alert EENT: normal ENT inspection Neck: supple Cardiovascular: normal rate Respiratory/Chest: decreased breath sounds Abdomen: normal bowel sounds, non tender, soft Extremities: non-tender Assessment/Plan Assessment/Plan: Assessment/Plan Assessment/Plan: Assessment/Plan: 1. History of pericardial effusion. 2. COPD. 3. Diabetes. 4. Hypertension. 5. Chronic diastolic congestive heart failure. 6. GERD. 7. Gastritis 8. HP positive 9. Mold encounter ppi>>> Dexilant Baclofen QHS Carafate susp add Xifaxan s/p EGD>> HP positive>>> no response to Amoxicillin treatment plan Niranjan Pantoja MD Aug 10, 2020 13:22
== END | disposition home or self-care (01) ==
LOC: PAN 12:42
DX: K21.9 Gastro-esophageal reflux disease without esophagitis (principal); I11.0 Hypertensive heart disease with heart failure; I50.32 Chronic diastolic (congestive) heart failure; J44.9 Chronic obstructive pulmonary disease, unspecified; E11.9 Type 2 diabetes mellitus without complications; Z77.120 Contact with and (suspected) exposure to mold (toxic); B96.81 Helicobacter pylori [H. pylori] as the cause of diseases classified elsewhere; K29.70 Gastritis, unspecified, without bleeding

== ENCOUNTER 2020-09-03 13:27 | Outpatient (CLI) | payer MEDICARE, OTHER ==
[2020-09-03 13:09] VITALS: BP 151/95
--- NOTE | 2020-09-03 14:55 | General Progress Note ---
Subjective ROS Limited/Unobtainable: Yes Allergies: Coded Allergies: No Known Allergies (Unverified , 12/10/19) Objective Last 24 Hour Vital Signs Date Time Temp Pulse Resp B/P (MAP) Pulse Ox O2 Delivery O2 Flow Rate FiO2 09/03/20 13:09 97.2 88 16 151/95 99 General Appearance: no apparent distress EENT: normal ENT inspection Neck: supple Cardiovascular: normal rate Respiratory/Chest: decreased breath sounds Abdomen: normal bowel sounds, non tender, soft Extremities: non-tender Assessment/Plan Assessment/Plan: Assessment/Plan: 1. History of pericardial effusion. 2. COPD. 3. Diabetes. 4. Hypertension. 5. Chronic diastolic congestive heart failure. 6. GERD. 7. Gastritis 8. HP positive 9. Mold encounter ppi>>> Dexilant Baclofen QHS Carafate susp add Xifaxan s/p EGD>> HP positive>>> no response to Amoxicillin treatment s/p Telicia diarrhea from above RTC prn Niranjan Good MD Sep 03, 2020 14:55
== END 2020-09-03 15:27 | disposition home or self-care (01) ==
LOC: PAN 13:27
DX: K21.9 Gastro-esophageal reflux disease without esophagitis (principal); K29.70 Gastritis, unspecified, without bleeding; J44.9 Chronic obstructive pulmonary disease, unspecified; E11.9 Type 2 diabetes mellitus without complications; I11.0 Hypertensive heart disease with heart failure; I50.32 Chronic diastolic (congestive) heart failure; B96.81 Helicobacter pylori [H. pylori] as the cause of diseases classified elsewhere; Z77.120 Contact with and (suspected) exposure to mold (toxic)
CPT/HCPCS: 99212

== ENCOUNTER 2020-09-17 13:10 | Outpatient (CLI) | payer MEDICARE, OTHER ==
--- NOTE | 2020-09-18 14:19 | General Progress Note ---
Subjective ROS Limited/Unobtainable: No Allergies: Coded Allergies: No Known Allergies (Unverified , 12/10/19) Objective General Appearance: alert EENT: normal ENT inspection Neck: supple Cardiovascular: normal rate Respiratory/Chest: decreased breath sounds Abdomen: normal bowel sounds, non tender, soft Extremities: non-tender Assessment/Plan Assessment/Plan: Assessment/Plan Assessment/Plan: Assessment/Plan: 1. History of pericardial effusion. 2. COPD. 3. Diabetes. 4. Hypertension. 5. Chronic diastolic congestive heart failure. 6. GERD. 7. Gastritis 8. HP positive 9. Mold encounter ppi>>> Dexilant Baclofen QHS Carafate susp s/p Xifaxan s/p EGD>> HP positive>>> no response to Amoxicillin treatment s/p Telicia diarrhea from above check stool for C.diff check Covid RTC prn Niranjan Good MD Sep 18, 2020 14:19
== END 2020-09-17 14:40 | disposition home or self-care (01) ==
LOC: PAN 13:10
DX: K21.9 Gastro-esophageal reflux disease without esophagitis (principal); K29.70 Gastritis, unspecified, without bleeding; J44.9 Chronic obstructive pulmonary disease, unspecified; E11.9 Type 2 diabetes mellitus without complications; I11.0 Hypertensive heart disease with heart failure; I50.32 Chronic diastolic (congestive) heart failure; R19.7 Diarrhea, unspecified; B96.81 Helicobacter pylori [H. pylori] as the cause of diseases classified elsewhere
CPT/HCPCS: 99212

== ENCOUNTER 2020-09-26 16:56 | Emergency (ER) | payer MEDICARE, OTHER ==
[~2020-09-26] VITALS: Ht 167.6 cm; Wt 104.3 kg
--- NOTE | 2020-09-26 17:20 | Emergency Room Report ---
History of Present Illness General Chief Complaint: Abdominal Pain Source: Patient, Medical Record Present Illness HPI Disclaimer: Please note that this report is being documented using DRAGON technology. This can lead to erroneous entry secondary to incorrect interpretation by the dictating instrument. HPI: 60-year-old female history of COPD on 2 L nasal cannula baseline, recurrent pleural effusion with the last thoracentesis March 2020, chronic cardiac effusion, diabetes, obesity presents for evaluation of shortness of breath and chest discomfort as well as diarrhea and abdominal cramping. Patient states her breathing has been getting steadily worse over the past month. She reports orthopnea and increased shortness of breath with daily activity. Maintains her 2 L oxygen at home. She is on chronic steroids. Tested negative for COVID-19 earlier this week. Patient reports tingling on the right arm below the right breast extending to the right hand which has been ongoing since her thoracentesis in March. She takes baclofen for this. This feeling is intermittent as is the tingling over the right side of the chest. Patient states she had an echo done by her director of rehabilitation and wellness last month showing stable pericardial effusion. Debating pericardiocentesis on outpatient basis at this time with her director of rehabilitation and wellness. Regarding her abdominal cramping and diarrhea. The patient is being treated for amoxicillin resistant H. 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 Good. Now treated with Talecia causing to have diarrhea according to GI clinic note from last week. She is on antidiarrheals as prescribed by him. She reports a negative C. difficile culture last week. Denies fever, chills or new cough. Denies vaginal bleeding vaginal discharge, dysuria, hematuria. PMH: COPD, pleural effusion, cardiac effusion, diabetes, obesity, H. 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 COVID-19 Screening: Negative COVID-19 COVID-19 Testing Source: 08/2020 Nursing Documentation-PMH Past Medical History: No History, Except For Hx Cardiac Problems: Yes - Pericardial Effusion, arrhythmia Hx Hypertension: Yes Hx Asthma: Yes Hx COPD: Yes - Chronic/Home Oxygen use Hx Diabetes: Yes - DM II Hx Cancer: No Hx Gastrointestinal Problems: Yes - Gastritis, GERD Hx Dialysis: No Hx Neurological Problems: No Hx Cerebrovascular Accident: No Hx Seizures: No Hx Fatigue: Yes Review of Systems All Other Systems: negative except mentioned in HPI Physical Exam Vital Signs Date Time Temp Pulse Resp B/P (MAP) Pulse Ox O2 Delivery O2 Flow Rate FiO2 09/26/20 17:00 98.2 85 16 174/98 (123) 97 Room Air General: Awake and alert, no acute distress HEENT: NC/AT. EOMI. Cardiovascular: RRR. S1 and S2 normal. No murmur appreciated Resp: Normal work of breathing. No cough, wheezing or crackles appreciated Abdomen: Abdomen is soft, nondistended. Obese abdomen. Nontender Skin: Intact. No abrasions, laceration or rash over the exposed skin MSK: Normal tone and bulk. Moving all extremities. No obvious deformity. Neuro: Awake and alert. Mentating appropriately. Medical Decision Making ER Course Is a 60-year-old female history of recurrent pleural effusions, oxygen dependent COPD, H. pylori infection presenting for worsening shortness of breath and diarrhea. Differential includes #2 COPD exacerbation, pneumonia, recurrent effusion, pericardial effusion, ACS, arrhythmia, enteritis, gastroenteritis, medication side effect, dehydration, FAVIOLA among others. Patient saturating 100% on her baseline 2 L nasal cannula. Chest x-ray shows enlarged cardiac silhouette but otherwise stable from previous x-rays. Bedside cardiac limited echo shows a persistent pericardial effusion but no ventricle collapse. EKG is nonischemic. Labs are within normal limits including troponin and BNP. Overall the patient appears stable and not significantly changed from prior visits. Her worsening shortness of breath may be due to the pericardial effusion and is currently contemplating pericardiocentesis with her director of rehabilitation and wellness. There is no evidence of ventricular collapse at this time and I do not believe that this is an emergent process though should be followed up closely. We will call the patient's PMD to update but I believe the patient is safe for outpatient discharge. We did discuss strict return precautions. She understands agrees with the treatment plan. Laboratory Tests Test 09/26/20 17:21 09/26/20 18:03 White Blood Count 11.5 K/UL (4.8-10.8) H Red Blood Count 4.18 M/UL (4.20-5.40) L Hemoglobin 11.1 G/DL (12.0-16.0) L Hematocrit 35.4 % (37.0-47.0) L Mean Corpuscular Volume 85 FL (80-99) Mean Corpuscular Hemoglobin 26.5 PG (27.0-31.0) L Mean Corpuscular Hemoglobin Concent 31.3 G/DL (32.0-36.0) L Red Cell Distribution Width 14.3 % (11.6-14.8) Platelet Count 277 K/UL (150-450) Mean Platelet Volume 8.6 FL (6.5-10.1) Neutrophils (%) (Auto) 64.1 % (45.0-75.0) Lymphocytes (%) (Auto) 25.4 % (20.0-45.0) Monocytes (%) (Auto) 8.2 % (1.0-10.0) Eosinophils (%) (Auto) 1.4 % (0.0-3.0) Basophils (%) (Auto) 0.9 % (0.0-2.0) Sodium Level 141 MMOL/L (136-145) Potassium Level 3.4 MMOL/L (3.5-5.1) L Chloride Level 102 MMOL/L (98-107) Carbon Dioxide Level 31 MMOL/L (21-32) Anion Gap 8 mmol/L (5-15) Blood Urea Nitrogen 21 mg/dL (7-18) H Creatinine 1.1 MG/DL (0.55-1.30) Estimated Glomerular Filtration Rate > 60 mL/min (>60) Glucose Level 84 MG/DL (74-106) Calcium Level 9.3 MG/DL (8.5-10.1) Total Bilirubin 0.3 MG/DL (0.2-1.0) Aspartate Amino Transferase (AST) 12 U/L (15-37) L Alanine Aminotransferase (ALT) 16 U/L (12-78) Alkaline Phosphatase 111 U/L (46-116) Troponin I 0.002 ng/mL (0.000-0.056) Pro-B-Type Natriuretic Peptide 128 pg/mL (0-125) H Total Protein 8.2 G/DL (6.4-8.2) Albumin 3.9 G/DL (3.4-5.0) Globulin 4.3 g/dL Albumin/Globulin Ratio 0.9 (1.0-2.7) L Lipase 168 U/L (73-393) Venous Blood pH 7.399 Venous Blood Partial Pressure CO2 47.4 Venous Blood Partial Pressure O2 49.4 Venous Blood HCO3 28.6 Venous Blood Base Excess 3.2 Venous Blood Carboxyhemoglobin 0.3 % (0.5-1.5) L Methemoglobin 0.4 EKG Diagnostic Results Troponin ordered: Yes When was troponin ordered?: Sep 26, 2020 EKG Time: 17:19 Rate: normal Rhythm: NSR ST Segments: no acute changes Other Impression Sinus rhythm, normal axis, normal intervals, no ST segment elevation identified Rhythm Strip Diag. Results Rhythm Strip Time: 17:19 EP Interpretation: yes Rate: 80s Rhythm: NSR, no PVC's, no ectopy Chest X-Ray Diagnostic Results Chest X-Ray Diagnostic Results : Chest X-Ray Ordered: Yes Indication: Shortness of Breath EP Interpretation: Yes Interpretation: other - Enlarged cardiac silhouette, no large effusion, no pneumothorax Impression: Other - Enlarged cardiac silhouette Electronically Signed by: Electronically signed by Dr. Juan David Mcpherson MD Diagnostic POCUS Bedside Ultrasound Diagnostics: Bedside US Exam performed: Cardiac Limited Indication: Shortness of Breath Number of Views: Limited Interpreted by Emergency Physi: Yes Cardiac Limited Findings: No ventricular collapse, Other - Pericardial effus ion without ventricular collapse Impression: Pericardial effusion Electronically Signed by: Electronically signed by Dr. Juan David Mcpherson MD Last Vital Signs Date Time Temp Pulse Resp B/P (MAP) Pulse Ox O2 Delivery O2 Flow Rate FiO2 09/26/20 17:00 98.2 85 16 174/98 (123) 97 Room Air Disposition: HOME, SELF-CARE Condition: Stable Juan David Mcpherson MD Sep 26, 2020 17:20
[2020-09-26 17:36] LABS: BASOPHILS % (AUTO) 0.9 % (0.0-2.0); EOSINOPHILS % (AUTO) 1.4 % (0.0-3.0); HEMATOCRIT 35.4 % (37.0-47.0); HEMOGLOBIN 11.1 G/DL (12.0-16.0); LYMPHOCYTES % (AUTO) 25.4 % (20.0-45.0); MEAN CORPUSCULAR VOLUME 85 FL (80-99); MONOCYTES % (AUTO) 8.2 % (1.0-10.0); NEUTROPHILS % (AUTO) 64.1 % (45.0-75.0); PLATELET COUNT 277 K/UL (150-450); RED BLOOD COUNT 4.18 M/UL (4.20-5.40); RED CELL DISTRIBUTION WIDTH 14.3 % (11.6-14.8); WHITE BLOOD COUNT 11.5 K/UL (4.8-10.8)
[2020-09-26 17:48] LABS: ANION GAP 8 mmol/L (5-15); BLOOD UREA NITROGEN 21 mg/dL (7-18); CALCIUM 9.3 MG/DL (8.5-10.1); CARBON DIOXIDE 31 MMOL/L (21-32); CHLORIDE 102 MMOL/L (98-107); CREATININE 1.1 MG/DL (0.55-1.30); POTASSIUM 3.4 MMOL/L (3.5-5.1); SODIUM 141 MMOL/L (136-145)
--- NOTE | 2020-09-26 17:48 | Diagnostic Imaging Report ---
EXAM: XR Chest, 1 View CLINICAL HISTORY: ABD PAIN TECHNIQUE: Frontal view of the chest. COMPARISON: Compared to 06/06/2020. FINDINGS: Lungs: Patchy airspace disease in the mid lower lung zones most suggestive of pulmonary edema. Pleural space: Small to moderate left pleural effusion appeared No pneumothorax. Heart: Marked cardiomegaly is again noted, unchanged. Pericardial effusion cannot be excluded. Mediastinum: Unremarkable. Bones/joints: Osteopenia. IMPRESSION: 1. No significant change from the previous study. 2. Marked cardiomegaly. 3. Pericardial effusion cannot be excluded. 4. Left pleural effusion. 5. Probable pulmonary edema. 6. Atypical pneumonia cannot be entirely excluded but is felt to be unlikely. 7. Osteopenia.
[2020-09-26 17:53] LABS: ALANINE AMINOTRANSFERASE 16 U/L (12-78); ALBUMIN 3.9 G/DL (3.4-5.0); ALBUMIN/GLOBULIN RATIO 0.9 (1.0-2.7); ALKALINE PHOSPHATASE 111 U/L (46-116); ASPARTATE AMINO TRANSFERASE 12 U/L (15-37); BILIRUBIN,TOTAL 0.3 MG/DL (0.2-1.0)
--- NOTE | 2020-09-26 18:28 | NUR ---
ED Nurse Note: Left a voicemail to Dr Bravo (primary) @ [phone].
[2020-09-26 19:02] VITALS: BP 150/89
== END 2020-09-26 19:00 | disposition home or self-care (01) ==
LOC: EMR 17:23
DX: R07.9 Chest pain, unspecified (principal); R06.02 Shortness of breath; R19.7 Diarrhea, unspecified; R10.9 Unspecified abdominal pain; J44.9 Chronic obstructive pulmonary disease, unspecified; E11.9 Type 2 diabetes mellitus without complications; Z99.81 Dependence on supplemental oxygen; Z79.52 Long term (current) use of systemic steroids; I10 Essential (primary) hypertension; K21.9 Gastro-esophageal reflux disease without esophagitis; E66.9 Obesity, unspecified; I31.3 Pericardial effusion (noninflammatory); M85.80 Other specified disorders of bone density and structure, unspecified site
CPT/HCPCS: 36415; 71045; 80053; 82803; 83690; 83880; 84484; 85025; 93005; 99284

== ENCOUNTER 2020-10-01 10:28 | Emergency (ER) | payer MEDICARE, OTHER ==
[~2020-10-01] VITALS: Ht 167.6 cm; Wt 104.3 kg
[2020-10-01 10:45] VITALS: BP 156/92
[2020-10-01 12:00] LABS: BASOPHILS % (AUTO) 0.6 % (0.0-2.0); EOSINOPHILS % (AUTO) 0.4 % (0.0-3.0); HEMATOCRIT 35.6 % (37.0-47.0); HEMOGLOBIN 10.8 G/DL (12.0-16.0); LYMPHOCYTES % (AUTO) 16.1 % (20.0-45.0); MEAN CORPUSCULAR VOLUME 85 FL (80-99); PLATELET COUNT 261 K/UL (150-450); RED CELL DISTRIBUTION WIDTH 14.2 % (11.6-14.8); WHITE BLOOD COUNT 10.9 K/UL (4.8-10.8)
[2020-10-01 12:12] LABS: ANION GAP 8 mmol/L (5-15); BLOOD UREA NITROGEN 16 mg/dL (7-18); CALCIUM 9.2 MG/DL (8.5-10.1); CARBON DIOXIDE 30 MMOL/L (21-32); CHLORIDE 105 MMOL/L (98-107); SODIUM 143 MMOL/L (136-145)
--- NOTE | 2020-10-01 12:19 | Emergency Room Report ---
History of Present Illness General Chief Complaint: Diarrhea Source: Patient Present Illness HPI Disclaimer: Please note that this report is being documented using tu[employer]nrON technology. This can lead to erroneous entry secondary to incorrect interpretation by the dictating instrument. HPI: HPI: 60-year-old female history of COPD on 2 L nasal cannula baseline, recurrent pleural effusion with the last thoracentesis March 2020, chronic cardiac effusion, diabetes, obesity presents for evaluation of shortness of breath and chest discomfort as well as diarrhea and abdominal cramping. Patient states her breathing has been getting steadily worse over the past month. She reports orthopnea and increased shortness of breath with daily activity. Maintains her 2 L oxygen at home. She is on chronic steroids. She states that she has been having abdominal cramping and diarrhea for the past month. Followed by GI, Dr. Good. Her chest pain is chronic, pulling sensation. No nausea or vomiting. No fever. No sick contacts. 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 COVID-19 Screening: Negative COVID-19 COVID-19 Testing Source: nasal Patient History Reviewed Nursing Documentation: PMH: Agreed; PSxH: Agreed Nursing Documentation-PMH Past Medical History: No History, Except For Hx Cardiac Problems: Yes - Pericardial Effusion, arrhythmia Hx Hypertension: Yes Hx Asthma: Yes Hx COPD: Yes - Chronic/Home Oxygen use Hx Diabetes: Yes - DM II Hx Cancer: No Hx Gastrointestinal Problems: Yes - Gastritis, GERD Hx Dialysis: No Hx Neurological Problems: No Hx Cerebrovascular Accident: No Hx Seizures: No Hx Fatigue: Yes Review of Systems All Other Systems: negative except mentioned in HPI Physical Exam Vital Signs Date Time Temp Pulse Resp B/P (MAP) Pulse Ox O2 Delivery O2 Flow Rate FiO2 10/01/20 10:45 98.2 83 19 156/92 (113) 100 Nasal Cannula 2.0 Sp02 EP Interpretation: reviewed, normal General Appearance: well appearing, no apparent distress Head: normocephalic, atraumatic Eyes: bilateral eye PERRL, bilateral eye EOMI ENT: hearing grossly normal, moist mucus membranes Neck: full range of motion, supple Respiratory: lungs clear, normal breath sounds, no rhonchi, no respiratory distress, no retraction, no wheezing Cardiovascular #1: normal peripheral pulses, regular rate, rhythm, no murmur Gastrointestinal: non tender, soft, non-distended, no guarding Neurologic: alert, oriented x3, no focal defects Skin: normal color, warm/dry Medical Decision Making Diagnostic Impression: Primary Impression: Diarrhea ER Course MDM:Differential included but not limited to electrolyte disturbance, dehydration, Pneumonia, colitis diverticulitis to name a few Clinical course-IV inserted, IV fluids given. Laboratory studies were sent chest x-ray ordered. EKG had no ischemic changes. Chest x-ray did demonstrate cardiomegaly similar to previous chest x-rays. Electrolytes normal. Vital signs were stable. I spoke with patient's GI doctor, Dr. Good who recommend ed adding Imodium in addition to Lomotil to the patient's current regimen. Low suspicion for surgical abdominal disease. Patient in no acute distress on my reassessment. Stable for discharge. Labs - Laboratory Tests Test 10/01/20 11:44 White Blood Count 10.9 K/UL (4.8-10.8) H Red Blood Count 4.20 M/UL (4.20-5.40) Hemoglobin 10.8 G/DL (12.0-16.0) L Hematocrit 35.6 % (37.0-47.0) L Mean Corpuscular Volume 85 FL (80-99) Mean Corpuscular Hemoglobin 25.8 PG (27.0-31.0) L Mean Corpuscular Hemoglobin Concent 30.4 G/DL (32.0-36.0) L Red Cell Distribution Width 14.2 % (11.6-14.8) Platelet Count 261 K/UL (150-450) Mean Platelet Volume 8.8 FL (6.5-10.1) Neutrophils (%) (Auto) 77.0 % (45.0-75.0) H Lymphocytes (%) (Auto) 16.1 % (20.0-45.0) L Monocytes (%) (Auto) 6.0 % (1.0-10.0) Eosinophils (%) (Auto) 0.4 % (0.0-3.0) Basophils (%) (Auto) 0.6 % (0.0-2.0) Sodium Level 143 MMOL/L (136-145) Potassium Level 4.0 MMOL/L (3.5-5.1) Chloride Level 105 MMOL/L (98-107) Carbon Dioxide Level 30 MMOL/L (21-32) Anion Gap 8 mmol/L (5-15) Blood Urea Nitrogen 16 mg/dL (7-18) Creatinine 1.0 MG/DL (0.55-1.30) Estimated Glomerular Filtration Rate > 60 mL/min (>60) Glucose Level 83 MG/DL (74-106) Calcium Level 9.2 MG/DL (8.5-10.1) Total Bilirubin 0.3 MG/DL (0.2-1.0) Aspartate Amino Transferase (AST) 11 U/L (15-37) L Alanine Aminotransferase (ALT) 14 U/L (12-78) Alkaline Phosphatase 103 U/L (46-116) Troponin I 0.001 ng/mL (0.000-0.056) Pro-B-Type Natriuretic Peptide 145 pg/mL (0-125) H Total Protein 7.5 G/DL (6.4-8.2) Albumin 3.7 G/DL (3.4-5.0) Globulin 3.8 g/dL Albumin/Globulin Ratio 1.0 (1.0-2.7) Lipase 96 U/L (73-393) On reevaluation: Patient remained in no acute distress Plan-discharge home, outpatient follow-up. Return precautions given EKG Diagnostic Results Rate: normal Rhythm: NSR ST Segments: no acute changes Other Impression Right atrial enlargement, nonspecific EKG Last Vital Signs Date Time Temp Pulse Resp B/P (MAP) Pulse Ox O2 Delivery O2 Flow Rate FiO2 10/01/20 10:45 98.2 83 19 156/92 (113) 100 Nasal Cannula 2.0 Status: improved Disposition: HOME, SELF-CARE Condition: Stable Scripts Loperamide Hcl (LOPERAMIDE) 2 Mg Capsule 2 MG PO Q8HR PRN for Diarrhea, #20 CAP Prov: Titus Chase M.D. 10/01/20 Titus Chase M.D. Oct 01, 2020 12:19
[2020-10-01 12:23] LABS: ALANINE AMINOTRANSFERASE 14 U/L (12-78); ALBUMIN 3.7 G/DL (3.4-5.0); ALKALINE PHOSPHATASE 103 U/L (46-116); ASPARTATE AMINO TRANSFERASE 11 U/L (15-37); BILIRUBIN,TOTAL 0.3 MG/DL (0.2-1.0)
--- NOTE | 2020-10-01 13:04 | Diagnostic Imaging Report ---
Indication: Shortness of breath Technique: XRAY Chest 1v Comparison: 09/26/2020 Findings: Cardiomegaly with unchanged globular appearance of the heart. There is interstitial opacification versus edema. Small left pleural effusion not excluded. No pneumothorax. No acute osseous abnormality. IMPRESSION: Massive cardiomegaly with globular appearance of the heart suggesting pericardial effusion. Similar findings were noted previously. Patient was noted to have a large pericardial effusion on CT angiogram 10/16/2019. The interstitial opacities favored to represent edema/CHF. Superimposed pneumonia needs to be excluded clinically.
[2020-10-01] MEDS ORDERED: LOPERAMIDE2 MG PO (13:40)
== END 2020-10-01 13:48 | disposition home or self-care (01) ==
LOC: EMR 10:55
DX: R19.7 Diarrhea, unspecified (principal); I49.9 Cardiac arrhythmia, unspecified; I10 Essential (primary) hypertension; J45.909 Unspecified asthma, uncomplicated; J44.9 Chronic obstructive pulmonary disease, unspecified; E11.9 Type 2 diabetes mellitus without complications; Z99.81 Dependence on supplemental oxygen
CPT/HCPCS: 36415; 71045; 80053; 83690; 83880; 84484; 85025; 96360; 99284

== ENCOUNTER 2020-10-15 12:33 | Outpatient (CLI) | payer MEDICARE, OTHER ==
[~2020-10-15 12:33] MED LIST changes: +LOPERAMIDE2 MG PO
== END 2020-10-15 14:33 | disposition home or self-care (01) ==
LOC: PAN 12:33
DX: R10.9 Unspecified abdominal pain (principal); R19.7 Diarrhea, unspecified
CPT/HCPCS: 99212

== ENCOUNTER 2020-10-26 12:29 | Outpatient (CLI) | payer MEDICARE, OTHER ==
[2020-10-26 12:54] VITALS: BP 135/79
--- NOTE | 2020-10-26 13:39 | General Progress Note ---
Subjective ROS Limited/Unobtainable: Yes Allergies: Coded Allergies: No Known Allergies (Unverified , 12/10/19) Subjective c/o abd pain 15 ibs of wt loss Objective Last 24 Hour Vital Signs Date Time Temp Pulse Resp B/P (MAP) Pulse Ox O2 Delivery O2 Flow Rate FiO2 10/26/20 12:54 96.6 80 16 135/79 100 General Appearance: no apparent distress EENT: normal ENT inspection Neck: supple Cardiovascular: normal rate Respiratory/Chest: decreased breath sounds Abdomen: normal bowel sounds, non tender, soft Assessment/Plan Assessment/Plan: Assessment/Plan Assessment/Plan: Assessment/Plan: 1. History of pericardial effusion. 2. COPD. 3. Diabetes. 4. Hypertension. 5. Chronic diastolic congestive heart failure. 6. GERD. 7. Gastritis 8. HP positive 9. Mold encounter ppi>>> Dexilant Baclofen QHS Carafate susp s/p Xifaxan s/p augmentin s/p EGD>> HP positive>>> no response to Amoxicillin treatment s/p Telicia chart fully reviewed plan abdcT add marinil 2.5 mg RTC prn Niranjan Good MD Oct 26, 2020 13:39
== END 2020-10-26 14:56 | disposition home or self-care (01) ==
LOC: PAN 12:29
DX: R10.9 Unspecified abdominal pain (principal); R63.4 Abnormal weight loss; J44.9 Chronic obstructive pulmonary disease, unspecified; I11.0 Hypertensive heart disease with heart failure; E11.9 Type 2 diabetes mellitus without complications; I50.32 Chronic diastolic (congestive) heart failure; K21.9 Gastro-esophageal reflux disease without esophagitis; K29.70 Gastritis, unspecified, without bleeding; B96.81 Helicobacter pylori [H. pylori] as the cause of diseases classified elsewhere; Z77.120 Contact with and (suspected) exposure to mold (toxic)
CPT/HCPCS: 99212

== ENCOUNTER → 2020-10-30 | Outpatient (CLI) | payer MEDICARE, OTHER ==
[~2020-10-30] MED LIST changes: +PROTONIX40 MG ORAL
[2020-10-30 09:25] LABS: EOSINOPHILS % (AUTO) 0.3 % (0.0-3.0); HEMOGLOBIN 11.3 G/DL (12.0-16.0); MEAN CORPUSCULAR VOLUME 83 FL (80-99); MONOCYTES % (AUTO) 6.2 % (1.0-10.0); NEUTROPHILS % (AUTO) 74.6 % (45.0-75.0); PLATELET COUNT 262 K/UL (150-450); RED BLOOD COUNT 4.46 M/UL (4.20-5.40); RED CELL DISTRIBUTION WIDTH 14.5 % (11.6-14.8); WHITE BLOOD COUNT 10.2 K/UL (4.8-10.8)
[2020-10-30 09:43] LABS: ALANINE AMINOTRANSFERASE 15 U/L (12-78); ALBUMIN 4.1 G/DL (3.4-5.0); ALBUMIN/GLOBULIN RATIO 1.1 (1.0-2.7); ALKALINE PHOSPHATASE 105 U/L (46-116); AMYLASE 74 U/L (25-115); ANION GAP 6 mmol/L (5-15); ASPARTATE AMINO TRANSFERASE 12 U/L (15-37); BILIRUBIN,TOTAL 0.4 MG/DL (0.2-1.0); BLOOD UREA NITROGEN 16 mg/dL (7-18); CALCIUM 9.5 MG/DL (8.5-10.1); CARBON DIOXIDE 32 MMOL/L (21-32); CHLORIDE 105 MMOL/L (98-107); CREATININE 1.1 MG/DL (0.55-1.30); POTASSIUM 3.8 MMOL/L (3.5-5.1); SODIUM 143 MMOL/L (136-145)
--- NOTE | 2020-10-30 17:36 | Diagnostic Imaging Report ---
Clinical Indication: Abdominal pain Technique: Patient ingested a limited amount of oral contrast. IV administration nonionic contrast. Venous phase spiral acquisition obtained through the abdomen and pelvis. Multiplanar reconstructions were generated. Total dose length product 728 mGycm. CTDIvol(s) 13 mGy. Dose reduction achieved using automated exposure control Comparison: 08/23/2019 noncontrast study Findings: The appendix is normal. No evidence of diverticulosis or diverticulitis. No small bowel distention or small bowel wall thickening. No free or loculated intraperitoneal gas is evident. There is trace free pelvic fluid. The included lung bases demonstrate mosaic attenuation and slight interstitial prominence. Previously demonstrated infiltrates are no longer evident. There are bilateral breast implants. There is a pericardial effusion. The heart is mildly enlarged. The bones are unremarkable for age.. The gallbladder has been removed. No biliary ductal dilatation. The liver, pancreas, spleen, adrenals, right kidney are unremarkable. There are left renal subcentimeter low-attenuation lesions, most likely cysts. No renal or ureteral calculi, hydronephrosis, or hydroureter. Right adnexal mass, mostly containing fat, measures 5.4 cm long axis dimension and is unchanged from the previous study. Impression: No acute abdominal or pelvic abnormality Trace free pelvic fluid, of uncertain significance; not physiologic in a postmenopausal female. Right ovarian dermoid again demonstrated Cardiomegaly. Pericardial effusion Mosaic attenuation pattern of the lung bases, right greater than left, probably indicating mild pulmonary edema Post surgical changes as described, including prior cholecystectomy, bilateral breast implants Incidental finding left renal cysts The CT scanner at [facility] is accredited by the [employer] and the scans are performed using protocols designed to limit radiation exposure to as low as reasonably achievable to attain images of sufficient resolution adequate for diagnostic evaluation.
== END | disposition home or self-care (01) ==
LOC: CAT 08:34
DX: R10.9 Unspecified abdominal pain (principal); I51.7 Cardiomegaly; I31.3 Pericardial effusion (noninflammatory); Z90.49 Acquired absence of other specified parts of digestive tract; N28.1 Cyst of kidney, acquired; Z98.82 Breast implant status; D27.0 Benign neoplasm of right ovary
CPT/HCPCS: 36415; 74177; 80053; 82150; 83690; 85025; Q9965

== ENCOUNTER 2020-10-31 10:16 | Emergency (ER) | payer MEDICARE, OTHER ==
[~2020-10-31] VITALS: Ht 167.6 cm; Wt 97.5 kg
[~2020-10-31 10:16] MED LIST changes: -PROTONIX40 MG ORAL
[2020-10-31] MEDS ORDERED: Dicyclomine HCl 10mg/5ml oral soln ORAL ONE (10:45)
--- NOTE | 2020-10-31 10:46 | Emergency Room Report ---
History of Present Illness General Chief Complaint: Abd pain Source: Patient Present Illness HPI Patient is a 61-year-old female who presents to the ER complaining of abdominal pain. Patient complains of suprapubic abdominal pain with dysuria as well as epigastric burning sensation. She states that she had lab work and CT done here yesterday but did not get the results of her CAT scan. I reviewed her chart her CT demonstrates no acute intra-abdominal pathology and her labs demonstrate no acute findings. Urinalysis was not performed yesterday. Patient denies any chest pain or shortness of breath. She denies any fever or chills. Patient is oxygen dependent on 2 L nasal cannula at home due to her COPD. Allergies: Coded Allergies: No Known Allergies (Unverified , 12/10/19) COVID-19 Screening Contact w/high risk pt: Yes Recent Travel to affected area: No Experienced COVID-19 symptoms?: No COVID-19 symptoms experienced: Shortness of Breath Patient History Reviewed Nursing Documentation: PMH: Agreed; PSxH: Agreed Nursing Documentation-PMH Hx Cardiac Problems: Yes - Pericardial Effusion, arrhythmia Hx Hypertension: Yes Hx Asthma: Yes Hx COPD: Yes - Chronic/Home Oxygen use Hx Diabetes: Yes - DM II Hx Cancer: No Hx Gastrointestinal Problems: Yes - Gastritis, GERD Hx Dialysis: No Hx Neurological Problems: No Hx Cerebrovascular Accident: No Hx Seizures: No Hx Fatigue: Yes Review of Systems All Other Systems: negative except mentioned in HPI Physical Exam Sp02 EP Interpretation: reviewed, normal General Appearance: no apparent distress, alert, GCS 15, non-toxic Head: normocephalic, atraumatic Eyes: bilateral eye normal inspection, bilateral eye PERRL ENT: hearing grossly normal, normal pharynx, no angioedema, normal voice, other - Nasal cannula in place Neck: full range of motion, supple/symm/no masses Respiratory: chest non-tender, normal breath sounds, no respiratory distress Cardiovascular #1: regular rate, rhythm Gastrointestinal: other - Mild suprapubic and epigastric tenderness to palpation with no guarding or rebound, overweight Rectal: deferred Genitourinary: no CVA tenderness Musculoskeletal: normal range of motion 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 She has been started on Macrobid. CT abdomen pelvis from yesterday demonstrates trace pelvic free fluid which is not common in a po stmenopausal woman. Pelvic ultrasound has been ordered. Ultrasound consistent with the patient CT with small amount of pelvic free fluid and right dermoid. No evidence for torsion. Patient given GI cocktail with improvement of pain. Patient will be started on Macrobid. After discussing risks and benefits of further diagnostics, treatment plans, as well as indications for and risks of admission, the patient is agreeable to being discharged home. I have explained that their evaluation and treatment in the emergency department today is an important step towards them achieving better health but that their evaluation today is not intended to replace further evaluation and treatment by a physician in their local clinic. I have explained that while the current findings suggest no immediate life threatening emergency they will require further evaluation and treatment by a physician of their choice in their area. They understand that it will be necessary for them to review the final reports of their ED visit with their clinic physician. We have reviewed indications for return to the Emergency Department. I have explained that additional time may need to pass and/or additional testing as an outpatient may be necessary before a definitive diagnosis can be made. They tell me they are willing to follow up as instructed within the timeframe I recommend. They appear to understand what we discussed. Additionally they understand that if they are unable to be seen by an outpatient physician they are welcome, and in fact should, return to the Emergency Department for a repeat evaluation. The patient is stable at time of discharge. EKG Diagnostic Results Troponin ordered: No - Ordered for epigastric pain EKG Time: 10:47 EP Interpretation: Shahida Ortiz MD Rate: normal - 82 bpm Rhythm: NSR ST Segments: no acute changes ASA given to the pt in ED: No Rhythm Strip Diag. Results Rhythm Strip Time: 10:46 EP Interpretation: yes - Shahida Ortiz MD Rate: 86 bpm Rhythm: NSR, no PVC's, no ectopy Disposition: HOME, SELF-CARE Condition: Stable Scripts Nitrofurantoin Monohyd/M-Cryst* (MACROBID 100 MG*) 100 Mg Capsule 100 MG ORAL EVERY 12 HOURS for 7 Days, CAP Prov: Shahida Ortiz M.D. 10/31/20 Pantoprazole* (PROTONIX*) 40 Mg Tablet.dr 40 MG ORAL DAILY for 30 Days, TAB Prov: Shahida Ortiz M.D. 10/31/20 Referrals: Niranjan Good MD (PCP) Additional Instructions: The patient was provided with discharge instructions, notified to follow-up with a primary care doctor and or specialist in the next 24-48 hours, and to return to the ED if they have worsening of their symptoms. Please note that this report is being documented using [employer] technology. This can lead to erroneous entry secondary to incorrect interpretation by the dictating instrument. Shahida Ortiz M.D. Oct 31, 2020 10:46
[2020-10-31 11:28] LABS: APPEARANCE,URINE CLEAR; BILIRUBIN, URINE NEGATIVE (NEGATIVE); GLUCOSE, URINE (UA) NEGATIVE (NEGATIVE); KETONES,URINE NEGATIVE (NEGATIVE); LEUKOCYTE ESTERASE ,URINE 3+ (NEGATIVE); NITRITE,URINE NEGATIVE (NEGATIVE); PH,URINE 5 (4.5-8.0); PROTEIN,URINE 2+ (NEGATIVE); UROBILINOGEN,URINE 1 MG/DL (0.0-1.0)
[2020-10-31 11:37] LABS: COLOR,URINE YELLOW
[2020-10-31 11:55] VITALS: BP 166/86
[2020-10-31 13:44] VITALS: BP 162/84
--- NOTE | 2020-10-31 13:50 | Diagnostic Imaging Report ---
EXAM: US Pelvis Transabdominal and Transvaginal, Complete CLINICAL HISTORY: PAIN TECHNIQUE: Real-time complete transabdominal and transvaginal pelvic ultrasound with image documentation. Transvaginal imaging was used for better evaluation of the endometrium and adnexa. COMPARISON: None FINDINGS: Uterus: Measures 6.8 x 3.5 x 4.4 cm. No focal myometrial lesion. Endometrium is not visualized on this exam. Right ovary: Measures 3.1 x 2.6 x 2.8 cm. Heterogeneous appearance of the mildly enlarged right ovary. Normal associated color Doppler flow. Left ovary: Not visualized due to overlying bowel gas. Other: Small amount of free fluid. No adnexal mass. IMPRESSION: 1. Nonspecific heterogeneous mildly enlarged right ovary without evidence of torsion. 2. Left ovary and endometrium not visualized in this exam. 3. Small amount of free fluid in the pelvis.
[2020-10-31] MEDS ORDERED: NITROFURANTOIN100 M2 ORAL (13:53)
[2020-10-31] MEDS ORDERED: PROTONIX40 MG ORAL (13:53)
[2020-10-31 19:50] VITALS: BP 162/84
== END 2020-10-31 20:00 | disposition home or self-care (01) ==
LOC: EMR 10:38
DX: R10.9 Unspecified abdominal pain (principal); R30.0 Dysuria; I10 Essential (primary) hypertension; E11.9 Type 2 diabetes mellitus without complications; K21.9 Gastro-esophageal reflux disease without esophagitis; J44.9 Chronic obstructive pulmonary disease, unspecified; Z99.81 Dependence on supplemental oxygen; E66.3 Overweight; Z68.34 Body mass index [BMI] 34.0-34.9, adult
CPT/HCPCS: 76830; 76856; 80307; 81003; 99284